=== PATIENT | female | born 1965 | race Caucasian/White ===

== ENCOUNTER 2022-10-05 14:14 | Outpatient (REF) | payer MEDICARE, SELFPAY ==
[2022-10-05 14:40] LABS: Basophils Percent Auto 1.4 % (0.0-3.0); Hematocrit 40.1 % (33.0-51.0); Hemoglobin* 12.8 gm/dL (12.0-16.0); Immature Granulocytes Pct Auto 0.2 %; Lymphocytes Percent Auto 35.5 % (20-44); Mean Corpuscular HGB Conc 32 gm/dL (32-36); Mean Corpuscular Hemoglobin 30 pg (26-34); Mean Corpuscular Volume 94 fL (80-100); Monocytes Percent Auto 11.4 % (0.0-11.0); Neutrophils Percent Auto 48.5 % (42.0-72.0); Platelet Count* 205 K/uL (140-440); RDW Coefficient of Variation % 13.9 % (11.5-15.5); Red Blood Count 4.28 m/uL (4.00-5.20); White Blood Count* 4.39 K/uL (4.50-11.00)
[2022-10-05 14:51] LABS: Slide Review Reflex No
[2022-10-05 15:34] LABS: Albumin* 3.9 g/dL (3.3-5.0)
[2022-10-05 15:36] LABS: Aspartate Amino Transferase* 28 U/L (12-35); Bilirubin Direct* 0.3 mg/dL (0.0-0.5); Bilirubin Total* 0.5 mg/dL (0.1-1.5); Total Protein* 6.3 g/dL (6.0-8.3)
[2022-10-05 15:37] LABS: Alanine Aminotransferase* 25 U/L (4-35); Alkaline Phosphatase* 68 U/L (40-150)
[2022-10-05 16:14] LABS: Ferritin* 16.3 ng/mL (11.1-264.0)
== END 2022-10-05 14:15 | disposition home or self-care (01) ==
LOC: NPINS 14:14
PROVIDERS: PCP Family Medicine; Visit Provider Internal Medicine
DX: G35 Multiple sclerosis (principal)
CPT/HCPCS: 80076; 82728; 85025

== ENCOUNTER 2022-12-26 11:57 | Outpatient (CLI) | payer MEDICARE, SELFPAY ==
[2022-12-26 17:34] LABS: Albumin* 3.7 g/dL (3.3-5.0); Chloride* 107 mmol/L (96-114); Potassium* 4.1 mmol/L (3.6-5.1); Sodium* 138 mmol/L (135-149)
[2022-12-26 17:36] LABS: Cholesterol* 144 mg/dL (90-199)
[2022-12-26 17:37] LABS: Alanine Aminotransferase* 30 U/L (4-35); Alkaline Phosphatase* 60 U/L (40-150); Aspartate Amino Transferase* 33 U/L (12-35); Bilirubin Total* 0.5 mg/dL (0.1-1.5); Blood Urea Nitrogen* 11 mg/dL (7-30); Calcium* 8.6 mg/dL (8.4-10.6); Carbon Dioxide* 27 mmol/L (20-32); Creatinine* 0.6 mg/dL (0.5-1.5); Estimated Glomerular Filt Rate 106 ml/min; Glucose* 85 mg/dL (60-115); HDL Cholesterol* 76 mg/dL (>=50); LDL Cholesterol Calculated 57 mg/dL (<100); Total Protein* 6.2 g/dL (6.0-8.3); Triglycerides* 53 mg/dL (40-149)
== END 2022-12-26 11:58 | disposition home or self-care (01) ==
PROVIDERS: PCP Family Medicine; Visit Provider Family Medicine
DX: R63.4 Abnormal weight loss (principal); Z13.29 Encounter for screening for other suspected endocrine disorder; Z13.6 Encounter for screening for cardiovascular disorders
CPT/HCPCS: 80053; 80061; 84443

== ENCOUNTER 2023-06-21 10:53 | Emergency (ER) | payer MEDICARE, SELFPAY ==
[2023-06-21 11:06] VITALS: BP 119/87; PULSE 67; RESP 16; TEMP 36.7; O2SAT 98; BMI 17.7
--- NOTE | 2023-06-21 11:26 | CRLHL7_ITS ---
For Patients: As a result of the Cures Act, medical imaging exams and procedure reports are released immediately into your electronic medical record. You may view this report before your referring provider. If you have questions, please contact your health care provider. Indication: Injury, pain Technique: Right foot 3 views Comparison: None Findings: Postop changes distal 5th metatarsal. No acute fracture. Soft tissue anchors intact. Osteopenia. Mildly displaced fracture involving the proximal phalanx of the right little toe. Overlying soft tissue swelling. Impression: Acute fracture of the right little toe proximal phalanx. Dictated by Ganesh Daly MD @ 06/21/2023 11:59:22 AM (Electronically Signed)
--- NOTE | 2023-06-21 11:27 | ED_ITS ---
HPI - General Adult General Chief complaint: Extremity Pain/Injury, Lower Stated complaint: R toe injury Time Seen by Provider: 06/21/23 11:06 History of Present Illness HPI narrative: Patient stubbed her right 5th toe on a object yesterday and it was sticking straight up she pushed it back into place. She has had some operative intervention on her 5th metatarsal in the past and had pins placed by her report. Patient reports some bruising at the base of the toe has been painful. No other injuries reported Related Data Home Medications Medication Instructions Recorded Confirmed albuterol sulfate 90 mcg/actuation 2 puff inhalation Q4-6H PRN 07/15/22 06/21/23 aerosol inhaler (Ventolin HFA) cholecalciferol (vitamin D3) 125 125 mcg PO QDAY 07/15/22 06/21/23 mcg (5,000 unit) capsule multivitamin 1 tab PO QAM 07/15/22 06/21/23 oxycodone-acetaminophen 7.5 mg-325 2 tab PO DAILY PRN 07/15/22 06/21/23 mg tablet teriflunomide 14 mg tablet 14 mg PO QDAY 07/15/22 06/21/23 (Aubagio) quetiapine 200 mg tablet 200 mg PO QHS 12/26/22 06/21/23 rizatriptan 10 mg tablet 10 mg PO ONCE PRN 12/26/22 06/21/23 Previous Rx's Medication Instructions Recorded ropinirole 4 mg tablet See Rx Instructions .Route 11/07/22 .COMPLEX #90 tabs dextroamphetamine-amphetamine ER 30 mg PO QDAY #10 caps 12/19/22 30 mg 24hr capsule,extend release celecoxib 200 mg capsule See Rx Instructions .Route 02/06/23 .COMPLEX #90 caps amitriptyline 50 mg tablet 50 mg PO QDAY #90 tabs 02/23/23 trazodone 100 mg tablet 100 mg PO .HS #90 tabs 02/23/23 omeprazole 20 mg capsule,delayed 20 mg PO BID #180 caps 03/01/23 release propranolol 160 mg capsule,24 160 mg PO DAILY #90 caps 03/01/23 hr,extended release dextroamphetamine-amphetamine ER 30 mg PO QAM #30 caps 05/17/23 30 mg 24hr capsule,extend release Allergies Allergy/AdvReac Type Severity Reaction Status Date / Time Opioids - Morphine Analogues Allergy Severe Difficulty Verified 06/21/23 11:09 Breathing tramadol Allergy Intermediate Difficulty Verified 06/21/23 11:09 Breathing bupropion Allergy Mild Nausea Verified 06/21/23 11:09 codeine Allergy Mild Nausea Verified 06/21/23 11:09 Review of Systems Narrative: History of prior operative procedure to the right distal foot on the right 5th metatarsal PFSH PFSH Medical History History of atrial fibrillation without current medication ?Z86.79 - Personal history of other diseases of the circulatory system (ICD- 10) Surgical History Status post gastric bypass for obesity ?Z98.84 - Bariatric surgery status (ICD-10) History of hysterectomy with bilateral oophorectomy ?Z90.710 - Acquired absence of both cervix and uterus (ICD-10) ?Z90.722 - Acquired absence of ovaries, bilateral (ICD-10) History of hand surgery ?Z98.890 - Other specified postprocedural states (ICD-10) History of gastric bypass ?Z98.84 - Bariatric surgery status (ICD-10) History of fusion of lumbar spine ?Z98.1 - Arthrodesis status (ICD-10) History of cholecystectomy ?Z90.49 - Acquired absence of other specified parts of digestive tract (ICD- 10) Family History Mother Family history of malignant neoplasm of breast Social History Smoking Status: Current every day smoker Exam Narrative: Exam Narrative: Objective: Vital signs unremarkable In general no apparent distress Right 5th toe shows bruising at the base normal alignment. There is a surgical scar of the distal 5th metatarsal Const: Vital Signs, click to edit/add: Vital Signs - 24 hr 06/21/23 11:06 Temperature 98.1 F Pulse Rate [Pulse Oximeter] 67 Respiratory Rate 16 Blood Pressure [Ri ght Upper Arm] 119/87 Pulse Oximetry 98 Oxygen Delivery Me thod Room Air Course Vital Signs Vital signs: Initial Vital Signs Temperature 98.1 F 06/21/23 11:06 Temperature Source Temporal Artery Scan 06/21/23 11:06 Pulse Rate 67 06/21/23 11:06 Respiratory Rate 16 06/21/23 11:06 Blood Pressure 119/87 06/21/23 11:06 Blood Pressure Mean 97 06/21/23 11:06 Blood Pressure Position Sitting 06/21/23 11:06 Pulse Oximetry 98 06/21/23 11:06 Oxygen Delivery Method Room Air 06/21/23 11:06 Vital Signs Temperature 98.1 F 06/21/23 11:06 Pulse Rate 67 06/21/23 11:06 Respiratory Rate 16 06/21/23 11:06 Blood Pressure 119/87 06/21/23 11:06 Pulse Oximetry 98 06/21/23 11:06 Oxygen Delivery Method Room Air 06/21/23 11:06 Temperature 98.1 F 06/21/23 11:06 Pulse Rate 67 06/21/23 11:06 Respiratory Rate 16 06/21/23 11:06 Blood Pressure 119/87 06/21/23 11:06 Pulse Oximetry 98 06/21/23 11:06 Oxygen Delivery Method Room Air 06/21/23 11:06 Medical Decision Making MDM Narrative Medical decision making narrative: Patient will get an x-ray of the right foot and right 5th toe. Rule out fracture. Will get crutches, will need nonweightbearing icing would use ibuprofen or Tylenol for couple of days elevation. Addendum: Patient has what appears to be a nondisplaced proximal phalanx fracture by my read. Will await Radiology read. Patient should be nonweightbearing, crutches, Tylenol as needed. She should continue her Celebrex.. She has significant allergy to all opioids, but she is already on oxycodone acetaminophen 7.5 mg 2 tabs p.o. daily as needed. I would stay with that, nonweightbearing and icing. Follow up with primary care in the next 5-6 days. Discharge Plan Discharge Clinical Impression: Closed fracture of phalanx of right fifth toe Patient Disposition: Home w/ Parent or Adult Prescriptions: No Action quetiapine 200 mg tablet 200 mg PO QHS rizatriptan 10 mg tablet 10 mg PO ONCE PRN Patient Comments: TAKE 1 TABLET BY MOUTH ONCE . MAY REPEAT AT 2 HOUR INTERVALS. DO NOT EXCEED 30 MG IN 24 HOURS albuterol sulfate [Ventolin HFA] 90 mcg/actuation HFA aerosol inhaler 2 puff inhalation Q4-6H PRN oxycodone-acetaminophen 7.5-325 mg tablet 2 tab PO DAILY PRN Rx Instructions: prescribed by Krystyna at [facility] Aubagio 14 mg tablet 14 mg PO QDAY cholecalciferol (vitamin D3) 125 mcg (5,000 unit) capsule 125 mcg PO QDAY multivitamin Tablet 1 tab PO QAM ropinirole 4 mg tablet See Rx Instructions .ROUTE .COMPLEX Qty: 90 3RF Dose Instruction: TAKE 1 TABLET BY MOUTH AT BEDTIME Rx Instructions: TAKE 1 TABLET BY MOUTH AT BEDTIME dextroamphetamine-amphetamine 30 mg capsule,extended release 24hr 30 mg PO QDAY Qty: 10 0RF celecoxib 200 mg capsule See Rx Instructions .ROUTE .COMPLEX Qty: 90 1RF Dose Instruction: TAKE 1 CAPSULE BY MOUTH DAILY Rx Instructions: TAKE 1 CAPSULE BY MOUTH DAILY amitriptyline 50 mg tablet 50 mg PO QDAY Qty: 90 3RF trazodone 100 mg tablet 100 mg PO .HS Qty: 90 3RF omeprazole 20 mg capsule,delayed release(DR/EC) 20 mg PO BID Qty: 180 3RF propranolol 160 mg capsule,extended release 24 hr 160 mg PO DAILY Qty: 90 3RF dextroamphetamine-amphetamine 30 mg capsule,extended release 24hr 30 mg PO QAM Qty: 30 0RF Follow Up/Referrals: Kenneth Pantoja MD [Primary Care Provider] - Stand Alone Forms: [employer] Info Instructions
--- OUTSIDE RECORDS SUMMARY | 2023-06-21 11:52 | XMS_ITS | Continuity of Care Document ---
Author Name Unknown Organization [facility] Address [address] [place] [address] Care Team Providers Care Sales Representative Facility Services Name Role Phone [facility] Unavailable Unav ailable Procedures Procedure Date IMPLANT NEUROELECTRODES IMPLANT NEUROELECTRODES Implt neurostim elctr each IMPLANT NEUROELECTRODES Advance Directives Directive Yes / No Effective Date File Name No Information Encounters Encounter Description Practice Location Reason(s) For Visit Diagnoses Date Provider Providers Copied on Encounter [facility], [address] [place], [place], [id number], [facility] No Information [facility]. [address] [place], [place], [id number], . tel:[phone] Referring Provider: Aurelia Barriga, [address] [place], [address]. tel:[phone] Family History Family Member Type Diagnosis Age At Onset No Information Payers Payer name Insurance type Covered alliance party ID Authoriza tievie(s) AARP MedicareComplete Replacement [id number] [facility] [id number] Social History Type Description Quantity Date Captured Comments Sex Female Smoking Status No Information Chief Complaint And Reason For Visit No Information Reason For Referral Reason For Referral No Information History Of Present Illness Encounter Date Complaint History Of Prese nt Illness No Information Functional Status Date Functional Assessmen t No Information Instructions Date Instruction Additional Infor mation No Information Assessments Type Assessment Date No Information Patient Care Teams Name Effective Dates (start - stop) Status Members No Information
--- OUTSIDE RECORDS SUMMARY | 2023-06-21 11:52 | XMS_ITS | Continuity of Care Document ---
Author Name Unknown Organization [facility] Address [address] [place] [address] Care Team Providers Care Cloth Measurer Machine Name Role Phone Edwar Epstein CRNA Unavailable Unavailabl e Procedures Procedure Date ANESTH PERC IMG TX SP PROC Advance Directives Directive Yes / No Effective Date File Name No Information Encounters Encounter Description Practice Location Reason(s) For Visit Diagnoses Date Provider Providers Copied on Encounter [facility], [address] [place], [place], [id number], [facility] Mary D No Information Tete Vann. [address] [place], [place], [id number], . tel:[phone] Referring Provider: Aurelia Barriga, [address] [place], [address] . tel:[phone] Family History Family Member Type Diagnosis Age At Onset No Information Payers Payer name Insurance type Covered green party ID Authoralvareza randa(s) [facility] MedicareComplete Replacement [id number] Social History Type Description Quantity Date Captured [...]
--- OUTSIDE RECORDS SUMMARY | 2023-06-21 11:52 | XMS_ITS | Continuity of Care Document ---
Author Name Unknown Organization [facility] .NET ARCHITECT [facility] Address [address] [place] [address] Care Team Providers Care Hamper Maker Machine Name Role Phone Nurse, Nurse Unavailable Unavailable Allergies, Adverse Reactions, Alerts Substance Reaction Status Criticality ibuprofen RashHives Active No Information morphine DifficultyBreathing Active No Infor mation latex RashHives Active No Information codeine RashHives Active No Information morphine RashHives, Swelling, ItchyEyes, Active No Information BUPROPION HCL Active No Information tramadol Active No Information morphine Active No Information codeine Active No Information Medications Medication Instructions Dosage Effective Dates (start - stop) Status Comments omeprazole 20 mg capsule,delayed release take 1 capsule by oral route 2 times every day before a meal 20 MG - Active propranolol ER 80 mg capsule,24 hr,extended release TAKE 1 CAPSULE BY MOUTH EVERY DAY - Active Proventil HFA 90 mcg/actuation aerosol inhaler inhale 2 puff by inhalation route every 4 - 6 hours as needed - Active neomycin-polymyxin -hydrocort 3.5 mg/mL-10,000 unit/mL-1 % ear solution instill 4 drop by otic route 3 times every day into left ear(s) for 10 days - Active EpiPen 2-Lloyd 0.3 mg/0.3 mL injection, auto-injector inject 0.3 milliliter by intramuscular route once as needed for anaphylaxis 0.3 MG - Active quetiapine 200 mg tablet TAKE 2 1/2 TABLET AT BEDTIME - Active albuterol sulfate 2.5 mg/3 mL (0.083 %) solution for nebulization inhale 3 milliliter by nebulization route every 4 to 6 hours as needed - Active Aubagio 14 mg tablet take 1 tablet by oral route every day 14 MG - Active ropinirole 1 mg tablet TAKE 2 TABLET BY ORAL ROUTE ONCE 2 MG - Active Fioricet 50 mg-300 mg-40 mg capsule take 1 - 2 capsule by oral route every 8 hours as needed not to exceed 6 capsules per 24hrs 1-2 capsule - Active modafinil 200 mg tablet take 1 tablet by oral route every day in the morning 200 MG - Active trazodone 50 mg tablet take 2 tablet by oral route every day 100 MG - Active tizanidine 2 mg tablet take 1 tablet by oral route every 8 hours as needed not to exceed 3 doses in 24 hours 2 MG - Active Narcan 4 mg/actuation nasal spray spray 0.1 milliliter by intranasal route in 1 nostril may repeat dose every 2-3 minutes as needed alternating nostrils with each dose 4 MG - Active clobetasol 0.05 % topical ointment apply by topical route 2 times every day a thin layer to the affected area(s) 0.00 - Active Provigil 100 mg tablet take 2 tablet by oral route every day in the morning 200 MG - Active Rx by neuro oxycodone-acetamin ophen 5 mg-325 mg tablet take 1 tablet by oral route every 8 hours as needed 1 tablet - Active multivitamin tablet take 1 tablet by oral route every day with food - Active VITAMIN D3 (unknown strength) Not Available - Active Zantac 150 mg tablet take 1 tablet by oral route 2 times every day - Active Allergy Relief (cetirizine) 10 mg tablet take 1 tablet by oral route every day 10 MG - Active Procedures Procedure Date MED LIST DOCD IN [facility] TOBACCO USE, SMOKING, ASSESS CURRENT TOBACCO SMOKER Expanded Visit Low Complex CO19 020 Void Encounter AMNT PAIN NOTED; NONE PRSNT MED LIST DOCD IN [facility] DEPRESSION SCREENING TOBACCO USE, SMOKING, ASSESS CURRENT TOBACCO SMOKER SYST BP LT 130 MM HG DIAST BP < 80 MM HG OFFICE/OUTPATIENT VISIT, EST COMPREHEN METABOLIC PANEL LIPID PANEL CBC W/AUTO DIFF WBC ELECTROCARDIOGRAM, COMPLETE PROTHROMBIN TIME IN HOUSE Other Health OFFICE/OUTPATIENT VISIT, EST ROUTINE VENIPUNCTURE MED LIST DOCD IN [facility] DEPRESSION SCREENING TOBACCO USE, SMOKING, ASSESS CURRENT TOBACCO SMOKER SYST BP GE 130 - 139MM HG DIAST BP 80-89 MM HG AMNT PAIN NOTED; PAIN PRSNT OFFICE/OUTPATIENT VISIT, EST AMNT PAIN NOTED; PAIN PRSNT MED LIST DOCD IN [facility] DEPRESSION SCREENING SYST BP LT 130 MM HG DIAST BP < 80 MM HG TOBACCO USE, SMOKING, ASSESS TOBACCO NON-USER URINE CULTURE REFERRAL LABCOLONY COUNT R OUTINE URINALYSIS NONAUTO W/O SCOPE AMNT PAIN NOTED; PAIN PRSNT MED LIST DOCD IN [facility] TOBACCO USE, SMOKING, ASSESS CURRENT TOBACCO SMOKER SYST BP LT 130 MM HG DIAST BP < 80 MM HG OFFICE/OUTPATIENT VISIT, EST DIAST BP < 80 MM HG SYST BP LT 130 MM HG ADVNC CARE PLAN TLK DOCD TOBACCO NON-USER TOBACCO USE, SMOKING, ASSESS CURRENT TOBACCO SMOKER DEPRESSION SCREENING MED LIST DOCD IN RD AMNT PAIN NOTED; NONE PRSNT OFFICE/OUTPATIENT VISIT, EST AMNT PAIN NOTED; NONE PRSNT MED LIST DOCD IN RD DEPRESSION SCREENING TOBACCO USE, SMOKING, ASSESS CURRENT TOBACCO SMOKER ADVNC CARE PLAN TLK DOCD SYST BP LT 130 MM HG DIAST BP < 80 MM HG OFFICE/OUTPATIENT VISIT, EST Fecal blood Hemosure scrn assay 018 AMNT PAIN NOTED; NONE PRSNT MED LIST DOCD IN [facility] DEPRESSION SCREENING TOBACCO USE, SMOKING, ASSESS CURRENT TOBACCO SMOKER Hemosure FBOT Test Kit Given SYST BP LT 130 MM HG DIAST BP < 80 MM HG OFFICE/OUTPATIENT VISIT, EST CURRENT TOBACCO SMOKER DEPRESSION SCREENING FALL RISK ASSESSMENT DOC'D SYST BP LT 130 MM HG DIAST BP < 80 MM HG OFFICE/OUTPATIENT VISIT, EST OFFICE/OUTPATIENT VISIT, EST UA For [facility] Preventive VISUAL ACUITY SCREEN PURE TONE HEARING TEST, AIR CURRENT TOBACCO SMOKER AMNT PAIN NOTED; NONE PRSNT DEPRESSION SCREENING FALL RISK ASSESSMENT DOC'D SYST BP LT 130 MM HG DIAST BP < 80 MM HG TOBACCO USE, SMOKING, ASSESS CURRENT TOBACCO SMOKER AMNT PAIN NOTED; PAIN PRSNT ADVNC CARE PLAN TLK DOCD MED LIST DOCD IN [facility] DEPRESSION SCREENING SYST BP LT 130 MM HG DIAST BP < 80 MM HG [place] MA AWV TRACKING [facility] PPS,initial Vi sit OFFICE/OUTPATIENT VISIT, EST CURRENT TOBACCO SMOKER AMNT PAIN NOTED; PAIN PRSNT DEPRESSION SCREENING FALL RISK ASSESSMENT DOC'D SYST BP LT 130 MM HG DIAST BP < 80 MM HG OFFICE/OUTPATIENT VISIT, EST SBIRT SCREEN NEGATIVE Other Health CURRENT TOBACCO SMOKER SYST BP LT 130 MM HG DIAST BP < 80 MM HG AMNT PAIN NOTED; PAIN PRSNT DEPRESSION SCREENING CULTURE, BACTERIA, OTHER AEROBIC BACTERI AL OFFICE/OUTPATIENT VISIT, EST Other Health OFFICE/OUTPATIENT VISIT, EST Other Health TOBACCO USE, SMOKING, ASSESS CURRENT TOBACCO SMOKER AMNT PAIN NOTED; NONE PRSNT MED LIST DOCD IN RD FALL RISK ASSESSMENT DOC'D SYST BP LT 130 MM HG DIAST BP < 80 MM HG OFFICE/OUTPATIENT VISIT, NEW Routine Venipuncture Temp Fix 7 SBIRT SCREEN NEGATIVE Other Health COMPREHEN METABOLIC PANEL CBC W/AUTO DIFF WBC TOBACCO USE, SMOKING, ASSESS CURRENT TOBACCO SMOKER AMNT PAIN NOTED; NONE PRSNT MED LIST DOCD IN RD SYST BP LT 130 MM HG DIAST BP < 80 MM HG FALL RISK ASSESSMENT DOC'D DEPRESSION SCREENING Routine Venipuncture Temp Fix 7 Void Encounter Advance Directives Directive Yes / No Effective Date File Name No Information Encounters Encounter Description Practice Location Reason(s) For Visit Diagnoses Date Provider Providers Copied on Encounter [facility], [address] [place] [address], [id number] , [facility] No Information 0 Nurse Nurse. . [facility] [place], [address] [place] [address], [id number] , [facility] F/U Chronic conditions (chief complaint) Tobacco useBipolar disorder, current episode depressed, moderateNeoplasm of skinOtitis externa 0 Wayne Underwood. [facility] [place], [id number]. tel:[phone] Referring Provider: Yasmine Black, [facility] [place], [address]. tel:[phone] [facility] [place], [address] [place] [address], [id number] , [facility] No Information 0 Alberto Sun. [facility] [place], [id number]. tel:[phone] Referring Provider: Corinne Dominguez, [facility] [place], [address]. tel:[phone] OFFICE/OUTPA TIENT VISIT, [facility], [address] [place] [address], [id number] , [facility] Chronic condition f/u (chief complaint) Tobacco useBody mass index (BMI) 24.0-24.9, adultDietary counseling and surveillanceExer cise counselingBipola r disorder, current episode depressed, moderateMultiple sclerosisGERD w/o esophagitisBee allergy statusPalpitatio nsCOPDNeoplasm of skinOtitis externa 0 Wayne Underwood. [facility] [place], [id number]. tel:[phone] Referring Provider: Yasmine Black, [facility] [place], [address]. tel:[phone] [facility] [place], [address] [place] [address], [id number] , [facility] No Information 0 Wayne Yasmine. [address] [place] [address], [id number]. tel:[phone] Referring Provider: Yasmine Black, [address] [place] [address], [address]. tel:[phone] OFFICE/OUTPA TIENT VISIT, [facility], [address] [place] [address], [id number] , [facility] [place] [facility] Pre-op clearance (chief complaint) Tobacco useBody mass index (BMI) 23.0-23.9, adultPain in right footEncounter for preprocedural examinationWell adult exam w/o abnormal findingDietary counseling and surveillanceExer cise counselingCardia c murmur, unspecified 0 Wayne Hudsonher. [address] [place] [address], [id number]. tel:[phone] Referring Provider: Yasmine Black, [address] [place] [address], [address]. tel:[phone] [facility] [place], [address] [place] [address], [id number] , [facility] [place] No Information [facility]. [address], [id number], [place]. tel:[phone] OFFICE/OUTPA TIENT VISIT, [facility], [address] [place] [address], [id number] , [place] [facility] [place] [facility] ER f/u (chief complaint) Body mass index (BMI) 23.0-23.9, adultEncounter for screening for lipoid disordersPneumon ia, unspecified organismCOPDDiet john counseling and surveillanceExer cise counselingDietar y counseling and surveillanceExer cise counseling 9 Wayne Underwood. [address] [place] [address], [id number]. tel:[phone] Referring Provider: Yasmine Black, [address] [place] [address], [address]. tel:[phone], [id number] , [facility] No Information [facility]. [address] [place] [address], [id number]. tel:[phone] Referring Provider: Yasmine Black, [address] [place] [address], [id number]. tel:[phone] OFFICE/OUTPA TIENT VISIT, [address], [id number] , [facility] Dysuria (chief complaint) Personal history of nicotine dependenceDysuri aBody mass index (BMI) 23.0-23.9, adultDietary counseling and surveillanceExer cise counselingCardia c murmur, unspecifiedPalpi tations [facility]. [address] [place] [address], [id number]. tel:[phone] Referring Provider: Yasmine Black, [address] [place] [address], [address]. tel:[phone] OFFICE/OUTPA TIENT VISIT, [facility], [address] [place] [address], [id number] , [facility] Candace c/o lump under right eye (chief complaint) Body mass index (BMI) 22.0-22.9, adultSebaceous cyst May- 9 Letty Figueroa. [address], [id number], [place]. tel:[phone] Referring Provider: Carolina Sanez, [address], [address]. tel:[phone] OFFICE/OUTPA TIENT VISIT, [facility], [address] [place] [address], [id number] , [facility] Candace c/o sore on arms (chief complaint) Body mass index (BMI) 22.0-22.9, adultSeborrheic keratosis 0-201 9 Letty Figueroa. [address], [id number], [place]. tel:[phone] Referring Provider: Carolina Saenz, [address], [address]. tel:[phone] [facility], [address] [place] [address], [id number] , [facility] [place] Maria Encounter for screening for cancer of colonOccult blood in stoolsHepatic cyst 0201 8 Nurse Nurse. . Referring Provider: Carolina Saenz, [address], [address]. tel:[phone] OFFICE/OUTPA TIENT VISIT, [facility], [address] [place] [address], [id number] , [facility] Candace c/o stomach issues (chief complaint) Body mass index (BMI) 21.0-21.9, adultNausea with vomiting, unspecified 9-201 8 Letty Figueroa. [address], [id number], [place]. tel:[phone] Referring Provider: Carolina Saenz, [address], [address]. tel:[phone] [facility], [address] [place] [address], [id number] , [facility] Candace No Information 8-201 8 Letty Figueroa. [address], [id number], . tel:[phone] [facility], [address] [place] [address], [id number] , [place] [facility] Candace No Information Letty Figueroa. [address], [id number], [place]. tel:[phone] OFFICE/OUTPA TIENT VISIT, [facility], [address] [place] [address], [id number] , [facility] Candace needs referral (chief complaint) Hepatic cyst Letty Figueroa. [address], [id number], [place]. tel:[phone] Referring Provider: Carolina Saenz, [address], [address]. tel:[phone] OFFICE/OUTPA TIENT VISIT, [facility], [address] [place] [address], [id number] , [facility] [place] No Information Letty Figueroa. [address], [id number], [place]. tel:[phone] Referring Provider: Carolina Saenz, [address], [address]. tel:[phone] [facility], [address] [place] [address], [id number] , [facility] Candace . (chief complaint) Encntr for general adult medical exam w/o abnormal findingsEncounte r for screening for eye and ear disordersEncount er for exam of eyes and vision w abnormal findingsEncounte r for exam of ear w/o abnormal findingPlantar wartMultiple sclerosisBody mass index (BMI) 22.0-22.9, adult Letty Figueroa. [address], [id number], [place]. tel:[phone] Referring Provider: Carolina Saenz, [address], [address]. tel:[phone], [id number] , [facility] No Information 8 Letty Donatoos. [address], [id number], . tel:[phone] Referring Provider: Carolina Saenz, [address], [address]. tel:[phone] [facility], [address] [place] [address], [id number] , [facility] medicare preventive (chief complaint) Body mass index (BMI) 22.0-22.9, adult Letty Donatoos. [address], [id number], . tel:[phone] Referring Provider: Carolina Saenz, [address], [address]. tel:[phone] OFFICE/OUTPA TIENT VISIT, [facility], [address] [place] [address], [id number] , [facility] No Information Saenz Carolina. [address], [id number], [place]. tel:[phone] Referring Provider: Carolina Saenz, [address], [address]. tel:[phone] [facility], [address] [place] [address], [id number] , [facility] c/o headaches (chief complaint) Multiple sclerosisHeadach e 8 Saenzsergio Dontaoos. [address], [id number], . tel:[phone] Referring Provider: Carolina Saenz, [address], [address]. tel:[phone] [facility], [address] [place] [address], [id number] , [facility] Candace Multiple sclerosisChronic fatigue, unspecified Apr-1 8-201 8 Letty Donatoos. [address], [id number], [place]. tel:[phone] OFFICE/OUTPA TIENT VISIT, [facility], [address] [place] [address], [id number] , [place] [facility] Candace No Information Jan-2 8 Saenz Carolina. [address], [id number], [place]. tel:[phone] Referring Provider: Carolina Saenz, [address], [address]. tel:[phone] [facility], [address] [place] [address], [id number] , [place] [facility] [place] Maria wants referral. (chief complaint) Body mass index (BMI) 23.0-23.9, adultOtalgia, left ear Mar-2 3 8 Letty Donatoos. [address], [id number], [place]. tel:[phone] Referring Provider: Carolina Saenz, [address], [address]. tel:[phone] [facility], [address] [place] [address], [id number] , [facility] Candace No Information Oct- 7 Letty Donatoos. [address], [id number], [place]. tel:[phone] OFFICE/OUTPA TIENT VISIT, [facility], [address] [place] [address], [id number] , [facility] left ear pain (chief complaint) Body mass index (BMI) 22.0-22.9, adultOtalgia, left earOtitis media, unspecified, left ear Dec-2 Saenz Carolina. [address], [id number], [place]. tel:[phone] OFFICE/OUTPA TIENT VISIT, [facility], [address] [place] [address], [id number] , [facility] No Information Letty Figueroa. [address], [id number], [place]. tel:[phone] Referring Provider: Carolina Saenz, [address], [address]. tel:[phone] [facility], [address] [place] [address], [id number] , [facility] stomach issues (chief complaint) Body mass index (BMI) 22.0-22.9, adultEncounter for other administrative examinationsDiar rheaGastric bypass status for obesityLower abdominal pain, unspecifiedNicot ine dependence Jul- Letty Figueroa. [address], [id number], [place]. [phone] Referring Provider: Carolina Saenz, [address], [address]. [phone] OFFICE/OUTPA TIENT VISIT, [facility], [address] [place] [address], [id number] , [facility] [place] [facility] No Information Derrick Andersen. [facility] [place], [id number], [place]. [phone] Referring Provider: Ganesh Meza, [facility] [place], [address]. tel:[phone], [id number] , [facility] No Information 0 7 Derrick Andersen. [address] [place] [address], [id number], . tel:[phone] Referring Provider: Ganesh Meza, [address] [place] [address], [address]. tel:[phone], [id number] , [facility] [place] [facility] Diarrhea (chief complaint)E stablishmen t Visit (chief complaint) Encounter for other administrative examinationsBody mass index (BMI) 21.0-21.9, adultPersonal history of nicotine dependenceDiarrh eaAbnormal weight lossCOPDDepressi on Derrick Andresen. [address] [place] [address], [id number], . tel:[phone] Referring Provider: Ganesh Meza, [address] [place] [address], [address]. tel:[phone], [id number] , [facility] [place] [facility] No Information 0 7 Letty Figueroa. [address], [id number], . tel:[phone] Referring Provider: Carolina Saenz, [address], [address]. tel:[phone] Family History Family Member Type Diagnosis Age At Onset Problem (finding) Family history of breas t cancer Father Problem (finding) Allergies Brother Problem (finding) Migraines Mother Problem (finding) Hypertension Mother Problem (finding) Arthritis Mother Problem (finding) Allergies Brother Problem (finding) Allergies Problem (finding) Family history of hyper tension Brother Problem (finding) Alcoholism Mother Problem (finding) Cardiovascular disease Problem (finding) Family history of Cardi ovascular disease Mother Problem (finding) Migraines Father Problem (finding) Arthritis Mother Problem (finding) Alcoholism Father Problem (finding) Cardiovascular disease Father Problem (finding) Alcoholism Payers Payer name Insurance type Covered republican ID Ramona tolentino(s) Slide E 09 Social History Type Description Quantity Date Captured Comments Alcohol Use Details Unknown Caffeine Use Details Unknown Tobacco Use Status Smoking Status No Information Sex Female Chief Complaint And Reason For Visit No Information Reason For Referral Reason For Referral No Information Plan Of Treatment Date Type Action Status Goal Influenza vaccine. Due on due Goal FOBT. Due on due Goal Mammogram. Due on 8 due Goal Depression screening. Due on due Goal Tdap. Due on due Goal Td vaccine. Due on 20 due Goal Zoster vaccine (). Due on due Goal Colonoscopy. Due on due Goal Colonoscopy. Due on due Goal Mammogram. Due on 8 due Goal Depression screening. Due on due Goal FOBT. Due on due Goal Zoster vaccine (1st). Due on due Goal Td vaccine. Due on 20 due Goal Tdap. Due on due Goal Influenza vaccine. Due on due Goal FOBT. Due on due Goal Depression screening. Due on due Goal Mammogram. Due on 8 due Goal Colonoscopy. Due on due Goal Tobacco cessation counseling completed Goal Colonoscopy. Due on due Goal Mammogram. Due on 8 due Goal Depression screening. Due on due Goal FOBT. Due on due Goal Lifestyle education regardin g diet completed Goal Tobacco cessation counseling completed Goal Zoster vaccine (1st). Due on due Goal Depression screening. Due on due Goal Mammogram. Due on 9 due Goal Colonoscopy. Due on due Goal Tobacco cessation counseling completed Goal Lifestyle education regardin g diet completed Goal Colonoscopy. Due on due Goal Mammogram. Due on 9 due Goal Depression screening. Due on due Goal Tobacco cessation counseling completed Goal Lifestyle education regardin g diet completed Goal Depression screening. Due on due Goal Mammogram. Due on 9 due Goal Pap/HPV testing. Due on due Goal Colonoscopy. Due on due Goal Lipid panel. Due on due Goal Lifestyle education regardin g diet completed Goal Tobacco cessation counseling completed Goal Lipid panel. Due on due Goal Pap/HPV testing. Due on due Goal Colonoscopy. Due on due Goal Mammogram. Due on 9 due Goal Depression screening. Due on due Goal Lifestyle education regardin g diet completed Goal Mammogram. Due on 9 due Goal Depression screening. Due on due Goal Colonoscopy. Due on due Goal Pap/HPV testing. Due on due Goal Lipid panel. Due on due Goal Lifestyle education regardin g diet completed Goal Lipid panel. Due on due Goal Pap/HPV testing. Due on due Goal Colonoscopy. Due on due Goal Depression screening. Due on due Goal Mammogram. Due on due Goal Mammogram. Due on due Goal Depression screening. Due on due Goal Pap/HPV testing. Due on due Goal Lipid panel. Due on due Goal Lifestyle education regardin g diet completed Goal Mammogram. Due on due Goal Pap/HPV testing. Due on due Goal Depression screening. Due on due Goal Colonoscopy. Due on due Goal Lipid panel. Due on due Goal Pap/HPV testing. Due on due Goal Colonoscopy. Due on due Goal Lipid panel. Due on due Goal Mammogram. Due on due Goal Depression screening. Due on due Goal Colonoscopy. Due on due Goal Pap/HPV testing. Due on due Goal Lipid panel. Due on due Goal Depression screening. Due on due Goal Mammogram. Due on due Goal Colonoscopy. Due on due Goal Pap/HPV testing. Due on due Goal Lipid panel. Due on due Goal Depression screening. Due on due Goal Mammogram. Due on due Goal Pap/HPV testing. Due on due Goal Colonoscopy. Due on due Goal Lipid panel. Due on due Goal Depression screening. Due on due Goal Mammogram. Due on 9 due Goal Lifestyle education regardin g diet completed Goal Pap/HPV testing. Due on due Goal Colonoscopy. Due on due Goal Lipid panel. Due on due Goal Mammogram. Due on due Goal Depression screening. Due on due Goal Pap/HPV testing. Due on due Goal Colonoscopy. Due on due Goal Lipid panel. Due on due Goal Mammogram. Due on due Goal Depression screening. Due on due Goal Pap/HPV testing. Due on due Goal Colonoscopy. Due on due Goal Lipid panel. Due on due Goal Depression screening. Due on due Goal Mammogram. Due on due Goal Lifestyle education regardin g diet completed Goal Tobacco cessation counseling completed Goal Lipid panel. Due on 017 due Goal Colonoscopy. Due on 027 due Goal Pap/HPV testing. Due on due Goal Lifestyle education regardin g diet completed Goal Lipid panel. Due on 017 due Goal Influenza vaccine. Due on due Goal Td vaccine. Due on 17 due Goal Tdap. Due on due Goal Pap/HPV testing. Due on due Goal Dietary manageme nt education, guidance, and counseling completed Goal Pap/HPV testing. Due on due Goal Tdap. Due on due Goal Lipid panel. Due on due Goal Td vaccine. Due on 17 due Goal Influenza vaccine. Due on due Goal Lifestyle education regardin g diet completed Referral Ordered: Referrals: Psychiatry. Evaluate and treat ordered Referral Ordered: Referrals: Dermatology. Evaluate and treat ordered Referral Referred To: [facility] [address] [place] [address] [address] [place], [address] [phone] Ordered: Referrals: Psychiatry. [facility]. Evaluate and treat ordered Referral Referred To: [facility] [address], [address] [phone] Ordered: Referrals: Dermatology. [facility]. Evaluate and treat ordered Referral Ordered: Cardiology (related to Cardiac murmur, unspecified) ordered Referral Referred To: [facility] [address], [address] [phone] Ordered: Referrals: e -Cardiology. [facility]. Evaluate and treat ordered Referral Ordered: Referrals: Cardiology. Evaluate and treat ordered Referral Ordered: Plastic Surgery (related to Sebaceous cyst) ordered Referral Ordered: Plastic Surgery (related to Sebaceous cyst) ordered Referral Referred To: [facility] [address] [place], [address] [phone] Ordered: Referrals: Plastic Surgery. [facility]. Evaluate and treat ordered Referral Ordered: Referrals: Plastic Surgery. Evaluate and treat ordered Referral Ordered: Referrals: Plastic Surgery ordered Referral Ordered: Dermatology (related to Seborrheic keratosis) ordered Referral Referred To: [facility] [address] [place], [address] [phone] Ordered: Referrals: Dermatology. [facility]. Evaluate and treat ordered Referral Referred To: Hector Alejandre MD [address] [place], [address] [phone] Ordered: Referrals: Dermatology. eHctor Alejandre MD. Evaluate and treat ordered Referral Ordered: Referrals: Dermatology ordered Referral Ordered: Gastroenterology (related to Occult blood in stools) ordered Referral Ordered: Gastroenterology (related to Hepatic cyst) ordered Referral Referred To: [facility] [address], [address] [phone] Ordered: Referrals: Gastroenterology. [facility]. Evaluate and treat ordered Referral Ordered: Shelli Aguila -Podiatric Medicine & Surgery Service Providers : Ticker Wirer (related to Plantar wart) ordered Referral Ordered: Mark Waggoner -Podiatric Medicine & Surgery Service Providers : Ticker Wirer (related to Plantar wart) ordered Referral Ordered: Podiatry (related to Plantar wart) ordered Referral Referred To: Mark Waggoner DPM [address], [place], [address] [phone] Ordered: Referrals: Podiatry. Mark Waggoner DPM. Evaluate and treat ordered Referral Referred To: [facility] [address] [place], [address] [phone] Ordered: Referrals: Podiatry. [facility]. Evaluate and treat ordered Referral Referred To: Shelli Aguila [address] [place], [place], [id number] [phone] Ordered: Referrals: Podiatric Medicine & Surgery Service Providers : Ticker Wirer. Shelli Aguila. Evaluate and treat ordered Referral Ordered: Referrals: Podiatry ordered Referral Referred To: Mark Waggoner [address], [address] [phone] Ordered: Referrals: Podiatric Medicine & Surgery Service Providers : Ticker Wirer. Mark Waggoner. Evaluate and treat ordered Referral Ordered: Pain Medicine (related to Headache) ordered Referral Ordered: RICA CARRERA -Allopathic & Osteopathic Physicians : Physical Medicine & Rehabilitation (related to Headache) ordered Referral Referred To: [facility] [address] [place], [address] [phone] Ordered: Referrals: Pain Medicine. [facility]. Evaluate and treat ordered Referral Referred To: RICA CARRERA Ordered: Referrals: Allopathic & Osteopathic Physicians : Physical Medicine & Rehabilitation. RICA CARRERA. Evaluate and treat ordered Referral Ordered: Referrals: Pain Medicine ordered Referral Ordered: Otolaryngology (related to Otalgia, left ear) ordered Referral Ordered: Otolaryngology (related to Otalgia, left ear) ordered Referral Referred To: [facility] [address] [place], [address] [phone] Ordered: Referrals: Otolaryngology. [facility]. Evaluate and treat ordered Referral Ordered: Referrals: Otolaryngology ordered Referral Ordered: Referrals: Otolaryngology. Evaluate and treat ordered Referral Ordered: Gastroenterology (related to Gastric bypass status for obesity) ordered Referral Referred To: [facility] [address] [facility],[address] [place], [address] [phone] Ordered: Referrals: Gastroenterology. [facility]. Evaluate and treat ordered Referral Ordered: Referrals: Gastroenterology ordered Patient Education Allergies: After Your V isit completed History Of Present Illness Encounter Date Complaint History Of Prese nt Illness F/U Chronic conditions Skin lesi ons - Went to derm in interim and had biopsy of lesion near elbow and told by derm it was possibly cancerous. Should have results in a week or so. Clobetazole given to use for 2 weeks, take a break for 2 days, and then do again for 2 weeks. No f/u appt w/ them yet. States biopsy site is not draining anything or any increased pain. She does feel other lesions are less bothersome and responding well to cream. Bipolar depression - States her mood has been okay in interim. Has been staying busy and doing a lot of outdoor activities, doing more painting and drawing again and this has helped. Has not had f/u w/ psych yet. Planning to go see family in [place] for about a month soon and is looking forward to this. Denies SI.OE - Ear is much better, like she never had an issue w/ it. No longer itching or bothering her. No drainage from ear. F/U Chronic conditions (comments ) Begin Time 1:06 p.m.:The patient understands I recommended engaging in a telehealth appointment and was explained alternatives and limitations to a telehealth appointment. The patient read and signed a consent document, verbally agrees and understands the risks and benefits of the telehealth appointment. Questions about the telehealth conference and consent form were explained. The patient understands and agrees that this conversation may contain personal health information and acknowledges the privacy policies of [facility]. I am currently at the office in a private setting. My understanding is that you are at your residence. Is there anyone in the room with you? Patient stated she is at home by herself and would like to proceed with visit. Chronic condition f/u (comments) Also mutliple recurrent skin lesions to bilat arms, will come and go and scar and some will linger. Started in August. Chronic condition f/u MS - Follo ws w/ neurology. Takes Aubagio 14 mg/day. Feels like sometimes she still has no energy and is sluggish but feels this is stable overall.Bipolar disorder and insomnia - Takes meds consistently. Feels a little on edge lately. Feels more down/depressed lately r/t COVID-19 and having to cancel trips. Not doing art like she normally would. Disinterest in normal activities she would enjoy. Denies SI. States not really sleeping that well. Wakes up around 4-5 a.m. every day. Neuro prescribes quetiapine and trazodone. States is also on Provigil ordered by neuro to help w/ energy w/ MS.GERD - Takes omeprazole BID secondary to heartburn and to protect stomach w/ meds. States symptoms are well controlled and she doesn't feel heartburn when takes med regularly. Denies abd pain, N/V.Also condones having incident w/ trouble breathing after being stung by a bee before and asking about Epi pen just in case. COPD - Rarely uses rescue inhaler. Has cut back on smoking a lot. Was on about 1 pack/day, now about 1/2 pack/day.Has heart murmur and told there was problem w/ one of her heart valves - states it balloons out some but nothing serious and doesn't need intervention. States used to have palpitations but no issues w/ this since being on propranolol. Pre-op clearance Pt presents for pre-op clearance for surgery on right foot. Pt has had pain in R foot since 2014. She states there is a bone twisted in this area and they are going to address ths. Pt thought was r/t stepping on nail many years prior but is not r/t this. Pre-op papers indicate she will have R foot osteotomy or 5th mpj. Denies recent illness or fever. No recent travel. Denies nausea, vomiting, diarrhea. Pt has already received pre-op clearance from cardio. Has had surgery many times before and never had any complications with anesthesia. ER f/u [facility] - SEE SCANNED CHART NOTES Dysuria Onset: 1 week ag o. Location is lower back. The patient describes it as cloudy. It occurs constantly. The problem is with no change. Additional information: Itchy on urination and denies burning on urination. No frequency. Last UTI many years.. c/o lump under right eye 53y/o f emale refers she notice to have this small lump under her right lower palpebral area. It has been present for more than a month and it is getting larger. It is not painful when it is touched. It is not movable. c/o sore on arms 53y/o female wi th history of MS. She refers was working outside cutting branches and her arms began to itch. She has developed sore on her right upper arm.This has been going n for two months. They are itchy and they have scabs on the top. he has used Vit E oil and hydrocortisone. c/o stomach issues The symptoms began on 10/08/2018. Patient refers she has been feeling nauseated without eating or not eating, she did vomited twice in the past two weeks. She has had tarry stools since two weeks ago. She has had dark stools (3) in the last two weeks. She had a gastric bypass in 08/2013. She had a colonoscopy about a year ago. She has been eating plenty of fruits latelyShe is not gaining any weight.She does not feel weak, but tired because of her MS. She has bowel movements every other day. needs referral 52y/o female wit h history of MS, gastric bypass and low back pain. At the pain clinic she was ordered an MRI of the lumbar spine and it showed that she has a cystic lesion in the right lobe of her liver. She would like to be evaluated by a Gastro. . 52y/o female wit h history of Multiple Sclerosis. She is here for a physical. medicare preventive Recently, th e patient has felt down, depressed or hopeless and has felt little interest or pleasure in doing things. Depression screening score was 3. SLUMS assessment completed, with a total score of 27, Normal. The ''Up and Go'' test took less than 30 seconds and the patient does not need help with activities of daily living. The patient is at risk for falls. The patient has fallen 2 times in the last year. The fall(s) resulted in injury. Details: Fractured wrist on right arm. Patient's activity level is moderate. The patient has smoke detectors, carbon monoxide detectors, electric heating in the home. The patient does not have firearms in the home. There is no radon in the patient's home. Patient reports using a seatbelt in vehicles. Patient does not take calcium. Patient reports taking Vitamin D. Patient reports taking a multivitamin. Patient does not take folic acid. Relevant history is positive for passive smoke exposure. Relevant history is negative for passive vaping exposure, alcohol use. c/o headaches She states the s ymptoms are chronic and are uncontrolled. 52y/o female with history of Multiple sclerosis. She refers she has been having headaches for several weeks. She had been evaluated by a Neurologist on 02/20/2018 and she address this to the specialist and was told to come here to be referred to a Pain Clinic.Her headaches have been going on for several months, she has only tried sumatriptan 25mg. wants referral. The symptoms are reported as being mild. 52y/o,female with history of Otalgia, Multiple Sclerosis, Seep apnea, headaches, GERD, bipolar disorder, She is still having pain in her left ear and it itches and she would like to be referred to an ENT. left ear pain The symptoms beg an 2 months ago. The symptoms are reported as being mild. The symptoms occur daily. The location is left ear. She states the symptoms are chronic. 52y/o female refershe has had left ear pain on and off for more than 2 months. She has used ear drops but the pain comes back. stomach issues The symptoms beg an 4 years ago. The symptoms are reported as being moderate. The symptoms occur weekly. The location is intestine. She states the symptoms are chronic and are uncontrolled. Case of 51y/o female with stomach issues. She had a gastric bypass four years ago. Shre refers she ehas had watery diarrhea, then it went to not being able to go.Her intestine went up her upper abdominal area and she had a surgery where she had an exploratory surgery done. Her intestine were cut out, and it took the pain away. She had a ventral hernia that was corrected.She also has history of having MS (multiple sclerosis), she takes shots of capaxone.She has history of smoking one pack of cigarettes. She used to smoke 2-3 packs a cigarettes daily for more than 36 years. Diarrhea Associated sympt oms include nausea and vomiting. Pertinent negatives include abdominal pain, anorexia, bloating, blood in stool, change in appetite, cramping (abdominal), decreased urine output, distention (abdominal), fecal incontinence, fever, flatulence, joint pain, rash, tenesmus and weight loss. Additional information: No relief with OTC meds. Establishment Visit New to area. Multiple health problems. Psych history, multiple back surgeries, Hx Gastric bypass with complications. Functional Status Date Functional Assessmen t No Information Instructions Date Instruction Additional Infor mation Avoid submerging ear s underwater or getting water in ears otherwise. Return to clinic if symptoms recur or worsen. Related to Otitis externa Continue medications as prescribed by derm and f/u w/ them appropriately. Return to clinic if any new or worsening symptoms. Related to Neoplasm of skin Continue current med regimen. F/U w/ psych and counselor appropriately. Return to clinic if any new or worsening symptoms and otherwise f/u end of May after trip. Related to Bipolar disorder, current episode depressed, moderate Drops as ordered. Av oid getting water in ears. Return to clinic if any new or worsening symptoms. Otherwise f/u 2 weeks to re-eval d/t persistence of symptoms. Related to Otitis externa Refer to derm for fu rther eval and mgmt. Return to clinic if any new or worsening symptoms. Related to Neoplasm of skin Continue inhaler prn . Return to clinic if symptoms become persistent and need to use inhaler more regularly. Related to COPD Continue propranolol daily. Return to clinic if any new or worsening symptoms. Related to Palpitations Counseled pt that Ep i-pen is only to be used in emergency situations and if develops trouble breathing w/ bee sting. Pt indicates understanding. Use appropriately. Return to clinic or go to ER if incident occurs. Related to Bee allergy status Continue omeprazole as have been doing. Avoid GI irritants. Return to clinic if any new or worsening symptoms and otherwise f/u 2 weeks. Related to GERD w/o esophagitis Referral placed to p brenden d/t pt's hx and complexity of care. Plans to see [facility] [employer] THERAPIST in interim. Continue current meds at this time. F/u 2 weeks. Return to clinic sooner if any new or worsening symptoms. Related to Bipolar disorder, current episode depressed, moderate Continue current med regimen and f/u w/ neuro appropriately. Return to clinic if any new or worsening symptoms. Related to Multiple sclerosis Giving encouragement to exercise Related to Body mass index (BMI) 24.0-24.9, adult Lifestyle education regarding di et Related to Body mass index (BMI) 24.0-24.9, adult Pt cleared by cardio and no new findings from PCP standpoint to prevent pt from moving forward with surgery. Pt cleared for surgery, f/u pending this. Related to Cardiac murmur, unspecified Pt cleared for surge ry from PCP standpoint.F/U after surgery or return sooner if any new or worsening symptoms. Related to Pain in right foot Pt cleared for surge ry.F/U pending surgery. Related to Encounter for preprocedural examination Pt advised against t he use of Q-tips, especially since it appears it is irritated and perhaps causing trauma to eardrums. Lab results obtained in interim for CBC, CMP and PT/INR and are all WNL. Pt cleared for surgery from PCP standpoint. Return to clinic if any new or worsening symptoms. Related to Well adult exam w/o abnormal finding Lifestyle education regarding di et Related to Body mass index (BMI) 23.0-23.9, adult Giving encouragement to exercise Related to Body mass index (BMI) 23.0-23.9, adult Lifestyle education regarding di et Related to Body mass index (BMI) 23.0-23.9, adult Giving encouragement to exercise Related to Body mass index (BMI) 23.0-23.9, adult Continue current med s. Refer to cardio for further eval. Return to clinic if any new or worsening symptoms. Related to Palpitations Refer to cardio for further eval given hx and symptoms. Continue current meds in interim. Return to clinic if any new or worsening symptoms. Related to Cardiac murmur, unspecified Will send UA for cul ture for sensitivities. Will start Macrobid x 7 days in the meantime d/t severity of symptoms. Increase fluid intake, primarily water to flush system. No soaking in bath tub, wiping from front to back, wear breathable cotton underwear. F/U pending culture results. Otherwise return to clinic if symptoms worsen/new symptoms start. Related to Dysuria Giving encouragement to exercise Related to Body mass index (BMI) 23.0-23.9, adult Lifestyle education regarding di et Related to Body mass index (BMI) 23.0-23.9, adult Patient was told to avoid touching it. The patient verbalized an understanding of all instructions. The patient was advised to call the office if symptoms worsen or do not improve. Related to Sebaceous cyst Lifestyle education regarding di et Related to Body mass index (BMI) 22.0-22.9, adult Giving encouragement to exercise Related to Body mass index (BMI) 22.0-22.9, adult Wound Instructions given. Relate d to Sebaceous cyst The patient verbaliz ed an understanding of all instructions. The patient was advised to call the office if symptoms worsen or do not improve. Related to Seborrheic keratosis Giving encouragement to exercise Related to Body mass index (BMI) 22.0-22.9, adult Lifestyle education regarding di et Related to Body mass index (BMI) 22.0-22.9, adult Signs and symptoms o f emergency were discussed with the patient. The patient verbalized an understanding of all instructions. The patient was advised to call the office if symptoms worsen or do not improve. Related to Nausea with vomiting, unspecified Lifestyle education regarding di et Related to Body mass index (BMI) 21.0-21.9, adult take medications as directed, Re lated to Nausea with vomiting, unspecified The patient verbaliz ed an understanding of all instructions. The patient was advised to call the office if symptoms worsen or do not improve. The patient was advised to resume activity as tolerated. Related to Hepatic cyst Avoid non-steroidal anti-inflammatory drugs. Related to Hepatic cyst Stop alcohol ingestion. Related to Hepatic cyst The risks and benefi ts of the treatment plan were discussed with the patient. The patient was advised to resume activity as tolerated. Related to Encntr for general adult medical exam w/o abnormal findings Increase activity. Related to En cntr for general adult medical exam w/o abnormal findings Perform monthly self breast examinations. Related to Encntr for general adult medical exam w/o abnormal findings Lifestyle education regarding di et Related to Body mass index (BMI) 22.0-22.9, adult Giving encouragement to exercise Related to Body mass index (BMI) 22.0-22.9, adult Maintain adequate re st. The patient verbalized an understanding of all instructions. The patient was advised to call the office if symptoms worsen or do not improve. The patient was advised to resume activity as tolerated. Related to Headache take medication as prescribed Re lated to Headache Signs and symptoms o f infection were discussed with the patient. The patient verbalized an understanding of all instructions. The patient was advised to call the office if symptoms worsen or do not improve. The patient was advised to resume activity as tolerated. Related to Otalgia, left ear Lifestyle education regarding di et Related to Body mass index (BMI) 23.0-23.9, adult take medications as directed, Re lated to Otalgia, left ear Giving encouragement to exercise Related to Body mass index (BMI) 23.0-23.9, adult Signs and symptoms o f infection were discussed with the patient. The patient verbalized an understanding of all instructions. The patient was advised to call the office if symptoms worsen or do not improve. Related to Otitis media, unspecified, left ear Lifestyle education regarding di et Related to Body mass index (BMI) 22.0-22.9, adult Giving encouragement to exercise Related to Body mass index (BMI) 22.0-22.9, adult take medication as prescribed Re lated to Otitis media, unspecified, left ear Patient was told to stay well hydrated. and if she gets contipated to eat fiber. Related to Diarrhea Dietary management e ducation, guidance, and counseling Related to Body mass index (BMI) 22.0-22.9, adult take medications as directed, Re lated to Diarrhea take medications as directed, Re lated to Diarrhea Labs ordered. Record s from previous provider requested Related to Abnormal weight loss No improvement with Immodium. Lomotil 1 tab after each liquid BM, no more than 4 tabs a day. F/U with results Related to Diarrhea Lifestyle education regarding di et Related to Body mass index (BMI) 21.0-21.9, adult Giving encouragement to exercise Related to Body mass index (BMI) 21.0-21.9, adult Assessments Type Assessment Date No Information Patient Care Teams Name Effective Dates (start - stop) Status Members No Information
--- OUTSIDE RECORDS SUMMARY | 2023-06-21 11:52 | XMS_ITS | Continuity of Care Document ---
Author Name Unknown Organization [facility] enter Address [address] [place] [address] 11 [facility] [address] [place] [address] Phone Care Team Providers Care Ultimate Hoops Scoreboard Operator Name Role Phone [facility] Unavailable Unava ilable Procedures Procedure Date Facet Jt Inj Cervical/Thoracic RIGHT Feb Facet Jt Inj Cerv/Thor 2nd Level RIGHT A Advance Directives Directive Yes / No Effective Date File Name No Information Encounters Encounter Description Practice Location Reason(s) For Visit Diagnoses Date Provider Providers Copied on Encounter [facility], [address] [place] [address] 11 [facility] [address], [place], [id number], [place] tel:[phone] [facility] No Information 2 [facility]. [address] [place] [address] 11 [facility] [address], [place], [id number], [place]. tel:[phone] Referring Provider: Una Lay [address] [facility] [address], [place], [address]. tel:[phone] Family History Family Member Type Diagnosis Age At Onset No Information Payers Payer name Insurance type Covered libertarian ID Authoriza tievie(s) AARP MedicareComplete Replacement [id number] [facility] [id number] Social History Type Description Quantity Date Captured [...]
--- OUTSIDE RECORDS SUMMARY | 2023-06-21 11:53 | XMS_ITS | Continuity of Care Document ---
Author Name Unknown Organization [facility] Address [address] [place] [address] Care Team Providers Care Open Tenter Operator Name Role Phone Edwar Epstein CRNA Unavailable Unavailabl e Procedures Procedure Date ANESTH PERC IMG TX SP PROC Advance Directives Directive Yes / No Effective Date File Name No Information Encounters Encounter Description Practice Location Reason(s) For Visit Diagnoses Date Provider Providers Copied on Encounter [facility], [address] [place], [place], [id number], [facility] [place] No Information Tete Vann. [address] [place], [place], [id number], . tel:[phone] Referring Provider: Aurelia Barriga, [address] [place], [address] . tel:[phone] Family History Family Member Type Diagnosis Age At Onset No Information Payers Payer name Insurance type Covered libertarian ID Authoralvareza randa(s) [facility] MedicareComplete Replacement [id number] Social History Type Description Quantity Date [...]
--- OUTSIDE RECORDS SUMMARY | 2023-06-21 11:53 | XMS_ITS | Continuity of Care Document ---
Author Name Unknown Organization [facility] enter Address [address] [place] [address] 11 [facility] [[email or web address] [address] [place] [address] Phone Care Team Providers Care Petroleum Inspector Supervisor Name Role Phone [facility] [place] Unavailable Unava ilable Procedures Procedure Date Facet Jt Inj Cervical/Thoracic RIGHT Feb Facet Jt Inj Cerv/Thor 2nd Level RIGHT A Advance Directives Directive Yes / No Effective Date File Name No Information Encounters Encounter Description Practice Location Reason(s) For Visit Diagnoses Date Provider Providers Copied on Encounter [facility], [address] [place] [address] 11 [facility] [[email or web address] [address], [place], [id number], [place] tel:[phone] [facility] No Information 2 [facility]. [address] [place] [address] 11 [facility] [[email or web address] [address], [place], [id number], [place]. tel:[phone] Referring Provider: Una Lay [address] [facility] [address], [place], [address]. tel:[phone] Family History Family Member Type Diagnosis Age At Onset No Information Payers Payer name Insurance type Covered constitution party ID Authoriza tievie(s) AARP MedicareComplete Replacement [id number] [facility] [id number] Social History Type Description Quantity Date Captured [...]
--- OUTSIDE RECORDS SUMMARY | 2023-06-21 11:53 | XMS_ITS | Continuity of Care Document ---
Author Name Unknown Organization [facility] nadira Address [address] [address] [place] [address] Phone Care Team Providers Care Urban Anthropologist Name Role Phone Georgia SUKHI Krystyna Unavailable Unavailable Allergies, Adverse Reactions, Alerts Substance Reaction Status Criticality coconut Active No Information DULOXETINE HCL Active No Informatio n tramadol Active No Information BUPROPION HCL Active No Information morphine Active No Information Medications Medication Instructions Dosage Effective Dates (start - stop) Status Comments Percocet 7.5 mg-325 mg tablet take 1 tablet by oral route every 6 hours as needed, max 3/day for chronic pain - Active Please dispense MALLINCKRODT. May fill today; tizanidine 2 mg tablet take 1 tablet by oral route every 6 - 8 hours as needed not to exceed 3 doses in 24 hours 2 MG - Active ferrous sulfate 325 mg (65 mg iron) tablet take 3 tablet by oral route every day 975 MG - Active Seroquel 200 mg tablet take 1 tablet by oral route every evening 200 MG - Active Aubagio 14 mg tablet take 1 tablet by oral route every day 14 MG - Active FOR MS celecoxib 200 mg capsule take 1 capsule by oral route every day 200 MG - Active gabapentin 300 mg capsule TAKE 2 CAPSULE BY MOUTH AT DINNER TIME; THEN 4 CAPSULES BEDTIME - Active omeprazole 20 mg tablet,delayed release - Active Vitamin D3 50 mcg (2,000 unit) capsule take 1 tablet by oral route every day 1 tablet - Active Inderal XL 120 mg capsule,extended release take 1 capsule by oral route every day at bedtime 120 MG - Active ropinirole 4 mg tablet take 1 tablet by oral route every day 4 MG - Active trazodone 100 mg tablet take 1 tablet by oral route 2 times every day after meals 100 MG - Active dextroamphetamine-a mphetamine 20 mg tablet take 3 tablet by oral route 2 times every day before breakfast 60 MG - Active amitriptyline 50 mg tablet take 1 tablet by oral route every day at bedtime 50 MG - Active multivitamin tablet take 1 tablet by oral route every day 1 tablet - Active RIZATRIPTAN 10MG TABLETS TAKE 1 TABLET BY MOUTH ONCE. MAY REPEAT AT 2 HOUR INTERVALS. DO NOT EXCEED 30 MG IN 24 HOURS - No Longer Active Percocet 7.5 mg-325 mg tablet take 1 tablet by oral route every 6 hours as needed, max 3/day for chronic pain - No Longer Active Please dispense MALLINCKRODT. May fill today; ferrous sulfate 325 mg (65 mg iron) tablet take 3 tablet by oral route 2 times every day 975 MG - No Longer Active Seroquel 200 mg tablet take 2.5 tablet by oral route every evening 500 MG - No Longer Active Procedures Procedure Date OFFICE/OUTPATIENT VISIT, EST OFFICE VISIT, EST TELEMEDICINE OFFICE VISIT, EST TELEMEDICINE Foll-up eval q3mo opiod tx OFFICE VISIT, EST TELEMEDICINE Drug test def 8-14 classes Drug Urine Toxology With Chromatography Foll-up eval q3mo opiod tx OFFICE/OUTPATIENT VISIT, EST OFFICE VISIT, EST TELEMEDICINE Foll-up eval q3mo opiod tx OFFICE/OUTPATIENT VISIT, EST Foll-up eval q3mo opiod tx OFFICE VISIT, EST TELEMEDICINE Foll-up eval q3mo opiod tx OFFICE VISIT, EST TELEMEDICINE Drug Urine Toxology With Chromatography Drug test def 8-14 classes Foll-up eval q3mo opiod tx OFFICE/OUTPATIENT VISIT, EST OFFICE VISIT, EST TELEMEDICINE Foll-up eval q3mo opiod tx Foll-up eval q3mo opiod tx OFFICE VISIT, EST TELEMEDICINE Foll-up eval q3mo opiod tx OFFICE VISIT, EST TELEMEDICINE Foll-up eval q3mo opiod tx OFFICE/OUTPATIENT VISIT, EST Drug Urine Toxology With Chromatography Drug test def 8-14 classes Foll-up eval q3mo opiod tx OFFICE/OUTPATIENT VISIT, EST Foll-up eval q3mo opiod tx OFFICE VISIT, EST TELEMEDICINE 22 Facet Jt Inj Or MBB Cervical/Thoracic RI GHT Facet Jt Inj Or MBB Cerv/Thor 2nd Level RIGHT Foll-up eval q3mo opiod tx OFFICE VISIT, EST TELEMEDICINE 22 PT EVAL MOD COMPLEX 30 MIN Foll-up eval q3mo opiod tx OFFICE VISIT, EST TELEMEDICINE Drug Urine Toxology With Chromatography Drug test def 8-14 classes Kenalog Triamcinolone acetonide inj INJ TRIGGER POINT, 1/2 MUSCL Foll-up eval q3mo opiod tx OFFICE/OUTPATIENT VISIT, EST Foll-up eval q3mo opiod tx OFFICE VISIT, EST TELEMEDICINE Foll-up eval q3mo opiod tx OFFICE VISIT, EST TELEMEDICINE Foll-up eval q3mo opiod tx OFFICE VISIT, EST TELEMEDICINE ROUTINE BLOOD DRAW Drug Urine Toxology With Chromatography Drug test def 8-14 classes Substance Interv 15-30mn Foll-up eval q3mo opiod tx OFFICE/OUTPATIENT VISIT, EST Foll-up eval q3mo opiod tx OFFICE VISIT, EST TELEMEDICINE Foll-up eval q3mo opiod tx OFFICE VISIT, EST TELEMEDICINE Foll-up eval q3mo opiod tx OFFICE VISIT, EST TELEMEDICINE SCS Lead Pull Satellite SCS Mid Trial Satellite IMPLANT NEUROELECTRODES ASC IMPLANT NEUROELECTRODES ASC ANALYZE NEUROSTIM, COMPLEX Foll-up eval q3mo opiod tx OFFICE VISIT, EST TELEMEDICINE Psych Dx Eval PT EVAL MOD COMPLEX 30 MIN SELF CARE MNGMENT TRAINING Drug Urine Toxology With Chromatography Foll-up eval q3mo opiod tx OFFICE/OUTPATIENT VISIT, EST Foll-up eval q3mo opiod tx OFFICE VISIT, EST TELEMEDICINE Foll-up eval q3mo opiod tx OFFICE VISIT, EST TELEMEDICINE Foll-up eval q3mo opiod tx OFFICE VISIT, EST TELEMEDICINE Foll-up eval q3mo opiod tx OFFICE VISIT, EST TELEMEDICINE Foll-up eval q3mo opiod tx OFFICE VISIT, EST TELEMEDICINE Foll-up eval q3mo opiod tx OFFICE VISIT, EST TELEMEDICINE Foll-up eval q3mo opiod tx OFFICE VISIT, EST TELEMEDICINE Nov-11-20 20 Foll-up eval q3mo opiod tx OFFICE/OUTPATIENT VISIT, EST Substance Interv 15-30mn OFFICE/OUTPATIENT VISIT, NEW Advance Directives Directive Yes / No Effective Date File Name No Information Encounters Encounter Description Practice Location Reason(s) For Visit Diagnoses Date Provider Providers Copied on Encounter OFFICE/OUTPAT IENT VISIT, [facility], [address] [place] [address], [id number] , [place] [phone] [facility] Back Pain (chief complaint) Chronic migraine without aura, intractable, without status migrainosusChro nadira pain syndromeRadicul opathy, cervical regionRadiculop athy, lumbar regionPostlamin ectomy syndrome, not elsewhere classifiedLong term (current) use of opiate analgesic 3 Nyongesa Krystyna. [id number] [place] [address], [place], [place], [id number] , [place]. [phone] Referring Provider: Gonzalo Adams, [address] [place] [address], [address]. tel:[phone] [facility], [address] [place] [address], [id number] , [place] [phone] [facility] No Information 3 [facility]. [address], [place], [id number] , [place]. [phone] OFFICE VISIT, [facility] TELEMEDICINE [facility], [address] [place] [address], [id number] , [place] [phone] [facility] Back Pain (chief complaint) Chronic migraine without aura, intractable, without status migrainosusChro nadira pain syndromeRadicul opathy, lumbar regionPostlamin ectomy syndrome, not elsewhere classifiedLong term (current) use of opiate analgesicRadicu lopathy, cervical region 3 Nyongesa Krystyna. [address] [facility] [address] [facility] [address], [place], [id number] , [place]. [phone] Referring Provider: Gonzalo Adams, [address] [place] [address], [id number]. tel:[phone] OFFICE VISIT, [facility] TELEMEDICINE [facility], [address] [place] [address], [id number] , [place] tel: [phone] [facility] Back Pain (chief complaint) Chronic migraine without aura, intractable, without status migrainosusChro nadira pain syndromeSpondyl osis without myelopathy or radiculopathy, cervical regionRadiculop athy, lumbar regionPostlamin ectomy syndrome, not elsewhere classifiedLong term (current) use of opiate analgesic George-0 3 Nyongesa Krystyna. [address] [facility] [address], [place], [place], [id number] , [place]. tel: [phone] OFFICE VISIT, [facility] TELEMEDICINE [facility], [address] [place] [address], [id number] , [place] tel: [phone] [facility] Back Pain (chief complaint) Chronic migraine without aura, intractable, without status migrainosusChro nadira pain syndromeSpondyl osis without myelopathy or radiculopathy, cervical regionRadiculop athy, lumbar regionPostlamin ectomy syndrome, not elsewhere classifiedLong term (current) use of opiate analgesic March-0 3 Nyongesa Krystyna. [address] [facility] [address], [place], [place], [id number] , [place]. tel: [phone] Referring Provider: Gonzalo Adams, [address] [place] [address], [address]. tel:[phone] [facility], [address] [place] [address], [id number] , [place] tel: [phone] [facility] No Information 0 3 Nyongesa Krystyna. [address] [facility] [address], [place], [place], [id number] , [place]. tel: [phone] Referring Provider: Gonzalo Adams, [address] [place] [address], [address]. tel:[phone] OFFICE/OUTPAT IENT VISIT, [facility], [address] [place], [id number] , [place] tel:[phone] [facility] Back Pain (chief complaint) Chronic migraine without aura, intractable, without status migrainosusChro nadira pain syndromeSpondyl osis without myelopathy or radiculopathy, cervical regionPostlamin ectomy syndrome, not elsewhere classifiedLong term (current) use of opiate analgesicRadicu lopathy, lumbar regionEncounter for therapeutic drug level monitoring Feb-0 - 3 [facility]. [address] [facility] [address], [place], [place], [id number] , [place]. tel:[phone] Referring Provider: Gonzalo Adams, [address] [place], [address]. [phone] OFFICE VISIT, [facility], [address] [place] [address], [id number] , [place] tel:[phone] [facility] Back Pain (chief complaint) Chronic migraine without aura, intractable, without status migrainosusSpon dylosis without myelopathy or radiculopathy, cervical regionPostlamin ectomy syndrome, not elsewhere classifiedLong term (current) use of opiate analgesicChroni c pain syndrome [address] [facility] Krystyna. [address] [facility] [address], [place], [id number] , [place]. tel: [phone] OFFICE/OUTPAT IENT VISIT, [facility], [address] [place] [address], [id number] , [place] tel: [phone] [facility] Back pain (chief complaint) Multiple sclerosisChroni c migraine without aura, intractable, without status migrainosusCarp al tunnel syndrome, left upper limbPain in right hipPain in left hipSpondylosis without myelopathy or radiculopathy, cervical regionRadiculop athy, lumbar regionPostlamin ectomy syndrome, not elsewhere classifiedLong term (current) use of opiate analgesic 3 Yolis Murry. [address] [facility] [address], [place], [place], [id number] , [place]. tel:[phone] Referring Provider: Gonzalo Adams, [address] [place] [address], [address]. tel:[phone] OFFICE VISIT, EST TELEMEDICINE [facility], [address] [place] [address], [id number] , [place] [phone] [facility] low back pain (chief complaint) Multiple sclerosisChroni c migraine without aura, intractable, without status migrainosusCarp al tunnel syndrome, left upper limbPain in right hipPain in left hipSpondylosis without myelopathy or radiculopathy, cervical regionPostlamin ectomy syndrome, not elsewhere classifiedLong term (current) use of opiate analgesicRadicu lopathy, lumbar region Oct- 8- 2 Nyongesa Krystyna. [address] [facility] [address], [place], [place], [id number] , [place]. tel:[phone] Referring Provider: Gonzalo Adams, [address] [place] [address], [address]. tel:[phone] OFFICE VISIT, EST TELEMEDICINE [facility], [address] [place] [address], [id number] , [place] [phone] [facility] low back pain (chief complaint) Multiple sclerosisChroni c migraine without aura, intractable, without status migrainosusCarp al tunnel syndrome, left upper limbPain in right hipPain in left hipSpondylosis without myelopathy or radiculopathy, cervical regionPostlamin ectomy syndrome, not elsewhere classifiedLong term (current) use of opiate analgesic Sep-3 0- 2 Nyongesa Krystyna. [address] [facility] [address], [place], [id number] , [place]. tel:[phone] Referring Provider: Gonzalo Adams, [address] [place] [address], [address]. tel:[phone] [facility], [address] [place] [address], [id number] , [place] tel:[phone] [facility] No Information Nov-0 2-202 2 Padavid Greenwood. [address] [facility] [address], [place], [id number] , [place]. tel:[phone] OFFICE/OUTPAT IENT VISIT, [facility], [address] [place] [address], [id number] , [place] tel:[phone] [facility] low back pain (chief complaint) Multiple sclerosisChroni c migraine without aura, intractable, without status migrainosusCarp al tunnel syndrome, left upper limbPain in right hipPain in left hipSpondylosis without myelopathy or radiculopathy, cervical regionPostlamin ectomy syndrome, not elsewhere classifiedLong term (current) use of opiate analgesicEncoun ter for therapeutic drug level monitoring 2 Georgia [place]. [address] [facility] [address], [place], [id number] , [place]. tel:[phone] Referring Provider: Gonzalo Adams, [address] [place], [address]. [phone] OFFICE VISIT, [facility], [address] [place] [address], [id number] , [place] tel:[phone] [facility] low back pain (chief complaint) Multiple sclerosisChroni c migraine without aura, intractable, without status migrainosusPain in right hipPain in left hipSpondylosis without myelopathy or radiculopathy, cervical regionPostlamin ectomy syndrome, not elsewhere classifiedLong term (current) use of opiate analgesicCarpal tunnel syndrome, left upper limb 2 Aviles Simon. [facility], [address], [place], [address], [place]. [phone] OFFICE VISIT, EST TELEMEDICINE [facility], [address] [place] [address], [id number] , [place] [phone] [facility] low back pain (chief complaint) Multiple sclerosisChroni c migraine without aura, intractable, without status migrainosusChro nadira pain syndromePain in right hipPain in left hipSpondylosis without myelopathy or radiculopathy, cervical regionLong term (current) use of opiate analgesicPostla minectomy syndrome, not elsewhere classified Sep-0 2 Nyongesa Krystyna. [address] [facility] [address], [place], [id number] , [place]. tel: [phone] OFFICE VISIT, EST TELEMEDICINE [facility], [address] [facility] [place], [id number] , [place] tel: [phone] [facility] Back Pain (chief complaint) Multiple sclerosisChroni c migraine without aura, intractable, without status migrainosusChro nadira pain syndromePain in right hipPain in left hipSpondylosis without myelopathy or radiculopathy, cervical regionOther muscle spasmPostlamine ctomy syndrome, not elsewhere classifiedLong term (current) use of opiate analgesic May- 2 Nyongesa Krystyna. [address] [facility] [address], [place], [id number] , [place]. tel: [phone] OFFICE/OUTPAT IENT VISIT, EST [facility], [address] [facility] [place], [id number] , [place] tel: [phone] [facility] Back Pain (chief complaint) Multiple sclerosisChroni c migraine without aura, intractable, without status migrainosusChro nadira pain syndromePain in right hipPain in left hipSpondylosis without myelopathy or radiculopathy, cervical regionOther muscle spasmPostlamine ctomy syndrome, not elsewhere classifiedLong term (current) use of opiate analgesic 2 Nyongesa Krystyna. [address] [facility] [address], [place], [id number] , [place]. tel: [phone] Referring Provider: Tl Pantoja, [address], [place], [address]. [phone] [facility], [address] [facility] [place], [id number] , [place] tel: [phone] [facility] [place] No Information 2 Nyongesa Krystyna. [address] [facility] [address] [address], [place], [id number] , [place]. [phone] Referring Provider: Gonzalo Adams, [address] [place] [address], [address]. tel:[phone] OFFICE/OUTPAT IENT VISIT, [facility], [address] [place] [address], [id number] , [place] tel:[phone] [facility] Back Pain (chief complaint) Multiple sclerosisChroni c migraine without aura, intractable, without status migrainosusChro nadira pain syndromeSpondyl osis without myelopathy or radiculopathy, cervical regionOther cervical disc degeneration, unspecified cervical regionOther muscle spasmPostlamine ctomy syndrome, not elsewhere classifiedLong term (current) use of opiate analgesicPain in left hipPain in right hip Apr- 2 Nyongesa Krystyna. [address] [facility] [address], [place], [id number] , [place]. tel:[phone] Referring Provider: Gonzalo Adams, [address] [place] [address], [address]. [phone] OFFICE VISIT, [facility] TELEMEDICINE [facility], [address] [place] [address], [id number] , [place] tel:[phone] [facility] Back Pain (chief complaint) Multiple sclerosisChroni c migraine without aura, intractable, without status migrainosusChro nadira pain syndromeSpondyl osis without myelopathy or radiculopathy, cervical regionOther cervical disc degeneration, unspecified cervical regionOther muscle spasmPostlamine ctomy syndrome, not elsewhere classifiedLong term (current) use of opiate analgesic 0 2 Nyongesa Krystyna. [address] [facility] [address], [place], [id number] , [place]. tel:[phone] Referring Provider: Tl Pantoja, [place] [address] [address], [place], [address]. tel:[phone] [facility], [address] [place] [address], [id number] , [place] tel: [phone] [place] [facility] [place] Spondylosis without myelopathy or radiculopathy, cervical region Apr-2 2 Stefan Montes. [facility], [address], [place], [address], [place]. tel: [phone] Referring Provider: Gonzalo Adams, [address] [place] [address], [address]. tel:[phone] OFFICE VISIT, EST TELEMEDICINE [facility], [address] [place] [address], [id number] , [place] tel: [phone] [facility] Back Pain (chief complaint) Multiple sclerosisChroni c migraine without aura, intractable, without status migrainosusChro nadira pain syndromeSpondyl osis without myelopathy or radiculopathy, cervical regionOther cervical disc degeneration, unspecified cervical regionOther muscle spasmPostlamine ctomy syndrome, not elsewhere classifiedLong term (current) use of opiate analgesic Apr-0 2 Jil Krystyna. [address] [place] [address] Rd [address], [place], [place], [id number] , [place]. tel: [phone] [facility], [address] [place] [address], [id number] , [place] tel: [phone] [facility] cervicalgia (chief complaint) CervicalgiaOthe r cervical disc degeneration, unspecified cervical regionSpondylos is without myelopathy or radiculopathy, cervical region Mar-1 2 Brandyn Fabian. [address] [place], [place], [id number] , [place]. tel: [phone] Referring Provider: Gonzalo Adams, [address] [place] [address], [address]. tel:[phone] OFFICE VISIT, EST TELEMEDICINE [facility], [address] [place] [address], [id number] , [place] tel: [phone] [facility] Back Pain (chief complaint) Chronic pain syndromePostlam inectomy syndrome, not elsewhere classifiedLong term (current) use of opiate analgesicOther muscle spasmChronic migraine without aura, intractable, without status migrainosusOthe r cervical disc degeneration, unspecified cervical regionMultiple sclerosisSpondy losis without myelopathy or radiculopathy, cervical region 2 Stefan Montes. [facility], [address], [place], [address], [place]. tel: [phone] [facility], [address] [place] [address], [id number] , [place] tel: [phone] [facility] [place] No Information 2 Nyongesa Krystyna. [address] [facility] [address], [place], [id number] , [place]. tel: [phone] OFFICE/OUTPAT IENT VISIT, EST [facility], [address] [place] [address], [id number] , [place] tel: [phone] [facility] low back pain (chief complaint) Pain in right kneeChronic pain syndromePostlam inectomy syndrome, not elsewhere classifiedLong term (current) use of opiate analgesicOther muscle spasmCervicalgi aChronic migraine without aura, intractable, without status migrainosusOthe r cervical disc degeneration, unspecified cervical regionMultiple sclerosisEncoun ter for therapeutic drug level monitoringMyalg ia, other site 2 Nyongesa Krystyna. [address] [facility] [address], [place], [id number] , [place]. tel: [phone] Referring Provider: Tl Pantoja, [address], [place], [address]. tel:[phone] OFFICE VISIT, EST TELEMEDICINE [facility], [address] [place] [address], [id number] , [place] tel: [phone] [facility] low back pain (chief complaint) Pain in right kneeChronic pain syndromePostlam inectomy syndrome, not elsewhere classifiedLong term (current) use of opiate analgesicOther muscle spasmCervicalgi a 2 Nyongesa Krystyna. [address] [facility] [address], [place], [id number] , [place]. tel:[phone] Referring Provider: Tl Pantoja, [address], [place], [address]. tel:[phone] OFFICE VISIT, EST TELEMEDICINE [facility], [address] [place] [address], [id number] , [place] tel:[phone] [facility] low back pain (chief complaint) Pain in right kneeChronic pain syndromePostlam inectomy syndrome, not elsewhere classifiedLong term (current) use of opiate analgesicOther cervical disc degeneration, unspecified cervical regionChronic migraine without aura, intractable, without status migrainosusMult iple sclerosis 2 Nyongesa Krystyna. [id number] [place] [address] [address] [place] [address], [place], [id number] , [place]. tel:[phone] Referring Provider: Gonzalo Adams, [address] [place] [address], [address]. [phone] OFFICE VISIT, EST TELEMEDICINE [facility], [address] [place] [address], [id number] , [place] tel:[phone] [facility] low back pain (chief complaint) Pain in right kneeChronic pain syndromePostlam inectomy syndrome, not elsewhere classifiedLong term (current) use of opiate analgesicOther cervical disc degeneration, unspecified cervical regionChronic migraine without aura, intractable, without status migrainosusMult iple sclerosis 1 Nyongesa Krystyna. [id number] [place] [address] 11 [facility] 100, [place], [id number] , [place]. tel:[phone] Referring Provider: Gonzalo Adams, [address] [place] [address], [address]. [phone] [facility], [address] [place] [address], [id number] , [place] tel:[phone] [facility] No Information 1 Nyongesa Krystyna. [address] [facility] 11 [facility] 100, [place], [id number] , [place]. [phone] Referring Provider: Gonzalo Adams, [address] [place] [address], [address]. [phone] OFFICE/OUTPAT IENT VISIT, EST [facility], [address] [place] [address], [id number] , [place] tel:[phone] [facility] low back pain (chief complaint) Pain in right kneeChronic pain syndromePostlam inectomy syndrome, not elsewhere classifiedLong term (current) use of opiate analgesicOther cervical disc degeneration, unspecified cervical regionEncounter for screening for other disorderEncount er for therapeutic drug level monitoringChron ic migraine without aura, intractable, without status migrainosusMult iple sclerosis 1 [facility] [place]. [address] [facility] [address], [place], [place], [id number] , [place]. tel:[phone] Referring Provider: Gonzalo Adams, [address] [place] [address], [address]. tel:[phone] OFFICE VISIT, [facility] TELEMEDICINE [facility], [address] [place] [address], [id number] , [place] tel:[phone] [facility] low back pain (chief complaint) Pain in right kneeChronic pain syndromePostlam inectomy syndrome, not elsewhere classifiedOther cervical disc degeneration, unspecified cervical regionLong term (current) use of opiate analgesicChroni c migraine without aura, intractable, without status migrainosus 1 Nyongesa Krystyna. [address] [facility] [address], [place], [place], [id number] , [place]. [phone] Referring Provider: Gonzalo Adams, [address] [place] [address], [address]. [phone] OFFICE VISIT, EST TELEMEDICINE [facility], [address] [place] [address], [id number] , [place] [phone] [facility] low back pain (chief complaint) Chronic pain syndromePostlam inectomy syndrome, not elsewhere classifiedOther cervical disc degeneration, unspecified cervical regionLong term (current) use of opiate analgesicChroni c migraine without aura, intractable, without status migrainosusPain in right knee Sep-0 1 Jil Krystyna. [address]83 [facility] [address], [place], [id number] , [place]. tel: [phone] Referring Provider: Gonzalo Adams, [address] [place] [address], [address]. tel:[phone] OFFICE VISIT, EST TELEMEDICINE [facility], [address] [place] [address], [id number] , [place] tel: [phone] [facility] low back pain (chief complaint) Chronic pain syndromePostlam inectomy syndrome, not elsewhere classifiedOther cervical disc degeneration, unspecified cervical regionLong term (current) use of opiate analgesicChroni c migraine without aura, intractable, without status migrainosus Aug-0 1 [place]. [address] [facility] 11 [facility] 100, [place], [place], [id number] , [place]. tel: [phone] Referring Provider: Gonzalo Adams, [address] [place] [address], [address]. tel:[phone] [facility], [address] [place] [address], [id number] , [place] tel: [phone] [facility] Postlaminectomy syndrome, not elsewhere classified 1 Marissa Medina. 1455 [facility] 11 [facility] 100, [place], [place], [id number] , [place]. tel: [phone] Referring Provider: Gonzalo Adams, [address] [place] [address], [address]. tel:[phone] [facility], [address] [place] [address], [id number] , [place] tel: [phone] [facility] [place] Postlaminectomy syndrome, not elsewhere classified 1 [place]. [address] [facility] 11 [facility] 100, [place], [place], [id number] , [place]. tel:[phone] Referring Provider: Gonzalo Adams, [address] [place] [address], [address]. [phone] [facility], [address] [place] [address], [id number] , tel:[phone] [facility] Postlaminectomy syndrome, not elsewhere classified 1 Nithya Moses. [address] [place] [address], [id number] , [place]. tel:[phone] Referring Provider: Gonzalo Adams, [address] [place] [address], [address]. [phone] OFFICE VISIT, EST TELEMEDICINE [facility], [address] [place] [address], [id number] , tel:[phone] [facility] low back pain (chief complaint) Chronic pain syndromePostlam inectomy syndrome, not elsewhere classifiedOther cervical disc degeneration, unspecified cervical regionLong term (current) use of opiate analgesicChroni c migraine without aura, intractable, without status migrainosus 1 [facility]. [id number] [place] [address] Rd [address], [place], [place], [id number] , . tel:[phone] Referring Provider: Gonzalo Adams, [address] [place] [address], [address]. [phone] Psych Dx Eval [facility], [address] [place] [address], [id number] , [place] tel:[phone] [facility] Pain disorder with related psychological factorsBipolar disorderAlcohol dependence, in remission 1 Saba Bullock. [address] [place] [address], [id number] , [place]. tel:[phone] Referring Provider: Gonzalo Adams, [address] [place] [address], [address]. [phone] [facility], [address] [place] [address], [id number] , [place] tel:[phone] [facility] lumbago (chief complaint) Postlaminectomy syndrome, not elsewhere classified 1 Brandyn Fabian. [address] [place] [address], [id number] , [place]. tel:[phone] Referring Provider: Gonzalo Adams, [address] [place] [address], [address]. tel:[phone] [facility], [address] [place] [address], [id number] , [place] tel:[phone] [facility] [place] No Information [facility] Krystyna. [id number] [place] [address] Rd [address], [place], [place], [id number] , [place]. tel:[phone] Referring Provider: Gonzalo Adams, [address] [place] [address], [address]. tel:[phone] OFFICE/OUTPAT IENT VISIT, EST [facility], [address] [place] [address], [id number] , [place] tel:[phone] [facility] Back Pain (chief complaint) Chronic pain syndromePostlam inectomy syndrome, not elsewhere classifiedOther cervical disc degeneration, unspecified cervical regionLong term (current) use of opiate analgesicChroni c migraine without aura, intractable, without status migrainosus [address] [facility] Krystyna. [address] [facility] [address], [place], [place], [id number] , [place]. tel:[phone] Referring Provider: Gonzalo Adams, [address] [place] [address], [address]. tel:[phone] OFFICE VISIT, EST TELEMEDICINE [facility], [address] [place] [address], [id number] , [place] tel:[phone] [facility] Back Pain (chief complaint) Chronic pain syndromePostlam inectomy syndrome, not elsewhere classifiedOther cervical disc degeneration, unspecified cervical regionLong term (current) use of opiate analgesicChroni c migraine without aura, intractable, without status migrainosus [place]. [address] [facility] [address], [place], [id number] , [place]. [phone] Referring Provider: Gonzalo Adams, [address] [place] [address], [address]. [phone] OFFICE VISIT, EST TELEMEDICINE [facility], [address] [place] [address], [id number] , [place] tel:[phone] [facility] Back Pain (chief complaint) Chronic pain syndromePostlam inectomy syndrome, not elsewhere classifiedOther cervical disc degeneration, unspecified cervical regionLong term (current) use of opiate analgesic 1 [place]. [address] [facility] [address], [place], [id number] , [place]. tel:[phone] Referring Provider: Gonzalo Adams, [address] [place] [address], [address]. [phone] OFFICE VISIT, EST TELEMEDICINE [facility], [address] [place] [address], [id number] , [place] tel:[phone] [facility] Back Pain (chief complaint) Chronic pain syndromePostlam inectomy syndrome, not elsewhere classifiedOther cervical disc degeneration, unspecified cervical regionLong term (current) use of opiate analgesic 1 Brianneonge Krystyna. [address] [facility] [address], [place], [id number] , [place]. tel:[phone] Referring Provider: Gonzalo Adams, [address] [place] [address], [address]. [phone] OFFICE VISIT, EST TELEMEDICINE [facility], [address] [place] [address], [id number] , [place] tel:[phone] [facility] Back Pain (chief complaint) Chronic pain syndromePostlam inectomy syndrome, not elsewhere classifiedOther cervical disc degeneration, unspecified cervical regionLong term (current) use of opiate analgesic 1 Nyongesa Krystyna. [address] [facility] [address], [place], [id number] , [place]. tel:[phone] Referring Provider: Gonzalo Adams, [address] [place] [address], [address]. tel:[phone] OFFICE VISIT, EST TELEMEDICINE [facility], [address] [place] [address], [id number] , [place] tel: [phone] [facility] [place]ela Back Pain (chief complaint) Chronic pain syndromePostlam inectomy syndrome, not elsewhere classifiedOther cervical disc degeneration, unspecified cervical regionLong term (current) use of opiate analgesic 1 Nyongesa Krystyna. [id number] [place] [address] 11 [facility] 100, [place], [id number] , [place]. tel:[phone] Referring Provider: Gonzalo Adams, [address] [place] [address], [address]. tel:[phone] OFFICE VISIT, EST TELEMEDICINE [facility], [address] [place] [address], [id number] , [place] tel: [phone] [facility] [place] Back Pain (chief complaint) Chronic pain syndromePostlam inectomy syndrome, not elsewhere classifiedOther cervical disc degeneration, unspecified cervical regionLong term (current) use of opiate analgesic 0 Nyongesa Krystyna. [id number] [place] [address] 11 [facility] 100, [place], [id number] , [place]. tel: [phone] Referring Provider: Gonzalo Adams, [address] [place] [address], [address]. tel:[phone] OFFICE VISIT, EST TELEMEDICINE [facility], [address] [place] [address], [id number] , [place] tel: [phone] [facility] [place] Back Pain (chief complaint) Chronic pain syndromePostlam inectomy syndrome, not elsewhere classifiedOther cervical disc degeneration, unspecified cervical regionLong term (current) use of opiate analgesic 0 Nyongesa Krystyna. [address] [facility] [address] [address], [place], [id number] , [place]. tel:[phone] Referring Provider: Gonzalo Adams, [address] [place], [address]. [phone] OFFICE/OUTPAT IENT VISIT, [facility], [address] [place] [address], [id number] , [place] tel:[phone] [facility] Back Pain (chief complaint) Chronic pain syndromePostlam inectomy syndrome, not elsewhere classifiedOther cervical disc degeneration, unspecified cervical regionLong term (current) use of opiate analgesic 0 Nyongesa Krystyna. [address] [facility] [address] [address], [place], [place], [id number] , [place]. tel:[phone] Referring Provider: Gonzalo Adams, [address] [place], [address]. [phone] OFFICE/OUTPAT IENT VISIT, [facility], [address] [place] [address], [id number] , [place] tel:[phone] [facility] Back Pain (chief complaint) Chronic pain syndromeEncount er for screening for other disorderPostlam inectomy syndrome, not elsewhere classifiedOther cervical disc degeneration, unspecified cervical regionEncounter for therapeutic drug level monitoringLong term (current) use of opiate analgesic 0 Nyongesa Krystyna. [address] [facility] [address] [address], [place], [place], [id number] , [place]. tel:[phone] Referring Provider: Tl Pantoja, [address], [address]. tel:[phone] Family History Family Member Type Diagnosis Age At Onset Father Problem back surgery Brother Problem back surgery Payers Payer name Insurance type Covered libertarian ID Authordale tolentino(s) [facility] MedicareComplete Replacement 16 [id number] [employer] [facility] [id number] Social History Type Description Quantity Date Captured Comments Alcohol Use Details No Caffeine Use Details Unknown Tobacco Use Status Current non-smoker Smoking Status Never smoker Non-Smoking Tobacco Use Details : No Details Available : No Details Available Sex Female Vital Signs Date / Time: Height Weight BMI Pulse Rate Blood Pressure Temperature Respiratory Rate Body Surface Area Head Circumference Head Circ. Percentile Wt./Gallo. Percentile BMI percentile Pulse Ox Inhaled Ox 1:06 PM 61.144 kg (134.80 lbs) Chief Complaint And Reason For Visit From encounter dated 06/05/2023 13:00'. Back Pain (chief complaint). Description: Severity level is 5. Duration: chronic. The problem is fluctuating. It occurs persistently. Location of pain is lower back and neck. The client describes thepain as an ache and throbbing. Symptoms are aggravated by bending, lifting, twisting, walking, housework, stairs and prolonged positioning. Symptoms are relieved by pain meds/drugs, stretching, rest and changing positions. Reason For Referral Reason For Referral No Information Plan Of Treatment Date Type Action Status Goal Creatinine. Due on due Goal BEHAVIORAL HEALTH COUNSELOR Scanned. Due on due Goal HPV. Due on due Goal Order Annual PT. Due on due Goal Lipid panel. Due on due Goal AST (SGOT). Due on due Goal AGRONOMY TECHNICIAN Paperwork. Due on due Goal UDT. Due on due Goal Zoster vaccine ( 1st). Due on due Goal ALT (SGPT). Due on due Goal FIT. Due on due Goal Weight. Due on d ue Goal OARS. Due on due Goal Update Social Hi story. Due on due Goal Height. Due on d ue Goal FIT-DNA. Due on due Goal Review Allergy L ist. Due on due Goal Medication Recon ciliation. Due on due Goal CT-Colonography. Due on due Goal Tobacco Use. Due on due Goal Unhealthy drug u se screening. Due on due Goal PHQ-9. Due on du e Goal Hepatitis C scre ening. Due on due Goal AST (SGOT). Due on due Goal Order Annual PT. Due on due Goal ALT (SGPT). Due on due Goal OARS. Due on due Goal UDT. Due on due Goal Review Allergy L ist. Due on due Goal AGRONOMY TECHNICIAN Paperwork. Due on due Goal Creatinine. Due on due Goal BEHAVIORAL HEALTH COUNSELOR Scanned. Due on due Goal Zoster vaccine ( 1st). Due on due Goal FIT. Due on due Goal CT-Colonography. Due on due Goal Tobacco Use. Due on due Goal Medication Recon ciliation. Due on due Goal Update Social Hi story. Due on due Goal FIT-DNA. Due on due Goal HPV. Due on due Goal Lipid panel. Due on 023 due Goal Height. Due on d ue Goal Weight. Due on d ue Goal Hepatitis C scre ening. Due on due Goal Unhealthy drug u se screening. Due on due Goal PHQ-9. Due on du e Goal UDT. Due on due Goal Hepatitis C scre ening. Due on due Goal Lipid panel. Due on due Goal Order Annual PT. Due on due Goal AST (SGOT). Due on due Goal HPV. Due on due Goal Unhealthy drug u se screening. Due on due Goal FIT-DNA. Due on due Goal PHQ-9. Due on du e Goal Height. Due on d ue Goal Review Allergy L ist. Due on due Goal OARS. Due on due Goal CT-Colonography. Due on due Goal Tobacco Use. Due on due Goal ALT (SGPT). Due on due Goal AGRONOMY TECHNICIAN Paperwork. Due on due Goal Update Social Hi story. Due on due Goal Creatinine. Due on due Goal Medication Recon ciliation. Due on due Goal FIT. Due on due Goal Zoster vaccine ( 1st). Due on due Goal BEHAVIORAL HEALTH COUNSELOR Scanned. Due on due Goal Weight. Due on d ue Goal Review Allergy L ist. Due on due Goal Creatinine. Due on due Goal Lipid panel. Due on due Goal Medication Recon ciliation. Due on due Goal HPV. Due on due Goal UDT. Due on due Goal Zoster vaccine ( 1st). Due on due Goal ALT (SGPT). Due on due Goal Update Social Hi story. Due on due Goal Tobacco Use. Due on due Goal AST (SGOT). Due on due Goal OARS. Due on due Goal AGRONOMY TECHNICIAN Paperwork. Due on due Goal Height. Due on d ue Goal Order Annual PT. Due on due Goal PHQ-9. Due on du e Goal BEHAVIORAL HEALTH COUNSELOR Scanned. Due on due Goal FIT-DNA. Due on due Goal Weight. Due on d ue Goal CT-Colonography. Due on due Goal Hepatitis C scre ening. Due on due Goal FIT. Due on due Goal Unhealthy drug u se screening. Due on due Goal Creatinine. Due on due Goal ALT (SGPT). Due on due Goal UDT. Due on due Goal Order Annual PT. Due on due Goal FIT. Due on due Goal Weight. Due on d ue Goal Unhealthy drug u se screening. Due on due Goal CT-Colonography. Due on due Goal AGRONOMY TECHNICIAN Paperwork. Due on due Goal Hepatitis C scre ening. Due on due Goal Zoster vaccine ( 1st). Due on due Goal Lipid panel. Due on due Goal PHQ-9. Due on du e Goal HPV. Due on due Goal OARS. Due on due Goal Tobacco Use. Due on due Goal AST (SGOT). Due on due Goal Height. Due on d ue Goal Review Allergy L ist. Due on due Goal Medication Recon ciliation. Due on due Goal BEHAVIORAL HEALTH COUNSELOR Scanned. Due on due Goal Update Social Hi story. Due on due Goal FIT-DNA. Due on due Goal ALT (SGPT). Due on due Goal AGRONOMY TECHNICIAN Paperwork. Due on due Goal BEHAVIORAL HEALTH COUNSELOR Scanned. Due on due Goal AST (SGOT). Due on due Goal Order Annual PT. Due on due Goal Creatinine. Due on due Goal UDT. Due on due Goal OARS. Due on due Goal PHQ-9. Due on du e Goal CT-Colonography. Due on due Goal Weight. Due on d ue Goal Lipid panel. Due on due Goal Medication Recon ciliation. Due on due Goal Unhealthy drug u se screening. Due on due Goal HPV. Due on due Goal Tobacco Use. Due on due Goal Review Allergy L ist. Due on due Goal Zoster vaccine ( 1st). Due on due Goal Hepatitis C scre ening. Due on due Goal FIT. Due on due Goal Height. Due on d ue Goal FIT-DNA. Due on due Goal Update Social Hi story. Due on due Goal OARS. Due on due Goal UDT. Due on due Goal Order Annual PT. Due on due Goal AST (SGOT). Due on due Goal BEHAVIORAL HEALTH COUNSELOR Scanned. Due on due Goal ALT (SGPT). Due on due Goal Creatinine. Due on due Goal Medication Recon ciliation. Due on due Goal FIT. Due on due Goal AGRONOMY TECHNICIAN Paperwork. Due on due Goal Unhealthy drug u se screening. Due on due Goal Lipid panel. Due on due Goal Tobacco Use. Due on due Goal Update Social Hi story. Due on due Goal Weight. Due on d ue Goal Zoster vaccine ( 1st). Due on due Goal Hepatitis C scre ening. Due on due Goal Height. Due on d ue Goal CT-Colonography. Due on due Goal HPV. Due on due Goal Review Allergy L ist. Due on due Goal PHQ-9. Due on du e Goal FIT-DNA. Due on due Goal BEHAVIORAL HEALTH COUNSELOR Scanned. Due on due Goal Order Annual PT. Due on due Goal ALT (SGPT). Due on due Goal OARS. Due on due Goal PHQ-9. Due on du e Goal HPV. Due on due Goal UDT. Due on due Goal Update Social Hi story. Due on due Goal FIT-DNA. Due on due Goal FIT. Due on due Goal Hepatitis C scre ening. Due on due Goal AST (SGOT). Due on due Goal Lipid panel. Due on due Goal Review Allergy L ist. Due on due Goal CT-Colonography. Due on due Goal Zoster vaccine ( 1st). Due on due Goal Weight. Due on d ue Goal Creatinine. Due on due Goal Medication Recon ciliation. Due on due Goal Tobacco Use. Due on due Goal Unhealthy drug u se screening. Due on due Goal Height. Due on d ue Goal AGRONOMY TECHNICIAN Paperwork. Due on due Goal OARS. Due on due Goal AST (SGOT). Due on due Goal Order Annual PT. Due on due Goal ALT (SGPT). Due on due Goal UDT. Due on due Goal BEHAVIORAL HEALTH COUNSELOR Scanned. Due on due Goal Height. Due on d ue Goal Review Allergy L ist. Due on due Goal PHQ-9. Due on du e Goal Hepatitis C scre ening. Due on due Goal FIT-DNA. Due on due Goal CT-Colonography. Due on due Goal Medication Recon ciliation. Due on due Goal AGRONOMY TECHNICIAN Paperwork. Due on due Goal Creatinine. Due on due Goal Lipid panel. Due on due Goal Tobacco Use. Due on due Goal FIT. Due on due Goal Unhealthy drug u se screening. Due on due Goal HPV. Due on due Goal Weight. Due on d ue Goal Update Social Hi story. Due on due Goal Zoster vaccine ( 1st). Due on due Goal AST (SGOT). Due on due Goal Update Social Hi story. Due on due Goal OARS. Due on due Goal BEHAVIORAL HEALTH COUNSELOR Scanned. Due on due Goal Tobacco Use. Due on due Goal HPV. Due on due Goal UDT. Due on due Goal Medication Recon ciliation. Due on due Goal Order Annual PT. Due on due Goal ALT (SGPT). Due on due Goal Hepatitis C scre ening. Due on due Goal Review Allergy L ist. Due on due Goal Unhealthy drug u se screening. Due on due Goal Height. Due on d ue Goal FIT-DNA. Due on due Goal Lipid panel. Due on due Goal CT-Colonography. Due on due Goal PHQ-9. Due on du e Goal FIT. Due on due Goal AGRONOMY TECHNICIAN Paperwork. Due on due Goal Creatinine. Due on due Goal Zoster vaccine ( 1st). Due on due Goal Weight. Due on d ue Goal AGRONOMY TECHNICIAN Paperwork. Due on due Goal HPV. Due on due Goal Lipid panel. Due on due Goal Update Social Hi story. Due on due Goal FIT. Due on due Goal Tobacco Use. Due on due Goal FIT-DNA. Due on due Goal ALT (SGPT). Due on due Goal CT-Colonography. Due on due Goal Unhealthy drug u se screening. Due on due Goal Creatinine. Due on due Goal Weight. Due on d ue Goal Order Annual PT. Due on due Goal Medication Recon ciliation. Due on due Goal BEHAVIORAL HEALTH COUNSELOR Scanned. Due on due Goal Review Allergy L ist. Due on due Goal UDT. Due on due Goal OARS. Due on due Goal Zoster vaccine ( 1st). Due on due Goal Hepatitis C scre ening. Due on due Goal AST (SGOT). Due on due Goal Height. Due on d ue Goal PHQ-9. Due on du e Goal AGRONOMY TECHNICIAN Paperwork. Due on due Goal Medication Recon ciliation. Due on due Goal Order Annual PT. Due on due Goal UDT. Due on due Goal BEHAVIORAL HEALTH COUNSELOR Scanned. Due on due Goal AST (SGOT). Due on due Goal OARS. Due on due Goal ALT (SGPT). Due on due Goal Creatinine. Due on due Goal PHQ-9. Due on du e Goal Weight. Due on d ue Goal FIT-DNA. Due on due Goal Review Allergy L ist. Due on due Goal Lipid panel. Due on due Goal Zoster vaccine ( ). Due on due Goal Unhealthy drug u se screening. Due on due Goal FIT. Due on due Goal CT-Colonography. Due on due Goal Update Social Hi story. Due on due Goal Height. Due on d ue Goal Tobacco Use. Due on due Goal Hepatitis C scre ening. Due on due Goal HPV. Due on due Goal OARS. Due on due Goal BEHAVIORAL HEALTH COUNSELOR Scanned. Due on due Goal UDT. Due on due Goal Creatinine. Due on due Goal Zoster vaccine ( ). Due on due Goal Lipid panel. Due on due Goal Tobacco Use. Due on due Goal HPV. Due on due Goal Order Annual PT. Due on due Goal Hepatitis C scre ening. Due on due Goal Height. Due on d ue Goal Review Allergy L ist. Due on due Goal AGRONOMY TECHNICIAN Paperwork. Due on due Goal Weight. Due on d ue Goal PHQ-9. Due on du e Goal Unhealthy drug u se screening. Due on due Goal Update Social Hi story. Due on due Goal Medication Recon ciliation. Due on due Goal ALT (SGPT). Due on due Goal FIT. Due on due Goal CT-Colonography. Due on due Goal AST (SGOT). Due on due Goal FIT-DNA. Due on due Goal Order Annual PT. Due on due Goal ALT (SGPT). Due on due Goal AST (SGOT). Due on due Goal OARS. Due on due Goal UDT. Due on due Goal AGRONOMY TECHNICIAN Paperwork. Due on due Goal BEHAVIORAL HEALTH COUNSELOR Scanned. Due on 022 due Goal Creatinine. Due on due Goal Height. Due on d ue Goal Unhealthy drug u se screening. Due on due Goal FIT. Due on due Goal PHQ-9. Due on du e Goal Zoster vaccine ( 1st). Due on due Goal Weight. Due on d ue Goal CT-Colonography. Due on due Goal Update Social Hi story. Due on due Goal FIT-DNA. Due on due Goal HPV. Due on due Goal Medication Recon ciliation. Due on due Goal Lipid panel. Due on due Goal Review Allergy L ist. Due on due Goal Hepatitis C scre ening. Due on due Goal Tobacco Use. Due on due Goal Order Annual PT. Due on due Goal PHQ-9. Due on du e Goal AST (SGOT). Due on due Goal FIT. Due on due Goal AGRONOMY TECHNICIAN Paperwork. Due on due Goal OARS. Due on due Goal Creatinine. Due on due Goal Lipid panel. Due on due Goal Update Social Hi story. Due on due Goal Medication Recon ciliation. Due on due Goal UDT. Due on due Goal CT-Colonography. Due on due Goal BEHAVIORAL HEALTH COUNSELOR Scanned. Due on due Goal HPV. Due on due Goal ALT (SGPT). Due on due Goal Review Allergy L ist. Due on due Goal Hepatitis C scre ening. Due on due Goal Tobacco Use. Due on due Goal FIT-DNA. Due on due Goal Weight. Due on d ue Goal Height. Due on d ue Goal Unhealthy drug u se screening. Due on due Goal Zoster vaccine ( ). Due on due Goal UDT. Due on due Goal ALT (SGPT). Due on due Goal AST (SGOT). Due on due Goal Zoster vaccine ( ). Due on due Goal Unhealthy drug u se screening. Due on due Goal Order Annual PT. Due on due Goal PHQ-9. Due on du e Goal Weight. Due on d ue Goal OARS. Due on due Goal HPV. Due on due Goal Review Allergy L ist. Due on due Goal CT-Colonography. Due on due Goal Medication Recon ciliation. Due on due Goal BEHAVIORAL HEALTH COUNSELOR Scanned. Due on due Goal Tobacco Use. Due on due Goal Height. Due on d ue Goal AGRONOMY TECHNICIAN Paperwork. Due on due Goal Lipid panel. Due on due Goal Update Social Hi story. Due on due Goal FIT. Due on due Goal Hepatitis C scre ening. Due on due Goal Creatinine. Due on due Goal FIT-DNA. Due on due Goal AST (SGOT). Due on due Goal Review Allergy L ist. Due on due Goal Tobacco Use. Due on due Goal Zoster vaccine ( 1st). Due on due Goal FIT. Due on due Goal Weight. Due on d ue Goal Hepatitis C scre ening. Due on due Goal PHQ-9. Due on du e Goal HPV. Due on due Goal ALT (SGPT). Due on due Goal UDT. Due on due Goal OARS. Due on due Goal Unhealthy drug u se screening. Due on due Goal Lipid panel. Due on due Goal AGRONOMY TECHNICIAN Paperwork. Due on due Goal Medication Recon ciliation. Due on due Goal Update Social Hi story. Due on due Goal Height. Due on d ue Goal FIT-DNA. Due on due Goal BEHAVIORAL HEALTH COUNSELOR Scanned. Due on due Goal Creatinine. Due on due Goal Order Annual PT. Due on due Goal CT-Colonography. Due on due Goal BEHAVIORAL HEALTH COUNSELOR Scanned. Due on due Goal Order Annual PT. Due on due Goal OARS. Due on due Goal UDT. Due on due Goal ALT (SGPT). Due on due Goal AST (SGOT). Due on due Goal Creatinine. Due on due Goal AGRONOMY TECHNICIAN Paperwork. Due on due Goal FIT. Due on due Goal PHQ-9. Due on du e Goal Weight. Due on d ue Goal CT-Colonography. Due on due Goal Zoster vaccine ( 1st). Due on due Goal Medication Recon ciliation. Due on due Goal Tobacco Use. Due on due Goal Unhealthy drug u se screening. Due on due Goal Lipid panel. Due on due Goal Review Allergy L ist. Due on due Goal Height. Due on d ue Goal FIT-DNA. Due on due Goal HPV. Due on due Goal Hepatitis C scre ening. Due on due Goal Update Social Hi story. Due on due Goal Review Allergy L ist. Due on due Goal FIT-DNA. Due on due Goal Zoster vaccine ( ). Due on due Goal Medication Recon ciliation. Due on due Goal CT-Colonography. Due on due Goal UDT. Due on due Goal Weight. Due on d ue Goal Order Annual PT. Due on due Goal AGRONOMY TECHNICIAN Paperwork. Due on due Goal Update Social Hi story. Due on due Goal Hepatitis C scre ening. Due on due Goal BEHAVIORAL HEALTH COUNSELOR Scanned. Due on due Goal Creatinine. Due on due Goal HPV. Due on due Goal Lipid panel. Due on due Goal PHQ-9. Due on du e Goal ALT (SGPT). Due on due Goal Unhealthy drug u se screening. Due on due Goal Height. Due on d ue Goal FIT. Due on due Goal OARS. Due on due Goal AST (SGOT). Due on due Goal Tobacco Use. Due on due Goal Weight. Due on d ue Goal Creatinine. Due on due Goal PHQ-9. Due on du e Goal Update Social Hi story. Due on due Goal OARS. Due on due Goal AST (SGOT). Due on due Goal Review Allergy L ist. Due on due Goal BEHAVIORAL HEALTH COUNSELOR Scanned. Due on due Goal AGRONOMY TECHNICIAN Paperwork. Due on due Goal Medication Recon ciliation. Due on due Goal Order Annual PT. Due on due Goal Tobacco Use. Due on due Goal ALT (SGPT). Due on due Goal UDT. Due on due Goal Height. Due on d ue Goal Tobacco Use. Due on due Goal UDT. Due on due Goal Weight. Due on d ue Goal Creatinine. Due on due Goal ALT (SGPT). Due on due Goal Update Social Hi story. Due on due Goal Review Allergy L ist. Due on due Goal AGRONOMY TECHNICIAN Paperwork. Due on due Goal Order Annual PT. Due on due Goal Height. Due on d ue Goal OARS. Due on due Goal Medication Recon ciliation. Due on due Goal AST (SGOT). Due on due Goal PHQ-9. Due on du e Goal BEHAVIORAL HEALTH COUNSELOR Scanned. Due on due Goal Height. Due on d ue Goal Order Annual PT. Due on due Goal Review Allergy L ist. Due on due Goal Medication Recon ciliation. Due on due Goal OARS. Due on due Goal AGRONOMY TECHNICIAN Paperwork. Due on due Goal UDT. Due on due Goal ALT (SGPT). Due on due Goal BEHAVIORAL HEALTH COUNSELOR Scanned. Due on due Goal Weight. Due on d ue Goal AST (SGOT). Due on due Goal Update Social Hi story. Due on due Goal Creatinine. Due on due Goal Tobacco Use. Due on due Goal PHQ-9. Due on du e Goal Review Allergy L ist. Due on due Goal PHQ-9. Due on du e Goal Tobacco Use. Due on due Goal UDT. Due on due Goal Height. Due on d ue Goal Medication Recon ciliation. Due on due Goal Order Annual PT. Due on due Goal Weight. Due on d ue Goal ALT (SGPT). Due on due Goal Creatinine. Due on due Goal OARS. Due on due Goal AST (SGOT). Due on due Goal AGRONOMY TECHNICIAN Paperwork. Due on due Goal BEHAVIORAL HEALTH COUNSELOR Scanned. Due on due Goal Update Social Hi story. Due on due Goal Creatinine. Due on due Goal AGRONOMY TECHNICIAN Paperwork. Due on due Goal Order Annual PT. Due on due Goal Update Social Hi story. Due on due Goal AST (SGOT). Due on due Goal Height. Due on d ue Goal BEHAVIORAL HEALTH COUNSELOR Scanned. Due on due Goal OARS. Due on due Goal UDT. Due on due Goal Medication Recon ciliation. Due on due Goal ALT (SGPT). Due on due Goal PHQ-9. Due on du e Goal Review Allergy L ist. Due on due Goal Tobacco Use. Due on due Goal Weight. Due on d ue Goal Weight. Due on d ue Goal Update Social Hi story. Due on due Goal Tobacco Use. Due on due Goal UDT. Due on due Goal Review Allergy L ist. Due on due Goal ALT (SGPT). Due on due Goal AST (SGOT). Due on due Goal Order Annual PT. Due on due Goal Medication Recon ciliation. Due on due Goal Creatinine. Due on due Goal AGRONOMY TECHNICIAN Paperwork. Due on due Goal OARS. Due on due Goal BEHAVIORAL HEALTH COUNSELOR Scanned. Due on due Goal Height. Due on d ue Goal PHQ-9. Due on du e Goal OARS. Due on due Goal Order Annual PT. Due on due Goal AST (SGOT). Due on due Goal Height. Due on d ue Goal AGRONOMY TECHNICIAN Paperwork. Due on due Goal UDT. Due on due Goal PHQ-9. Due on du e Goal Review Allergy L ist. Due on due Goal Tobacco Use. Due on due Goal ALT (SGPT). Due on due Goal BEHAVIORAL HEALTH COUNSELOR Scanned. Due on due Goal Weight. Due on d ue Goal Medication Recon ciliation. Due on due Goal Creatinine. Due on due Goal Update Social Hi story. Due on due Goal UDT. Due on due Goal Creatinine. Due on due Goal Medication Recon ciliation. Due on due Goal Tobacco Use. Due on due Goal BEHAVIORAL HEALTH COUNSELOR Scanned. Due on due Goal Weight. Due on d ue Goal OARS. Due on due Goal Review Allergy L ist. Due on due Goal AGRONOMY TECHNICIAN Paperwork. Due on due Goal Height. Due on d ue Goal AST (SGOT). Due on due Goal ALT (SGPT). Due on due Goal Order Annual PT. Due on due Goal PHQ-9. Due on du e Goal Update Social Hi story. Due on due Goal ALT (SGPT). Due on due Goal OARS. Due on due Goal Order Annual PT. Due on due Goal Medication Recon ciliation. Due on due Goal AGRONOMY TECHNICIAN Paperwork. Due on due Goal Update Social Hi story. Due on due Goal Review Allergy L ist. Due on due Goal AST (SGOT). Due on due Goal Weight. Due on d ue Goal Tobacco Use. Due on due Goal Creatinine. Due on due Goal PHQ-9. Due on du e Goal Height. Due on d ue Goal BEHAVIORAL HEALTH COUNSELOR Scanned. Due on due Goal UDT. Due on due Goal ALT (SGPT). Due on due Goal Order Annual PT. Due on due Goal AST (SGOT). Due on due Goal Creatinine. Due on due Goal OARS. Due on due Goal BEHAVIORAL HEALTH COUNSELOR Scanned. Due on due Goal AGRONOMY TECHNICIAN Paperwork. Due on due Goal Update Social Hi story. Due on due Goal PHQ-9. Due on du e Goal Weight. Due on d ue Goal Tobacco Use. Due on due Goal Medication Recon ciliation. Due on due Goal Review Allergy L ist. Due on due Goal UDT. Due on due Goal Height. Due on d ue Goal BEHAVIORAL HEALTH COUNSELOR Scanned. Due on due Goal PHQ-9. Due on du e Goal Tobacco Use. Due on due Goal ALT (SGPT). Due on due Goal AST (SGOT). Due on due Goal Weight. Due on d ue Goal OARS. Due on due Goal Review Allergy L ist. Due on due Goal Medication Recon ciliation. Due on due Goal Order Annual PT. Due on due Goal UDT. Due on due Goal Update Social Hi story. Due on due Goal AGRONOMY TECHNICIAN Paperwork. Due on due Goal Creatinine. Due on due Goal Height. Due on d ue Goal ALT (SGPT). Due on due Goal BEHAVIORAL HEALTH COUNSELOR Scanned. Due on due Goal Tobacco Use. Due on due Goal Height. Due on d ue Goal Weight. Due on d ue Goal AGRONOMY TECHNICIAN Paperwork. Due on due Goal Creatinine. Due on due Goal Order Annual PT. Due on due Goal AST (SGOT). Due on due Goal Update Social Hi story. Due on due Goal UDT. Due on due Goal OARS. Due on due Goal Review Allergy L ist. Due on due Goal PHQ-9. Due on du e Goal Medication Recon ciliation. Due on due Goal Creatinine. Due on due Goal Order Annual PT. Due on due Goal ALT (SGPT). Due on due Goal AST (SGOT). Due on due Goal OARS. Due on due Goal BEHAVIORAL HEALTH COUNSELOR Scanned. Due on due Goal Height. Due on d ue Goal Weight. Due on d ue Goal UDT. Due on due Goal AGRONOMY TECHNICIAN Paperwork. Due on due Goal Tobacco Use. Due on due Goal Review Allergy L ist. Due on due Goal Update Social Hi story. Due on due Goal Medication Recon ciliation. Due on due Goal PHQ-9. Due on du e Goal ALT (SGPT). Due on due Goal Review Allergy L ist. Due on due Goal Weight. Due on d ue Goal AGRONOMY TECHNICIAN Paperwork. Due on due Goal Order Annual PT. Due on due Goal Creatinine. Due on due Goal Update Social Hi story. Due on due Goal OARS. Due on due Goal Height. Due on d ue Goal AST (SGOT). Due on due Goal Tobacco Use. Due on due Goal Medication Recon ciliation. Due on due Goal UDT. Due on due Goal BEHAVIORAL HEALTH COUNSELOR Scanned. Due on due Goal PHQ-9. Due on du e Goal Weight. Due on d ue Goal Order Annual PT. Due on due Goal BEHAVIORAL HEALTH COUNSELOR Scanned. Due on due Goal ALT (SGPT). Due on due Goal AGRONOMY TECHNICIAN Paperwork. Due on due Goal Update Social Hi story. Due on due Goal Tobacco Use. Due on due Goal OARS. Due on due Goal Medication Recon ciliation. Due on due Goal Review Allergy L ist. Due on due Goal UDT. Due on due Goal AST (SGOT). Due on due Goal Height. Due on d ue Goal Creatinine. Due on due Goal PHQ-9. Due on du e Goal Weight. Due on d ue Goal OARS. Due on due Goal ALT (SGPT). Due on due Goal AST (SGOT). Due on due Goal Review Allergy L ist. Due on due Goal Medication Recon ciliation. Due on due Goal Height. Due on d ue Goal PHQ-9. Due on du e Goal UDT. Due on due Goal AGRONOMY TECHNICIAN Paperwork. Due on due Goal Order Annual PT. Due on due Goal Creatinine. Due on due Goal Tobacco Use. Due on due Goal BEHAVIORAL HEALTH COUNSELOR Scanned. Due on due Goal Update Social Hi story. Due on due Goal Order Annual PT. Due on due Goal Tobacco Use. Due on due Goal BEHAVIORAL HEALTH COUNSELOR Scanned. Due on due Goal ALT (SGPT). Due on due Goal AST (SGOT). Due on due Goal Review Allergy L ist. Due on due Goal Medication Recon ciliation. Due on due Goal Creatinine. Due on due Goal UDT. Due on due Goal OARS. Due on due Goal Update Social Hi story. Due on due Goal PHQ-9. Due on du e Goal Weight. Due on d ue Goal Height. Due on d ue Goal AGRONOMY TECHNICIAN Paperwork. Due on due Goal PHQ-9. Due on du e Goal AST (SGOT). Due on due Goal Weight. Due on d ue Goal BEHAVIORAL HEALTH COUNSELOR Scanned. Due on due Goal Height. Due on d ue Goal Order Annual PT. Due on due Goal Review Allergy L ist. Due on due Goal Update Social Hi story. Due on due Goal OARS. Due on due Goal Creatinine. Due on due Goal AGRONOMY TECHNICIAN Paperwork. Due on due Goal ALT (SGPT). Due on due Goal Medication Recon ciliation. Due on due Goal Tobacco Use. Due on due Goal UDT. Due on due Goal ALT (SGPT). Due on due Goal Update Social Hi story. Due on due Goal OARS. Due on due Goal Review Allergy L ist. Due on due Goal Weight. Due on d ue Goal BEHAVIORAL HEALTH COUNSELOR Scanned. Due on due Goal AST (SGOT). Due on due Goal UDT. Due on due Goal Medication Recon ciliation. Due on due Goal AGRONOMY TECHNICIAN Paperwork. Due on due Goal Order Annual PT. Due on due Goal Tobacco Use. Due on due Goal Creatinine. Due on due Goal PHQ-9. Due on du e Goal Height. Due on d ue Goal Tobacco cessation counseling completed Goal Medication Recon ciliation. Due on due Goal Tobacco Use. Due on due Goal Update Social Hi story. Due on due Goal Weight. Due on d ue Goal Review Allergy L ist. Due on due Goal Height. Due on d ue Goal PHQ-9. Due on du e Goal UDT. Due on due Goal Order Annual PT. Due on due Goal OARS. Due on due Goal Creatinine. Due on due Goal AGRONOMY TECHNICIAN Paperwork. Due on due Goal ALT (SGPT). Due on due Goal BEHAVIORAL HEALTH COUNSELOR Scanned. Due on due Goal AST (SGOT). Due on due Appointment Maryana Clemons BOOKED Appointment Maryana Clemons #[id number] Caudal Epidural Steroid Injection BOOKED Future Order: Radiology Order X Ray ([id number]), Sent on: Sent Future Order: Radiology Order XR Knee 3V Right ([id number]), Body Site: knee, Sent on: Sent History Of Present Illness Encounter Date Complaint History Of Prese nt Illness Back Pain Severity level i s 5. Duration: chronic. The problem is fluctuating. It occurs persistently. Location of pain is lower back and neck. The client describes the pain as an ache and throbbing. Symptoms are aggravated by bending, lifting, twisting, walking, housework, stairs and prolonged positioning. Symptoms are relieved by pain meds/drugs, stretching, rest and changing positions. Comments: Maryana is a 57 y/o female who presents for follow up and medication refill in the setting of chronic migraines, neck pain with radiation into the occipital region, and low back pain with radiation into the BL legs. Pain has been fluctuating this month. Neck pain continues to be the most bothersome. C7-T1 IESI scheduled on 06/20/[address] Zamora.Patient plans to start PT at [facility] soon. She states she recently purchased a mini exercise bike with an adjustable tension and have been using it with some benefit. Notes she has also consulted with a specialist in regards to obtaining a fiber glass brace for the R ankle. Reports current medication regimen provides 80% pain relief and allows for increased functionality. Rates her pain as 7/10 without medications and 5/10 with medications. Continues to utilize Percocet 7.5-325mg TID with significant benefit. Denies OIC or other side effects from current medications. No other concerns today. Back Pain Severity level i s 9. The problem is worsening. It occurs persistently. Symptoms are relieved by pain meds/drugs. Comments: Maryana is a 57 y/o female who presents via [place] for virtual follow up and medication refill in the setting of chronic migraines, neck pain, and low back pain with radiation into the BL legs. Pain has been worse this month. Low back pain with radiation down the R leg has been the most bothersome. Notes she has been driving and lifting more in order to help her father which has contributed to her increased pain. Caudal NHI is scheduled on 05/23/[address] Zamora. Patient complains of tightness and soreness between the shoulders. Unsure if it's muscle tightness or pain radiating from the neck. Notes she has an upcoming appointment to obtain an MRI of the cervical soon. Inquires if she can also receive injections for the neck.Reports current medication regimen provides 70% pain relief and allows for increased functionality. Continues to utilize Percocet 7.5-325mg TID with significant benefit. Denies OIC or other side effects from current medications. No other concerns today. Comments: Maryana is a 57 y/o female who presents via [place] for virtual follow up and medication refill in the setting of chronic migraines, neck pain, and low back pain with radiation into the BL legs. Pain has been fluctuating this month. Believes the ongoing RLS may be originating from the low back.Continues to complain about ongoing RLS. Have been following up with her neurologist who switched her from Ropinirole to Rotigotine transdermal patches. She states the change in medication worsened her RLS at night. Notes it now occurs in both legs instead of one leg at a time. Requested to switch back to Ropinirole but her neurologist encouraged her to stay on the patches. Reports current medication regimen provides 65% pain relief and allows for increased functionality. Continues to utilize Percocet 7.5-325mg TID with significant benefit. Denies OIC or other side effects from current medications. No other concerns today. Back Pain Severity level i s 7. The problem is fluctuating. It occurs persistently. Symptoms are relieved by pain meds/drugs. Comments: Maryana is a 57 y/o female who presents via [place] for virtual follow up and medication refill in the setting of chronic migraines, neck pain, and low back pain with radiation into the BL legs. Pain has been stable this month. Denies any new symptoms or changes in regards to her chronic pain.Patient complains of worsening RLS. Notes she has been unable to obtain a sufficient amount of sleep at night since the sensations keep her awake. Have noticed worsening of RLS at night with increased activity during the day. Expressed interest with changing the Ropinirole dose. She states she takes Gabapentin 4x/day which is prescribed by her neurologist. Reports current medication regimen provides 75% pain relief and allows for increased functionality. Continues to utilize Percocet 7.5-325mg TID with significant benefit. Denies OIC or other side effects from current medications. No other concerns today. Back Pain Severity level i s 8. The problem is stable. It occurs persistently. Symptoms are relieved by pain meds/drugs. Comments: Maryana is a 57 y/o female who presents for follow up and medication refill in the setting of chronic neck and low back pain with radiation into the BL legs. Pain has been stable this month. Notes she has been experiencing muscle spasms in the back. Continues to express little interest in proceeding with injections at this time. Would like to consult with a neurologist first. Reports current medication regimen provides 70% pain relief and allows for increased functionality. Rates her pain as 6/10 without medications and 4/10 with medications. Continues to utilize Percocet 7.5-325mg 3x/day with significant benefit. Denies OIC or other side effects from current medications. No other concerns today. Back Pain Severity level i s 4. Duration: chronic. The problem is stable. It occurs persistently. The client describes the pain as an ache. Symptoms are aggravated by bending, lifting, twisting, housework and prolonged positioning. Symptoms are relieved by heat, ice, pain meds/drugs, stretching, rest and changing positions. Comments: Maryana is a 57 y/o female who presents via [place] for virtual follow up and medication refill in the setting of chronic neck and low back pain with radiation into the BL legs. Pain has been stable this month. Notes she has not put more thought into proceeding with injections of the back d/t recent life stressors. Has been trying to take it easy in order to not aggravate the pain.Patient states she has been experiencing more frequent migraines. Most recent one occurred for 5 consecutive days. Believes the recent migraines are either due to stress or the lack of sleep. Continues to use Maxalt with benefit. Notes the medications helps 70% of the time.Reports current medication regimen provides 80% pain relief and allows for increased functionality. Continues to utilize Percocet 7.5-325mg 3x/day with significant benefit. Denies OIC or other side effects from current medications. No other concerns today. Back Pain Severity level i s 7. Duration: chronic. The problem is stable. It occurs persistently. Symptoms are relieved by pain meds/drugs. Back pain Severity level i s 8. Duration: chronic. The problem is fluctuating. It occurs persistently. Location of pain is lower back and neck. The client describes the pain as an ache and sharp. Symptoms are aggravated by bending, lifting, sitting, twisting, walking, housework and prolonged positioning. Symptoms are relieved by heat, ice, pain meds/drugs, stretching, rest and changing positions. Comments: This i s my first evaluation of Maryana, a 57 y/o woman here for follow up consult and medication refill in the setting of chronic lower back and neck pain. Back pain radiates into BL legs. Patient is routinely followed by my colleague, Krystyna Ho DNP. Pain has been fluctuating since [place] and pain level averages 8/10. Upon inquiry, states that she has not been experiencing pain in her BL hips as of late. Also states that her carpal tunnel has not been bothersome lately. Continues to report that either Seroquel or Amitriptyline may be causing restlessness in her legs. Though states that the restless leg syndrome began after her second back surgery. States that she has numbness from her left knee and down. Shares that her balance has relatively remained the same.Reports current medication regimen provides 70% pain relief and allows for increased functionality, reducing her pain level to 6/10. Continues to utilize Percocet 7.5-325mg 3x/day with significant benefit. Continues Seroquel QD. Denies OIC or other side effects from current medications. No other concerns today. low back pain Severity level i s 8. Duration: chronic. The problem is worsening. It occurs persistently. Location of pain is lower back, legs and neck. The client describes the pain as an ache, burning and sharp. Symptoms are aggravated by bending, lifting, running, sitting, standing, twisting, walking, housework, movement, stairs and prolonged positioning. Symptoms are relieved by pain meds/drugs and rest. Comments: Maryana is a 57 y/o female who presents via [facility] for virtual follow up and medication refill in the setting of chronic lower back and neck pain. Pain has been worse this month. Low back pain have been the most bothersome. Believes the recent increase in activities during the holidays may have contributed to the worsening of her pain. Pain in lower back radiates into legs Continues to experience weakness/restlessness in the legs. Notes they feel like jelly which causes her to be unsteady. Believes the Seroquel or Amitriptyline may be causing the new issue. She states she has tapered the Seroquel to 1x/day. Have been unable to see a specialist for the ongoing issue. Will try her best to call them again today in order to set up an appointment.Reports current medication regimen provides 75% pain relief and allows for increased functionality. Continues to utilize Percocet 7.5-325mg 3x/day with significant benefit. Denies OIC or other side effects from current medications. No other concerns today. Comments: Maryana is a 57 y/o female who presents via [facility] for virtual follow up and medication refill in the setting of chronic lower back and neck pain. Pain has been fluctuating this month. She states she has been experiencing weakness in the morning with her legs being unsteady and her frequently dropping things. Believes the Seroquel or Amitriptyline may be causing the new issue. Also notes the cold weather is affecting her pain.Patient has seen an improvement in migraines since increasing the Gabapentin. Although there are times where the migraines make her sensitive to light and forces her to isolate herself for a few hours, she notes they don't last as long when compared to before. Reports current medication regimen provides 75% pain relief and allows for increased functionality. Continues to utilize Percocet 7.5-325mg 3x/day with significant benefit. She states her neurologist increased her Gabapentin to 3x/day with the option to increase it to 4x/day when pain worsens. Denies OIC or other side effects from current medications. No other concerns today. low back pain Severity level i s 7. Duration: chronic. The problem is fluctuating. It occurs persistently. Location of pain is neck. The client describes the pain as an ache, burning, sharp and tingling. Symptoms are aggravated by bending, lifting, running, sitting, standing, twisting, walking, housework, movement, stairs and prolonged positioning. Symptoms are relieved by pain meds/drugs and rest. low back pain Severity level i s 7. Duration: chronic. The problem is fluctuating. It occurs persistently. Location of pain is legs, neck and right knee. The client describes the pain as an ache and tingling. Symptoms are aggravated by bending, lifting, sitting, twisting, walking, housework, movement, stairs and prolonged positioning. Symptoms are relieved by pain meds/drugs, rest and changing positions. Comments: Maryana is a 56 y/o female who presents for follow up and medication refill in the setting of chronic lower back and neck pain. Pain has been worse this month. She states she has been experiencing worsening of migraines. Notes the migraines begins at the base of the neck and wraps around bilaterally to the top of the head. Endorses light sensitivity. She reports the migraines have never been this bad before as they are lasting more than 24 hours. Has been trying to utilize Rizatriptan with minimal to moderate benefit. Has not tried repeating rizatriptan 2 hours later. She will try thisPatient states RLS have been the most bothersome. Reports the symptoms keep her up at night and interferes with her daily life. Willing to consult with the specialists at [facility] for the ongoing issues. Reports current medication regimen provides 80% pain relief and allows for increased functionality. Continues to utilize Percocet 7.5-325mg 3x/day with significant benefit. Denies OIC or other side effects from current medications. No other concerns today. Comments: Mrs. Monica allison is a pleasant 56 y/o who presents for a virtual f/u and medication refill in the setting of chronic lower back pain and neck pain. Pain has been stable this month. Notes her low back has been increasingly achy, but attributes it to the change in weather. Also notes her carpal tunnel issues continue to make her hands numb. She is currently managed on Percocet 7.5-325mg max 3x/day with provides 75% relief and allows for increased functionality. Also uses Gabapentin HS for sleep with benefit. Denies side effects from current medication regimen. No other concerns today. low back pain Severity level i s 05/22. Duration: chronic. The problem is stable. It occurs persistently. Location of pain is lower back and neck. The client describes the pain as numbness, sharp and tingling. Symptoms are aggravated by lifting and walking. Symptoms are relieved by ice, pain meds/drugs and rest. Comments: Maryana is a 56 y/o female who presents for a follow up and medication refill in the setting of chronic lower back pain and neck pain. Pain has been worse in neck since last OV - attributes to recent lift. Recent onset of balance issues, following up with neurologist.Bilateral lateral hips and groin pain persists.Using Gabapentin at [facility] - which helps with sleepMedication provides 80% relief and allows for increased functionality. Denies side effects from current medication regimen. No other concerns today. low back pain Severity level i s moderate. The problem is worsening. Location of pain is lower back and neck. Pain is radiated to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
--- OUTSIDE RECORDS SUMMARY | 2023-06-21 11:53 | XMS_ITS | Continuity of Care Document ---
Author Name Unknown Organization [facility] Address [address] [place] [address] Care Team Providers Care Sales Representative Health Insurance Name Role Phone [facility] Unavailable Unav ailable Procedures Procedure Date IMPLANT NEUROELECTRODES IMPLANT NEUROELECTRODES Implt neurostim elctr each IMPLANT NEUROELECTRODES Advance Directives Directive Yes / No Effective Date File Name No Information Encounters Encounter Description Practice Location Reason(s) For Visit Diagnoses Date Provider Providers Copied on Encounter [facility], [address], [place], [id number], [facility] No Information [facility]. [address] [place] [address], [place], [id number], . tel:[phone] Referring Provider: Aurelia Barriga, [address] [place], [address]. tel:[phone] Family History Family Member Type Diagnosis Age At Onset No Information Payers Payer name Insurance type Covered constitution party ID Authoriza tievie(s) AARP MedicareComplete Replacement [id number] [employer] [facility] [id number] Social History Type Description Quantity Date Captured [...]
--- OUTSIDE RECORDS SUMMARY | 2023-06-21 11:53 | XMS_ITS | Continuity of Care Document ---
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 Name Role Phone Nurse, Nurse Unavailable Unavailable [...] Procedures Procedure Date MED LIST DOCD IN [facility] TOBACCO USE, SMOKING, ASSESS CURRENT TOBACCO SMOKER Expanded Visit Low Complex CO19 020 Void Encounter AMNT PAIN NOTED; NONE PRSNT MED LIST DOCD IN [facility] DEPRESSION SCREENING TOBACCO USE, SMOKING, ASSESS CURRENT TOBACCO SMOKER SYST BP LT 130 MM HG DIAST BP < 80 MM HG OFFICE/OUTPATIENT VISIT, EST COMPREHEN METABOLIC PANEL LIPID PANEL CBC W/AUTO DIFF WBC ELECTROCARDIOGRAM, COMPLETE PROTHROMBIN TIME IN HOUSE Other Health OFFICE/OUTPATIENT VISIT, EST ROUTINE VENIPUNCTURE MED LIST DOCD IN [facility] DEPRESSION SCREENING TOBACCO USE, SMOKING, ASSESS CURRENT TOBACCO SMOKER SYST BP GE 130 - 139MM HG DIAST BP 80-89 MM HG AMNT PAIN NOTED; PAIN PRSNT OFFICE/OUTPATIENT VISIT, EST AMNT PAIN NOTED; PAIN PRSNT MED LIST DOCD IN [facility] DEPRESSION SCREENING SYST BP LT 130 MM HG DIAST BP < 80 MM HG TOBACCO USE, SMOKING, ASSESS TOBACCO NON-USER URINE CULTURE REFERRAL LABCOLONY COUNT R OUTINE URINALYSIS NONAUTO W/O SCOPE AMNT PAIN NOTED; PAIN PRSNT MED LIST DOCD IN [facility] TOBACCO USE, SMOKING, ASSESS CURRENT TOBACCO [...] NOTED; NONE PRSNT MED LIST DOCD IN [facility] DEPRESSION SCREENING TOBACCO USE, SMOKING, ASSESS [...] PLAN TLK DOCD MED LIST DOCD IN [facility] DEPRESSION SCREENING SYST BP LT 130 [...] Diagnoses Date Provider Providers Copied on Encounter [facility], [address] [place] [address], [id number] , [facility] No Information 0 Nurse Nurse. . [facility], [address] [place] [address], [phone] , [facility] F/U Chronic conditions (chief complaint) Tobacco useBipolar disorder, current episode depressed, moderateNeoplasm of skinOtitis externa 0 Wayne Underwood. [facility] [employer] [place], [id number]. tel:[phone] Referring Provider: Yasmine Black, [facility] [place], [address]. tel:[phone] [facility], [address] [place] [address], [id number] , [facility] No Information 0 Alberto Sun. [facility] [employer] [place], [id number]. tel:[phone] Referring Provider: Corinne Dominguez, [facility] [place], [address]. tel:[phone] OFFICE/OUTPA TIENT VISIT, [facility], [address] [place] [address], [phone] , [facility] Chronic condition f/u (chief complaint) Tobacco useBody mass index (BMI) 24.0-24.9, adultDietary counseling and surveillanceExer cise counselingBipola r disorder, current episode depressed, moderateMultiple sclerosisGERD w/o esophagitisBee allergy statusPalpitatio nsCOPDNeoplasm of skinOtitis externa 0 Wayne Underwood. [facility] [employer] [place], [id number]. tel:[phone] Referring Provider: Yasmine Black, [facility] [place], [address]. tel:[phone] [facility], [address] [place] [address], [id number] , [facility] No Information 0 Wayne Yasmine. [address] [place] [address], [id number]. tel:[phone] Referring Provider: Yasmine Black, [address] [place] [address], [address]. tel:[phone] OFFICE/OUTPA TIENT VISIT, [facility], [address] [place] [address], [phone] , [facility] Pre-op clearance (chief complaint) Tobacco useBody mass index (BMI) 23.0-23.9, adultPain in right footEncounter for preprocedural examinationWell adult exam w/o abnormal findingDietary counseling and surveillanceExer cise counselingCardia c murmur, unspecified 0 Wayne Hudsonher. [address] [place] [address], [id number]. tel:[phone] Referring Provider: Yasmine Black, [address] [place] [address], [address]. tel:[phone] [facility], [address] [place] [address], [id number] , [facility] [place] No Information [facility]. [address], [id number], [place]. tel:[phone] OFFICE/OUTPA TIENT VISIT, [facility], [address] [place] [address], [phone] , [place] [facility] ER f/u (chief complaint) Body mass index (BMI) 23.0-23.9, adultEncounter for screening for lipoid disordersPneumon ia, unspecified organismCOPDDiet john counseling and surveillanceExer cise counselingDietar y counseling and surveillanceExer cise counseling 9 Wayne Underwood. [address] [place] [address], [id number]. tel:[phone] Referring Provider: Yasmine Black, [address] [place] [address], [address]. tel:[phone], [id number] , [facility]gt No Information [facility]. [address] [place] [address], [id number]. tel:[phone] Referring Provider: Yasmine Black, [address] [place] [address], [address]. tel:[phone] OFFICE/OUTPA TIENT VISIT, [address], [phone] , [facility] Dysuria (chief complaint) Personal history of nicotine dependenceDysuri aBody mass index (BMI) 23.0-23.9, adultDietary counseling and surveillanceExer cise counselingCardia c murmur, unspecifiedPalpi tations [facility]. [address] [place] [address], [id number]. tel:[phone] Referring Provider: Yasmine Black, [address] [place] [address], [address]. tel:[phone] OFFICE/OUTPA TIENT VISIT, [facility], [address] [place] [address], [phone] , [facility] c/o lump under right eye (chief complaint) Body mass index (BMI) 22.0-22.9, adultSebaceous cyst May- 9 Letty Figueroa. [address], [id number], [place]. tel:[phone] Referring Provider: Carolina Saenz, [address], [address]. tel:[phone] OFFICE/OUTPA TIENT VISIT, [facility], [address] [place] [address], [phone] , [facility] c/o sore on arms (chief complaint) Body mass index (BMI) 22.0-22.9, adultSeborrheic keratosis 0-201 9 Letty Figueroa. [address], [id number], [place]. tel:[phone] Referring Provider: Carolina Saenz, [address], [address]. tel:[phone] [facility], [address] [place] [address], [id number] , [facility] DEL[place]IS Maria Encounter for screening for cancer of colonOccult blood in stoolsHepatic cyst 0201 8 Nurse Nurse. . Referring Provider: Carolina Saenz, [address], [address]. tel:[phone] OFFICE/OUTPA TIENT VISIT, [facility], [address] [place] [address], [phone] , [facility] c/o stomach issues (chief complaint) Body mass index (BMI) 21.0-21.9, adultNausea with vomiting, unspecified 9-201 8 Letty Figueroa. [address], [id number], [place]. tel:[phone] Referring Provider: Carolina Saenz, [address], [address]. tel:[phone] [facility], [address] [place] [address], [id number] , [facility] No Information 8-201 8 Letty Figueroa. [address], [id number], . tel:[phone] [facility], [address] [place] [address], [phone] , [place] [facility] Canda[place] No Information Letty Figueroa. [address], [id number], [place]. tel:[phone] OFFICE/OUTPA TIENT VISIT, [facility], [address] [place] [address], [id number] , [facility] Candace needs referral (chief complaint) Hepatic cyst Letty Figueroa. [address], [id number], [place]. tel:[phone] Referring Provider: Carolina Saenz, [address], [address]. tel:[phone] OFFICE/OUTPA TIENT VISIT, [facility], [address] [place] [address], [phone] , [facility] [place] No Information Letty Figueroa. [address], [id number], [place]. tel:[phone] Referring Provider: Carolina Saenz, [address], [address]. tel:[phone] [facility], [address] [place] [address], [id number] , [facility] Candace . (chief complaint) Encntr for general adult medical exam w/o abnormal findingsEncounte r for screening for eye and ear disordersEncount er for exam of eyes and vision w abnormal findingsEncounte r for exam of ear w/o abnormal findingPlantar wartMultiple sclerosisBody mass index (BMI) 22.0-22.9, adult Letty Figueroa. [address], [id number], [place]. tel:[phone] Referring Provider: Carolina Saenz, [address], [address]. tel:[phone], [id number] , [facility] No Information 8 Letty Donatoos. [address], [id number], . tel:[phone] Referring Provider: Carolina Saenz, [address], [address]. tel:[phone] [facility], [address] [place] [address], [id number] , [facility] medicare preventive (chief complaint) Body mass index (BMI) 22.0-22.9, adult Letty Donatoos. [address], [id number], . tel:[phone] Referring Provider: Carolina Saenz, [address], [address]. tel:[phone] OFFICE/OUTPA TIENT VISIT, [facility], [address] [place] [address], [id number] , [facility] No Information Saenz [place]. [address], [id number], [place]. tel:[phone] Referring Provider: Carolina Saenz, [address], [address]. tel:[phone] [facility], [address] [place] [address], [phone] , [facility] c/o headaches (chief complaint) Multiple sclerosisHeadach e 8 Saenzsergio Donatoos. [address], [id number], . tel:[phone] Referring Provider: Carolina Saenz, [address], [address]. tel:[phone] [facility], [address] [place] [address], [id number] , [facility] Multiple sclerosisChronic fatigue, unspecified Apr-1 8-201 8 Letty Donatoos. [address], [id number], [place]. tel:[phone] OFFICE/OUTPA TIENT VISIT, [facility], [address] [place] [address], [phone] , [place] [facility] Candace No Information Jan-2 8 Saenz [place]. [address], [id number], [place]. tel:[phone] Referring Provider: Carolina Saenz, [address], [address]. tel:[phone] [facility], [address] [place] [address], [id number] , [place] [facility] Maria wants referral. (chief complaint) Body mass index (BMI) 23.0-23.9, adultOtalgia, left ear Mar-2 3 8 Letty Donatoos. [address], [id number], [place]. tel:[phone] Referring Provider: Carolina Saenz, [address], [address]. tel:[phone] [facility], [address] [place] [address], [id number] , [facility] No Information Oct- 7 Letty Donatoos. [address], [id number], [place]. tel:[phone] OFFICE/OUTPA TIENT VISIT, [facility], [address] [place] [address], [id number] , [facility] left ear pain (chief complaint) Body mass index (BMI) 22.0-22.9, adultOtalgia, left earOtitis media, unspecified, left ear Dec-2 Saenz [place]. [address], [id number], [place]. tel:[phone] OFFICE/OUTPA TIENT VISIT, [facility], [address] [place] [address], [phone] , [facility] Hgt No Information Letty Figueroa. [address], [id number], [place]. tel:[phone] Referring Provider: Carolina Saenz, [address], [address]. tel:[phone] [facility], [address] [place] [address], [id number] , [facility] stomach issues (chief complaint) Body mass index (BMI) 22.0-22.9, adultEncounter for other administrative examinationsDiar rheaGastric bypass status for obesityLower abdominal pain, unspecifiedNicot ine dependence Jul- Letty Figueroa. [address], [id number], [place]. [phone] Referring Provider: Carolina Saenz, [address], [address]. [phone] OFFICE/OUTPA TIENT VISIT, [facility], [address] [place] [address], [phone] , [facility] No Information Derrick Andersen. [facility] [employer] [place], [id number], [place]. [phone] Referring Provider: Ganesh Meza, [facility] [place], [address]. tel:[phone], [id number] , [facility] No Information 0 7 Derrick Adnersen. [address] [place] [address], [id number], . tel:[phone] Referring Provider: Ganesh Meza, [address] [place] [address], [address]. tel:[phone], [id number] , [facility] Diarrhea (chief complaint)E stablishmen t Visit (chief complaint) Encounter for other administrative examinationsBody mass index (BMI) 21.0-21.9, adultPersonal history of nicotine dependenceDiarrh eaAbnormal weight lossCOPDDepressi on Derrick Andersen. [address] [place] [address], [id number], . tel:[phone] Referring Provider: Ganesh eMza, [address] [place] [address], [address]. tel:[phone], [id number] , [facility] No Information 0 7 Letty Figueroa. [address], [id number], . tel:[phone] Referring Provider: Carolina Saenz, [address], [address]. tel:[phone] Family History Family Member Type Diagnosis Age At Onset Father Problem (finding) Alcoholism Father Problem (finding) Cardiovascular disease Mother Problem (finding) Alcoholism Father Problem (finding) Arthritis Mother Problem (finding) Migraines Problem (finding) Family history of Cardi ovascular disease Mother Problem (finding) Cardiovascular disease Brother Problem (finding) Alcoholism Problem (finding) Family history of hyper tension Brother Problem (finding) Allergies Mother Problem (finding) Allergies Mother Problem (finding) Arthritis Mother Problem (finding) Hypertension Brother Problem (finding) Migraines Father Problem (finding) Allergies Problem (finding) Family history of breas t cancer Payers Payer name Insurance type Covered republican ID Ramona tolentino(s) Slide E 09 Social History Type Description Quantity Date Captured Comments Alcohol Use Details Unknown Caffeine Use Details Unknown Tobacco Use Status Smoking Status No Information Sex Female Chief Complaint And Reason For Visit No Information Reason For Referral Reason For Referral No Information Plan Of Treatment Date Type Action Status Goal Colonoscopy. Due on due Goal Zoster vaccine (). Due on due Goal Td vaccine. Due on 20 due Goal Tdap. Due on due Goal Depression screening. Due on due Goal Mammogram. Due on 8 due Goal FOBT. Due on due Goal Influenza vaccine. Due on due Goal FOBT. Due on due Goal Depression screening. Due on due Goal Mammogram. Due on 8 due Goal Colonoscopy. Due on due Goal Zoster vaccine (1st). Due on due Goal Td vaccine. Due on 20 due Goal Tdap. Due on due Goal Influenza vaccine. Due on due Goal FOBT. Due on due Goal Depression screening. Due on due Goal Mammogram. Due on 8 due Goal Colonoscopy. Due on due Goal Tobacco cessation counseling completed Goal FOBT. Due on due Goal Depression screening. Due on due Goal Mammogram. Due on 8 due Goal Colonoscopy. Due on due Goal Tobacco cessation counseling completed Goal Lifestyle education regardin g diet completed Goal Colonoscopy. Due on due Goal Mammogram. Due on 9 due Goal Depression screening. Due on due Goal Zoster vaccine (). Due on due Goal Lifestyle education regardin g diet completed Goal Tobacco cessation counseling completed Goal Colonoscopy. Due on due Goal Mammogram. Due on 9 due Goal Depression screening. Due on due Goal Lifestyle education regardin g diet completed Goal Tobacco cessation counseling completed Goal Depression screening. Due on due [...] completed Goal Mammogram. Due on due Goal Depression [...] due Goal Mammogram. Due on due Goal Lipid panel. Due on due Goal Colonoscopy. Due on due Goal Pap/HPV testing. Due on due Goal Colonoscopy. Due on due Goal Pap/HPV testing. Due on due Goal Lipid panel. Due on due Goal Depression screening. Due on due Goal Mammogram. Due on due Goal Mammogram. Due on due Goal Depression screening. Due on due Goal Lipid panel. [...] Goal Mammogram. Due on 9 due Goal Tobacco cessation counseling completed Goal Lifestyle education regardin g diet completed Goal Pap/HPV testing. Due on due Goal Colonoscopy. Due on 027 due Goal Lipid panel. Due on 017 due Goal Lifestyle education regardin g diet completed Goal Pap/HPV testing. Due on due Goal Tdap. Due on due Goal Lipid panel. Due on 017 due Goal Influenza vaccine. Due on due Goal Td vaccine. Due on due Goal Dietary manageme nt education, guidance, and counseling completed Goal Pap/HPV testing. Due on due Goal Tdap. Due on due Goal Lipid panel. Due on due Goal Td vaccine. Due on due Goal Influenza vaccine. Due on due Goal Lifestyle education regardin g diet completed Referral Ordered: Referrals: Psychiatry. Evaluate and treat ordered Referral Ordered: Referrals: Dermatology. Evaluate and treat ordered Referral Referred To: [facility] [address] [place] [address] [place], [address] [phone] Ordered: Referrals: Psychiatry. [facility]. Evaluate and treat ordered Referral Referred To: [facility] [address], [phone] Ordered: Referrals: Dermatology. [facility]. Evaluate and treat ordered Referral Ordered: Cardiology (related to Cardiac murmur, unspecified) ordered Referral Referred To: [facility] [address], [address] [phone] Ordered: Referrals: e -Cardiology. [facility]. Evaluate and treat ordered Referral Ordered: Referrals: Cardiology. Evaluate and treat ordered Referral Ordered: Plastic Surgery (related to Sebaceous cyst) ordered Referral Ordered: Plastic Surgery (related to Sebaceous cyst) ordered Referral Referred To: [facility] [address] [place], [phone] Ordered: Referrals: Plastic Surgery. [facility]. Evaluate and treat ordered Referral Ordered: Referrals: Plastic Surgery. Evaluate and treat ordered Referral Ordered: Referrals: Plastic Surgery ordered Referral Ordered: Dermatology (related to Seborrheic keratosis) ordered Referral Referred To: [facility] [address] [place], [address] [phone] Ordered: Referrals: Dermatology. [facility]. Evaluate and treat ordered Referral Referred To: Hector Alejandre MD [address] [place], [address] [phone] Ordered: Referrals: Dermatology. Hector Alejandre MD. Evaluate and treat ordered Referral Ordered: Referrals: Dermatology ordered Referral Ordered: Gastroenterology (related to Occult blood in stools) ordered Referral Ordered: Gastroenterology (related to Hepatic cyst) ordered Referral Referred To: [facility] [address], [address] [phone] Ordered: Referrals: Gastroenterology. [facility]. Evaluate and treat ordered Referral Ordered: Shelli Aguila -Podiatric Medicine & Surgery Service Providers : Labor Standards Director (related to Plantar wart) ordered Referral Ordered: Podiatry (related to Plantar wart) ordered Referral Ordered: Mark Waggoner -Podiatric Medicine & Surgery Service Providers : Labor Standards Director (related to Plantar wart) ordered Referral Referred To: Mark Waggoner DPM [address], [place], [phone] Ordered: Referrals: Podiatry. Mark Waggoner DPM. Evaluate and treat ordered Referral Referred To: [facility] [address] [place], [address] [phone] Ordered: Referrals: Podiatry. [facility]. Evaluate and treat ordered Referral Referred To: Shelli Aguila [address] [place], [place], [id number] [phone] Ordered: Referrals: Podiatric Medicine & Surgery Service Providers : Labor Standards Director. Shelli Aguila. Evaluate and treat ordered Referral Ordered: Referrals: Podiatry ordered Referral Referred To: Mark Waggoner [address], [address] [phone] Ordered: Referrals: Podiatric Medicine & Surgery Service Providers : Labor Standards Director. Mark Waggoner. Evaluate and treat ordered Referral Ordered: RICA CARRERA -Allopathic & Osteopathic Physicians : Physical Medicine & Rehabilitation (related to Headache) ordered Referral Ordered: Pain Medicine (related to Headache) ordered Referral Referred To: [facility] [address] [place], [address] [phone] Ordered: Referrals: Pain Medicine. [facility]. Evaluate and treat ordered Referral Referred To: RICA CARRERA Ordered: Referrals: Allopathic & Osteopathic Physicians : Physical Medicine & Rehabilitation. RICA CARRERA. Evaluate and treat ordered Referral Ordered: Referrals: Pain Medicine ordered Referral Ordered: Otolaryngology (related to Otalgia, left ear) ordered Referral Ordered: Otolaryngology (related to Otalgia, left ear) ordered Referral Referred To: [facility] [address] [place], [address] [phone] Ordered: Referrals: Otolaryngology. [facility]. Evaluate and treat ordered Referral Ordered: Referrals: Otolaryngology ordered Referral Ordered: Referrals: Otolaryngology. Evaluate and treat ordered Referral Ordered: Gastroenterology (related to Gastric bypass status for obesity) ordered Referral Referred To: [facility] [address] [facility] [place], [address] [phone] Ordered: Referrals: Gastroenterology. [facility]. Evaluate and treat ordered Referral Ordered: [...] yet. Planning to go see family in [place] for about a month soon and is [...] information and acknowledges the privacy policies of [facility]. I am currently at the office in [...] symptoms. Related to Neoplasm of skin Continue propranolol daily. Return to clinic if any new or worsening symptoms. Related to Palpitations Continue inhaler prn . Return to clinic if symptoms become persistent and need to use inhaler more regularly. Related to COPD Counseled pt that Ep i-pen is only [...] and complexity of care. Plans to see [facility] REPAIR[facility] in interim. Continue current meds at this time. F/u 2 weeks. Return to clinic sooner if any new or worsening symptoms. Related to Bipolar disorder, current episode depressed, moderate Continue current med regimen and f/u w/ neuro appropriately. Return to clinic if any new or worsening symptoms. Related to Multiple sclerosis Lifestyle education regarding di et Related to Body mass index (BMI) 24.0-24.9, adult Giving encouragement to exercise Related to [...] Related to Pain in right foot Pt advised against t he use of Q-tips, especially since it appears it is irritated and perhaps causing trauma to eardrums. Lab results obtained in interim for CBC, CMP and PT/INR and are all WNL. Pt cleared for surgery from PCP standpoint. Return to clinic if any new or worsening symptoms. Related to Well adult exam w/o abnormal finding Pt cleared for surge ry.F/U pending surgery. Related to Encounter for preprocedural examination Giving encouragement to exercise Related to Body [...] do not improve. Related to Sebaceous cyst Giving encouragement to exercise Related to Body [...] improve. Related to Nausea with vomiting, unspecified take medications as directed, Re lated to Nausea with vomiting, unspecified Lifestyle education regarding di et Related to Body mass index (BMI) 21.0-21.9, adult The patient verbaliz ed an understanding of all instructions. The patient was advised to call the office if symptoms worsen or do not improve. The patient was advised to resume activity as tolerated. Related to Hepatic cyst Stop alcohol ingestion. Related to Hepatic cyst Avoid non-steroidal anti-inflammatory drugs. Related to Hepatic cyst The risks and [...] general adult medical exam w/o abnormal findings Giving encouragement to exercise Related to Body [...] Related to Otitis media, unspecified, left ear Giving encouragement to exercise Related to Body mass index (BMI) 22.0-22.9, adult Lifestyle education regarding di et Related to Body mass index (BMI) 22.0-22.9, adult take medication as prescribed Re lated to Otitis media, unspecified, left ear Patient was told to stay well hydrated. and if she gets contipated to eat fiber. Related to Diarrhea take medications as directed, Re lated to Diarrhea Dietary management e ducation, guidance, and counseling Related to Body mass index (BMI) 22.0-22.9, adult take medications as directed, Re lated to Diarrhea Labs ordered. Record s from previous provider requested Related to Abnormal weight loss No improvement with Immodium. Lomotil 1 tab after each liquid BM, no more than 4 tabs a day. F/U with results Related to Diarrhea Giving encouragement to exercise Related to Body mass index (BMI) 21.0-21.9, adult Lifestyle education regarding di et Related to Body mass index (BMI) 21.0-21.9, adult Assessments Type Assessment Date No Information Patient Care Teams Name Effective Dates (start - stop) Status Members No Information
--- OUTSIDE RECORDS SUMMARY | 2023-06-21 11:54 | XMS_ITS | Continuity of Care Document ---
Author Name Unknown Organization [facility] nadira Address [address] [facility] [place] [address] Phone Care Team Providers Care Preparation Center Coordinator Name Role Phone Georgia SUKHI Krystyna Unavailable [...] Providers Copied on Encounter OFFICE/OUTPAT IENT VISIT, [facility], [address] [place] [address], [id number] , [place] [phone] [facility] Back Pain (chief complaint) Chronic migraine without aura, intractable, without status migrainosusChro nadira pain syndromeRadicul opathy, cervical regionRadiculop athy, lumbar regionPostlamin ectomy syndrome, not elsewhere classifiedLong term (current) use of opiate analgesic 3 Nyongesa Krystyna. [address] [place] [address], [place], [place], [id number] , [place]. [phone] Referring Provider: Gonzalo Adams, [address] [place] [address], [address]. tel:[phone] [facility], [address] [place] [address], [id number] , [place] [phone] [facility] No Information 3 [facility]. [address], [place], [id number] , [place]. [phone] OFFICE VISIT, [facility] [[email or web address]] TELEMEDICINE [facility], [address] [place] [address], [id number] , [place] [phone] [facility] Back Pain (chief complaint) Chronic migraine without aura, intractable, without status migrainosusChro nadira pain syndromeRadicul opathy, lumbar regionPostlamin ectomy syndrome, not elsewhere classifiedLong term (current) use of opiate analgesicRadicu lopathy, cervical region 3 Nyongesa Krystyna. [address] [facility] [address] [facility] [address], [place], [id number] , [place]. [phone] Referring Provider: Gonzalo Adams, [address] [place] [address], [address]. tel:[phone] OFFICE VISIT, [facility] [[email or web address]] TELEMEDICINE [facility], [address] [place] [address], [id number] , [place] tel: [phone] [facility] Back Pain (chief complaint) Chronic migraine without aura, intractable, without status migrainosusChro nadira pain syndromeSpondyl osis without myelopathy or radiculopathy, cervical regionRadiculop athy, lumbar regionPostlamin ectomy syndrome, not elsewhere classifiedLong term (current) use of opiate analgesic George-0 3 Nyongesa Krystyna. [address] [facility] [address], [place], [place], [id number] , [place]. tel: [phone] OFFICE VISIT, [facility] [[email or web address]] TELEMEDICINE [facility], [address] [place] [address], [id number] , [place] tel: [phone] [facility] Back Pain (chief complaint) Chronic migraine without aura, intractable, without status migrainosusChro nadira pain syndromeSpondyl osis without myelopathy or radiculopathy, cervical regionRadiculop athy, lumbar regionPostlamin ectomy syndrome, not elsewhere classifiedLong term (current) use of opiate analgesic March-0 3 Nyongesa Krystyna. [address] [facility] [address], [place], [place], [id number] , [place]. tel: [phone] Referring Provider: Gonzalo Adams, [address] [place] [address], [address]. tel:[phone] [facility], [address] [place] [address], [id number] , [place] tel: [phone] [facility] No Information 0 3 Nyongesa Krystyna. [address] [facility] [address], [place], [place], [id number] , [place]. tel: [phone] Referring Provider: Gonzalo Adams, [address] [place] [address], [address]. tel:[phone] OFFICE/OUTPAT IENT VISIT, [facility], [address] [place], [place], [id number] , [place] tel:[phone] [facility] Back Pain (chief complaint) Chronic migraine without aura, intractable, without status migrainosusChro nadira pain syndromeSpondyl osis without myelopathy or radiculopathy, cervical regionPostlamin ectomy syndrome, not elsewhere classifiedLong term (current) use of opiate analgesicRadicu lopathy, lumbar regionEncounter for therapeutic drug level monitoring Feb-0 - 3 [facility]. [address] [facility] [address], [place], [place], [id number] , [place]. tel:[phone] Referring Provider: Gonzalo Adams, [address] [place], [address]. [phone] OFFICE VISIT, [facility], [address] [place] [address], [id number] , [place] tel:[phone] [facility] Back Pain (chief complaint) Chronic migraine without aura, intractable, without status migrainosusSpon dylosis without myelopathy or radiculopathy, cervical regionPostlamin ectomy syndrome, not elsewhere classifiedLong term (current) use of opiate analgesicChroni c pain syndrome 0 3 [facility] Krystyna. [address] [facility] [address], [place], [id number] , [place]. tel: [phone] OFFICE/OUTPAT IENT VISIT, [facility], [address] [place] [address], [id number] , [place] tel: [phone] [facility] Back pain (chief complaint) Multiple sclerosisChroni c migraine without aura, intractable, without status migrainosusCarp al tunnel syndrome, left upper limbPain in right hipPain in left hipSpondylosis without myelopathy or radiculopathy, cervical regionRadiculop athy, lumbar regionPostlamin ectomy syndrome, not elsewhere classifiedLong term (current) use of opiate analgesic 3 Yolis Murry. [address] [facility] [address], [place], [place], [id number] , [place]. tel:[phone] Referring Provider: Gonzalo Adams, [address] [place] [address], [address]. tel:[phone] OFFICE VISIT, EST TELEMEDICINE [facility], [address] [place] [address], [id number] , [place] [phone] [facility] low back pain (chief complaint) Multiple sclerosisChroni c migraine without aura, intractable, without status migrainosusCarp al tunnel syndrome, left upper limbPain in right hipPain in left hipSpondylosis without myelopathy or radiculopathy, cervical regionPostlamin ectomy syndrome, not elsewhere classifiedLong term (current) use of opiate analgesicRadicu lopathy, lumbar region Oct- 8- 2 Nyongesa Krystyna. [address] [facility] [address], [place], [place], [id number] , [place]. tel:[phone] Referring Provider: Gonzalo Adams, [address] [place] [address], [address]. tel:[phone] OFFICE VISIT, EST TELEMEDICINE [facility], [address] [place] [address], [id number] , [place] [phone] [facility] low back pain (chief complaint) Multiple sclerosisChroni c migraine without aura, intractable, without status migrainosusCarp al tunnel syndrome, left upper limbPain in right hipPain in left hipSpondylosis without myelopathy or radiculopathy, cervical regionPostlamin ectomy syndrome, not elsewhere classifiedLong term (current) use of opiate analgesic Sep-3 0- 2 Nyongesa Krystyna. [address] [facility] [address], [place], [id number] , [place]. tel:[phone] Referring Provider: Gonzalo Adams, [address] [place] [address], [address]. tel:[phone] [facility], [address] [place] [address], [id number] , [place] tel:[phone] [facility] No Information Nov-0 2-202 2 Njdavid [place]. [address] [facility] [address], [place], [id number] , [place]. tel:[phone] OFFICE/OUTPAT IENT VISIT, [facility], [address] [place] [address], [id number] , [place] tel:[phone] [facility] low back pain (chief complaint) Multiple sclerosisChroni c migraine without aura, intractable, without status migrainosusCarp al tunnel syndrome, left upper limbPain in right hipPain in left hipSpondylosis without myelopathy or radiculopathy, cervical regionPostlamin ectomy syndrome, not elsewhere classifiedLong term (current) use of opiate analgesicEncoun ter for therapeutic drug level monitoring 2 Georgia [place]. [address] [facility] [address], [place], [id number] , [place]. tel:[phone] Referring Provider: Gonzalo Adams, [address] [place], [address]. tel:[phone] OFFICE VISIT, [facility], [address] [place] [address], [id number] , [place] tel:[phone] [facility] low back pain (chief complaint) Multiple sclerosisChroni c migraine without aura, intractable, without status migrainosusPain in right hipPain in left hipSpondylosis without myelopathy or radiculopathy, cervical regionPostlamin ectomy syndrome, not elsewhere classifiedLong term (current) use of opiate analgesicCarpal tunnel syndrome, left upper limb 2 Aviles Simon. [facility], [address], [place], [address], [place]. [phone] OFFICE VISIT, EST TELEMEDICINE [facility], [address] [place] [address], [id number] , [place] [phone] [facility] low back pain (chief complaint) Multiple sclerosisChroni c migraine without aura, intractable, without status migrainosusChro nadira pain syndromePain in right hipPain in left hipSpondylosis without myelopathy or radiculopathy, cervical regionLong term (current) use of opiate analgesicPostla minectomy syndrome, not elsewhere classified Sep-0 2 Nyongesa Krystyna. [address] [facility] [address], [place], [id number] , [place]. tel: [phone] OFFICE VISIT, EST TELEMEDICINE [facility], [address] [facility] [place], [id number] , [place] tel: [phone] [facility] Back Pain (chief complaint) Multiple sclerosisChroni c migraine without aura, intractable, without status migrainosusChro nadira pain syndromePain in right hipPain in left hipSpondylosis without myelopathy or radiculopathy, cervical regionOther muscle spasmPostlamine ctomy syndrome, not elsewhere classifiedLong term (current) use of opiate analgesic May- 2 Nyongesa Krystyna. [address] [facility] [address], [place], [id number] , [place]. tel: [phone] OFFICE/OUTPAT IENT VISIT, EST [facility], [address] [facility] [place], [id number] , [place] tel: [phone] [facility] Back Pain (chief complaint) Multiple sclerosisChroni c migraine without aura, intractable, without status migrainosusChro nadira pain syndromePain in right hipPain in left hipSpondylosis without myelopathy or radiculopathy, cervical regionOther muscle spasmPostlamine ctomy syndrome, not elsewhere classifiedLong term (current) use of opiate analgesic 2 Nyongesa Krystyna. [address] [facility] [address], [place], [id number] , [place]. tel: [phone] Referring Provider: Tl Pantoja, [address], [place], [address]. [phone] [facility], [address] [facility] [place], [id number] , [place] tel: [phone] [facility] [place] No Information 2 Nyongesa Krystyna. [address] [facility] [address], [place], [id number] , [place]. [phone] Referring Provider: Gonzalo Adams, [address] [place] [address], [address]. tel:[phone] OFFICE/OUTPAT IENT VISIT, [facility], [address] [place] [address], [id number] , [place] tel:[phone] [facility] Back Pain (chief complaint) Multiple sclerosisChroni c migraine without aura, intractable, without status migrainosusChro nadira pain syndromeSpondyl osis without myelopathy or radiculopathy, cervical regionOther cervical disc degeneration, unspecified cervical regionOther muscle spasmPostlamine ctomy syndrome, not elsewhere classifiedLong term (current) use of opiate analgesicPain in left hipPain in right hip Apr- 2 Nyongesa Krystyna. [address] [facility] [address], [place], [id number] , [place]. tel:[phone] Referring Provider: Gonzalo Adams, [address] [place] [address], [address]. [phone] OFFICE VISIT, [facility] [[email or web address]] TELEMEDICINE [facility], [address] [place] [address], [id number] , [place] tel:[phone] [facility] Back Pain (chief complaint) Multiple sclerosisChroni c migraine without aura, intractable, without status migrainosusChro nadira pain syndromeSpondyl osis without myelopathy or radiculopathy, cervical regionOther cervical disc degeneration, unspecified cervical regionOther muscle spasmPostlamine ctomy syndrome, not elsewhere classifiedLong term (current) use of opiate analgesic 0 2 Nyongesa Krystyna. [address] [facility] [address], [place], [id number] , [place]. tel:[phone] Referring Provider: Tl Pantoja, [place] [address] [address], [place], [address]. tel:[phone] [facility], [address] [place] [address], [id number] , [place] tel: [phone] [facility] Spondylosis without myelopathy or radiculopathy, cervical region Apr-2 2 Stefan Montes. [facility], [address], [place], [address], [place]. tel: [phone] Referring Provider: Gonzalo Adams, [address] [place] [address], [address]. tel:[phone] OFFICE VISIT, EST TELEMEDICINE [facility], [address] [place] [address], [id number] , [place] tel: [phone] [facility] Back Pain (chief complaint) Multiple sclerosisChroni c migraine without aura, intractable, without status migrainosusChro nadira pain syndromeSpondyl osis without myelopathy or radiculopathy, cervical regionOther cervical disc degeneration, unspecified cervical regionOther muscle spasmPostlamine ctomy syndrome, not elsewhere classifiedLong term (current) use of opiate analgesic Apr-0 2 Jil Krystyna. [address] [place] [address] Rd [address], [place], [place], [id number] , [place]. tel: [phone] [facility], [address] [place] [address], [id number] , [place] tel: [phone] [facility] cervicalgia (chief complaint) CervicalgiaOthe r cervical disc degeneration, unspecified cervical regionSpondylos is without myelopathy or radiculopathy, cervical region Mar-1 2 Brandyn Fabian. [address] [place], [place], [id number] , [place]. tel: [phone] Referring Provider: Gonzalo Adams, [address] [place] [address], [address]. tel:[phone] OFFICE VISIT, EST TELEMEDICINE [facility], [address] [place] [address], [id number] , [place] tel: [phone] [facility] Pain (chief complaint) Chronic pain syndromePostlam inectomy syndrome, not elsewhere classifiedLong term (current) use of opiate analgesicOther muscle spasmChronic migraine without aura, intractable, without status migrainosusOthe r cervical disc degeneration, unspecified cervical regionMultiple sclerosisSpondy losis without myelopathy or radiculopathy, cervical region 2 Stefan Montes. [facility], [address], [place], [address], [place]. tel: [phone] [facility], [address] [place] [address], [id number] , [place] tel: [phone] [facility] [place] No Information 2 Nyongesa Krystyna. [address] [facility] [address], [place], [id number] , [place]. tel: [phone] OFFICE/OUTPAT IENT VISIT, EST [facility], [address] [place] [address], [id number] , [place] tel: [phone] [facility] low back pain (chief complaint) Pain in right kneeChronic pain syndromePostlam inectomy syndrome, not elsewhere classifiedLong term (current) use of opiate analgesicOther muscle spasmCervicalgi aChronic migraine without aura, intractable, without status migrainosusOthe r cervical disc degeneration, unspecified cervical regionMultiple sclerosisEncoun ter for therapeutic drug level monitoringMyalg ia, other site 2 Nyongesa Krystyna. [address] [facility] [address], [place], [id number] , [place]. tel: [phone] Referring Provider: Tl Pantoja, [address], [place], [address]. tel:[phone] OFFICE VISIT, EST TELEMEDICINE [facility], [address] [place] [address], [id number] , [place] tel: [phone] [facility] low back pain (chief complaint) Pain in right kneeChronic pain syndromePostlam inectomy syndrome, not elsewhere classifiedLong term (current) use of opiate analgesicOther muscle spasmCervicalgi a 2 Nyongesa Krystyna. [address] [facility] [address], [place], [id number] , [place]. tel:[phone] Referring Provider: Tl Pantoja, [address], [place], [address]. tel:[phone] OFFICE VISIT, EST TELEMEDICINE [facility], [address] [place] [address], [id number] , [place] tel:[phone] [facility] low back pain (chief complaint) Pain in right kneeChronic pain syndromePostlam inectomy syndrome, not elsewhere classifiedLong term (current) use of opiate analgesicOther cervical disc degeneration, unspecified cervical regionChronic migraine without aura, intractable, without status migrainosusMult iple sclerosis 2 Nyongesa Krystyna. [address] [place] [address] [address] [place] [address], [place], [id number] , [place]. tel:[phone] Referring Provider: Gonzalo Adams, [address] [place] [address], [address]. [phone] OFFICE VISIT, EST TELEMEDICINE [facility], [address] [place] [address], [id number] , [place] tel:[phone] [facility] low back pain (chief complaint) Pain in right kneeChronic pain syndromePostlam inectomy syndrome, not elsewhere classifiedLong term (current) use of opiate analgesicOther cervical disc degeneration, unspecified cervical regionChronic migraine without aura, intractable, without status migrainosusMult iple sclerosis 1 Nyongesa Krystyna. [address] [place] [address] [address] [facility] [address], [place], [id number] , [place]. tel:[phone] Referring Provider: Gonzalo Adams, [address] [place] [address], [address]. [phone] [facility], [address] [place] [address], [id number] , [place] tel:[phone] [facility] No Information 1 Nyongesa Krystyna. [address] [facility] [address] [facility] [address], [place], [id number] , [place]. [phone] Referring Provider: Gonzalo Adams, [address] [place] [address], [address]. [phone] OFFICE/OUTPAT IENT VISIT, EST [facility], [address] [place] [address], [id number] , [place] tel:[phone] [facility] low back pain (chief complaint) Pain in right kneeChronic pain syndromePostlam inectomy syndrome, not elsewhere classifiedLong term (current) use of opiate analgesicOther cervical disc degeneration, unspecified cervical regionEncounter for screening for other disorderEncount er for therapeutic drug level monitoringChron ic migraine without aura, intractable, without status migrainosusMult iple sclerosis 1 [facility]. [address] [facility] [address], [place], [place], [id number] , [place]. tel:[phone] Referring Provider: Gonzalo Adams, [address] [place] [address], [address]. tel:[phone] OFFICE VISIT, [facility] [[email or web address]] TELEMEDICINE [facility], [address] [place] [address], [id number] , [place] tel:[phone] [facility] low back pain (chief complaint) Pain in right kneeChronic pain syndromePostlam inectomy syndrome, not elsewhere classifiedOther cervical disc degeneration, unspecified cervical regionLong term (current) use of opiate analgesicChroni c migraine without aura, intractable, without status migrainosus 1 Nyongesa Krystyna. [address] [facility] [address], [place], [place], [id number] , [place]. [phone] Referring Provider: Gonzalo Adams, [address] [place] [address], [address]. [phone] OFFICE VISIT, EST TELEMEDICINE [facility], [address] [place] [address], [id number] , [place] [phone] [facility] low back pain (chief complaint) Chronic pain syndromePostlam inectomy syndrome, not elsewhere classifiedOther cervical disc degeneration, unspecified cervical regionLong term (current) use of opiate analgesicChroni c migraine without aura, intractable, without status migrainosusPain in right knee Sep-0 1 Jil Krystyna. [address] [facility] [address], [place], [id number] , [place]. tel: [phone] Referring Provider: Gonzalo Adams, [address] [place] [address], [address]. tel:[phone] OFFICE VISIT, EST TELEMEDICINE [facility], [address] [place] [address], [id number] , [place] tel: [phone] [facility] low back pain (chief complaint) Chronic pain syndromePostlam inectomy syndrome, not elsewhere classifiedOther cervical disc degeneration, unspecified cervical regionLong term (current) use of opiate analgesicChroni c migraine without aura, intractable, without status migrainosus Aug-0 1 Georgia [place]. [address] [facility] [address] [facility] [address], [place], [place], [id number] , [place]. tel: [phone] Referring Provider: Gonzalo Adams, [address] [place] [address], [address]. tel:[phone] [facility], [address] [place] [address], [id number] , [place] tel: [phone] [facility] Postlaminectomy syndrome, not elsewhere classified 1 Marissa Medina. [address] [facility] [address] [facility] [address], [place], [place], [id number] , [place]. tel: [phone] Referring Provider: Gonzalo Adams, [address] [place] [address], [address]. tel:[phone] [facility], [address] [place] [address], [id number] , [place] tel: [phone] [facility] [place] Postlaminectomy syndrome, not elsewhere classified 1 Georgia [place]. [address] [facility] [address] [facility] [address], [place], [place], [id number] , [place]. tel:[phone] Referring Provider: Gonzalo Adams, [address] [place] [address], [address]. [phone] [facility], [address] [place] [address], [id number] , tel:[phone] [facility] Postlaminectomy syndrome, not elsewhere classified 1 Nithya Moses. [address] [place] [address], [id number] , [place]. tel:[phone] Referring Provider: Gonzalo Adams, [address] [place] [address], [address]. [phone] OFFICE VISIT, EST TELEMEDICINE [facility], [address] [place] [address], [id number] , tel:[phone] [facility] low back pain (chief complaint) Chronic pain syndromePostlam inectomy syndrome, not elsewhere classifiedOther cervical disc degeneration, unspecified cervical regionLong term (current) use of opiate analgesicChroni c migraine without aura, intractable, without status migrainosus 1 [facility]. [id number] [place] [address] [address], [place], [place], [id number] , . tel:[phone] Referring Provider: Gonzalo Adams, [address] [place] [address], [address]. [phone] Psych Dx Eval [facility], [address] [place] [address], [id number] , [place] tel:[phone] [facility] Pain disorder with related psychological factorsBipolar disorderAlcohol dependence, in remission 1 Saba Bullock. [address] [place] [address], [id number] , [place]. tel:[phone] Referring Provider: Gonzalo Adams, [address] [place] [address], [address]. [phone] [facility], [address] [place] [address], [id number] , [place] tel:[phone] [facility] lumbago (chief complaint) Postlaminectomy syndrome, not elsewhere classified 1 Brandyn Fabian. [address] [place] [address], [id number] , [place]. tel:[phone] Referring Provider: Gonzalo Adams, [address] [place] [address], [address]. tel:[phone] [facility], [address] [place] [address], [id number] , [place] tel:[phone] [facility] [place] No Information [facility] Krystyna. [id number] [place] [address] [address], [place], [id number] , [place]. tel:[phone] Referring Provider: Gonzalo Adams, [address] [place] [address], [address]. tel:[phone] OFFICE/OUTPAT IENT VISIT, EST [facility], [address] [place] [address], [id number] , [place] tel:[phone] [facility] Back Pain (chief complaint) Chronic pain syndromePostlam inectomy syndrome, not elsewhere classifiedOther cervical disc degeneration, unspecified cervical regionLong term (current) use of opiate analgesicChroni c migraine without aura, intractable, without status migrainosus 1 [facility] Krystyna. [address] [facility] [address], [place], [place], [id number] , [place]. tel:[phone] Referring Provider: Gonzalo Adams, [address] [place] [address], [address]. tel:[phone] OFFICE VISIT, EST TELEMEDICINE [facility], [address] [place] [address], [id number] , [place] tel:[phone] [facility] Back Pain (chief complaint) Chronic pain syndromePostlam inectomy syndrome, not elsewhere classifiedOther cervical disc degeneration, unspecified cervical regionLong term (current) use of opiate analgesicChroni c migraine without aura, intractable, without status migrainosus [facility]. [address] [facility] [address], [place], [place], [id number] , [place]. [phone] Referring Provider: Gonzalo Adams, [address] [place] [address], [address]. [phone] OFFICE VISIT, EST TELEMEDICINE [facility], [address] [place] [address], [id number] , [place] tel:[phone] [facility] Back Pain (chief complaint) Chronic pain syndromePostlam inectomy syndrome, not elsewhere classifiedOther cervical disc degeneration, unspecified cervical regionLong term (current) use of opiate analgesic 1 [place]. [address] [facility] [address], [place], [id number] , [place]. tel:[phone] Referring Provider: Gonzalo Adams, [address] [place] [address], [address]. [phone] OFFICE VISIT, EST TELEMEDICINE [facility], [address] [place] [address], [id number] , [place] tel:[phone] [facility] Back Pain (chief complaint) Chronic pain syndromePostlam inectomy syndrome, not elsewhere classifiedOther cervical disc degeneration, unspecified cervical regionLong term (current) use of opiate analgesic 1 Brianneonge Krystyna. [address] [facility] [address], [place], [id number] , [place]. tel:[phone] Referring Provider: Gonzalo Adams, [address] [place] [address], [address]. [phone] OFFICE VISIT, EST TELEMEDICINE [facility], [address] [place] [address], [id number] , [place] tel:[phone] [facility] Back Pain (chief complaint) Chronic pain syndromePostlam inectomy syndrome, not elsewhere classifiedOther cervical disc degeneration, unspecified cervical regionLong term (current) use of opiate analgesic 1 Nyongesa Krystyna. [address] [facility] [address], [place], [id number] , [place]. tel:[phone] Referring Provider: Gonzalo Adams, [address] [place] [address], [address]. tel:[phone] OFFICE VISIT, EST TELEMEDICINE [facility], [address] [place] [address], [id number] , [place] tel: [phone] [facility] Leonela Back Pain (chief complaint) Chronic pain syndromePostlam inectomy syndrome, not elsewhere classifiedOther cervical disc degeneration, unspecified cervical regionLong term (current) use of opiate analgesic 1 Nyongesa Krystyna. [address] [place] [address] 11 [facility] 100, [place], [id number] , [place]. tel:[phone] Referring Provider: Gonzalo Adams, [address] [place] [address], [address]. tel:[phone] OFFICE VISIT, EST TELEMEDICINE [facility], [address] [place] [address], [id number] , [place] tel: [phone] [facility] [place] Back Pain (chief complaint) Chronic pain syndromePostlam inectomy syndrome, not elsewhere classifiedOther cervical disc degeneration, unspecified cervical regionLong term (current) use of opiate analgesic 0 Nyongesa Krystyna. [id number] [place] [address] [address] [facility] 100, [place], [id number] , [place]. tel: [phone] Referring Provider: Gonzalo Adams, [address] [place] [address], [address]. tel:[phone] OFFICE VISIT, EST TELEMEDICINE [facility], [address] [place] [address], [id number] , [place] tel: [phone] [facility] [place] Back Pain (chief complaint) Chronic pain syndromePostlam inectomy syndrome, not elsewhere classifiedOther cervical disc degeneration, unspecified cervical regionLong term (current) use of opiate analgesic 0 Nyongesa Krystyna. [address] [facility] [address], [place], [id number] , [place]. tel:[phone] Referring Provider: Gonzalo Adams, [address] [place], [address]. [phone] OFFICE/OUTPAT IENT VISIT, [facility], [address] [place] [address], [id number] , [place] tel:[phone] [facility] Back Pain (chief complaint) Chronic pain syndromePostlam inectomy syndrome, not elsewhere classifiedOther cervical disc degeneration, unspecified cervical regionLong term (current) use of opiate analgesic 0 Nyongesa Krystyna. [address] [facility] [address] [address], [place], [place], [id number] , [place]. tel:[phone] Referring Provider: Gonzalo Adams, [address] [place], [address]. [phone] OFFICE/OUTPAT IENT VISIT, [facility], [address] [place] [address], [id number] , [place] tel:[phone] [facility] Back Pain (chief complaint) Chronic pain syndromeEncount er for screening for other disorderPostlam inectomy syndrome, not elsewhere classifiedOther cervical disc degeneration, unspecified cervical regionEncounter for therapeutic drug level monitoringLong term (current) use of opiate analgesic 0 Nyongesa Krystyna. [address] [facility] [address] [address], [place], [place], [id number] , [place]. tel:[phone] Referring Provider: Tl Pantoja, [address], [address]. tel:[phone] Family History Family Member Type Diagnosis Age At Onset Father Problem back surgery Brother Problem back surgery Payers Payer name Insurance type Covered green party ID Authordale tolentino(s) [facility] MedicareComplete Replacement 16 [id number] [employer] [facility] [id number] Social History Type Description Quantity Date Captured [...] Status Goal Creatinine. Due on due Goal LEATHER WHITENER Scanned. Due on due Goal HPV. Due on due Goal Order Annual PT. Due on due Goal Lipid panel. Due on due Goal AST (SGOT). Due on due Goal GAS REGULATOR REPAIRER HELPER Paperwork. Due on due Goal UDT. Due [...] Allergy L ist. Due on due Goal GAS REGULATOR REPAIRER HELPER Paperwork. Due on due Goal Creatinine. Due on due Goal LEATHER WHITENER Scanned. Due on due Goal Zoster vaccine [...] Goal ALT (SGPT). Due on due Goal GAS REGULATOR REPAIRER HELPER Paperwork. Due on due Goal Update Social Hi story. Due on due Goal Creatinine. Due on due Goal Medication Recon ciliation. Due on due Goal FIT. Due on due Goal Zoster vaccine ( 1st). Due on due Goal LEATHER WHITENER Scanned. Due on due Goal Weight. Due [...] due Goal OARS. Due on due Goal GAS REGULATOR REPAIRER HELPER Paperwork. Due on due Goal Height. Due on d ue Goal Order Annual PT. Due on due Goal PHQ-9. Due on du e Goal LEATHER WHITENER Scanned. Due on due Goal FIT-DNA. Due [...] due Goal CT-Colonography. Due on due Goal GAS REGULATOR REPAIRER HELPER Paperwork. Due on due Goal Hepatitis C [...] Medication Recon ciliation. Due on due Goal LEATHER WHITENER Scanned. Due on due Goal Update Social Hi story. Due on due Goal FIT-DNA. Due on due Goal ALT (SGPT). Due on due Goal GAS REGULATOR REPAIRER HELPER Paperwork. Due on due Goal LEATHER WHITENER Scanned. Due on due Goal AST (SGOT). [...] Goal AST (SGOT). Due on due Goal LEATHER WHITENER Scanned. Due on due Goal ALT (SGPT). Due on due Goal Creatinine. Due on due Goal Medication Recon ciliation. Due on due Goal FIT. Due on due Goal GAS REGULATOR REPAIRER HELPER Paperwork. Due on due Goal Unhealthy drug [...] e Goal FIT-DNA. Due on due Goal LEATHER WHITENER Scanned. Due on due Goal Order Annual [...] Goal Height. Due on d ue Goal GAS REGULATOR REPAIRER HELPER Paperwork. Due on due Goal OARS. Due on due Goal AST (SGOT). Due on due Goal Order Annual PT. Due on due Goal ALT (SGPT). Due on due Goal UDT. Due on due Goal LEATHER WHITENER Scanned. Due on due Goal Height. Due on d ue Goal Review Allergy L ist. Due on due Goal PHQ-9. Due on du e Goal Hepatitis C scre ening. Due on due Goal FIT-DNA. Due on due Goal CT-Colonography. Due on due Goal Medication Recon ciliation. Due on due Goal GAS REGULATOR REPAIRER HELPER Paperwork. Due on due Goal Creatinine. Due [...] due Goal OARS. Due on due Goal LEATHER WHITENER Scanned. Due on due Goal Tobacco Use. [...] e Goal FIT. Due on due Goal GAS REGULATOR REPAIRER HELPER Paperwork. Due on due Goal Creatinine. Due on due Goal Zoster vaccine ( 1st). Due on due Goal Weight. Due on d ue Goal GAS REGULATOR REPAIRER HELPER Paperwork. Due on due Goal HPV. Due [...] Medication Recon ciliation. Due on due Goal LEATHER WHITENER Scanned. Due on due Goal Review Allergy L ist. Due on due Goal UDT. Due on due Goal OARS. Due on due Goal Zoster vaccine ( 1st). Due on due Goal Hepatitis C scre ening. Due on due Goal AST (SGOT). Due on due Goal Height. Due on d ue Goal PHQ-9. Due on du e Goal GAS REGULATOR REPAIRER HELPER Paperwork. Due on due Goal Medication Recon ciliation. Due on due Goal Order Annual PT. Due on due Goal UDT. Due on due Goal LEATHER WHITENER Scanned. Due on due Goal AST (SGOT). [...] due Goal OARS. Due on due Goal LEATHER WHITENER Scanned. Due on due Goal UDT. Due [...] Allergy L ist. Due on due Goal GAS REGULATOR REPAIRER HELPER Paperwork. Due on due Goal Weight. Due [...] due Goal UDT. Due on due Goal GAS REGULATOR REPAIRER HELPER Paperwork. Due on due Goal LEATHER WHITENER Scanned. Due on 022 due Goal Creatinine. [...] due Goal FIT. Due on due Goal GAS REGULATOR REPAIRER HELPER Paperwork. Due on due Goal OARS. Due on due Goal Creatinine. Due on due Goal Lipid panel. Due on due Goal Update Social Hi story. Due on due Goal Medication Recon ciliation. Due on due Goal UDT. Due on due Goal CT-Colonography. Due on due Goal LEATHER WHITENER Scanned. Due on due Goal HPV. Due [...] Medication Recon ciliation. Due on due Goal LEATHER WHITENER Scanned. Due on due Goal Tobacco Use. Due on due Goal Height. Due on d ue Goal GAS REGULATOR REPAIRER HELPER Paperwork. Due on due Goal Lipid panel. [...] Goal Lipid panel. Due on due Goal GAS REGULATOR REPAIRER HELPER Paperwork. Due on due Goal Medication Recon ciliation. Due on due Goal Update Social Hi story. Due on due Goal Height. Due on d ue Goal FIT-DNA. Due on due Goal LEATHER WHITENER Scanned. Due on due Goal Creatinine. Due on due Goal Order Annual PT. Due on due Goal CT-Colonography. Due on due Goal LEATHER WHITENER Scanned. Due on due Goal Order Annual PT. Due on due Goal OARS. Due on due Goal UDT. Due on due Goal ALT (SGPT). Due on due Goal AST (SGOT). Due on due Goal Creatinine. Due on due Goal GAS REGULATOR REPAIRER HELPER Paperwork. Due on due Goal FIT. Due [...] Order Annual PT. Due on due Goal GAS REGULATOR REPAIRER HELPER Paperwork. Due on due Goal Update Social Hi story. Due on due Goal Hepatitis C scre ening. Due on due Goal LEATHER WHITENER Scanned. Due on due Goal Creatinine. Due [...] Allergy L ist. Due on due Goal LEATHER WHITENER Scanned. Due on due Goal GAS REGULATOR REPAIRER HELPER Paperwork. Due on due Goal Medication Recon [...] Allergy L ist. Due on due Goal GAS REGULATOR REPAIRER HELPER Paperwork. Due on due Goal Order Annual PT. Due on due Goal Height. Due on d ue Goal OARS. Due on due Goal Medication Recon ciliation. Due on due Goal AST (SGOT). Due on due Goal PHQ-9. Due on du e Goal LEATHER WHITENER Scanned. Due on due Goal Height. Due on d ue Goal Order Annual PT. Due on due Goal Review Allergy L ist. Due on due Goal Medication Recon ciliation. Due on due Goal OARS. Due on due Goal GAS REGULATOR REPAIRER HELPER Paperwork. Due on due Goal UDT. Due on due Goal ALT (SGPT). Due on due Goal LEATHER WHITENER Scanned. Due on due Goal Weight. Due [...] Goal AST (SGOT). Due on due Goal GAS REGULATOR REPAIRER HELPER Paperwork. Due on due Goal LEATHER WHITENER Scanned. Due on due Goal Update Social Hi story. Due on due Goal Creatinine. Due on due Goal GAS REGULATOR REPAIRER HELPER Paperwork. Due on due Goal Order Annual PT. Due on due Goal Update Social Hi story. Due on due Goal AST (SGOT). Due on due Goal Height. Due on d ue Goal LEATHER WHITENER Scanned. Due on due Goal OARS. Due [...] due Goal Creatinine. Due on due Goal GAS REGULATOR REPAIRER HELPER Paperwork. Due on due Goal OARS. Due on due Goal LEATHER WHITENER Scanned. Due on due Goal Height. Due on d ue Goal PHQ-9. Due on du e Goal OARS. Due on due Goal Order Annual PT. Due on due Goal AST (SGOT). Due on due Goal Height. Due on d ue Goal GAS REGULATOR REPAIRER HELPER Paperwork. Due on due Goal UDT. Due on due Goal PHQ-9. Due on du e Goal Review Allergy L ist. Due on due Goal Tobacco Use. Due on due Goal ALT (SGPT). Due on due Goal LEATHER WHITENER Scanned. Due on due Goal Weight. Due on d ue Goal Medication Recon ciliation. Due on due Goal Creatinine. Due on due Goal Update Social Hi story. Due on due Goal UDT. Due on due Goal Creatinine. Due on due Goal Medication Recon ciliation. Due on due Goal Tobacco Use. Due on due Goal LEATHER WHITENER Scanned. Due on due Goal Weight. Due on d ue Goal OARS. Due on due Goal Review Allergy L ist. Due on due Goal GAS REGULATOR REPAIRER HELPER Paperwork. Due on due Goal Height. Due [...] Medication Recon ciliation. Due on due Goal GAS REGULATOR REPAIRER HELPER Paperwork. Due on due Goal Update Social Hi story. Due on due Goal Review Allergy L ist. Due on due Goal AST (SGOT). Due on due Goal Weight. Due on d ue Goal Tobacco Use. Due on due Goal Creatinine. Due on due Goal PHQ-9. Due on du e Goal Height. Due on d ue Goal LEATHER WHITENER Scanned. Due on due Goal UDT. Due on due Goal ALT (SGPT). Due on due Goal Order Annual PT. Due on due Goal AST (SGOT). Due on due Goal Creatinine. Due on due Goal OARS. Due on due Goal LEATHER WHITENER Scanned. Due on due Goal GAS REGULATOR REPAIRER HELPER Paperwork. Due on due Goal Update Social Hi story. Due on due Goal PHQ-9. Due on du e Goal Weight. Due on d ue Goal Tobacco Use. Due on due Goal Medication Recon ciliation. Due on due Goal Review Allergy L ist. Due on due Goal UDT. Due on due Goal Height. Due on d ue Goal LEATHER WHITENER Scanned. Due on due Goal PHQ-9. Due [...] Social Hi story. Due on due Goal GAS REGULATOR REPAIRER HELPER Paperwork. Due on due Goal Creatinine. Due on due Goal Height. Due on d ue Goal ALT (SGPT). Due on due Goal LEATHER WHITENER Scanned. Due on due Goal Tobacco Use. Due on due Goal Height. Due on d ue Goal Weight. Due on d ue Goal GAS REGULATOR REPAIRER HELPER Paperwork. Due on due Goal Creatinine. Due [...] due Goal OARS. Due on due Goal LEATHER WHITENER Scanned. Due on due Goal Height. Due on d ue Goal Weight. Due on d ue Goal UDT. Due on due Goal GAS REGULATOR REPAIRER HELPER Paperwork. Due on due Goal Tobacco Use. Due on due Goal Review Allergy L ist. Due on due Goal Update Social Hi story. Due on due Goal Medication Recon ciliation. Due on due Goal PHQ-9. Due on du e Goal ALT (SGPT). Due on due Goal Review Allergy L ist. Due on due Goal Weight. Due on d ue Goal GAS REGULATOR REPAIRER HELPER Paperwork. Due on due Goal Order Annual PT. Due on due Goal Creatinine. Due on due Goal Update Social Hi story. Due on due Goal OARS. Due on due Goal Height. Due on d ue Goal AST (SGOT). Due on due Goal Tobacco Use. Due on due Goal Medication Recon ciliation. Due on due Goal UDT. Due on due Goal LEATHER WHITENER Scanned. Due on due Goal PHQ-9. Due on du e Goal Weight. Due on d ue Goal Order Annual PT. Due on due Goal LEATHER WHITENER Scanned. Due on due Goal ALT (SGPT). Due on due Goal GAS REGULATOR REPAIRER HELPER Paperwork. Due on due Goal Update Social [...] e Goal UDT. Due on due Goal GAS REGULATOR REPAIRER HELPER Paperwork. Due on due Goal Order Annual PT. Due on due Goal Creatinine. Due on due Goal Tobacco Use. Due on due Goal LEATHER WHITENER Scanned. Due on due Goal Update Social Hi story. Due on due Goal Order Annual PT. Due on due Goal Tobacco Use. Due on due Goal LEATHER WHITENER Scanned. Due on due Goal ALT (SGPT). [...] Goal Height. Due on d ue Goal GAS REGULATOR REPAIRER HELPER Paperwork. Due on due Goal PHQ-9. Due on du e Goal AST (SGOT). Due on due Goal Weight. Due on d ue Goal LEATHER WHITENER Scanned. Due on due Goal Height. Due on d ue Goal Order Annual PT. Due on due Goal Review Allergy L ist. Due on due Goal Update Social Hi story. Due on due Goal OARS. Due on due Goal Creatinine. Due on due Goal GAS REGULATOR REPAIRER HELPER Paperwork. Due on due Goal ALT (SGPT). Due on due Goal Medication Recon ciliation. Due on due Goal Tobacco Use. Due on due Goal UDT. Due on due Goal ALT (SGPT). Due on due Goal Update Social Hi story. Due on due Goal OARS. Due on due Goal Review Allergy L ist. Due on due Goal Weight. Due on d ue Goal LEATHER WHITENER Scanned. Due on due Goal AST (SGOT). Due on due Goal UDT. Due on due Goal Medication Recon ciliation. Due on due Goal GAS REGULATOR REPAIRER HELPER Paperwork. Due on due Goal Order Annual [...] due Goal Creatinine. Due on due Goal GAS REGULATOR REPAIRER HELPER Paperwork. Due on due Goal ALT (SGPT). Due on due Goal LEATHER WHITENER Scanned. Due on due Goal AST (SGOT). Due on due Appointment Maryana Clemons BOOKED Appointment Maryana Clemons #[id number] Caudal Epidural Steroid Injection BOOKED Future Order: Radiology Order X Ray ([id number]), Sent on: Sent Future Order: Radiology Order XR Knee 3V Right ([id number]), Body Site: knee, Sent on: Sent History [...] Dr. Zamora.Patient plans to start PT at [facility] soon. She states she recently purchased a [...] a 57 y/o female who presents via [facility] for virtual follow up and medication refill [...] a 57 y/o female who presents via [facility] for virtual follow up and medication refill [...] Willing to consult with the specialists at [facility] for the ongoing issues. Reports current medication [...] diagnostic work-up on 03/03/[address] Simon Pacheco with >50% relief.Of secondary concern, her low [...] of her neck on 12/04/21 at the [facility] & followed up with neurology on 12/09/21. Per pt, the neurologist recommended an injection or PT and deferred to [facility]. At a previous OV she reported her neurologist states it is her MS relapsing. She states she has completed RFAs and several injections in the past [place] and [place] ppw from [place]. She states the RFA in 2018 [...] s a 56 y/o female presenting via [facility] for virtual follow up and medication refill [...] TENS unit made it way worse. At [facility] she noted numbness from her R ear along the side of her face into her neck as well. She states she completed an MRI of her neck on 12/04/21 at the [facility] & followed up with neurology on 12/09/21. [...] and several injections in the past in [place]. Reports current medication regimen provides 75% pain [...] s a 56 y/o female presenting via [facility] for virtual follow up and medication refill in setting of chronic low back and neck pain. She states her low back pain is stable this month. She states she is currently getting over being sick. She reports she was vaccinated 10/29/21 and is now starting to feel better. Reports some fevers for 3-4 days, now resolved.At [facility] she noted numbness from her R ear along the side of her face into her neck, although she states the numbness is not quite as bad as it was. She states she will be getting an MRI at the [facility] & will follow up with neurology on 12/09/21. At a previous OV she reported her neurologist states it is her MS relapsing. Reports current medication regimen provides 80% pain relief and allows for increased functionality. Denies OIC or side effects from current medication regimen.No other concerns today. low back pain (comments) Maryana shanks s a 56 y/o female presenting via [facility] for virtual follow up and medication refill in setting of chronic low back and neck pain. She states her low back pain is stable this month. She continues to note numbness from her R ear along the side of her face into her neck, although she states the numbness is not quite as bad as [facility]. She states she will be getting an MRI at the [facility] & will follow up with neurology 12/09/21. At [facility] she reported her neurologist states it [...] y/o female, meeting with us today via [facility] for follow up and medication [...] as well. She inquires about a hand medical education specialist who can take care of the [...] MRI on 05/06/21 ordered by neurologist at [facility] for MS.Reports current medication regimen provides moderate [...] is me eting with us today via [facility] for following up and medication [...] is following up with her neurologist at [place] Dr. Amador Larkin and completing a brain, [...] and following up with MS doctor at [facility] in March to review. She suspects [...] MRI ordered by neurologist Dr. Larkin at [facility].Reports current medication regimen provides 70% pain relief [...] this month. She visited her neurologist at [facility] Dr. Larkin who suspects she has a [...] worse. Reports 80% pain relief without significant edge beader effects form percocet rx, would like [facility] to take over.No other concerns today. Back Pain (comments) Maryana is he re for an initial consult and presents with neck and low back pain, initial onset 20 years ago. She moved up to [place] from [place] a few months ago. S/P 2 lumbar surgeries, the first in 1999 was to remove bone spurs, the second in 2000was a 2 level fusion. Her most bothersome pain in her low back with radiation down the right leg. Reports right foot drop as well. She has been dragging her foot for years. She was previously following up with an orthopedic doctor in [place] for a leg brace, but never got one.Reports secondary pain in neck which starts in the base of the kelin and radiates into her shoulders.Reports hx of MS, following up with [facility].Referred by PCP Dr. Pantoja at [facility]. Previously following up at [facility] in [place], [place]. Her sister is present and contributed [...] and failed PT and neuropathic agents assessment correction (current) use of opiat e analgesic impression [...] Mental Status Date Cognitive Assessment Orientation - Casey ed to time, place, person, situation. Patient Care Teams Name Effective Dates (start - stop) Status Members No Information
== END 2023-06-21 12:11 | disposition home or self-care (01) ==
LOC: ED 11:50
PROVIDERS: Emergency Provider Family Medicine; PCP Family Medicine
DX: S92.514A Nondisplaced fracture of proximal phalanx of right lesser toe(s), initial encounter for closed fracture (principal); W22.8XXA Striking against or struck by other objects, initial encounter
CPT/HCPCS: 73630; 99283; 99284

== ENCOUNTER 2023-10-17 14:21 | Outpatient (CLI) | payer MEDICARE, OTHER, SELFPAY ==
--- OUTSIDE RECORDS SUMMARY | 2023-10-17 14:27 | XMS_ITS | Continuity of Care Document ---
Author Name Unknown Organization [facility] Address [address] [place] [address] Care Team Providers Care Technical Documentation Specialist Name Role Phone Nurse, Nurse Unavailable Unavailable [...] milliliter by intranasal route in 1 nostril march repeat dose every 2-3 minutes as needed [...] Procedures Procedure Date MED LIST DOCD IN [facility] TOBACCO USE, SMOKING, ASSESS CURRENT TOBACCO SMOKER Expanded Visit Low Complex CO19 020 Void Encounter AMNT PAIN NOTED; NONE PRSNT MED LIST DOCD IN [facility] DEPRESSION SCREENING TOBACCO USE, SMOKING, ASSESS CURRENT TOBACCO SMOKER SYST BP LT 130 MM HG DIAST BP < 80 MM HG OFFICE/OUTPATIENT VISIT, EST COMPREHEN METABOLIC PANEL LIPID PANEL CBC W/AUTO DIFF WBC ELECTROCARDIOGRAM, COMPLETE PROTHROMBIN TIME IN HOUSE Other Health OFFICE/OUTPATIENT VISIT, EST ROUTINE VENIPUNCTURE MED LIST DOCD IN [facility] DEPRESSION SCREENING TOBACCO USE, SMOKING, ASSESS CURRENT TOBACCO SMOKER SYST BP GE 130 - 139MM HG DIAST BP 80-89 MM HG AMNT PAIN NOTED; PAIN PRSNT OFFICE/OUTPATIENT VISIT, EST AMNT PAIN NOTED; PAIN PRSNT MED LIST DOCD IN [facility] DEPRESSION SCREENING SYST BP LT 130 MM HG DIAST BP < 80 MM HG TOBACCO USE, SMOKING, ASSESS TOBACCO NON-USER URINE CULTURE REFERRAL LABCOLONY COUNT R OUTINE URINALYSIS NONAUTO W/O SCOPE AMNT PAIN NOTED; PAIN PRSNT MED LIST DOCD IN [facility] TOBACCO USE, SMOKING, ASSESS CURRENT TOBACCO SMOKER [...] NOTED; NONE PRSNT MED LIST DOCD IN [facility] DEPRESSION SCREENING TOBACCO USE, SMOKING, ASSESS CURRENT TOBACCO SMOKER ADVNC CARE PLAN TLK DOCD SYST BP LT 130 MM HG DIAST BP < 80 MM HG OFFICE/OUTPATIENT VISIT, EST Fecal blood Hemosure scrn assay 018 AMNT PAIN NOTED; NONE PRSNT MED LIST DOCD IN [facility] DEPRESSION SCREENING TOBACCO USE, SMOKING, ASSESS CURRENT [...] PLAN TLK DOCD MED LIST DOCD IN [facility] DEPRESSION SCREENING SYST BP LT 130 MM [...] Diagnoses Date Provider Providers Copied on Encounter [facility], [address] [place] [address], [id number] , [facility] No Information 0 Nurse Nurse. . [facility], [address] [place] [address], [id number] , [facility] F/U Chronic conditions (chief complaint) Tobacco useBipolar disorder, current episode depressed, moderateNeoplas m of skinOtitis externa 0 No Information [facility], [address] [place] [address], [phone] , [facility] No Information 0 Alberto Sun. [facility] [place], [place], [id number]. tel:[phone] Referring Provider: Corinne Dominguez, [facility] [place], [address]. tel:[phone] OFFICE/OUTPA TIENT VISIT, [facility], [address] [place] [address], [phone] , [facility] Chronic condition f/u (chief complaint) Tobacco useBody mass index (BMI) 24.0-24.9, adultDietary counseling and surveillanceExe rcise counselingBipol ar disorder, current episode depressed, moderateMultipl e sclerosisGERD w/o esophagitisBee allergy statusPalpitati onsCOPDNeoplasm of skinOtitis externa 0 No Information [facility], [address] [place] [address], [id number] , [facility] No Information 0 No Information OFFICE/OUTPA TIENT VISIT, [facility], [address] [place] [address], [id number] , [facility] Pre-op clearance (chief complaint) Tobacco useBody mass index (BMI) 23.0-23.9, adultPain in right footEncounter for preprocedural examinationWell adult exam w/o abnormal findingDietary counseling and surveillanceExe rcise counselingCardi ac murmur, unspecified 0 No Information [facility], [address] [place] [address], [phone] , [facility] No Information 9 Letty Figueroa. [address], [id number], [place]. tel:[phone] OFFICE/OUTPA TIENT VISIT, [facility], [address] [place] [address], [id number] , [facility] ER f/u (chief complaint) Body mass index (BMI) 23.0-23.9, adultEncounter for screening for lipoid disordersPneumo reina, unspecified organismCOPDDie tary counseling and surveillanceExe rcise counselingDieta ry counseling and surveillanceExe rcise counseling 9 No Information [facility], [address] [place] [address], [id number] , [facility] No Information 9 No Information OFFICE/OUTPA TIENT VISIT, [facility], [address] [place] [address], [phone] , [facility] Dysuria (chief complaint) Personal history of nicotine dependenceDysur iaBody mass index (BMI) 23.0-23.9, adultDietary counseling and surveillanceExe rcise counselingCardi ac murmur, unspecifiedPalp itations 9 No Information OFFICE/OUTPA TIENT VISIT, [facility], [address] [place] [address], [phone] , [facility] [place] c/o lump under right eye (chief complaint) Body mass index (BMI) 22.0-22.9, adultSebaceous cyst - 9 Letty Figueroa. [address] [place] [address], [id number], [place]. tel:[phone] Referring Provider: Carolina Saenz, [address], [address]. tel:[phone] OFFICE/OUTPA TIENT VISIT, [facility], [address] [place] [address], [id number] , [facility] [place] c/o sore on arms (chief complaint) Body mass index (BMI) 22.0-22.9, adultSeborrheic keratosis 9 Letty Donatoos. [address], [id number], [place]. tel:[phone] Referring Provider: Carolina Saenz, [address], [address]. tel:[phone] [facility], [address] [place] [address], [id number] , [facility] Encounter for screening for cancer of colonOccult blood in stoolsHepatic cyst 0 8 Nurse Nurse. . Referring Provider: Carolina Saenz, [address], [address]. tel:[phone] OFFICE/OUTPA TIENT VISIT, [facility], [address] [place] [address], [id number] , [facility] c/o stomach issues (chief complaint) Body mass index (BMI) 21.0-21.9, adultNausea with vomiting, unspecified 8 Letty Donatoos. [address], [id number], [place]. tel:[phone] Referring Provider: Carolina Saenz, [address], [address]. tel:[phone] [facility], [address] [place] [address], [id number] , [facility] No Information 8 Letty Figueroa. [address], [id number], [place]. tel:[phone] [facility], [address] [place] [address], [phone] , [facility] [place] No Information Letty Figueroa. [address], [id number], [place]. tel:[phone] OFFICE/OUTPA TIENT VISIT, [facility], [address] [place] [address], [id number] , [place] [facility] [place] needs referral (chief complaint) Hepatic cyst Letty Figueroa. [address], [id number], [place]. tel:[phone] Referring Provider: Carolina Saenz, [address], [address]. tel:[phone] OFFICE/OUTPA TIENT VISIT, [facility], [address] [place] [address], [id number] , [place] [facility] [place] No Information Letty Figueroa. [address], [id number], [place]. tel:[phone] Referring Provider: Carolina Saenz, [address], [address]. tel:[phone] [facility], [address] [place] [address], [id number] , [place] [facility] [place] . (chief complaint) Encntr for general adult medical exam w/o abnormal findingsEncount er for screening for eye and ear disordersEncoun ter for exam of eyes and vision w abnormal findingsEncount er for exam of ear w/o abnormal findingPlantar wartMultiple sclerosisBody mass index (BMI) 22.0-22.9, adult Letty Figueroa. [address], [id number], [place]. tel:[phone] Referring Provider: Carolina Saenz, [address], [address]. tel:[phone] [facility], [address] [place] [address], [id number] , [facility] [place] No Information Saenz Carolina. [address], [id number], [place]. tel:[phone] Referring Provider: Carolina Saenz, [address], [address]. tel:[phone], [id number] , [facility] medicare preventive (chief complaint) Body mass index (BMI) 22.0-22.9, adult Saenz Carolina. [address], [id number], [place]. tel:[phone] Referring Provider: Carolina Saenz, [address], [address]. tel:[phone] OFFICE/OUTPA TIENT VISIT, [facility], [address] [place] [address], [id number] , [facility] No Information Saenz Carolina. [address], [id number], [place]. tel:[phone] Referring Provider: Carolina Saenz, [address], [address]. tel:[phone], [id number] , [facility] [place] c/o headaches (chief complaint) Multiple sclerosisHeadac Feb- 8 Saenz Carolina. [address], [id number], [place]. tel:[phone] Referring Provider: Carolina Saenz, [address], [address]. tel:[phone], [id number] , [facility] Multiple sclerosisChroni c fatigue, unspecified 8 Saenz Carolina. [address], [id number], [place]. tel:[phone] OFFICE/OUTPA TIENT VISIT, [address], [id number] , [place] [facility] [place] No Information Jan- 8 Saenz Carolina. [address], [id number], [place]. tel:[phone] Referring Provider: Carolina Sanez, [address], [address]. tel:[phone], [id number] , [place] [facility] [place] wants referral. (chief complaint) Body mass index (BMI) 23.0-23.9, adultOtalgia, left ear Jan- 8 Saenz Carolina. [address], [id number], [place]. tel:[phone] Referring Provider: Carolina Saenz, [address], [address]. tel:[phone], [id number] , [place] [facility] [place] No Information 7 Saenz Carolina. [address], [id number], [place]. tel:[phone] OFFICE/OUTPA TIENT VISIT, [address], [id number] , [facility] left ear pain (chief complaint) Body mass index (BMI) 22.0-22.9, adultOtalgia, left earOtitis media, unspecified, left ear Dec-2 Letty Figueroa. [address], [id number], [place]. tel:[phone] OFFICE/OUTPA TIENT VISIT, [facility], [address] [place] [address], [phone] , [facility] No Information Letty Figueroa. [address], [id number], [place]. tel:[phone] Referring Provider: Carolina Saenz, [address], [address]. tel:[phone] [facility], [address] [place] [address], [id number] , [facility] stomach issues (chief complaint) Body mass index (BMI) 22.0-22.9, adultEncounter for other administrative examinationsDia rrheaGastric bypass status for obesityLower abdominal pain, unspecifiedNico dyan dependence Jul- Letty Figueroa. [address], [id number], [place]. tel:[phone] Referring Provider: Carolina Saenz, [address], [address]. tel:[phone] OFFICE/OUTPA TIENT VISIT, [facility], [address] [place] [address], [id number] , [facility] No Information Derrick Andersen. [address] [place] [address], [id number], . tel:[phone] Referring Provider: Ganesh Meza, [address] [place] [address], [address]. tel:[phone], [id number] , [facility] No Information Sep-0 Derrick Andersen. [address] [place] [address], [id number], . tel:[phone] Referring Provider: Ganesh Meza, [address] [place] [address], [address]. tel:[phone], [phone] , [facility] Diarrhea (chief complaint)E stablishmen t Visit (chief complaint) Encounter for other administrative examinationsBod y mass index (BMI) 21.0-21.9, adultPersonal history of nicotine dependenceDiarr heaAbnormal weight lossCOPDDepress ion Sep-0 7 Derrick Andersen. [address] [place] [address], [id number], . tel:[phone] Referring Provider: Ganesh Meza, [address] [place] [address], [address]. tel:[phone], [id number] , [facility] No Information Sep-0 7 Letty Figueroa. [address], [id number], [place]. tel:[phone] Referring Provider: Carolina Saenz, [address], [address]. tel:[phone] Family History Family Member Type Diagnosis Age [...] cancer Payers Payer name Insurance type Covered democrat ID Authoralvareza reneevie(s) Slide E 09 Social History Type Description Quantity Date Captured Comments Alcohol Use Details Unknown Caffeine Use Details Unknown Tobacco Use Status Smoking Status No Information Sex Female Sexual Orientation Straight or heterosexual Gender Identity Female Chief Complaint And Reason For Visit No Information Reason For Referral Reason For Referral No Information Plan Of Treatment Date Type Action Status Goal Td vaccine. Due on 20 due Goal Zoster vaccine (). Due on due Goal Tdap. Due on due Goal Influenza vaccine. Due on due Goal Depression screening. Due on due Goal FOBT. Due on due Goal Mammogram. Due on 8 due Goal Colonoscopy. Due on due Goal Colonoscopy. Due on due Goal FOBT. Due on due Goal Mammogram. Due on 8 due Goal Depression screening. Due on due Goal Zoster vaccine (1st). [...] due Goal FOBT. Due on due Goal Tobacco cessation counseling completed Goal Lifestyle education regardin g diet completed Goal Colonoscopy. Due on due Goal Zoster vaccine (). Due on due Goal Mammogram. Due on 9 due Goal Depression screening. Due on due Goal Tobacco cessation counseling completed Goal Lifestyle education regardin g diet completed Goal Mammogram. Due on 9 due Goal Depression screening. Due on due Goal Colonoscopy. Due on due Goal Lifestyle education regardin [...] Goal Pap/HPV testing. Due on due Goal Mammogram. Due on [...] completed Goal Colonoscopy. Due on due Goal Depression screening. Due on due Goal Mammogram. Due on due Goal Lipid panel. Due on due Goal Pap/HPV testing. Due on due Goal Colonoscopy. Due on due Goal Depression screening. Due on due Goal Lipid panel. Due on due Goal Mammogram. Due on due Goal Pap/HPV testing. Due on due Goal Pap/HPV testing. Due on due Goal Depression screening. Due on due Goal Lipid panel. Due on due Goal Colonoscopy. Due on due Goal Mammogram. Due on due Goal Lipid panel. Due on due Goal Mammogram. Due on due Goal Colonoscopy. Due on due Goal Depression screening. Due on due Goal Pap/HPV testing. Due on due Goal Mammogram. Due on due Goal Lipid panel. Due on due Goal Pap/HPV testing. Due on due Goal Depression screening. Due on due Goal Colonoscopy. Due on due Goal Lifestyle education regardin g diet completed Goal Pap/HPV testing. Due on due Goal Mammogram. Due on due Goal Colonoscopy. Due on due Goal Depression screening. Due on due Goal Lipid panel. Due on due Goal Mammogram. Due on due Goal Depression screening. Due on due Goal Pap/HPV testing. Due on due Goal Colonoscopy. Due on due Goal Lipid panel. Due on due Goal Lipid panel. Due on due Goal Depression screening. Due on due Goal Mammogram. Due on due Goal Colonoscopy. Due on 018 due Goal Pap/HPV testing. Due on due Goal Lifestyle education regardin g diet completed Goal Tobacco cessation counseling completed Goal Lipid panel. Due on 017 due Goal Pap/HPV testing. Due on due Goal Colonoscopy. Due on 027 due Goal Lifestyle education regardin g diet completed Goal Tdap. Due on due Goal Pap/HPV testing. Due on due Goal Td vaccine. Due on 17 due Goal Influenza vaccine. Due on due Goal Lipid panel. Due on 017 due Goal Dietary manageme nt education, guidance, [...] Evaluate and treat ordered Referral Referred To: [facility] [address], [phone] Ordered: Referrals: Dermatology. [facility]. Evaluate and treat ordered Referral Referred To: [facility] [address] [address] [place], [address] [phone] Ordered: Referrals: Psychiatry. [facility]. Evaluate and treat ordered Referral Ordered: Cardiology (related to Cardiac murmur, unspecified) ordered Referral Referred To: [facility] [address], [phone] Ordered: Referrals: e -Cardiology. [facility]. Evaluate and treat ordered Referral Ordered: Referrals: Cardiology. Evaluate and treat ordered Referral Ordered: Plastic Surgery (related to Sebaceous cyst) ordered Referral Ordered: Plastic Surgery (related to Sebaceous cyst) ordered Referral Ordered: Referrals: Plastic Surgery. Evaluate and treat ordered Referral Ordered: Referrals: Plastic Surgery ordered Referral Referred To: [facility] [address] [facility] Floor [address] [place], [phone] Ordered: Referrals: Plastic Surgery. [facility]. Evaluate and treat ordered Referral Ordered: Dermatology (related to Seborrheic keratosis) ordered Referral Referred To: Hector Alejandre MD [address], [phone] Ordered: Referrals: Dermatology. Hector Alejandre MD. Evaluate and treat ordered Referral Ordered: Referrals: Dermatology ordered Referral Referred To: [facility] [address] [place], [phone] Ordered: Referrals: Dermatology. [facility]. Evaluate and treat ordered Referral Ordered: Gastroenterology (related to Occult blood in stools) ordered Referral Ordered: Gastroenterology (related to Hepatic cyst) ordered Referral Referred To: [facility] [address] [facility] [address] [place], [address] [phone] Ordered: Referrals: Gastroenterology. [facility]. Evaluate and treat ordered Referral Ordered: Podiatry (related to Plantar wart) ordered Referral Ordered: Shelli Aguila -Podiatric Medicine & Surgery Service Providers : End Trimmer (related to Plantar wart) ordered Referral Ordered: Mark Waggoner -Podiatric Medicine & Surgery Service Providers : End Trimmer (related to Plantar wart) ordered Referral Referred To: Mark Waggoner [facility] [address], [place], [phone] Ordered: Referrals: Podiatry. Mark Waggoner DPM. Evaluate and treat ordered Referral Referred To: [facility] [address] [place], [address] [phone] Ordered: Referrals: Podiatry. [facility]. Evaluate and treat ordered Referral Referred To: Shelli Aguila [address] [place], [place], [phone] Ordered: Referrals: Podiatric Medicine & Surgery Service Providers : End TrimmerShelli Garcia. Evaluate and treat ordered Referral Referred To: Mark Waggoner [address], [phone] Ordered: Referrals: Podiatric Medicine & Surgery Service Providers : End TrimmerMark Montaño. Evaluate and treat ordered Referral Ordered: Referrals: Podiatry ordered Referral Ordered: RICA CARRERA -Allopathic & Osteopathic Physicians : Physical Medicine & Rehabilitation (related to Headache) ordered Referral Ordered: Pain Medicine (related to Headache) ordered Referral Referred To: [facility] [address] [place], [phone] Ordered: Referrals: Pain Medicine. [facility]. Evaluate and treat ordered Referral Referred To: RICA CARRERA Ordered: Referrals: Allopathic & Osteopathic Physicians : Physical Medicine & Rehabilitation. RICA CARRERA. Evaluate and treat ordered Referral Ordered: Referrals: Pain Medicine ordered Referral Ordered: Otolaryngology (related to Otalgia, left ear) ordered Referral Ordered: Otolaryngology (related to Otalgia, left ear) ordered Referral Ordered: Referrals: Otolaryngology. Evaluate and treat ordered Referral Ordered: Referrals: Otolaryngology ordered Referral Referred To: [facility] [address] [place], [phone] Ordered: Referrals: Otolaryngology. [facility]. Evaluate and treat ordered Referral Ordered: Gastroenterology (related to Gastric bypass status for obesity) ordered Referral Referred To: [facility] [address] [facility],[address] [place], [phone] Ordered: Referrals: Gastroenterology. [facility]. Evaluate and treat ordered Referral Ordered: Referrals: [...] yet. Planning to go see family in [place] for about a month soon and is [...] information and acknowledges the privacy policies of [facility]. I am currently at the office in [...] in August. Chronic condition f/u [facility] - [facility] ws w/ neurology. Takes Aubagio 14 mg/day. [...] had a gastric bypass four years ago. Tiff refers she ehas had watery diarrhea, then [...] 2 weeks. Related to GERD w/o esophagitis Continue current med regimen and f/u w/ neuro appropriately. Return to clinic if any new or worsening symptoms. Related to Multiple sclerosis Referral placed to p sarahch d/t pt's hx and complexity of care. Plans to see [employer] in interim. Continue current meds at this time. F/u 2 weeks. Return to clinic sooner if any new or worsening symptoms. Related to Bipolar disorder, current episode depressed, moderate Giving encouragement to exercise Related to Body [...] symptoms worsen/new symptoms start. Related to Dysuria Lifestyle education regarding di et Related to [...] Related to Otitis media, unspecified, left ear take medication as prescribed Re lated to Otitis media, unspecified, left ear Lifestyle education regarding di et Related to Body mass index (BMI) 22.0-22.9, adult Giving encouragement to exercise Related to Body mass index (BMI) 22.0-22.9, adult Patient was told to stay well hydrated. [...]
--- OUTSIDE RECORDS SUMMARY | 2023-10-17 14:27 | XMS_ITS | Continuity of Care Document ---
Author Name Unknown Organization [facility] Address [address] [place] [address] Phone Care Team Providers Care Patient Services Assistant Name Role Phone Andria Figueroa DO Unavailable Unavailable Allergies, Adverse Reactions, Alerts Substance Reaction Status Criticality codeine Active No Information BUPROPION HCL Active No Information morphine Active No Information WARNIN allergy(ies) could not be collected because the type is not supported. Please contact the source practice for further details. Medications Medication Instructions Dosage Effective Dates (start - stop) Status Comments NEURONTIN (unknown strength) instructions: 1200mg TID per patient Not Available - Active REQUIP (unknown strength) 2.5mg tablet once daily per patient Not Available - Active Celexa 40 mg Tab Take one tablet by mouth daily (1T PO QD) - Active Depakote 500 mg Tab instructions:1500mg once daily per patient - Active Estrace 1 mg Tab Take one tablet by mouth daily (1T PO QD) - Active NITROFURANTOIN 100MGTABLET Take one tablet by mouth two times per day (1T PO BID) - Active omeprazole 20 mg Cap, Delayed Release Take one capsule by mouth twice per day (1CAP PO BID) - Active clonazepam 0.5 mg Tab instructions: 2 tablets in the AM and 1 tablet in the PM per patient - Active SEROQUEL 50MGTABLET 1 Tablet by mouth at bedtime (1T PO HS) - Active Procedures Procedure Date Facet Lumbosac 1 Level Facet LUmbosac each addl Fluoro Needle Spine Fluoroscopy Radiation Exposure Not Docum ented In Final Report Marcaine (1 mL = 1 Unit) Depomedrol 80mg Epidural Tray Inj Anes Facet Jt; Lumb/sac-1st Level Ja Inj Anes Facet Jt; Lumb/sac-2nd Level Ja Inj Anes Facet Jt; Lumb/sac-3rd Level Ja Offic Cons New/estab Minor 15 9 Patient encounter was documented using a [facility] cer Current Med Dosages Verified & Documente d Inject SI Joint Arthrography Fluoro Needle Spine Fluoroscopy Radiation Exposure 09 Lo Osm Contr Mat (200-249mg) Depomedrol 80mg Offic/outpt E&m Estab Low-mod 9 Arthrocentesis/aspir/inj; Tash 09 Fluoroscopic Guidance For Inj - Nonspine Offic Cons New/estab Mod 40 Mi 08 Injection One Or Two Groups Inj Anes Epidur; Lumb/sac 1 Le 08 Epidurography Rad S&i Offic/outpt E&m Estab Low-mod 8 Offic/outpt E&m Estab Low-mod 8 Inj Anes Epidur; Lumb/sac 1 Le 08 Epidurography Rad S&i Offic Cons New/estab Mod-hi 60 08 Advance Directives Directive Yes / No Effective Date File Name No Information Encounters Encounter Description Practice Location Reason(s) For Visit Diagnoses Date Provider Providers Copied on Encounter KATLHEEN [place], [address], [place], [place], [id number], [place] tel:[phone] [facility] No Information 0 Henry Ayers. [address], [place], [address], [place]. tel:[phone] Referring Provider: Adam Betancourt MD, [address] [place], [place]. tel:[phone] Offic Cons New/estab Minor 15 [facility], [address], [place], [place], [id number], [place] tel:[phone] [facility] No Information 9 Nick Narvaez. [address] [place], [address], [place]. tel:[phone] Referring Provider: Adam Betancourt MD, [address] [facility] [address] [place], [place]. tel:[phone] [facility], [address], [place], [place], [id number], [place] tel:[phone] [facility] No Information 9 Henry Ayers. [address], [address], [place], [address], [place]. tel:[phone] Referring Provider: Adam Betancourt MD, [address] [facility] [address] [place], [place]. tel:[phone] Offic/outpt E&m Estab Low-mod [facility], [address], [place], [place], [id number], [place] tel:[phone] [facility] No Information 9 Liam Andersen. [address] [place], [address], [place]. tel:[phone] Referring Provider: Adam Betancourt MD, [address] [facility] [address] [place], [place]. tel:[phone] Offic Cons New/estab Mod 40 Mi [facility], [address], [place], [place], [id number], [place] tel:[phone] [facility] No Information 8 Nick Song. [address], [address], [place], [address], [place]. tel:[phone] Referring Provider: Adam Betancourt MD, [address] tel:[phone] [facility], [address], [place], [place], [id number], [place] tel:[phone] [facility] No Information 200 8 Liam Andersen. [address] [place], [address], [place]. tel:[phone] Referring Provider: Adam Betancourt MD, [address] tel:[phone] [facility], [address], [place], [place], [id number], [place] tel:[phone] [facility] No Information 0 8 Liam Andersen. [address] [place], [address], [place]. tel:[phone] Referring Provider: Adam Betancourt MD, [address] tel:[phone] Offic/outpt E&m Estab Low-mod [facility], [address], [place], [place], [id number], [place] tel:[phone] [facility] No Information 8 Liam Andersen. [address] [place], [address], [place]. tel:[phone] Referring Provider: Adam Betancourt MD, [address] tel:[phone] Offic/outpt E&m Estab Low-mod [facility], [address], [place], [place], [id number], [place] tel:[phone] [facility] No Information 8 Liam Andersen. [address] [facility] [place], [address], [place]. tel:[phone] Referring Provider: Adam Betancourt MD, [address] [facility] [address] [place], [place]. tel:[phone] Offic Cons New/estab Mod-hi 60 [facility], [address], [place], [place], [id number], tel:[phone] [facility] No Information 8 Nick Song. [address], [place], [address], [place]. tel:[phone] Referring Provider: Adam Betancourt MD, [address] [facility] [address] [place], [place]. tel:[phone] Family History Family Member Type Diagnosis Age At Onset No Information Payers Payer name Insurance type Covered alliance party ID Authoriza tion(s) No Information Social History Type Description Quantity Date Captured Comments Alcohol Use Details No Caffeine Use Details Unknown Tobacco Use Status No Information Smoking Status No Information Non-Smoking Tobacco Use Details : No Details Available : No Details Available Sex Female Chief Complaint And Reason For [...]
--- NOTE | 2023-10-17 14:30 | CRLHL7_ITS ---
For Patients: As a result of the 21st Century Cures Act, medical imaging exams and procedure reports are released immediately into your electronic medical record. You may view this report before your referring provider. If you have questions, please contact your health care provider. INDICATION: Multiple sclerosis. Recurrent falls. TECHNIQUE: Lumbar spine MRI with contrast. The following sequences were obtained: Sagittal T1, T2 weighted and T2 weighted STIR sequences. Axial T1 and T2 weighted sequences. Coronal T2 weighted sequence. Axial and Sagittal T1 weighted post-contrast sequences. 15 cc of Dotarem gadolinium based contrast agent was administered. COMPARISON: None. FINDINGS: Five lumbar type vertebral bodies, with the last fully formed disc space designated as L5-S1. Accentuated lumbar lordosis. Minimal levoconvex lumbar curve. Postsurgical changes of discectomies with interbody spacer placement at L4-5/L5-S1. Mature osseous integration of the spacer graft with the adjacent endplates. Postsurgical changes of L4 through S1 dorsal lateral instrumented fusion, with significant susceptibility artifact associated with the hardware. Apparent laminectomy changes are present at the same levels. No recent compression fracture or aggressive marrow replacing process. Lower cord/conus signal is normal. The conus terminates at a normal location. Cauda equina nerve roots are not well visualized due to susceptibility artifact. No visible intradural lesion within limits of exam. Large right posterior liver cyst. Discs/Endplates: At L2-3, advanced disc height loss, disc desiccation and degenerative endplate remodeling, greater on the right. Type 1 reactive marrow changes centrally and on the right. T11-12 and L3-4 moderate disc height loss and disc desiccation. Remaining discs are within normal limits. Findings at individual levels as follows: T12-L1: No spinal canal or neural foraminal stenosis. L1-2: Minimal disc bulge. No spinal canal or neural foraminal stenosis. L2-3: 4 millimeters retrolisthesis. Moderate disc bulge with overlying osteophytic ridging, asymmetric to the right. A superimposed right subarticular extrusion with slight caudal migration. Bilateral facet arthrosis. Moderate spinal canal stenosis and right subarticular recess stenosis with mild impingement of the traversing L3 nerve root. Mild left and moderate right neural foraminal stenosis. L3-4: Trace retrolisthesis. Mild disc bulge. Bilateral facet arthrosis. Mild right and moderate left neural foraminal stenosis. At least mild spinal canal stenosis. L4-5: Postop changes. No visible spinal canal/neural foraminal stenosis within limits of exam. L5-S1: Postop changes. No visible spinal canal/neural foraminal stenosis within limits of exam. Imaged SI joints: Bilateral arthrosis. Imaged sacrum/iliac wings: Right iliac wing bone graft harvesting site. No sacral abnormalities. IMPRESSION: 1. Postop changes of L4 through S1 combined interbody/dorsal lateral fusion and apparent laminectomies. Significant susceptibility artifact associated with the posterior instrumentation. Allowing for this, no intradural pathology. Lower cord/conus are normal in appearance. 2. At L2-3, advanced active on chronic disc degeneration with type 1 reactive marrow changes. Moderate spinal canal stenosis and right subarticular recess stenosis with mild impingement of the traversing right L3 nerve root. Moderate right neural foraminal stenosis. 3. At L3-4, moderate left neural foraminal stenosis and at least mild spinal canal stenosis. Dictated by Kristian Perera MD @ 10/19/2023 8:50:10 AM (Electronically Signed)
--- NOTE | 2023-10-17 15:30 | CRLHL7_ITS ---
For Patients: As a result of the Century Cures Act, medical imaging exams and procedure reports are released immediately into your electronic medical record. You may view this report before your referring provider. If you have questions, please contact your health care provider. INDICATION: MS. Recurrent falls. TECHNIQUE: Thoracic spine MRI with contrast. The following sequences were obtained. Sagittal T1, T2 weighted and STIR sequences. Axial T2 weighted sequences. Axial and Sagittal T1 weighted post-contrast sequences. 15 cc of Dotarem gadolinium based intravenous contrast agent was used. COMPARISON: None. FINDINGS: Straightening of the typical thoracic kyphosis. Moderate mid thoracic dextroconvex curvature with apex at T7-8. No acute fracture or aggressive marrow lesion. There is mild prominence of the central canal of the thoracic cord spanning T4 through T9, none measuring greater than 2 millimeters in diameter. No thoracic cord signal changes concerning for active for chronic demyelination. No significant abnormalities of the mediastinal, paraspinous or retroperitoneal soft tissues. Disc/endplates: Advanced disc height loss along the left-sided concave aspect of the scoliotic curvature at T5-6 through T10-11. Mild to moderate disc height loss and disc desiccation elsewhere. Scattered small thoracic Schmorl`s node deformities. Spinal canal/neural foramina: Multiple small bulges/protrusions flatten the thecal sac without contacting/deforming the cord or contributing to significant spinal canal stenosis. Foraminal height loss/facet arthrosis with mild neural foraminal stenosis at T3-4/T4-5/T5-6 on the right and T7-8/T8-9/T9-10 on the left. No high-grade neural foraminal stenosis or vasiliy impingement of neural structures at any thoracic level. IMPRESSION: 1. No evidence of active or chronic demyelination within the thoracic cord. 2. Mild benign prominence of the central canal of the spinal cord at T4 through T9. 3. Moderate mid thoracic dextroconvex scoliosis. Multilevel asymmetric thoracic disc height loss. Scattered thoracic spondylosis without high grade spinal canal/neural foraminal stenosis or neural impingement. Dictated by Kristian Perera MD @ 10/19/2023 9:05:56 AM (Electronically Signed)
== END 2023-10-17 14:22 | disposition home or self-care (01) ==
PROVIDERS: PCP Family Medicine; Visit Provider Internal Medicine
DX: G35 Multiple sclerosis (principal); M43.04 Spondylolysis, thoracic region; R29.6 Repeated falls
CPT/HCPCS: 72157; 72158; A9575

== ENCOUNTER 2023-10-25 07:07 | Emergency (ER) | payer MEDICARE, OTHER, SELFPAY ==
[2023-10-25 07:24] VITALS: BP 120/63; PULSE 74; RESP 18; TEMP 36.7; O2SAT 95; BMI 17.8
--- NOTE | 2023-10-25 08:20 | ED_ITS ---
HPI - General Adult General Chief complaint: Ear/Nose/Throat Problem Stated complaint: R ear pain Time Seen by Provider: 10/25/23 08:07 History of Present Illness HPI narrative: 58 year white female who is on a chronic opioids for bipolar COPD ADD depression multiple sclerosis anxiety chronic pain. Presents with right earache. It started this morning. She has no other symptoms. No sore throat. She has no chest p Pain or breathing problem Related Data Home Medications Medication Instructions Recorded Confirmed albuterol sulfate 90 mcg/actuation 2 puff inhalation Q4-6H PRN 07/15/22 07/27/23 aerosol inhaler (Ventolin HFA) cholecalciferol (vitamin D3) 125 125 mcg PO QDAY 07/15/22 10/25/23 mcg (5,000 unit) capsule multivitamin 1 tab PO QAM 07/15/22 07/27/23 oxycodone-acetaminophen 7.5 mg-325 2 tab PO DAILY PRN 07/15/22 10/25/23 mg tablet teriflunomide 14 mg tablet 14 mg PO QDAY 07/15/22 10/25/23 (Aubagio) quetiapine 200 mg tablet 200 mg PO QHS 12/26/22 10/25/23 rizatriptan 10 mg tablet 10 mg PO ONCE PRN 12/26/22 10/25/23 Previous Rx's Medication Instructions Recorded ropinirole 4 mg tablet See Rx Instructions .Route 11/07/22 .COMPLEX #90 tabs amitriptyline 50 mg tablet 50 mg PO QDAY #90 tabs 02/23/23 trazodone 100 mg tablet 100 mg PO .HS #90 tabs 02/23/23 omeprazole 20 mg capsule,delayed 20 mg PO BID #180 caps 03/01/23 release propranolol 160 mg capsule,24 160 mg PO DAILY #90 caps 03/01/23 hr,extended release celecoxib 200 mg capsule See Rx Instructions .Route 09/22/23 .COMPLEX #90 caps dextroamphetamine-amphetamine ER 30 mg PO QAM #30 caps 10/09/23 30 mg 24hr capsule,extend release Allergies Allergy/AdvReac Type Severity Reaction Status Date / Time Opioids - Morphine Analogues Allergy Severe Difficulty Verified 07/27/23 11:24 Breathing tramadol Allergy Intermediate Difficulty Verified 07/27/23 11:24 Breathing bupropion Allergy Mild Nausea Verified 07/27/23 11:24 codeine Allergy Mild Nausea Verified 07/27/23 11:24 Review of Systems Status of ROS: Reports: 6 or more systems reviewed and unremarkable except as noted in History and below [facility] Medical History Carpal tunnel syndrome on both sides ?G56.03 - Carpal tunnel syndrome, bilateral upper limbs (ICD-10) History of atrial fibrillation without current medication ?Z86.79 - Personal history of other diseases of the circulatory system (ICD- 10) Surgical History Status post gastric bypass for obesity ?Z98.84 - Bariatric surgery status (ICD-10) History of hysterectomy with bilateral oophorectomy ?Z90.710 - Acquired absence of both cervix and uterus (ICD-10) ?Z90.722 - Acquired absence of ovaries, bilateral (ICD-10) History of hand surgery ?Z98.890 - Other specified postprocedural states (ICD-10) History of gastric bypass ?Z98.84 - Bariatric surgery status (ICD-10) History of fusion of lumbar spine ?Z98.1 - Arthrodesis status (ICD-10) History of cholecystectomy ?Z90.49 - Acquired absence of other specified parts of digestive tract (ICD- 10) Family History Mother Family history of malignant neoplasm of breast Social History Smoking Status: Current every day smoker What tobacco products do you use: cigarettes Non-prescribed substance use: denies use Exam Narrative: Exam Narrative: objective: Patient's vital signs unremarkable in general she has no apparent distress Her HEENT exam shows right otitis media with bulging tympanic membrane, little bit of bleeding around the eardrum. Left TM clear Throat clear Neck is supple Neurologic grossly nonfocal good peripheral perfusio Const: Vital Signs, click to edit/add: Vital Signs - 24 hr 10/25/23 07:24 Temperature 98.1 F Pulse Rate [Right Pulse Oximeter] 74 Respiratory Rate 18 Blood Pressure [Ri ght Upper Arm] 120/63 Pulse Oximetry 95 Oxygen Delivery Me thod Room Air Course Vital Signs Vital signs: Initial Vital Signs Temperature 98.1 F 10/25/23 07:24 Temperature Source Temporal Artery Scan 10/25/23 07:24 Pulse Rate 74 10/25/23 07:24 Respiratory Rate 18 10/25/23 07:24 Blood Pressure 120/63 10/25/23 07:24 Blood Pressure Mean 82 10/25/23 07:24 Blood Pressure Position Sitting 10/25/23 07:24 Pulse Oximetry 95 10/25/23 07:24 Oxygen Delivery Method Room Air 10/25/23 07:24 Vital Signs Temperature 98.1 F 10/25/23 07:24 Pulse Rate 74 10/25/23 07:24 Respiratory Rate 18 10/25/23 07:24 Blood Pressure 120/63 10/25/23 07:24 Pulse Oximetry 95 10/25/23 07:24 Oxygen Delivery Method Room Air 10/25/23 07:24 Temperature 98.1 F 10/25/23 07:24 Pulse Rate 74 10/25/23 07:24 Respiratory Rate 18 10/25/23 07:24 Blood Pressure 120/63 10/25/23 07:24 Pulse Oximetry 95 10/25/23 07:24 Oxygen Delivery Method Room Air 10/25/23 07:24 Medical Decision Making MDM Narrative Medical decision making narrative: 58 year white female smoker with multiple medical issues presents with right ear infection. Looks like it is a primarily otitis media will also give her some ear drops. Patient has oxycodone at home to use for pain, I think should get better with antibiotics and drops. Follow up with primary care in the next several days if not improving, return to ED sooner problems or concerns. Strongly recommend discontinue smoking might diminish the amount of Here and upper respiratory symptoms she has. Discharge Plan Discharge Clinical Impression: Otitis media Patient Disposition: Home, Self-Care Condition: Stable Additional Instructions: continue oxycodone, light activity, diet as tolerated, recommend antibiotics and some ear drops. Follow up with regular doctor next couple of days if not improving, Activity Level: No Restrictions Discharge Diet: Regular Prescriptions: No Action quetiapine 200 mg tablet 200 mg PO QHS rizatriptan 10 mg tablet 10 mg PO ONCE PRN Patient Comments: TAKE 1 TABLET BY MOUTH ONCE . MAY REPEAT AT 2 HOUR INTERVALS. DO NOT EXCEED 30 MG IN 24 HOURS albuterol sulfate [Ventolin HFA] 90 mcg/actuation HFA aerosol inhaler 2 puff inhalation Q4-6H PRN oxycodone-acetaminophen 7.5-325 mg tablet 2 tab PO DAILY PRN Rx Instructions: prescribed by Krystyna at [facility] Aubagio 14 mg tablet 14 mg PO QDAY cholecalciferol (vitamin D3) 125 mcg (5,000 unit) capsule 125 mcg PO QDAY multivitamin Tablet 1 tab PO QAM ropinirole 4 mg tablet See Rx Instructions .ROUTE .COMPLEX Qty: 90 3RF Dose Instruction: TAKE 1 TABLET BY MOUTH AT BEDTIME Rx Instructions: TAKE 1 TABLET BY MOUTH AT BEDTIME amitriptyline 50 mg tablet 50 mg PO QDAY Qty: 90 3RF trazodone 100 mg tablet 100 mg PO .HS Qty: 90 3RF omeprazole 20 mg capsule,delayed release(DR/EC) 20 mg PO BID Qty: 180 3RF propranolol 160 mg capsule,extended release 24 hr 160 mg PO DAILY Qty: 90 3RF celecoxib 200 mg capsule See Rx Instructions .ROUTE .COMPLEX Qty: 90 1RF Dose Instruction: TAKE 1 CAPSULE BY MOUTH DAILY Rx Instructions: TAKE 1 CAPSULE BY MOUTH DAILY dextroamphetamine-amphetamine 30 mg capsule,extended release 24hr 30 mg PO QAM Qty: 30 0RF Follow Up/Referrals: Kenneth Pantoja MD [Primary Care Provider] - Stand Alone Forms: [email or web address] Info Instructions
== END 2023-10-25 08:46 | disposition home or self-care (01) ==
LOC: ED 08:37
PROVIDERS: Emergency Provider Family Medicine; PCP Family Medicine
DX: H66.91 Otitis media, unspecified, right ear (principal)
CPT/HCPCS: 95992; 99283

== ENCOUNTER 2023-10-31 13:05 | Emergency (ER) | payer MEDICARE, OTHER, SELFPAY ==
[2023-10-31 13:11] VITALS: BP 130/77; PULSE 75; RESP 16; TEMP 36.4; O2SAT 98; BMI 17.7
--- NOTE | 2023-10-31 13:21 | ED.EAR ---
HPI - Ear Problem General Date Seen: 10/31/23 Chief complaint: Ear/Nose/Throat Problem Stated complaint: Pain, no hearing in R ear Time Seen by Provider: 10/31/23 13:07 Source: patient Mode of arrival: ambulatory Limitations: no limitations History of Present Illness HPI Narrative: Patient is a 58-year-old female with history of chronic pain on oxycodone presenting to emergency department for right ear pain. She was seen here last week for similar symptoms. States since then she has been on amoxicillin and ear drops without improvement in nausea states can not hear all of her right ear. States it feels like ?there is fluid in the ear like after swimming.? She states the symptoms have not improved at all. She has had issues with the otitis media and past but has never had a seen ENT specialist. Is not diabetic. Denies headache, fevers, chills, or trismus,. No other concerns noted. Related Data Home Medications Medication Instructions Recorded Confirmed albuterol sulfate 90 mcg/actuation 2 puff inhalation Q4-6H PRN 07/15/22 07/27/23 aerosol inhaler (Ventolin HFA) cholecalciferol (vitamin D3) 125 125 mcg PO QDAY 07/15/22 10/25/23 mcg (5,000 unit) capsule multivitamin 1 tab PO QAM 07/15/22 07/27/23 oxycodone-acetaminophen 7.5 mg-325 2 tab PO DAILY PRN 07/15/22 10/25/23 mg tablet teriflunomide 14 mg tablet 14 mg PO QDAY 07/15/22 10/25/23 (Aubagio) quetiapine 200 mg tablet 200 mg PO QHS 12/26/22 10/25/23 rizatriptan 10 mg tablet 10 mg PO ONCE PRN 12/26/22 10/25/23 Previous Rx's Medication Instructions Recorded ropinirole 4 mg tablet See Rx Instructions .Route 11/07/22 .COMPLEX #90 tabs amitriptyline 50 mg tablet 50 mg PO QDAY #90 tabs 02/23/23 trazodone 100 mg tablet 100 mg PO .HS #90 tabs 02/23/23 omeprazole 20 mg capsule,delayed 20 mg PO BID #180 caps 03/01/23 release propranolol 160 mg capsule,24 160 mg PO DAILY #90 caps 03/01/23 hr,extended release celecoxib 200 mg capsule See Rx Instructions .Route 09/22/23 .COMPLEX #90 caps dextroamphetamine-amphetamine ER 30 mg PO QAM #30 caps 10/09/23 30 mg 24hr capsule,extend release amoxicillin 875 mg-potassium 1 tab PO BID #20 tabs 10/31/23 clavulanate 125 mg tablet Allergies Allergy/AdvReac Type Severity Reaction Status Date / Time Opioids - Morphine Analogues Allergy Severe Difficulty Verified 07/27/23 11:24 Breathing tramadol Allergy Intermediate Difficulty Verified 07/27/23 11:24 Breathing bupropion Allergy Mild Nausea Verified 07/27/23 11:24 codeine Allergy Mild Nausea Verified 07/27/23 11:24 Review of Systems Status of ROS: Reports: 6 or more systems reviewed and unremarkable except as noted in History and below PFSH PFS Medical History Carpal tunnel syndrome on both sides ?G56.03 - Carpal tunnel syndrome, bilateral upper limbs (ICD-10) History of atrial fibrillation without current medication ?Z86.79 - Personal history of other diseases of the circulatory system (ICD-10) Surgical History Status post gastric bypass for obesity ?Z98.84 - Bariatric surgery status (ICD-10) History of hysterectomy with bilateral oophorectomy ?Z90.710 - Acquired absence of both cervix and uterus (ICD-10) ?Z90.722 - Acquired absence of ovaries, bilateral (ICD-10) History of hand surgery ?Z98.890 - Other specified postprocedural states (ICD-10) History of gastric bypass ?Z98.84 - Bariatric surgery status (ICD-10) History of fusion of lumbar spine ?Z98.1 - Arthrodesis status (ICD-10) History of cholecystectomy ?Z90.49 - Acquired absence of other specified parts of digestive tract (ICD-10) Family History Mother Family history of malignant neoplasm of breast Social History Smoking Status: Current every day smoker What tobacco products do you use: cigarettes Non-prescribed substance use: denies use Exam Narrative: Exam Narrative: Const: Well-nourished, Well-developed, in mild distress Eyes: PERRL, no conjunctival injection, and symmetrical lids HENT: Atraumatic external nose and ears. Moist mucous membranes. He was 7 tests right tympanic membrane with some erythema seen at the base of the external auditory canal. Mild tenderness insert when pulling on the right ear. Normal appearing left ear Neck: Symmetric, trachea midline, No thyromegaly. MSK:Extremities w/o deformity, Normal Active ROM Skin: Warm, Dry. No rashes or lesions. Neuro: Normal Muscle tone, No focal neurological deficits. Psych: Awake, Alert, & Oriented x3. Appropriate mood and affect. Const: Vital Signs, click to edit/add: Vital Signs - 24 hr 10/31/23 13:11 Temperature 97.5 F L Pulse Rate [Pulse Oximeter] 75 Respiratory Rate 16 Blood Pressure [Ri ght Upper Arm] 130/77 Pulse Oximetry 98 Oxygen Delivery Me thod Room Air Course Vital Signs Vital signs: Initial Vital Signs Temperature 97.5 F L 10/31/23 13:11 Temperature Source Temporal Artery Scan 10/31/23 13:11 Pulse Rate 75 10/31/23 13:11 Pulse Rhythm Regular 10/31/23 13:11 Respiratory Rate 16 10/31/23 13:11 Blood Pressure 130/77 10/31/23 13:11 Blood Pressure Mean 94 10/31/23 13:11 Blood Pressure Position Sitting 10/31/23 13:11 Pulse Oximetry 98 10/31/23 13:11 Oxygen Delivery Method Room Air 10/31/23 13:11 Vital Signs Temperature 97.5 F L 10/31/23 13:11 Pulse Rate 75 10/31/23 13:11 Respiratory Rate 16 10/31/23 13:11 Blood Pressure 130/77 10/31/23 13:11 Pulse Oximetry 98 10/31/23 13:11 Oxygen Delivery Method Room Air 10/31/23 13:11 Temperature 97.5 F L 10/31/23 13:11 Pulse Rate 75 10/31/23 13:11 Respiratory Rate 16 10/31/23 13:11 Blood Pressure 130/77 10/31/23 13:11 Pulse Oximetry 98 10/31/23 13:11 Oxygen Delivery Method Room Air 10/31/23 13:11 Medical Decision Making MDM Narrative Medical decision making narrative: Patient is a 58-year-old female presenting for right ear pain. Has already been on amoxicillin and antibiotic ear drops. States symptoms are not improving. No signs of mastoid pain is not appear to be mastoiditis. There is some minimal pain of the external auditory canal but is not of vertically look like acute otitis externa. Very unlikely to be malignant otitis externa appearing hearing loss seems more likely to be due to the otitis media and fluid formation rather than rather than a labyrinthitis as there is no associated vertigo. Patient will be put on Augmentin due to treatment failure. informed to follow-up with ENT. She is agreeable with this plan. Discharge Plan Discharge Clinical Impression: Otitis media Qualifiers: Otitis media type: unspecified Laterality: right Qualified Code(s): H66.91 - Otitis media, unspecified, right ear Patient Disposition: Home, Self-Care Condition: Stable Instructions: Ear Infection (ED) Additional Instructions: Please call the [facility] at [phone] to schedule an appointment with ENT. Take the Augmentin as directed. Prescriptions: New amoxicillin-pot clavulanate 875-125 mg tablet 1 tab PO BID Qty: 20 0RF No Action quetiapine 200 mg tablet 200 mg PO QHS rizatriptan 10 mg tablet 10 mg PO ONCE PRN Patient Comments: TAKE 1 TABLET BY MOUTH ONCE . MAY REPEAT AT 2 HOUR INTERVALS. DO NOT EXCEED 30 MG IN 24 HOURS albuterol sulfate [Ventolin HFA] 90 mcg/actuation HFA aerosol inhaler 2 puff inhalation Q4-6H PRN oxycodone-acetaminophen 7.5-325 mg tablet 2 tab PO DAILY PRN Rx Instructions: prescribed by Krystyna at [facility] Aubagio 14 mg tablet 14 mg PO QDAY cholecalciferol (vitamin D3) 125 mcg (5,000 unit) capsule 125 mcg PO QDAY multivitamin Tablet 1 tab PO QAM ropinirole 4 mg tablet See Rx Instructions .ROUTE .COMPLEX Qty: 90 3RF Dose Instruction: TAKE 1 TABLET BY MOUTH AT BEDTIME Rx Instructions: TAKE 1 TABLET BY MOUTH AT BEDTIME amitriptyline 50 mg tablet 50 mg PO QDAY Qty: 90 3RF trazodone 100 mg tablet 100 mg PO .HS Qty: 90 3RF omeprazole 20 mg capsule,delayed release(DR/EC) 20 mg PO BID Qty: 180 3RF propranolol 160 mg capsule,extended release 24 hr 160 mg PO DAILY Qty: 90 3RF celecoxib 200 mg capsule See Rx Instructions .ROUTE .COMPLEX Qty: 90 1RF Dose Instruction: TAKE 1 CAPSULE BY MOUTH DAILY Rx Instructions: TAKE 1 CAPSULE BY MOUTH DAILY dextroamphetamine-amphetamine 30 mg capsule,extended release 24hr 30 mg PO QAM Qty: 30 0RF Follow Up/Referrals: Kenneth Pantoja MD [Primary Care Provider] - Stand Alone Forms: [employer] Info Instructions
--- OUTSIDE RECORDS SUMMARY | 2023-10-31 13:28 | XMS_ITS | Continuity of Care Document ---
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 [address] [place], [place], [id number], . tel:[phone] Referring Provider: Aurelia Barriga, [address] [place], [address] . tel:[phone] Family History Family Member Type Diagnosis Age At Onset No Information Payers Payer name Insurance type Covered libertarian ID Authoriza tion(s) No Information Social History [...]
--- OUTSIDE RECORDS SUMMARY | 2023-10-31 13:28 | XMS_ITS | Continuity of Care Document ---
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 [address] [place], [place], [id number], . tel:[phone] Referring Provider: Aurelia Barriga, [address] [place], [address]. tel:[phone] Family History Family Member Type Diagnosis Age At Onset No Information Payers Payer name Insurance type Covered republican ID Authoriza tion(s) [facility] [id number] Social History Type Description Quantity Date Captured [...]
--- OUTSIDE RECORDS SUMMARY | 2023-10-31 13:28 | XMS_ITS | Continuity of Care Document ---
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 [address], [address], [place], [address], [place]. tel:[phone] Referring Provider: Adam Betancourt MD, [address] [facility] [address] [place], [place]. tel:[phone] Offic Cons New/estab Minor 15 [facility], [address], [place], [place], [id number], [place] tel:[phone] [facility] No Information 9 Nick Narvaez. [address] [place], [address], [place]. tel:[phone] Referring Provider: Adam Betancourt MD, [address] [facility] [address] [place], [place]. tel:[phone] [facility], [address], [place], [place], [id number], [place] tel:[phone] [facility] No Information 9 Henry Ayers. [address] [facility], [address], [place], [address], [place]. tel:[phone] Referring Provider: Adam Betancourt MD, [address] [facility] [address] [place], [place]. tel:[phone] Offic/outpt E&m Estab Low-mod [facility], [address], [place], [place], [id number], [place] tel:[phone] [facility] No Information 9 Liam Andersen. [address] [place], [address], [place]. tel:[phone] Referring Provider: Adam Betancourt MD, [address] [facility] [address] [place], [place]. tel:[phone] Offic Cons New/estab Mod 40 Mi [facility], [address], [place], [place], [id number], [place] tel:[phone] [facility] No Information 8 Nick Song. [address] [facility], [address], [place], [address], [place]. tel:[phone] Referring Provider: Adam Betancourt MD, [address] tel:[phone] [facility], [address], [place], [place], [id number], [place] tel:[phone] [facility] No Information 200 8 Liam Andersen. [address] [place], [address], [place]. tel:[phone] Referring Provider: Adam Betancourt MD, [address] tel:[phone] [facility], [address], [place], [place], [id number], [place] tel:[phone] [facility] No Information 0 8 Liam Andersen. [address] [place], [address], [place]. tel:[phone] Referring Provider: Adam Betancourt MD, [address] tel:[phone] Offic/outpt E&m Estab Low-mod [facility], [address], [place], [place], [id number], [place] tel:[phone] [facility] No Information 8 Liam Andersen. [address] [place], [address], [place]. tel:[phone] Referring Provider: Adam Betancourt MD, [address] tel:[phone] Offic/outpt E&m Estab Low-mod [facility], [address], [place], [place], [id number], [place] tel:[phone] [facility] No Information 8 Liam Andersen. [address] [facility] [place], [address], [place]. tel:[phone] Referring Provider: Adam Betancourt MD, [address] [facility] [address] [place], [place]. tel:[phone] Offic Cons New/estab Mod-hi 60 [facility], [address], [place], [place], [id number], tel:[phone] [facility] No Information 8 Nick Song. [address], [place], [address], [place]. tel:[phone] Referring Provider: Adam Betancourt MD, [address] [facility] [address] [place], [place]. tel:[phone] Family History Family Member Type Diagnosis Age At Onset No Information Payers Payer name Insurance type Covered constitution party ID Authoriza tion(s) No Information Social [...]
--- OUTSIDE RECORDS SUMMARY | 2023-10-31 13:28 | XMS_ITS | Continuity of Care Document ---
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 Name Role Phone [facility] Unavailable Unava ilable Procedures Procedure Date Facet Jt Inj Cervical/Thoracic RIGHT Feb Facet Jt Inj Cerv/Thor 2nd Level RIGHT A Advance Directives Directive Yes / No Effective Date File Name No Information Encounters Encounter Description Practice Location Reason(s) For Visit Diagnoses Date Provider Providers Copied on Encounter [facility], [address] [place] [address] [address] [facility] [address], [place], [id number], [place] tel:[phone] [facility] No Information 2 [facility]. [address] [place] [address] [address] [facility] [address], [place], [id number], [place]. tel:[phone] Referring Provider: Una Lay [address] [facility] [address], [place], [address]. tel:[phone] Family History Family Member Type Diagnosis Age At Onset No Information Payers Payer name Insurance type Covered alliance party ID Authoriza tievie(s) [employer] [id number] Social History Type Description Quantity Date Captured [...]
--- OUTSIDE RECORDS SUMMARY | 2023-10-31 13:29 | XMS_ITS | Continuity of Care Document ---
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 - Active ferrous sulfate 325 mg (65 [...] TIME; THEN 4 CAPSULES BEDTIME - Active Vitamin D3 50 mcg (2,000 [...] day after meals 100 MG - Active amitriptyline 50 mg tablet take 1 tablet by oral route every day at bedtime 50 MG - Active multivitamin tablet take 1 tablet by oral route every day 1 tablet - Active Percocet 7.5 mg-325 mg tablet take 1 tablet by oral route every 6 hours as needed, max 3/day for chronic pain - No Longer Active Please dispense СЕРГЕЙ. May fill today; omeprazole 20 mg tablet,delayed release - No Longer Active dextroamphetamine-a mphetamine 20 mg tablet take 3 tablet by oral route 2 times every day before breakfast 60 MG - No Longer Active Procedures Procedure Date Drug test def 8-14 classes Drug Urine Toxology With Chromatography OFFICE/OUTPATIENT VISIT, EST OFFICE VISIT, EST TELEMEDICINE OFFICE VISIT, EST TELEMEDICINE OFFICE VISIT, EST TELEMEDICINE OFFICE/OUTPATIENT VISIT, EST OFFICE VISIT, EST TELEMEDICINE [...] q3mo opiod tx OFFICE VISIT, EST TELEMEDICINE Facet Jt Inj Or MBB Cervical/Thoracic RI GHT Facet Jt Inj Or MBB Cerv/Thor 2nd Level RIGHT Foll-up eval q3mo opiod tx OFFICE VISIT, EST TELEMEDICINE PT EVAL MOD COMPLEX 30 MIN Foll-up [...] q3mo opiod tx OFFICE VISIT, EST TELEMEDICINE 20 Foll-up eval q3mo opiod tx OFFICE/OUTPATIENT VISIT, EST Substance Interv 15-30mn OFFICE/OUTPATIENT VISIT, NEW Results Test Name Date and Time Measure Units Reference Range Abnormal Flag Status Comments Panel Description: URINE DRUG SCREEN Preliminar y Image UDT 1 AMPHETAMINE 01:36:00 88 (Positiv e) ng/mL 0 A Preliminary Performed by:[facility] (1) BARBITURATES 01:36:00 -100 (Negativ e) ng/mL 0 Preliminary Performed by:[facility] (1) COCAINE 01:36:00 -100 (Negativ e) ng/mL 0 Preliminary Performed by:[facility] (1) METHADONE 01:36:00 -96 (Negativ e) ng/mL 0 Preliminary Performed by:[facility] (1) OPIATES 01:36:00 -86 (Negativ e) ng/mL 0 Preliminary Performed by:[facility] (1) BENZODIAZEPINES 01:36:00 -89 (Negativ e) ng/mL 0 Preliminary Performed by:[facility] (1) PHENCYCLIDINE - PCP 01:36:00 -102.00 (Negativ e) ng/mL 0.00 Preliminary Performed by:[facility] (1) CANNABINOIDS - THC - MARIJUANA 01:36:00 -98 (Negativ e) ng/mL 0 Preliminary Performed by:[facility] (1) ECSTASY - MDMA 01:36:00 -26 (Negativ e) ng/mL 0 Preliminary Performed by:[facility] (1) OXYCODONE 01:36:00 -83 (Negativ e) ng/mL 0 Preliminary Performed by:[facility] (1) ETHYL ALCOHOL 01:36:00 3 (Negativ e) ng/mL 100 Preliminary Performed by:[facility] (1) URINE SPECIFIC GRAVITY 01:36:00 1.009 (Accepta ble) 1.003 - 1.035 Preliminary Performed by:[facility] (1) URINE PH 01:36:00 7.3 (Accepta ble) 4.4 - 9.0 Preliminary Performed by:[facility] (1) URINE CREATININE 01:36:00 46 (Accepta ble) mg/dL 20 - 400 Preliminary Performed by:[facility] (1) Panel Description: Full Confirmation Panel Riddhi jose guadalupe Alprazolam 12:41:00 < 20 (CONSIST ENT) ng/mL 20.0 Final Performed by:[facility] (1) 3-Zsxlt-Eppcfkwgeb 12:41:00 < 40 (CONSIST ENT) ng/mL 40.0 Final Performed by:[facility] (1) Nordiazepam 12:41:00 < 20 (CONSIST ENT) ng/mL 20.0 Final Performed by:[facility] (1) Temazepam 12:41:00 < 20 (CONSIST ENT) ng/mL 20.0 Final Performed by:[facility] (1) Lorazepam 12:41:00 < 20 (CONSIST ENT) ng/ml 20.0 Final Performed by:[facility] (1) Amphetamine 12:41:00 512.7 (CONSIST ENT) ng/mL 50.0 Final Performed by:[facility] (1) Methamphetamine 12:41:00 < 50 (CONSIST ENT) ng/mL 50.0 Final Performed by:[facility] (1) Methylphenidate 12:41:00 < 40 (CONSIST ENT) ng/mL 40.0 Final Performed by:[facility] (1) MDMA 12:41:00 < 50 (CONSIST ENT) ng/mL 50.0 Final Performed by:[facility] (1) Buprenorphine 12:41:00 < 10 (CONSIST ENT) ng/mL 10.0 Final Performed by:[facility] (1) Norbuprenorphine 12:41:00 < 40 (CONSIST ENT) ng/mL 40.0 Final Performed by:[facility] (1) Naloxone 12:41:00 < 20 (CONSIST ENT) ng/mL 20.0 Final Performed by:[facility] (1) Propoxyphene 12:41:00 < 20 (CONSIST ENT) ng/mL 20.0 Final Performed by:[facility] (1) EDDP 12:41:00 < 20 (CONSIST ENT) ng/mL 20.0 Final Performed by:[facility] (1) Carisoprodol 12:41:00 < 50 (CONSIST ENT) ng/mL 50.0 Final Performed by:[facility] (1) Meprobamate 12:41:00 < 50 (CONSIST ENT) ng/mL 50.0 Final Performed by:[facility] () Zolpidem 12:41:00 < 20 (CONSIST ENT) ng/mL 20.0 Final Performed by:[facility] (1) Codeine 12:41:00 < 50 (CONSIST ENT) ng/mL 50.0 Final Performed by:[facility] () Morphine 12:41:00 < 20 (CONSIST ENT) ng/mL 20.0 Final Performed by:[facility] (1) Hydrocodone 12:41:00 < 20 (CONSIST ENT) ng/mL 20.0 Final Performed by:[facility] (1) Hydromorphone 12:41:00 < 20 (CONSIST ENT) ng/mL 20.0 Final Performed by:[facility] (1) Oxycodone 12:41:00 < 50 (INCONSI STENT) ng/mL 50.0 A Final Performed by:[facility] (1) Oxymorphone 12:41:00 233.2 (CONSIST ENT) ng/mL 20.0 Final Performed by:[facility] (1) Thebaine 12:41:00 < 10 (CONSIST ENT) ng/mL 10.0 Final Performed by:[facility] (1) Norfentanyl 12:41:00 < 20 (CONSIST ENT) ng/mL 20.0 Final Performed by:[facility] (1) 6-Acetyl Morphine 12:41:00 < 20 (CONSIST ENT) ng/mL 20.0 Final Performed by:[facility] (1) Phencyclidine 12:41:00 < 20 (CONSIST ENT) ng/mL 20.0 Final Performed by:[facility] (1) Ketamine 12:41:00 < 40 (CONSIST ENT) ng/mL 40.0 Final Performed by:[facility] (1) Benzoylecgonine(Co c Met) 12:41:00 < 10 (CONSIST ENT) ng/ml 20.0 Final Performed by:[facility] (1) Nortriptyline 12:41:00 86.6 (CONSIST ENT) ng/mL 50.0 Final Performed by:[facility] (1) Amtriptyline 12:41:00 > 1000 (CONSIST ENT) ng/mL 50.0 Final Performed by:[facility] (1) Fentanyl 12:41:00 < 10 (CONSIST ENT) ng/mL 10.0 Final Performed by:[facility] (1) Norfentanyl 12:41:00 < 20 (CONSIST ENT) ng/mL 20.0 Final Performed by:[facility] (1) LSD 12:41:00 < 10 (CONSIST ENT) ng/ml 10.0 Final Performed by:[facility] (1) O Desmethyl Cis Tramadol 12:41:00 < 50 (CONSIST ENT) ng/ml 50.0 Final Performed by:[facility] (1) Zolpidem 12:41:00 < 20 (CONSIST ENT) ng/mL 20.0 Final Performed by:[facility] (1) Tapentadol 12:41:00 < 40 (CONSIST ENT) ng/mL 40.0 Final Performed by:[facility] (1) Pregabalin 12:41:00 < 50 (CONSIST ENT) ng/mL 50.0 Final Performed by:[facility] (1) Panel Description: URINE DRUG SCREEN Final Image UDT 2 AMPHETAMINE 12:41:00 88 (Positiv e) ng/mL 0 A Final Performed by:[facility] (1) BARBITURATES 12:41:00 -100 (Negativ e) ng/mL 0 Final Performed by:[facility] (1) COCAINE 12:41:00 -100 (Negativ e) ng/mL 0 Final Performed by:[facility] (1) METHADONE 12:41:00 -96 (Negativ e) ng/mL 0 Final Performed by:[facility] (1) OPIATES 12:41:00 -86 (Negativ e) ng/mL 0 Final Performed by:[facility] (1) BENZODIAZEPINES 12:41:00 -89 (Negativ e) ng/mL 0 Final Performed by:[facility] (1) PHENCYCLIDINE - PCP 12:41:00 -102.00 (Negativ e) ng/mL 0.00 Final Performed by:[facility] (1) CANNABINOIDS - THC - MARIJUANA 12:41:00 -98 (Negativ e) ng/mL 0 Final Performed by:[facility] (1) ECSTASY - MDMA 12:41:00 -26 (Negativ e) ng/mL 0 Final Performed by:[facility] (1) OXYCODONE 12:41:00 -83 (Negativ e) ng/mL 0 Final Performed by:[facility] (1) ETHYL ALCOHOL 12:41:00 3 (Negativ e) ng/mL 100 Final Performed by:[facility] (1) URINE SPECIFIC GRAVITY 12:41:00 1.009 (Accepta ble) 1.003 - 1.035 Final Performed by:[facility] (1) URINE PH 12:41:00 7.3 (Accepta ble) 4.4 - 9.0 Final Performed by:[facility] (1) URINE CREATININE 12:41:00 46 (Accepta ble) mg/dL 20 - 400 Final Performed by:[facility] (1) Advance Directives Directive Yes / No Effective Date File Name No Information Encounters Encounter Description Practice Location Reason(s) For Visit Diagnoses Date Provider Providers Copied on Encounter [facility], [address] [place] [address], [id number] , [place] tel:[phone] [facility] No Information 3 Ildavid Greenwood. [address] [facility] [address], [place], [id number] , [place]. [phone] OFFICE/OUTPAT IENT VISIT, EST [facility], [address] [place] [address], [id number] , [place] [phone] [facility] Back Pain (chief complaint) Chronic migraine without aura, intractable, without status migrainosusCarp al tunnel syndrome, left upper limbChronic pain syndromeRadicul opathy, cervical regionRadiculop athy, lumbar regionPostlamin ectomy syndrome, not elsewhere classifiedLong term (current) use of opiate analgesicEncoun ter for therapeutic drug level monitoring 3 Briannedavid Krystyna. [address], [place], [id number] , [place]. [phone] Referring Provider: Gonzalo Adams, [address] [place] [address], [id number]. tel:[phone] OFFICE VISIT, EST TELEMEDICINE [facility], [address] [place] [address], [id number] , [place] [phone] [facility] Back Pain (chief complaint) Chronic migraine without aura, intractable, without status migrainosusCarp al tunnel syndrome, left upper limbChronic pain syndromeRadicul opathy, cervical regionRadiculop athy, lumbar regionPostlamin ectomy syndrome, not elsewhere classifiedLong term (current) use of opiate analgesic 3 Nyongesa Krystyna. [address] [facility] [address], [place], [id number] , [place]. tel:[phone] Referring Provider: Gonzalo Adams, [address] [place] [address], [address]. tel:[phone] OFFICE VISIT, EST TELEMEDICINE [facility], [address] [place] [address], [id number] , [place] tel:[phone] [facility] Back Pain (chief complaint) Chronic migraine without aura, intractable, without status migrainosusCarp al tunnel syndrome, left upper limbChronic pain syndromeRadicul opathy, cervical regionRadiculop athy, lumbar regionPostlamin ectomy syndrome, not elsewhere classifiedLong term (current) use of opiate analgesic Jul- 3 Nyongesa Krystyna. [address] [facility] [address], [place], [place], [id number] , [place]. tel:[phone] Referring Provider: Gonzalo Adams, [address] [place] [address], [address]. tel:[phone] OFFICE VISIT, EST TELEMEDICINE [facility], [address] [place] [address], [id number] , [place] tel:[phone] [facility] Back Pain (chief complaint) Chronic migraine without aura, intractable, without status migrainosusChro nadira pain syndromeRadicul opathy, cervical regionRadiculop athy, lumbar regionPostlamin ectomy syndrome, not elsewhere classifiedLong term (current) use of opiate analgesicCarpal tunnel syndrome, left upper limb Jun- 3 Nyongesa Krystyna. [address] [facility] [address], [place], [place], [id number] , [place]. tel:[phone] Referring Provider: Gonzalo Adams, [address] [place] [address], [id number]. tel:[phone] OFFICE/OUTPAT IENT VISIT, [facility], [address] [place] [address], [id number] , [place] tel:[phone] [facility] Back Pain (chief complaint) Chronic migraine without aura, intractable, without status migrainosusChro nadira pain syndromeRadicul opathy, cervical regionRadiculop athy, lumbar regionPostlamin ectomy syndrome, not elsewhere classifiedLong term (current) use of opiate analgesic 3 Nyongesa Krystyna. [address], [facility] [place], [id number] , [place]. tel: [phone] Referring Provider: Gonzalo Adams, [address] [place] [address], [address]. tel:[phone] OFFICE VISIT, EST TELEMEDICINE [facility], [address] [place] [address], [id number] , [place] tel: [phone] [facility] Back Pain (chief complaint) Chronic migraine without aura, intractable, without status migrainosusChro nadira pain syndromeRadicul opathy, lumbar regionPostlamin ectomy syndrome, not elsewhere classifiedLong term (current) use of opiate analgesicRadicu lopathy, cervical region 3 Nyongesa Krystyna. [address], [place], [place], [id number] , [place]. tel:[phone] Referring Provider: Gonzalo Adams, [address] [place] [address], [address]. tel:[phone] OFFICE VISIT, EST TELEMEDICINE [facility], [address] [place] [address], [id number] , [place] tel: [phone] [facility] Back Pain (chief complaint) Chronic migraine without aura, intractable, without status migrainosusChro nadira pain syndromeSpondyl osis without myelopathy or radiculopathy, cervical regionRadiculop athy, lumbar regionPostlamin ectomy syndrome, not elsewhere classifiedLong term (current) use of opiate analgesic 3 Nyongesa Krystyna. [address] [facility] [address], [place], [id number] , [place]. tel: [phone] OFFICE VISIT, EST TELEMEDICINE [facility], [address] [place] [address], [id number] , [place] tel:[phone] [facility] Back Pain (chief complaint) Chronic migraine without aura, intractable, without status migrainosusChro nadira pain syndromeSpondyl osis without myelopathy or radiculopathy, cervical regionRadiculop athy, lumbar regionPostlamin ectomy syndrome, not elsewhere classifiedLong term (current) use of opiate analgesic March-0 3 Brianneongesa Krystyna. [address], [place], [place], [id number] , [place]. tel:[phone] Referring Provider: Gonzalo Adams, [address] [place] [address], [address]. [phone] [facility], [address] [place] [address], [id number] , [place] tel:[phone] [facility] No Information 0 3 Nydavid Krystyna. [address], [place], [place], [id number] , [place]. tel:[phone] Referring Provider: Gonzalo Adams, [address] [place] [address], [address]. tel:[phone] OFFICE/OUTPAT IENT VISIT, EST [facility], [address] [place] [address], [id number] , [place] tel:[phone] [facility] Back Pain (chief complaint) Chronic migraine without aura, intractable, without status migrainosusChro nadira pain syndromeSpondyl osis without myelopathy or radiculopathy, cervical regionPostlamin ectomy syndrome, not elsewhere classifiedLong term (current) use of opiate analgesicRadicu lopathy, lumbar regionEncounter for therapeutic drug level monitoring Feb-0 3 Nyongesa Krystyna. [address] [facility] [address], [place], [place], [id number] , [place]. [phone] Referring Provider: Gonzalo Adams, [address] [place] [address], [address]. tel:[phone] OFFICE VISIT, EST TELEMEDICINE [facility], [address] [place] [address], [id number] , [place] tel:[phone] [facility] Back Pain (chief complaint) Chronic migraine without aura, intractable, without status migrainosusSpon dylosis without myelopathy or radiculopathy, cervical regionPostlamin ectomy syndrome, not elsewhere classifiedLong term (current) use of opiate analgesicChroni c pain syndrome Jan-0 3 Briannedavid Green[place]. [address] [facility] [address], [place], [place], [id number] , [place]. tel:[phone] OFFICE/OUTPAT IENT VISIT, [facility], [address] [place] [address], [id number] , [place] tel:[phone] [facility] Back pain (chief complaint) Multiple sclerosisChroni c migraine without aura, intractable, without status migrainosusCarp al tunnel syndrome, left upper limbPain in right hipPain in left hipSpondylosis without myelopathy or radiculopathy, cervical regionRadiculop athy, lumbar regionPostlamin ectomy syndrome, not elsewhere classifiedLong term (current) use of opiate analgesic 3 Yolis Lovely. [address], [facility] [place], [id number] , [place]. tel:[phone] Referring Provider: Gonzalo Adams, [address] [place] [address], [address]. tel:[phone] OFFICE VISIT, [facility], [address] [place] [address], [id number] , [place] tel:[phone] [facility] low back pain (chief complaint) Multiple sclerosisChroni c migraine without aura, intractable, without status migrainosusCarp al tunnel syndrome, left upper limbPain in right hipPain in left hipSpondylosis without myelopathy or radiculopathy, cervical regionPostlamin ectomy syndrome, not elsewhere classifiedLong term (current) use of opiate analgesicRadicu lopathy, lumbar region 2 Bri[address]avid Green[place]. [id number] [place] [address] [address], [place], [place], [id number] , [place]. [phone] Referring Provider: Gonzalo Adams, [address] [place] [address], [address]. tel:[phone] OFFICE VISIT, EST TELEMEDICINE [facility], [address] [place] [address], [id number] , [place] [phone] [facility] low back pain (chief complaint) Multiple sclerosisChroni c migraine without aura, intractable, without status migrainosusCarp al tunnel syndrome, left upper limbPain in right hipPain in left hipSpondylosis without myelopathy or radiculopathy, cervical regionPostlamin ectomy syndrome, not elsewhere classifiedLong term (current) use of opiate analgesic 2 Nyongesa Krystyna. [address] [place] [address], [place], [place], [id number] , [place]. [phone] Referring Provider: Gonzalo Adams, [address] [place] [address], [address]. tel:[phone] [facility], [address] [place] [address], [id number] , [place] [phone] [facility] No Information 2 Nyongesa Krystyna. [address] [place] [address], [facility] [place], [id number] , [place]. tel:[phone] OFFICE/OUTPAT IENT VISIT, [facility], [address] [place] [address], [id number] , [place] tel:[phone] [facility] low back pain (chief complaint) Multiple sclerosisChroni c migraine without aura, intractable, without status migrainosusCarp al tunnel syndrome, left upper limbPain in right hipPain in left hipSpondylosis without myelopathy or radiculopathy, cervical regionPostlamin ectomy syndrome, not elsewhere classifiedLong term (current) use of opiate analgesicEncoun ter for therapeutic drug level monitoring 2 Nyongesa Krystyna. [address] [place] [address] [address], [place], [place], [id number] , [place]. tel:[phone] Referring Provider: Gonzalo Adams, [address] [place], [address]. [phone] OFFICE VISIT, EST TELEMEDICINE [facility], [address] [place] [address], [id number] , [place] tel: [phone] [facility] low back pain (chief complaint) Multiple sclerosisChroni c migraine without aura, intractable, without status migrainosusPain in right hipPain in left hipSpondylosis without myelopathy or radiculopathy, cervical regionPostlamin ectomy syndrome, not elsewhere classifiedLong term (current) use of opiate analgesicCarpal tunnel syndrome, left upper limb Aug-0 2 Stefan Montes. [facility], [address] [facility], [place], [address], [place]. tel: [phone] OFFICE VISIT, EST TELEMEDICINE [facility], [address] [place], [place], [id number] , [place] tel:[phone] [facility] low back pain (chief complaint) Multiple sclerosisChroni c migraine without aura, intractable, without status migrainosusChro nadira pain syndromePain in right hipPain in left hipSpondylosis without myelopathy or radiculopathy, cervical regionLong term (current) use of opiate analgesicPostla minectomy syndrome, not elsewhere classified Sep-[address], [place], [id number] , [place]. tel: [phone] OFFICE VISIT, EST TELEMEDICINE [facility], [address], [place], [id number] , [place] tel:[phone] [facility] Back Pain (chief complaint) Multiple sclerosisChroni c migraine without aura, intractable, without status migrainosusChro nadira pain syndromePain in right hipPain in left hipSpondylosis without myelopathy or radiculopathy, cervical regionOther muscle spasmPostlamine ctomy syndrome, not elsewhere classifiedLong term (current) use of opiate analgesic [place]-2 7-202 2 Nyongesa Krystyna. [address] [facility] [address], [place], [id number] , [place]. tel:[phone] OFFICE/OUTPAT IENT VISIT, [facility], [address], [place], [id number] , [place] tel:[phone] [facility] Back Pain (chief complaint) Multiple sclerosisChroni c migraine without aura, intractable, without status migrainosusChro nadira pain syndromePain in right hipPain in left hipSpondylosis without myelopathy or radiculopathy, cervical regionOther muscle spasmPostlamine ctomy syndrome, not elsewhere classifiedLong term (current) use of opiate analgesic 2 Nyongesa Krystyna. [address] [facility] [address] [facility] [address], [place], [id number] , [place]. tel:[phone] Referring Provider: Tl Pantoja, [address], [address]. tel:[phone] [facility], [address] [place] [address], [id number] , [place] tel:[phone] [facility] No Information 2 Nyongesa Krystyna. [address] [facility] [address], [place], [id number] , [place]. tel:[phone] Referring Provider: Gonzalo Adams, [address] [place], [address]. tel:[phone] OFFICE/OUTPAT IENT VISIT, [facility], [address] [place] [address], [id number] , [place] [phone] [facility] Back Pain (chief complaint) Multiple sclerosisChroni c migraine without aura, intractable, without status migrainosusChro nadira pain syndromeSpondyl osis without myelopathy or radiculopathy, cervical regionOther cervical disc degeneration, unspecified cervical regionOther muscle spasmPostlamine ctomy syndrome, not elsewhere classifiedLong term (current) use of opiate analgesicPain in left hipPain in right hip 2 Brianneongesa [place]. [address], [place], [id number] , [place]. tel:[phone] Referring Provider: Gonzalo Adams, [address] [place] [address], [address]. tel:[phone] OFFICE VISIT, EST TELEMEDICINE [facility], [address] [place] [address], [id number] , [place] tel:[phone] [facility] Back Pain (chief complaint) Multiple sclerosisChroni c migraine without aura, intractable, without status migrainosusChro nadira pain syndromeSpondyl osis without myelopathy or radiculopathy, cervical regionOther cervical disc degeneration, unspecified cervical regionOther muscle spasmPostlamine ctomy syndrome, not elsewhere classifiedLong term (current) use of opiate analgesic 2 Brianneongesa Krystyna. [address], Alvin titus [place], [id number] , [place]. tel:[phone] Referring Provider: Tl Pantoja, [address], [place], [address]. tel:[phone] [facility], [address] [place] [address], [id number] , [place] tel:[phone] [facility] Spondylosis without myelopathy or radiculopathy, cervical region Feb- 2 Aviles Simon. [facility], [address] [facility] [address], [place], [address], [place]. tel:[phone] Referring Provider: Gonzalo Adams, [address] [place] [address], [address]. tel:[phone] OFFICE VISIT, EST TELEMEDICINE [facility], [address] [place] [address], [id number] , [place] tel:[phone] [facility] Back Pain (chief complaint) Multiple sclerosisChroni c migraine without aura, intractable, without status migrainosusChro nadira pain syndromeSpondyl osis without myelopathy or radiculopathy, cervical regionOther cervical disc degeneration, unspecified cervical regionOther muscle spasmPostlamine ctomy syndrome, not elsewhere classifiedLong term (current) use of opiate analgesic 2 Georgia Greenwood. [address], Al[place]us [place], [id number] , [place]. tel: [phone] [facility], [address] [place], [place], [id number] , [place] tel: [phone] [facility] cervicalgia (chief complaint) CervicalgiaOthe r cervical disc degeneration, unspecified cervical regionSpondylos is without myelopathy or radiculopathy, cervical region 2 Brandyn Fabian. [address] [place], [place], [id number] , [place]. tel: [phone] Referring Provider: Gonzalo Adams, [address] [place], [address]. tel:[phone] OFFICE VISIT, EST TELEMEDICINE [facility], [address] [place] [address], [id number] , [place] tel: [phone] [facility] Back Pain (chief complaint) Chronic pain syndromePostlam inectomy syndrome, not elsewhere classifiedLong term (current) use of opiate analgesicOther muscle spasmChronic migraine without aura, intractable, without status migrainosusOthe r cervical disc degeneration, unspecified cervical regionMultiple sclerosisSpondy losis without myelopathy or radiculopathy, cervical region 2 Stefan Montes. [facility], [address], [place], [address], [place]. tel: [phone] [facility], [address] [place] [address], [id number] , [place] tel: [phone] [facility] No Information 2 Georgia Greenwood. [address] [facility] [address], T[place] Singer, [id number] , [place]. tel: [phone] OFFICE/OUTPAT IENT VISIT, EST [facility], [address] [place] [address], [id number] , [place] tel:[phone] [facility] low back pain (chief complaint) Pain in right kneeChronic pain syndromePostlam inectomy syndrome, not elsewhere classifiedLong term (current) use of opiate analgesicOther muscle spasmCervicalgi aChronic migraine without aura, intractable, without status migrainosusOthe r cervical disc degeneration, unspecified cervical regionMultiple sclerosisEncoun ter for therapeutic drug level monitoringMyalg ia, other site 2 Nyongesa Krystyna. [address] [facility] [address], Alexus[place]ackyler ariela [place], [id number] , [place]. tel:[phone] Referring Provider: Tl Pantoja, [address], [address]. tel:[phone] OFFICE VISIT, EST TELEMEDICINE [facility], [address], [place], [id number] , [place] tel:[phone] [facility] low back pain (chief complaint) Pain in right kneeChronic pain syndromePostlam inectomy syndrome, not elsewhere classifiedLong term (current) use of opiate analgesicOther muscle spasmCervicalgi a 2 Nyongesa Krystyna. [address], Alivn titus [place], [id number] , [place]. tel:[phone] Referring Provider: Tl Pantoja, [place] [address], [address]. tel:[phone] OFFICE VISIT, EST TELEMEDICINE [facility], [address], [place], [id number] , [place] tel:[phone] [facility] low back pain (chief complaint) Pain in right kneeChronic pain syndromePostlam inectomy syndrome, not elsewhere classifiedLong term (current) use of opiate analgesicOther cervical disc degeneration, unspecified cervical regionChronic migraine without aura, intractable, without status migrainosusMult iple sclerosis 2 Nyongesa Krystyna. [address] [facility] [address] [facility] 100, Alvin [place]us [place], [id number] , [place]. tel:[phone] Referring Provider: Gonzalo Adams, [address] [place] [address], [address]. [phone] OFFICE VISIT, EST TELEMEDICINE [facility], [address] [place] [address], [id number] , [place] tel:[phone] [facility] low back pain (chief complaint) Pain in right kneeChronic pain syndromePostlam inectomy syndrome, not elsewhere classifiedLong term (current) use of opiate analgesicOther cervical disc degeneration, unspecified cervical regionChronic migraine without aura, intractable, without status migrainosusMult iple sclerosis Oct- 1 Georgia Greenwood. [address] [place] [address] [address], T[place] Singer, [id number] , [place]. tel:[phone] Referring Provider: Gonzalo Adams, [address] [place] [address], [address]. [phone] [facility], [address] [place] [address], [id number] , [place] tel:[phone] [facility] No Information 1 Georgia Greenwood. [address] [place] [address] [address], [place] Singer, [id number] , [place]. tel:[phone] Referring Provider: Gonzalo Adams, [address] [place] [address], [address]. [phone] OFFICE/OUTPAT IENT VISIT, EST [facility], [address] [place] [address], [id number] , [place] tel:[phone] [facility] low back pain (chief complaint) Pain in right kneeChronic pain syndromePostlam inectomy syndrome, not elsewhere classifiedLong term (current) use of opiate analgesicOther cervical disc degeneration, unspecified cervical regionEncounter for screening for other disorderEncount er for therapeutic drug level monitoringChron ic migraine without aura, intractable, without status migrainosusMult iple sclerosis 1 Nyongesa Greenwood. [address], [place], [id number] , [place]. [phone] Referring Provider: Gonzalo Adams, [address] [place] [address], [address]. [phone] OFFICE VISIT, [facility], [address] [place] [address], [id number] , [place] [phone] [facility] low back pain (chief complaint) Pain in right kneeChronic pain syndromePostlam inectomy syndrome, not elsewhere classifiedOther cervical disc degeneration, unspecified cervical regionLong term (current) use of opiate analgesicChroni c migraine without aura, intractable, without status migrainosus Oct-0 4-202 1 Nyongesa Krystyna. [address] [place] [address] [address] [facility] 100, [place], [place], [id number] , [place]. [phone] Referring Provider: Gonzalo Adams, [address] [place] [address], [address]. [phone] OFFICE VISIT, [facility], [address] [place] [address], [id number] , [place] tel:[phone] [facility] low back pain (chief complaint) Chronic pain syndromePostlam inectomy syndrome, not elsewhere classifiedOther cervical disc degeneration, unspecified cervical regionLong term (current) use of opiate analgesicChroni c migraine without aura, intractable, without status migrainosusPain in right knee Sep-0 2-202 1 Nyongesa Krystyna. [address] [place] [address], [facility] [place], [id number] , [place]. tel:[phone] Referring Provider: Gonzalo Adams, [address] [place] [address], [address]. [phone] OFFICE VISIT, [facility], [address] [place] [address], [id number] , [place] [phone] [facility] low back pain (chief complaint) Chronic pain syndromePostlam inectomy syndrome, not elsewhere classifiedOther cervical disc degeneration, unspecified cervical regionLong term (current) use of opiate analgesicChroni c migraine without aura, intractable, without status migrainosus 1 Georgia Greenwood. [address] [facility] [address], [place], [place], [id number] , [place]. tel: [phone] Referring Provider: Gonzalo Adams, [address] [place] [address], [address]. tel:[phone] [facility], [address] [place] [address], [id number] , [place] tel: [phone] [facility] [place] Postlaminectomy syndrome, not elsewhere classified 1 Marissa Medina. 1455 [facility] [address], [place], [place], [id number] , [place]. tel: [phone] Referring Provider: Gonzalo Adams, [address] [place] [address], [address]. tel:[phone] [facility], [address] [place] [address], [id number] , [place] tel:[phone] [facility] Postlaminectomy syndrome, not elsewhere classified 1 Georgia Greenwood. [address] [facility] [address], [place], [place], [id number] , [place]. tel: [phone] Referring Provider: Gonzalo Adams, [address] [place] [address], [address]. tel:[phone] [facility], [address] [place] [address], [id number] , [place] tel: [phone] [facility] [place] Postlaminectomy syndrome, not elsewhere classified 1 Nithya Moses. [address] [place] [address], [id number] , [place]. tel:[phone] Referring Provider: Gonzalo Adams, [address] [place] [address], [address]. tel:[phone] OFFICE VISIT, EST TELEMEDICINE [facility], [address] [place] [address], [id number] , tel: [phone] [facility] low back pain (chief complaint) Chronic pain syndromePostlam inectomy syndrome, not elsewhere classifiedOther cervical disc degeneration, unspecified cervical regionLong term (current) use of opiate analgesicChroni c migraine without aura, intractable, without status migrainosus 1 Georgia Greenwood. [address] [facility] [address], [facility], [place], [id number] , [place]. tel:[phone] Referring Provider: Gonzalo Adams, [address] [place] [address], [address]. tel:[phone] Psych Dx Eval [facility], [address] [place] [address], [id number] , [place] tel: [phone] [facility] Leonela Pain disorder with related psychological factorsBipolar disorderAlcohol dependence, in remission 1 Saba Bullock. [address] [place] [address], [id number] , [place]. tel:[phone] Referring Provider: Gonzalo Adams, [address] [place] [address], [address]. tel:[phone] [facility], [address] [place] [address], [id number] , [place] tel:[phone] [facility] lumbago (chief complaint) Postlaminectomy syndrome, not elsewhere classified 1 Brandyn Fabian. [address] [place] [address], [id number] , [place]. tel:[phone] Referring Provider: Gonzalo Adams, [address] [place] [address], [address]. [phone] [facility], [address] [place] [address], [id number] , [place] tel:[phone] [facility] [place] No Information 1 Georgia Greenwood. [address] [facility] [address], [place], [id number] , [place]. tel:[phone] Referring Provider: Gonzalo Adams, [address] [place] [address], [address]. [phone] OFFICE/OUTPAT IENT VISIT, [facility], [address] [place] [address], [id number] , [place] tel:[phone] [facility] Back Pain (chief complaint) Chronic pain syndromePostlam inectomy syndrome, not elsewhere classifiedOther cervical disc degeneration, unspecified cervical regionLong term (current) use of opiate analgesicChroni c migraine without aura, intractable, without status migrainosus 1 Nyongesa Krystyna. [address], [place], [place], [id number] , [place]. tel:[phone] Referring Provider: Gonzalo Adams, [address] [place] [address], [address]. [phone] OFFICE VISIT, [facility], [address] [place] [address], [id number] , [place] tel:[phone] [facility] Back Pain (chief complaint) Chronic pain syndromePostlam inectomy syndrome, not elsewhere classifiedOther cervical disc degeneration, unspecified cervical regionLong term (current) use of opiate analgesicChroni c migraine without aura, intractable, without status migrainosus 1 Nyongesa Krystyna. [address], [place], [place], [id number] , [place]. tel:[phone] Referring Provider: Gonzalo Adams, [address] [place] [address], [address]. tel:[phone] OFFICE VISIT, [facility] TELEMEDICINE [facility], [address] [place] [address], [id number] , [place] tel:[phone] [facility] Back Pain (chief complaint) Chronic pain syndromePostlam inectomy syndrome, not elsewhere classifiedOther cervical disc degeneration, unspecified cervical regionLong term (current) use of opiate analgesic 1 Nyongesa Krystyna. [address], [place] , [place], [id number] , [place]. tel: [phone] Referring Provider: Gonzalo Adams, [address] [place] [address], [address]. tel:[phone] OFFICE VISIT, EST TELEMEDICINE [facility], [address] [place] [address], [id number] , [place] tel: [phone] [facility] Back Pain (chief complaint) Chronic pain syndromePostlam inectomy syndrome, not elsewhere classifiedOther cervical disc degeneration, unspecified cervical regionLong term (current) use of opiate analgesic 1 Nyongesa Krystyna. [address] [facility] [address], [place], [place], [id number] , [place]. tel: [phone] Referring Provider: Gonzalo Adams, [address] [place] [address], [address]. tel:[phone] OFFICE VISIT, EST TELEMEDICINE [facility], [address] [place] [address], [id number] , [place] tel: [phone] [facility] Back Pain (chief complaint) Chronic pain syndromePostlam inectomy syndrome, not elsewhere classifiedOther cervical disc degeneration, unspecified cervical regionLong term (current) use of opiate analgesic 1 Nyongesa Krystyna. [address] [facility] [address], [place], [place], [id number] , [place]. tel: [phone] Referring Provider: Gonzalo Adams, [address] [place] [address], [address]. tel:[phone] OFFICE VISIT, EST TELEMEDICINE [facility], [address] [place] [address], [id number] , [place] tel: [phone] [facility] Back Pain (chief complaint) Chronic pain syndromePostlam inectomy syndrome, not elsewhere classifiedOther cervical disc degeneration, unspecified cervical regionLong term (current) use of opiate analgesic 1 Nyongesa Krystyna. [address] [facility] [address], [place], [place], [id number] , [place]. tel: [phone] Referring Provider: Gonzalo Adams, [address] [place] [address], [address]. [phone] OFFICE VISIT, [facility] TELEMEDICINE [facility], [address] [place] [address], [id number] , [place] tel:[phone] [facility] Back Pain (chief complaint) Chronic pain syndromePostlam inectomy syndrome, not elsewhere classifiedOther cervical disc degeneration, unspecified cervical regionLong term (current) use of opiate analgesic 0 Nyongesa Krystyna. [address], [place], [place], [id number] , [place]. tel:[phone] Referring Provider: Gonzalo Adams, [address] [place] [address], [address]. [phone] OFFICE VISIT, [facility], [address] [place] [address], [id number] , [place] tel:[phone] [facility] Back Pain (chief complaint) Chronic pain syndromePostlam inectomy syndrome, not elsewhere classifiedOther cervical disc degeneration, unspecified cervical regionLong term (current) use of opiate analgesic 0 Nyongesa Krystyna. [address], [place], [place], [id number] , [place]. tel:[phone] Referring Provider: Gonzalo Adams, [address] [place] [address], [address]. [phone] OFFICE/OUTPAT IENT VISIT, [facility], [address] [place] [address], [id number] , [place] tel:[phone] [facility] Back Pain (chief complaint) Chronic pain syndromePostlam inectomy syndrome, not elsewhere classifiedOther cervical disc degeneration, unspecified cervical regionLong term (current) use of opiate analgesic Sep- 0 Nyongesa Krystyna. [address] [facility] [address], [place], [place], [id number] , [place]. tel:[phone] Referring Provider: Gonzalo Adams, [address] [place] [address], [address]. tel:[phone] OFFICE/OUTPAT IENT VISIT, [facility], [address] [place], [place], [id number] , [place] tel: [phone] [facility] Back Pain (chief complaint) Chronic pain syndromeEncount er for screening for other disorderPostlam inectomy syndrome, not elsewhere classifiedOther cervical disc degeneration, unspecified cervical regionEncounter for therapeutic drug level monitoringLong term (current) use of opiate analgesic 0 Georgia Greenwood. [address], [place], [id number] , [place]. tel: [phone] Referring Provider: Tl Pantoja, [place] [address] , [place], [address]. tel:[phone] Family History Family Member Type Diagnosis Age At Onset Father Problem back surgery Brother Problem back surgery Payers Payer name Insurance type Covered constitution party ID Authordale tolentino(s) [facility] MedicareComplete Replacement [id number] [employer] [facility] [id number] Social History Type Description Quantity Date Captured Comments Alcohol Use Details Unknown Caffeine Use Details Unknown Tobacco Use Status No Information Smoking Status No Information Sex Female Chief Complaint And Reason For Visit No Information Reason For Referral Reason For Referral No Information Plan Of Treatment Date Type Action Status Goal Lipid panel. Due on 023 due Goal Review Allergy L ist. Due on due Goal FIT. Due on due Goal ALT (SGPT). Due on 23 due Goal Order Annual PT. Due on due Goal OARS. Due on due Goal UDT. Due on due Goal Hepatitis C scre ening. Due on due Goal FIT-DNA. Due on due Goal Unhealthy drug u se screening. Due on due Goal TOOL MACHINE SETUP OPERATOR Paperwork. Due on due Goal Tobacco Use. Due on due Goal Height. Due on d ue Goal Weight. Due on d ue Goal VICE PRESIDENT MARKETING & DEVELOPMENT Scanned. Due on due Goal CT-Colonography. Due on due Goal Medication Recon ciliation. Due on due Goal AST (SGOT). Due on due Goal HPV. Due on due Goal PHQ-9. Due on du e Goal Zoster vaccine ( 1st). Due on due Goal Update Social Hi story. Due on due Goal Creatinine. Due on due Goal FIT. Due on due Goal ALT (SGPT). Due on due Goal Order Annual PT. Due on due Goal Update Social Hi story. Due on due Goal OARS. Due on due Goal Weight. Due on d ue Goal Creatinine. Due on due Goal AST (SGOT). Due on due Goal Hepatitis C scre ening. Due on due Goal TOOL MACHINE SETUP OPERATOR Paperwork. Due on due Goal VICE PRESIDENT MARKETING & DEVELOPMENT Scanned. Due on due Goal HPV. Due on due Goal UDT. Due on due Goal CT-Colonography. Due on due Goal Lipid panel. Due on due Goal Height. Due on d ue Goal PHQ-9. Due on du e Goal Medication Recon ciliation. Due on due Goal Review Allergy L ist. Due on due Goal Tobacco Use. Due on due Goal Unhealthy drug u se screening. Due on due Goal Zoster vaccine ( ). Due on due Goal FIT-DNA. Due on due Goal Hepatitis C scre ening. Due on due Goal Review Allergy L ist. Due on due Goal Zoster vaccine ( ). Due on due Goal Tobacco Use. Due on due Goal Update Social Hi story. Due on due Goal Lipid panel. Due on due Goal ALT (SGPT). Due on due Goal HPV. Due on due Goal Creatinine. Due on due Goal OARS. Due on due Goal UDT. Due on due Goal Weight. Due on d ue Goal FIT. Due on due Goal VICE PRESIDENT MARKETING & DEVELOPMENT Scanned. Due on due Goal Medication Recon ciliation. Due on due Goal AST (SGOT). Due on due Goal Order Annual PT. Due on due Goal PHQ-9. Due on du e Goal Height. Due on d ue Goal Unhealthy drug u se screening. Due on due Goal FIT-DNA. Due on due Goal TOOL MACHINE SETUP OPERATOR Paperwork. Due on due Goal CT-Colonography. Due on due Goal Height. Due on d ue Goal Update Social Hi story. Due on due Goal Creatinine. Due on due Goal UDT. Due on due Goal Tobacco Use. Due on due Goal ALT (SGPT). Due on due Goal TOOL MACHINE SETUP OPERATOR Paperwork. Due on due Goal OARS. Due on due Goal CT-Colonography. Due on due Goal AST (SGOT). Due on due Goal FIT. Due on due Goal Zoster vaccine ( 1st). Due on due Goal VICE PRESIDENT MARKETING & DEVELOPMENT Scanned. Due on due Goal Review Allergy L ist. Due on due Goal Unhealthy drug u se screening. Due on due Goal Hepatitis C scre ening. Due on due Goal Order Annual PT. Due on due Goal PHQ-9. Due on du e Goal Weight. Due on d ue Goal FIT-DNA. Due on due Goal Lipid panel. Due on due Goal Medication Recon ciliation. Due on due Goal HPV. Due on due Goal Creatinine. Due on due Goal Medication Recon ciliation. Due on due Goal Lipid panel. Due on due Goal OARS. Due on due Goal Weight. Due on d ue Goal PHQ-9. Due on du e Goal VICE PRESIDENT MARKETING & DEVELOPMENT Scanned. Due on due Goal Zoster vaccine ( ). Due on due Goal TOOL MACHINE SETUP OPERATOR Paperwork. Due on due Goal Height. Due on d ue Goal Review Allergy L ist. Due on due Goal CT-Colonography. Due on due Goal Tobacco Use. Due on due Goal Update Social Hi story. Due on due Goal Hepatitis C scre ening. Due on due Goal FIT. Due on due Goal Order Annual PT. Due on due Goal UDT. Due on due Goal Unhealthy drug u se screening. Due on due Goal AST (SGOT). Due on due Goal ALT (SGPT). Due on due Goal FIT-DNA. Due on due Goal HPV. Due on due Goal Zoster vaccine ( [...] due Goal Creatinine. Due on due Goal VICE PRESIDENT MARKETING & DEVELOPMENT Scanned. Due on due Goal Lipid panel. Due on due Goal AST (SGOT). Due on due Goal TOOL MACHINE SETUP OPERATOR Paperwork. Due on due Goal UDT. Due on due Goal PHQ-9. Due on du e Goal Hepatitis C scre ening. Due on due Goal Medication Recon ciliation. Due on due Goal Tobacco Use. Due on 022 due Goal Unhealthy drug u se screening. Due on due Goal CT-Colonography. Due on due Goal FIT-DNA. Due on due Goal Unhealthy drug u se screening. Due on due Goal PHQ-9. Due on du e Goal HPV. Due on due Goal AST (SGOT). Due on due Goal Order Annual PT. Due on due Goal ALT (SGPT). Due on due Goal OARS. Due on due Goal UDT. Due on due Goal Review Allergy L ist. Due on due Goal TOOL MACHINE SETUP OPERATOR Paperwork. Due on due Goal Creatinine. Due on due Goal VICE PRESIDENT MARKETING & DEVELOPMENT Scanned. Due on 023 due Goal Lipid panel. Due on 023 [...] Goal AST (SGOT). Due on due Goal VICE PRESIDENT MARKETING & DEVELOPMENT Scanned. Due on due Goal Weight. Due on d ue Goal HPV. Due on due Goal Unhealthy drug u se screening. Due on due Goal FIT-DNA. Due on due Goal PHQ-9. Due on du e Goal Height. Due on d ue Goal Review Allergy L ist. Due on due Goal OARS. Due on due Goal CT-Colonography. Due on due Goal Tobacco Use. Due on due Goal ALT (SGPT). Due on due Goal TOOL MACHINE SETUP OPERATOR Paperwork. Due on due Goal Update Social Hi story. Due on due Goal Creatinine. Due on due Goal Medication Recon ciliation. Due on due Goal FIT. Due on due Goal Zoster vaccine ( 1st). Due on due Goal UDT. Due on due Goal Hepatitis C scre ening. Due on due Goal Lipid panel. Due on due Goal Order Annual PT. Due on due Goal Tobacco Use. Due on due Goal AST (SGOT). Due on due Goal OARS. Due on due Goal TOOL MACHINE SETUP OPERATOR Paperwork. Due on due Goal Height. Due on d ue Goal Order Annual PT. Due on due Goal PHQ-9. Due on du e Goal VICE PRESIDENT MARKETING & DEVELOPMENT Scanned. Due on due Goal Lipid panel. Due on due Goal Medication Recon ciliation. Due on due Goal HPV. Due on due Goal UDT. Due on due Goal Zoster vaccine ( 1st). Due on due Goal ALT (SGPT). Due on due Goal Creatinine. Due on due Goal Review Allergy L ist. Due on due Goal Update Social Hi story. Due on due Goal FIT-DNA. Due on due Goal Unhealthy drug u se screening. Due on due Goal Hepatitis C scre ening. Due on due Goal FIT. Due on due Goal Weight. Due on d ue Goal CT-Colonography. Due on due Goal Creatinine. Due on [...] due Goal CT-Colonography. Due on due Goal TOOL MACHINE SETUP OPERATOR Paperwork. Due on due Goal Hepatitis C [...] Medication Recon ciliation. Due on due Goal VICE PRESIDENT MARKETING & DEVELOPMENT Scanned. Due on due Goal Tobacco Use. Due on due Goal FIT-DNA. Due on due Goal Update Social Hi story. Due on due Goal Review Allergy L ist. Due on due Goal ALT (SGPT). Due on due Goal TOOL MACHINE SETUP OPERATOR Paperwork. Due on due Goal VICE PRESIDENT MARKETING & DEVELOPMENT Scanned. Due on due Goal AST (SGOT). [...] Goal Height. Due on d ue Goal HPV. Due on due Goal OARS. Due on due Goal UDT. Due on due Goal Order Annual PT. Due on due Goal AST (SGOT). Due on due Goal VICE PRESIDENT MARKETING & DEVELOPMENT Scanned. Due on due Goal ALT (SGPT). Due on due Goal Creatinine. Due on due Goal PHQ-9. Due on du e Goal FIT-DNA. Due on due Goal Medication Recon ciliation. Due on due Goal FIT. Due on due Goal TOOL MACHINE SETUP OPERATOR Paperwork. Due on due Goal Unhealthy drug u se screening. Due on due Goal Lipid panel. Due on due Goal Tobacco Use. Due on due Goal Update Social Hi story. Due on due Goal Weight. Due on d ue Goal Zoster vaccine ( ). Due on due Goal Hepatitis C scre ening. Due on due Goal Height. Due on d ue Goal CT-Colonography. Due on due Goal HPV. Due on due Goal Review Allergy L ist. Due on due Goal Review Allergy L ist. Due on due Goal CT-Colonography. Due on due Goal Zoster vaccine ( 1st). Due on due Goal Order Annual PT. Due on due Goal VICE PRESIDENT MARKETING & DEVELOPMENT Scanned. Due on due Goal ALT (SGPT). [...] Goal Height. Due on d ue Goal TOOL MACHINE SETUP OPERATOR Paperwork. Due on due Goal Hepatitis C scre ening. Due on due Goal AST (SGOT). Due on due Goal Lipid panel. Due on due Goal Hepatitis C scre ening. Due on due Goal Update Social Hi story. Due on due Goal Zoster vaccine ( 1st). Due on due Goal FIT-DNA. Due on due Goal Height. Due on d ue Goal Review Allergy L ist. Due on due Goal PHQ-9. Due on du e Goal CT-Colonography. Due on due Goal Medication Recon ciliation. Due on due Goal TOOL MACHINE SETUP OPERATOR Paperwork. Due on due Goal Creatinine. Due on due Goal OARS. Due on due Goal AST (SGOT). Due on due Goal Order Annual PT. Due on due Goal UDT. Due on due Goal VICE PRESIDENT MARKETING & DEVELOPMENT Scanned. Due on due Goal ALT (SGPT). Due on due Goal Lipid panel. Due [...] e Goal FIT. Due on due Goal TOOL MACHINE SETUP OPERATOR Paperwork. Due on due Goal Creatinine. Due on due Goal Zoster vaccine ( ). Due on due Goal Weight. Due on d ue Goal Update Social Hi story. Due on due Goal OARS. Due on due Goal VICE PRESIDENT MARKETING & DEVELOPMENT Scanned. Due on due Goal Tobacco Use. Due on due Goal HPV. Due on due Goal Lipid panel. Due on due Goal FIT-DNA. Due on due Goal ALT (SGPT). Due on due Goal CT-Colonography. Due on due Goal Unhealthy drug u se screening. Due on due Goal Creatinine. Due on due Goal Weight. Due on d ue Goal Order Annual PT. Due on due Goal Medication Recon ciliation. Due on due Goal VICE PRESIDENT MARKETING & DEVELOPMENT Scanned. Due on due Goal Review Allergy [...] Goal Tobacco Use. Due on due Goal TOOL MACHINE SETUP OPERATOR Paperwork. Due on due Goal HPV. Due on due Goal TOOL MACHINE SETUP OPERATOR Paperwork. Due on due Goal Medication Recon ciliation. Due on due Goal Order Annual PT. Due on due Goal UDT. Due on due Goal VICE PRESIDENT MARKETING & DEVELOPMENT Scanned. Due on due Goal AST (SGOT). Due on due Goal OARS. Due on due Goal ALT (SGPT). Due on due Goal Creatinine. Due on due Goal Hepatitis C scre ening. Due on due Goal HPV. Due on due Goal PHQ-9. Due on [...] due Goal OARS. Due on due Goal VICE PRESIDENT MARKETING & DEVELOPMENT Scanned. Due on due Goal UDT. Due [...] Allergy L ist. Due on due Goal TOOL MACHINE SETUP OPERATOR Paperwork. Due on due Goal Weight. Due [...] due Goal FIT-DNA. Due on due Goal VICE PRESIDENT MARKETING & DEVELOPMENT Scanned. Due on due Goal Creatinine. Due on due Goal Order Annual PT. Due on due Goal ALT (SGPT). Due on due Goal AST (SGOT). Due on due Goal OARS. Due on due Goal UDT. Due on due Goal TOOL MACHINE SETUP OPERATOR Paperwork. Due on due Goal Hepatitis C [...] due Goal CT-Colonography. Due on due Goal VICE PRESIDENT MARKETING & DEVELOPMENT Scanned. Due on due Goal Lipid panel. Due on due Goal Order Annual PT. Due on due Goal PHQ-9. Due on du e Goal AST (SGOT). Due on due Goal FIT. Due on due Goal TOOL MACHINE SETUP OPERATOR Paperwork. Due on due Goal HPV. Due [...] vaccine ( 1st). Due on due Goal PHQ-9. Due on du e Goal Creatinine. Due on due Goal FIT-DNA. Due on due Goal Weight. Due on d ue Goal OARS. Due on due Goal HPV. Due on due Goal Review Allergy L ist. Due on due Goal CT-Colonography. Due on due Goal Medication Recon ciliation. Due on due Goal VICE PRESIDENT MARKETING & DEVELOPMENT Scanned. Due on due Goal Tobacco Use. Due on due Goal Height. Due on d ue Goal TOOL MACHINE SETUP OPERATOR Paperwork. Due on due Goal Lipid panel. Due on due Goal Update Social Hi story. Due on due Goal FIT. Due on due Goal Hepatitis C scre ening. Due on due Goal UDT. Due on due Goal ALT (SGPT). Due on due Goal AST (SGOT). Due on due Goal Zoster vaccine ( ). Due on due Goal Unhealthy drug u se screening. Due on due Goal Order Annual PT. Due on due Goal AST (SGOT). Due on due Goal Order Annual PT. Due on due Goal CT-Colonography. Due on due Goal Review Allergy L ist. Due on due Goal Tobacco Use. Due on due Goal Zoster vaccine ( ). Due on due Goal FIT. Due on [...] Goal Lipid panel. Due on due Goal TOOL MACHINE SETUP OPERATOR Paperwork. Due on due Goal Medication Recon ciliation. Due on due Goal Update Social Hi story. Due on due Goal Height. Due on d ue Goal FIT-DNA. Due on due Goal VICE PRESIDENT MARKETING & DEVELOPMENT Scanned. Due on due Goal Creatinine. Due on due Goal Creatinine. Due on due Goal UDT. Due on due Goal ALT (SGPT). Due on due Goal TOOL MACHINE SETUP OPERATOR Paperwork. Due on due Goal VICE PRESIDENT MARKETING & DEVELOPMENT Scanned. Due on due Goal Order Annual [...] Order Annual PT. Due on due Goal TOOL MACHINE SETUP OPERATOR Paperwork. Due on due Goal Update Social Hi story. Due on due Goal Hepatitis C scre ening. Due on due Goal VICE PRESIDENT MARKETING & DEVELOPMENT Scanned. Due on due Goal Creatinine. Due [...] Allergy L ist. Due on due Goal VICE PRESIDENT MARKETING & DEVELOPMENT Scanned. Due on due Goal TOOL MACHINE SETUP OPERATOR Paperwork. Due on due Goal Medication Recon [...] Allergy L ist. Due on due Goal TOOL MACHINE SETUP OPERATOR Paperwork. Due on due Goal Order Annual PT. Due on due Goal Height. Due on d ue Goal OARS. Due on due Goal Medication Recon ciliation. Due on due Goal AST (SGOT). Due on due Goal PHQ-9. Due on du e Goal VICE PRESIDENT MARKETING & DEVELOPMENT Scanned. Due on due Goal Tobacco Use. Due on due Goal Height. Due on d ue Goal Order Annual PT. Due on due Goal Review Allergy L ist. Due on due Goal Medication Recon ciliation. Due on due Goal OARS. Due on due Goal TOOL MACHINE SETUP OPERATOR Paperwork. Due on due Goal UDT. Due on due Goal ALT (SGPT). Due on due Goal VICE PRESIDENT MARKETING & DEVELOPMENT Scanned. Due on due Goal Weight. Due [...] Goal AST (SGOT). Due on due Goal TOOL MACHINE SETUP OPERATOR Paperwork. Due on due Goal VICE PRESIDENT MARKETING & DEVELOPMENT Scanned. Due on due Goal Update Social Hi story. Due on due Goal Review Allergy L ist. Due on due Goal PHQ-9. Due on du e Goal Tobacco Use. Due on due Goal UDT. Due on due Goal Height. Due on d ue Goal Medication Recon ciliation. Due on due Goal Order Annual PT. Due on due Goal VICE PRESIDENT MARKETING & DEVELOPMENT Scanned. Due on due Goal OARS. Due on due Goal UDT. Due on due Goal Medication Recon ciliation. Due on due Goal ALT (SGPT). Due on due Goal PHQ-9. Due on du e Goal Review Allergy L ist. Due on due Goal Tobacco Use. Due on due Goal Weight. Due on d ue Goal Creatinine. Due on due Goal TOOL MACHINE SETUP OPERATOR Paperwork. Due on due Goal Order Annual PT. Due on due Goal Update Social Hi story. Due on due Goal AST (SGOT). Due on due Goal Height. Due on d ue Goal ALT (SGPT). Due on due Goal AST (SGOT). Due on due Goal Order Annual PT. Due on due Goal Medication Recon ciliation. Due on due Goal Creatinine. Due on due Goal TOOL MACHINE SETUP OPERATOR Paperwork. Due on due Goal OARS. Due on due Goal VICE PRESIDENT MARKETING & DEVELOPMENT Scanned. Due on due Goal Weight. Due [...] Goal Height. Due on d ue Goal TOOL MACHINE SETUP OPERATOR Paperwork. Due on due Goal UDT. Due on due Goal PHQ-9. Due on du e Goal Review Allergy L ist. Due on due Goal Tobacco Use. Due on due Goal ALT (SGPT). Due on due Goal VICE PRESIDENT MARKETING & DEVELOPMENT Scanned. Due on due Goal Weight. Due on d ue Goal Medication Recon ciliation. Due on due Goal Creatinine. Due on due Goal Update Social Hi story. Due on due Goal OARS. Due on due Goal Review Allergy L ist. Due on due Goal TOOL MACHINE SETUP OPERATOR Paperwork. Due on due Goal Height. Due [...] Goal Tobacco Use. Due on due Goal VICE PRESIDENT MARKETING & DEVELOPMENT Scanned. Due on due Goal Weight. Due on d ue Goal UDT. Due on due Goal ALT (SGPT). Due on due Goal OARS. Due on due Goal Order Annual PT. Due on due Goal Medication Recon ciliation. Due on due Goal TOOL MACHINE SETUP OPERATOR Paperwork. Due on due Goal Update Social Hi story. Due on due Goal Review Allergy L ist. Due on due Goal AST (SGOT). Due on due Goal Weight. Due on d ue Goal Tobacco Use. Due on due Goal Creatinine. Due on due Goal PHQ-9. Due on du e Goal Height. Due on d ue Goal VICE PRESIDENT MARKETING & DEVELOPMENT Scanned. Due on due Goal AST (SGOT). Due on due Goal TOOL MACHINE SETUP OPERATOR Paperwork. Due on due Goal Update Social Hi story. Due on due Goal PHQ-9. Due on du e Goal Weight. Due on d ue Goal Tobacco Use. Due on due Goal Medication Recon ciliation. Due on due Goal Review Allergy L ist. Due on due Goal UDT. Due on due Goal Height. Due on d ue Goal Creatinine. Due on due Goal OARS. Due on due Goal VICE PRESIDENT MARKETING & DEVELOPMENT Scanned. Due on due Goal ALT (SGPT). Due on due Goal Order Annual PT. Due on due Goal VICE PRESIDENT MARKETING & DEVELOPMENT Scanned. Due on due Goal PHQ-9. Due [...] Social Hi story. Due on due Goal TOOL MACHINE SETUP OPERATOR Paperwork. Due on due Goal Creatinine. Due on due Goal Height. Due on d ue Goal ALT (SGPT). Due on due Goal VICE PRESIDENT MARKETING & DEVELOPMENT Scanned. Due on due Goal Tobacco Use. Due on due Goal Height. Due on d ue Goal Weight. Due on d ue Goal TOOL MACHINE SETUP OPERATOR Paperwork. Due on due Goal Creatinine. Due on due Goal Order Annual PT. Due on due Goal AST (SGOT). Due on due Goal Update Social Hi story. Due on due Goal UDT. Due on due Goal OARS. Due on due Goal Review Allergy L ist. Due on due Goal PHQ-9. Due on du e Goal Medication Recon ciliation. Due on due Goal Weight. Due on d ue Goal UDT. Due on due Goal TOOL MACHINE SETUP OPERATOR Paperwork. Due on due Goal Tobacco Use. Due on due Goal Review Allergy L ist. Due on due Goal Update Social Hi story. Due on due Goal Medication Recon ciliation. Due on due Goal PHQ-9. Due on du e Goal Height. Due on d ue Goal Creatinine. Due on due Goal Order Annual PT. Due on due Goal ALT (SGPT). Due on due Goal AST (SGOT). Due on due Goal OARS. Due on due Goal VICE PRESIDENT MARKETING & DEVELOPMENT Scanned. Due on due Goal ALT (SGPT). Due on due Goal Height. Due on d ue Goal AST (SGOT). Due on due Goal Tobacco Use. Due on due Goal Medication Recon ciliation. Due on due Goal UDT. Due on due Goal VICE PRESIDENT MARKETING & DEVELOPMENT Scanned. Due on due Goal PHQ-9. Due on du e Goal Review Allergy L ist. Due on due Goal Weight. Due on d ue Goal TOOL MACHINE SETUP OPERATOR Paperwork. Due on due Goal Order Annual PT. Due on due Goal Creatinine. Due on due Goal Update Social Hi story. Due on due Goal OARS. Due on due Goal Tobacco Use. Due on due Goal OARS. Due on due Goal Medication Recon ciliation. Due on due Goal Weight. Due on d ue Goal Order Annual PT. Due on due Goal VICE PRESIDENT MARKETING & DEVELOPMENT Scanned. Due on due Goal ALT (SGPT). Due on due Goal TOOL MACHINE SETUP OPERATOR Paperwork. Due on due Goal Update Social Hi story. Due on due Goal Review Allergy L ist. Due on due Goal UDT. Due on due Goal AST (SGOT). Due on due Goal Height. Due on d ue Goal Creatinine. Due on due Goal PHQ-9. Due on du e Goal Update Social Hi story. Due on due Goal VICE PRESIDENT MARKETING & DEVELOPMENT Scanned. Due on due Goal Tobacco Use. Due on due Goal Creatinine. Due on due Goal Order Annual PT. Due on due Goal TOOL MACHINE SETUP OPERATOR Paperwork. Due on due Goal UDT. Due on due Goal PHQ-9. Due on du e Goal Height. Due on d ue Goal Medication Recon ciliation. Due on due Goal Review Allergy L ist. Due on due Goal AST (SGOT). Due on due Goal ALT (SGPT). Due on due Goal OARS. Due on due Goal Weight. Due on d ue Goal Order Annual PT. Due on due Goal Tobacco Use. Due on due Goal VICE PRESIDENT MARKETING & DEVELOPMENT Scanned. Due on due Goal ALT (SGPT). [...] Goal Height. Due on d ue Goal TOOL MACHINE SETUP OPERATOR Paperwork. Due on due Goal PHQ-9. Due on du e Goal AST (SGOT). Due on due Goal Weight. Due on d ue Goal VICE PRESIDENT MARKETING & DEVELOPMENT Scanned. Due on due Goal Height. Due on d ue Goal Order Annual PT. Due on due Goal Review Allergy L ist. Due on due Goal Update Social Hi story. Due on due Goal OARS. Due on due Goal Creatinine. Due on due Goal TOOL MACHINE SETUP OPERATOR Paperwork. Due on due Goal ALT (SGPT). [...] Goal Weight. Due on d ue Goal VICE PRESIDENT MARKETING & DEVELOPMENT Scanned. Due on due Goal AST (SGOT). Due on due Goal UDT. Due on due Goal Medication Recon ciliation. Due on due Goal TOOL MACHINE SETUP OPERATOR Paperwork. Due on due Goal Order Annual PT. Due on due Goal Tobacco Use. Due on due Goal Creatinine. Due on due Goal Tobacco cessation counseling completed Goal PHQ-9. Due on du e Goal [...] due Goal Creatinine. Due on due Goal TOOL MACHINE SETUP OPERATOR Paperwork. Due on due Goal ALT (SGPT). Due on due Goal VICE PRESIDENT MARKETING & DEVELOPMENT Scanned. Due on due Goal AST (SGOT). Due on due Appointment Maryana Clemons BOOKED Future Order: Radiology Order X Ray ([id number]), Sent on: Sent Future Order: Radiology Order XR Knee 3V Right ([id number]), Body Site: knee, Sent on: Sent History Of Present Illness Encounter Date Complaint History Of Prese nt Illness Back Pain Severity level i s 6. Duration: chronic. The problem is worsening. It occurs persistently. The client describes the pain as an ache. Symptoms are aggravated by bending, twisting, walking, rising from sitting position, stairs and prolonged positioning. Symptoms are relieved by ice, pain meds/drugs, rest and changing positions. Comments: Maryana is a 58 y/o female who presents for follow up and medication refill in the setting of chronic migraines, neck pain with radiation into the occipital region, and low back pain with radiation into the BL legs. Pain has been worse this month. Weakness in the legs have been the most bothersome. Have been using a walker at home in order to help with ambulation. Notes she is trying to avoid driving herself due to the leg weakness.Had followed up with her neurologist through [facility] to discuss the ongoing falls and weakness in the legs. Per her report, there are structural changes in the hardware from the fusion in 2000. Was recommended to obtain an updated MRI of the Thoracic and Lumbar. Has the imaging scheduled on 10/17/23. Reports current medication regimen provides 65-70% pain relief and allows for increased functionality. Continues to utilize Percocet 7.5-325mg TID with significant benefit. Denies OIC or other side effects from current medications. No other concerns today. Back Pain Severity level i s 6. Duration: chronic. The problem is fluctuating. It occurs persistently. Symptoms are relieved by pain meds/drugs. Comments: Maryana is a 57 y/o female who presents via [place] for victual follow up and medication refill in the setting of chronic migraines, neck pain with radiation into the occipital region, and low back pain with radiation into the BL legs. Pain has been fluctuating this month. Patient recently fell in her bathroom when she experienced tension in the low back which caused her legs to give out from underneath her. Notes she was on the floor for an unknown amount of time and had to crawl to her phone in the bedroom. She states her legs felt like jelly. Denies any loss of consciousness, visit to the ED, loss of bladder control, or urinary incontinence. Tried to contact her neurologist but they have yet to reached out to her.Reports current medication regimen provides 80% pain relief and allows for increased functionality. Continues to utilize Percocet 7.5-325mg TID with significant benefit. Denies OIC or other side effects from current medications. No other concerns today. Back Pain Severity level i s 8. The problem is worsening. It occurs persistently. Symptoms are relieved by pain meds/drugs. Comments: Maryana is a 57 y/o female who presents via [facility] for victual follow up and medication refill in the setting of chronic migraines, neck pain with radiation into the occipital region, and low back pain with radiation into the BL legs. Pain has been fluctuating this month. Remains interested in receiving the Caudal NHI. Low back spasms have been the most bothersome. She states the spasms tend to occur with prolonged sitting and sometimes when she's walking. Notes an electric sensation across the low back. Endorses numbness down the R leg. 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 Notes she is establishing care with another hand specialist as they have a more consistent schedule than her current one.Reports current medication regimen provides 75% pain relief and allows for increased functionality. Continues to utilize Percocet 7.5-325mg TID with significant benefit. Denies OIC or other side effects from current medications. No other concerns today. Back Pain Severity level i s 6. The problem is stable. It occurs persistently. Symptoms are relieved by pain meds/drugs. Comments: Maryana is a 57 y/o female who presents via [facility] for victual follow up and medication refill in the setting of chronic migraines, neck pain with radiation into the occipital region, and low back pain with radiation into the BL legs. Pain has been stable this month. Denies any new symptoms or changes in regards to her chronic pain. Caudal NHI scheduled on 07/11/[address] Zamora. She states she needs to cancel the appointment as she cannot find anyone who can give her a ride to and from the clinic. Understands she needs to call into the surgery center to cancel. Complains of ongoing L hand pain due to CTS. Had been experiencing frequent numbness in the hand which is causing increased discomfort. She states she will be obtaining an EMG of the BUE with neurology soon.Of note, patient recently broke the pinky toe on the foot in which she just had surgery on. Notes it has been stressful following up with the surgeon and increased pain.Reports current medication regimen provides 80% pain [...] Dr. Zamora.Patient plans to start PT at [facility] soon. She states she recently purchased [...] pain meds/drugs, stretching, rest and changing positions. Back Pain Severity level i s 9. [...] a 57 y/o female who presents via [place] for virtual follow up and medication refill [...] Willing to consult with the specialists at [facility] for the ongoing issues. Reports current medication regimen provides 80% pain relief and allows for increased functionality. Continues to utilize Percocet 7.5-325mg 3x/day with significant benefit. Denies OIC or other side effects from current medications. No other concerns today. low back pain Severity level i s /10. Duration: chronic. The problem is stable. It occurs persistently. Location of pain is lower back and neck. The client describes the pain as numbness, sharp and tingling. Symptoms are aggravated by lifting and walking. Symptoms are relieved by ice, pain meds/drugs and rest. Comments: Mrs. Jose Guadalupe allison is a pleasant 56 y/o who [...] relieved by ice, pain meds/drugs and rest. Back Pain Severity level i s 7. Duration: chronic. The problem is stable. It occurs intermittently. Location of pain is lower back and neck. The client describes the pain as an ache, burning and sharp. Symptoms are aggravated by bending, lifting, standing, twisting and walking. Symptoms are relieved by heat, ice, lying down, pain meds/drugs and rest. Comments: Maryana is [...] today. Back Pain Severity level i s moderate. [...] lying down, pain meds/drugs, rest and walking. Back Pain Severity level i s 8. [...] a 56 y/o female who presents via [place] for a virtual follow up and medication [...] regimen. No other concerns today. Comments: Maryana presents for a follow up [...] relieved by heat, ice and pain meds/drugs. cervicalgia Patient is a 56 year old [...] of her neck on 12/04/21 at the [facility] & followed up with neurology on 12/09/21. Per pt, the neurologist recommended an injection or PT and deferred to [facility]. At a previous OV she reported her neurologist states it is her MS relapsing. She states she has completed RFAs and several injections in the past in OR and brought in her ppw from her OR clinic. She states the RFA in 2018 [...] s a 56 y/o female presenting via [place] for virtual follow up and medication refill [...] TENS unit made it way worse. At [facility] she noted numbness from her R ear along the side of her face into her neck as well. She states she completed an MRI of her neck on 12/04/21 at the [facility] & followed up with neurology on 12/09/21. [...] and several injections in the past in OR. Reports current medication regimen provides 75% pain relief and allows for increased functionality. She states she has also been taking the Tizanidine but would like to try another muscle relaxant. Denies OIC or side effects from current medication regimen.No other concerns today. low back pain (comments) Maryana shanks s a 56 y/o female presenting via [place] for virtual follow up and medication refill in setting of chronic low back and neck pain. She states her low back pain is stable this month. She states she is currently getting over being sick. She reports she was vaccinated 10/29/21 and is now starting to feel better. Reports some fevers for 3-4 days, now resolved.At [facility] she noted numbness from her R ear along the side of her face into her neck, although she states the numbness is not quite as bad as it was. She states she will be getting an MRI at the [facility] & will follow up with neurology on [...] s a 56 y/o female presenting via [place] for virtual follow up and medication refill in setting of chronic low back and neck pain. She states her low back pain is stable this month. She continues to note numbness from her R ear along the side of her face into her neck, although she states the numbness is not quite as bad as [facility]. She states she will be getting an MRI at the [facility] & will follow up with neurology 12/09/21. At [facility] she reported her neurologist states it [...] y/o female, meeting with us today via [employer] Virtual Visit for follow up and medication [...] as well. She inquires about a hand child welfare specialist who can take care of the [...] low back pain (comments) Maryana shanks s meeting with us today via JACQUELIN [...] meds/drugs and changing positions. low back pain Severity level i s [...] changing positions. low back pain (comments) Corinne shanks s meeting with us today via JACQUELIN [...] low back pain (comments) Maryana shanks s meeting with us today via JACQUELIN [...] an improved quality of life. Back Pain Severity level i s 5. Duration: chronic. The problem is fluctuating. It occurs intermittently. Location of pain is lower back.The patient describes the pain as an ache, sharp and throbbing. Symptoms are aggravated by ascending stairs, bending, daily activities, descending stairs, lifting, twisting and walking. Symptoms are relieved by heat, ice, pain meds/drugs and rest. Back Pain (comments) Maryana is he re [...] 05/06/21 ordered by neurologist at [facility] for MS.Reports current medication regimen provides moderate pain relief and allows for increased functionality. Denies side effects from current medication regimen.No other concerns today. Back Pain (comments) Maryana is me eting with us today via [employer] Virtual Visit for following up and medication [...] is following up with her neurologist at [place] Dr. Amador Larkin and completing a brain, [...] up with MS doctor at [facility] in March to review. She suspects [...] is me eting with us today via [employer] Virtual Visit for following up and medication [...] by neurologist Dr. Larkin at [facility].Reports current medication regimen provides 70% pain relief [...] heat, ice and pain meds/drugs. Back Pain Severity level i s 7. [...] She visited her neurologist at [facility] Dr. Larkin who suspects she has a [...] worse. Reports 80% pain relief without significant strapping machine tender effects form percocet rx, would like [facility] to take over.No other concerns today. Back Pain (comments) Maryana is he re for an initial consult and presents with neck and low back pain, initial onset 20 years ago. She moved up to [place] from [place] a few months ago. S/P 2 lumbar surgeries, the first in 1999 was to remove bone spurs, the second in 2000was a 2 level fusion. Her most bothersome pain in her low back with radiation down the right leg. Reports right foot drop as well. She has been dragging her foot for years. She was previously following up with an orthopedic doctor in [place] for a leg brace, but never got one.Reports secondary pain in neck which starts in the base of the kelin and radiates into her shoulders.Reports hx of MS, following up with [facility].Referred by PCP Dr. Pantoja at [facility]. Previously following up at [facility] in [place], [place]. Her sister is present and contributed [...]
--- OUTSIDE RECORDS SUMMARY | 2023-10-31 13:30 | XMS_ITS | Continuity of Care Document ---
Author Name Unknown Organization [facility] SENIOR SOFTWARE TEST ENGINEER [facility] Address [address] [place] [address] Care Team Providers Care Speech And Hearing Director Name Role Phone Nurse, Nurse Unavailable Unavailable [...] Procedures Procedure Date MED LIST DOCD IN [facility] TOBACCO USE, SMOKING, ASSESS CURRENT TOBACCO SMOKER Expanded Visit Low Complex CO19 020 Void Encounter AMNT PAIN NOTED; NONE PRSNT MED LIST DOCD IN [facility] DEPRESSION SCREENING TOBACCO USE, SMOKING, ASSESS CURRENT TOBACCO SMOKER SYST BP LT 130 MM HG DIAST BP < 80 MM HG OFFICE/OUTPATIENT VISIT, EST COMPREHEN METABOLIC PANEL LIPID PANEL CBC W/AUTO DIFF WBC ELECTROCARDIOGRAM, COMPLETE PROTHROMBIN TIME IN HOUSE Other Health OFFICE/OUTPATIENT VISIT, EST ROUTINE VENIPUNCTURE MED LIST DOCD IN [facility] DEPRESSION SCREENING TOBACCO USE, SMOKING, ASSESS CURRENT TOBACCO SMOKER SYST BP GE 130 - 139MM HG DIAST BP 80-89 MM HG AMNT PAIN NOTED; PAIN PRSNT OFFICE/OUTPATIENT VISIT, EST AMNT PAIN NOTED; PAIN PRSNT MED LIST DOCD IN [facility] DEPRESSION SCREENING SYST BP LT 130 MM HG DIAST BP < 80 MM HG TOBACCO USE, SMOKING, ASSESS TOBACCO NON-USER URINE CULTURE REFERRAL LABCOLONY COUNT R OUTINE URINALYSIS NONAUTO W/O SCOPE AMNT PAIN NOTED; PAIN PRSNT MED LIST DOCD IN [facility] TOBACCO USE, SMOKING, ASSESS CURRENT TOBACCO SMOKER [...] NOTED; NONE PRSNT MED LIST DOCD IN [facility] DEPRESSION SCREENING TOBACCO USE, SMOKING, ASSESS CURRENT TOBACCO SMOKER ADVNC CARE PLAN TLK DOCD SYST BP LT 130 MM HG DIAST BP < 80 MM HG OFFICE/OUTPATIENT VISIT, EST Fecal blood Hemosure scrn assay 018 AMNT PAIN NOTED; NONE PRSNT MED LIST DOCD IN [facility] DEPRESSION SCREENING TOBACCO USE, SMOKING, ASSESS CURRENT [...] PLAN TLK DOCD MED LIST DOCD IN [facility] DEPRESSION SCREENING SYST BP LT 130 MM [...] Diagnoses Date Provider Providers Copied on Encounter [facility], [address] [place] [address], [id number] , [facility] No Information 0 Nurse Nurse. . [facility], [address] [place] [address], [id number] , [facility] F/U Chronic conditions (chief complaint) Tobacco useBipolar disorder, current episode depressed, moderateNeoplas m of skinOtitis externa 0 No Information [facility], [address] [place] [address], [id number] , [facility] No Information 0 Alberto Sun. [facility] [place], [id number]. tel:[phone] Referring Provider: Corinne Dominguez, [facility] [place], [address]. tel:[phone] OFFICE/OUTPA TIENT VISIT, [facility], [address] [place] [address], [id number] , [facility] Chronic condition f/u (chief complaint) Tobacco useBody mass index (BMI) 24.0-24.9, adultDietary counseling and surveillanceExe rcise counselingBipol ar disorder, current episode depressed, moderateMultipl e sclerosisGERD w/o esophagitisBee allergy statusPalpitati onsCOPDNeoplasm of skinOtitis externa 0 No Information [facility], [address] [place] [address], [id number] , [facility] No Information 0 No Information OFFICE/OUTPA TIENT VISIT, [facility], [address] [place] [address], [id number] , [facility] Pre-op clearance (chief complaint) Tobacco useBody mass index (BMI) 23.0-23.9, adultPain in right footEncounter for preprocedural examinationWell adult exam w/o abnormal findingDietary counseling and surveillanceExe rcise counselingCardi ac murmur, unspecified 0 No Information [facility], [address] [place] [address], [id number] , [facility] SENIOR SOFTWARE TEST ENGINEER [facility] [place] No Information 9 Letty Figueroa. [address], [id number], [place]. tel:[phone] OFFICE/OUTPA TIENT VISIT, [facility], [address] [place] [address], [id number] , [facility] ER f/u (chief complaint) Body mass index (BMI) 23.0-23.9, adultEncounter for screening for lipoid disordersPneumo reina, unspecified organismCOPDDie tary counseling and surveillanceExe rcise counselingDieta ry counseling and surveillanceExe rcise counseling 9 No Information [facility], [address] [place] [address], [id number] , [facility] No Information 9 No Information OFFICE/OUTPA TIENT VISIT, [facility], [address] [place] [address], [id number] , [facility] SENIOR SOFTWARE TEST ENGINE[employer] [facility] Dysuria (chief complaint) Personal history of nicotine dependenceDysur iaBody mass index (BMI) 23.0-23.9, adultDietary counseling and surveillanceExe rcise counselingCardi ac murmur, unspecifiedPalp itations 9 No Information OFFICE/OUTPA TIENT VISIT, [facility], [address] [place] [address], [phone] , [facility] [place] c/o lump under right eye (chief complaint) Body mass index (BMI) 22.0-22.9, adultSebaceous cyst - 9 Letty Figueroa. [address] [place] [address], [id number], [place]. tel:[phone] Referring Provider: Carolina Saenz, [address], [address]. tel:[phone] OFFICE/OUTPA TIENT VISIT, [facility], [address] [place] [address], [id number] , [facility] [place] c/o sore on arms (chief complaint) Body mass index (BMI) 22.0-22.9, adultSeborrheic keratosis 9 Letty Donatoos. [address], [id number], [place]. tel:[phone] Referring Provider: Carolina Saenz, [address], [address]. tel:[phone] [facility], [address] [place] [address], [id number] , [facility] Encounter for screening for cancer of colonOccult blood in stoolsHepatic cyst 0 8 Nurse Nurse. . Referring Provider: Carolina Saenz, [address], [address]. tel:[phone] OFFICE/OUTPA TIENT VISIT, [facility], [address] [place] [address], [id number] , [facility] [place] c/o stomach issues (chief complaint) Body mass index (BMI) 21.0-21.9, adultNausea with vomiting, unspecified 8 Letty Donatoos. [address], [id number], [place]. tel:[phone] Referring Provider: Carolina Saenz, [address], [address]. tel:[phone] [facility], [address] [place] [address], [id number] , [facility] [place] No Information 8 Letty Figueroa. [address], [id number], [place]. tel:[phone] [facility], [address] [place] [address], [id number] , [facility] [place] No Information Letty Figueroa. [address], [id number], [place]. tel:[phone] OFFICE/OUTPA TIENT VISIT, [facility], [address] [place] [address], [id number] , [place] [facility] Candace needs referral (chief complaint) Hepatic cyst Letty Figueroa. [address], [id number], [place]. tel:[phone] Referring Provider: Carolina Saenz, [address], [address]. tel:[phone] OFFICE/OUTPA TIENT VISIT, [facility], [address] [place] [address], [id number] , [place] [facility] [place] No Information Letty Figueroa. [address], [id number], [place]. tel:[phone] Referring Provider: Carolina Saenz, [address], [address]. tel:[phone] [facility], [address] [place] [address], [id number] , [place] [facility] Candace . (chief complaint) Encntr for general adult medical exam w/o abnormal findingsEncount er for screening for eye and ear disordersEncoun ter for exam of eyes and vision w abnormal findingsEncount er for exam of ear w/o abnormal findingPlantar wartMultiple sclerosisBody mass index (BMI) 22.0-22.9, adult Letty Figueroa. [address], [id number], [place]. tel:[phone] Referring Provider: Carolina Saenz, [address], [address]. tel:[phone] [facility], [address] [place] [address], [id number] , [facility] [place] No Information Saenz [place]. [address], [id number], [place]. tel:[phone] Referring Provider: Carolina Saenz, [address], [address]. tel:[phone], [id number] , [facility] medicare preventive (chief complaint) Body mass index (BMI) 22.0-22.9, adult Saenz [place]. [address], [id number], [place]. tel:[phone] Referring Provider: Carolina Saenz, [address], [address]. tel:[phone] OFFICE/OUTPA TIENT VISIT, [facility], [address] [place] [address], [id number] , [facility] Candace No Information Saenz [place]. [address], [id number], [place]. tel:[phone] Referring Provider: Carolina Saenz, [address], [address]. tel:[phone], [id number] , [facility] [place] c/o headaches (chief complaint) Multiple sclerosisHeadac Feb- 8 Saenz [place]. [address], [id number], [place]. tel:[phone] Referring Provider: Carolina Saenz, [address], [address]. tel:[phone], [id number] , [facility] [place] Multiple sclerosisChroni c fatigue, unspecified 8 Saenz [place]. [address], [id number], [place]. tel:[phone] OFFICE/OUTPA TIENT VISIT, [address], [id number] , [place] [facility] Candace No Information Jan- 8 Saenz [place]. [address], [id number], [place]. tel:[phone] Referring Provider: Carolina Saenz, [address], [address]. tel:[phone], [id number] , [place] [facility] Candace wants referral. (chief complaint) Body mass index (BMI) 23.0-23.9, adultOtalgia, left ear Jan- 8 Saenz [place]. [address], [id number], [place]. tel:[phone] Referring Provider: Carolina aSenz, [address], [address]. tel:[phone], [id number] , [place] [facility] [place] No Information 7 Saenz [place]. [address], [id number], [place]. tel:[phone] OFFICE/OUTPA TIENT VISIT, [address], [id number] , [facility] left ear pain (chief complaint) Body mass index (BMI) 22.0-22.9, adultOtalgia, left earOtitis media, unspecified, left ear Dec-2 Letty Figueroa. [address], [id number], [place]. tel:[phone] OFFICE/OUTPA TIENT VISIT, [facility], [address] [place] [address], [id number] , [facility] No Information Letty Figueroa. [address], [id number], [place]. tel:[phone] Referring Provider: Carolina Saenz, [address], [address]. tel:[phone] [facility], [address] [place] [address], [id number] , [facility] stomach issues (chief complaint) Body mass index (BMI) 22.0-22.9, adultEncounter for other administrative examinationsDia rrheaGastric bypass status for obesityLower abdominal pain, unspecifiedNico dyan dependence Jul- Letty Figueroa. [address], [id number], [place]. tel:[phone] Referring Provider: Carolina Saenz, [address], [address]. tel:[phone] OFFICE/OUTPA TIENT VISIT, [facility], [address] [place] [address], [id number] , [facility] No Information Derrick Andersen. [address] [place] [address], [id number], . tel:[phone] Referring Provider: Ganesh Meza, [address] [place] [address], [address]. tel:[phone], [id number] , [facility] No Information Sep-0 Derrick Andersen. [address] [place] [address], [id number], . tel:[phone] Referring Provider: Ganesh Meza, [address] [place] [address], [address]. tel:[phone], [id number] , [facility] Diarrhea (chief complaint)E stablishmen t Visit (chief complaint) Encounter for other administrative examinationsBod y mass index (BMI) 21.0-21.9, adultPersonal history of nicotine dependenceDiarr heaAbnormal weight lossCOPDDepress ion Sep-0 7 Derrick Andersen. [address] [place] [address], [id number], . tel:[phone] Referring Provider: Ganesh Meza, [address] [place] [address], [address]. tel:[phone], [id number] , [facility] No Information Sep-0 7 Letty Figueroa. [address], [id number], [place]. tel:[phone] Referring Provider: Carolina Saenz, [address], [address]. tel:[phone] Family History Family Member Type Diagnosis Age [...] cancer Payers Payer name Insurance type Covered alliance party ID Authoralvareza randa(s) Slide E 09 Social History Type Description Quantity Date Captured Comments Alcohol Use Details Unknown Caffeine Use Details Unknown Tobacco Use Status Smoking Status No Information Sex Female Sexual Orientation Straight or heterosexual Gender Identity Female Chief Complaint And Reason For Visit No Information Reason For Referral Reason For Referral No Information Plan Of Treatment Date Type Action Status Goal Colonoscopy. Due on 019 due Goal Zoster vaccine (). Due on [...] on 8 due Goal Colonoscopy. Due on 019 due Goal Zoster vaccine (1st). Due on [...] Td vaccine. Due on 17 due Goal Dietary manageme nt education, guidance, [...] Evaluate and treat ordered Referral Referred To: [facility] [address] [place] [address] [place], [phone] Ordered: Referrals: Psychiatry. [facility]. Evaluate and treat ordered Referral Referred To: [facility] [address], [address] [phone] Ordered: Referrals: Dermatology. [facility]. Evaluate and treat ordered Referral Ordered: Cardiology (related to Cardiac murmur, unspecified) ordered Referral Referred To: [facility] [address], [phone] Ordered: Referrals: e -Cardiology. [facility]. Evaluate and treat ordered Referral Ordered: Referrals: Cardiology. Evaluate and treat ordered Referral Ordered: Plastic Surgery (related to Sebaceous cyst) ordered Referral Ordered: Plastic Surgery (related to Sebaceous cyst) ordered Referral Referred To: [facility] [address] [place], [phone] Ordered: Referrals: Plastic Surgery. [facility]. Evaluate and treat ordered Referral Ordered: Referrals: Plastic Surgery. Evaluate and treat ordered Referral Ordered: Referrals: Plastic Surgery ordered Referral Ordered: Dermatology (related to Seborrheic keratosis) ordered Referral Referred To: [facility] [address] [place], [phone] Ordered: Referrals: Dermatology. [facility]. Evaluate and treat ordered Referral Referred To: Hector Alejandre MD [address] [place], [phone] Ordered: Referrals: Dermatology. Hector Alejandre MD. Evaluate and treat ordered Referral Ordered: Referrals: Dermatology ordered Referral Ordered: Gastroenterology (related to Occult blood in stools) ordered Referral Ordered: Gastroenterology (related to Hepatic cyst) ordered Referral Referred To: [facility] [address] [facility] [address] [place], [phone] Ordered: Referrals: Gastroenterology. [facility]. Evaluate and treat ordered Referral Ordered: Shelli Aguila -Podiatric Medicine & Surgery Service Providers : Ramp Flight Attendant (related to Plantar wart) ordered Referral Ordered: Podiatry (related to Plantar wart) ordered Referral Ordered: Mark Waggoner -Podiatric Medicine & Surgery Service Providers : Ramp Flight Attendant (related to Plantar wart) ordered Referral Referred To: Mark Waggoner [facility] [address], [place], [phone] Ordered: Referrals: Podiatry. Mark Waggoner DPM. Evaluate and treat ordered Referral Referred To: [facility] [address] [place], [address] [phone] Ordered: Referrals: Podiatry. [facility]. Evaluate and treat ordered Referral Referred To: Shelli Aguila [address] [place], [place], [phone] Ordered: Referrals: Podiatric Medicine & Surgery Service Providers : Ramp Flight Attendant. Shelli Aguila. Evaluate and treat ordered Referral Ordered: Referrals: Podiatry ordered Referral Referred To: Mark Waggoner [address], [address] [phone] Ordered: Referrals: Podiatric Medicine & Surgery Service Providers : Ramp Flight Attendant. Mark Waggoner. Evaluate and treat ordered Referral Ordered: RICA CARRERA -Allopathic & Osteopathic Physicians : Physical Medicine & Rehabilitation (related to Headache) ordered Referral Ordered: Pain Medicine (related to Headache) ordered Referral Referred To: [facility] [address] [place], [phone] Ordered: Referrals: Pain Medicine. [facility]. Evaluate and treat ordered Referral Referred To: RICA CARRERA Ordered: Referrals: Allopathic & Osteopathic Physicians : Physical Medicine & Rehabilitation. RICA CARRERA. Evaluate and treat ordered Referral Ordered: Referrals: Pain Medicine ordered Referral Ordered: Otolaryngology (related to Otalgia, left ear) ordered Referral Ordered: Otolaryngology (related to Otalgia, left ear) ordered Referral Referred To: [facility] [address] [place], [address] [phone] Ordered: Referrals: Otolaryngology. [facility]. Evaluate and treat ordered Referral Ordered: Referrals: Otolaryngology ordered Referral Ordered: Referrals: Otolaryngology. Evaluate and treat ordered Referral Ordered: Gastroenterology (related to Gastric bypass status for obesity) ordered Referral Referred To: [facility] [address] [place], [phone] Ordered: Referrals: Gastroenterology. [facility]. Evaluate and treat ordered Referral Ordered: Referrals: [...] yet. Planning to go see family in [place] for about a month soon and is [...] and complexity of care. Plans to see MAINFRAME SYSTEMS ADMINISTRATOR in interim. Continue current meds at this [...]
== END 2023-10-31 13:50 | disposition home or self-care (01) ==
PROVIDERS: Emergency Provider Student in an Organized Health Care Education/Training Program; PCP Family Medicine
DX: H66.91 Otitis media, unspecified, right ear (principal)
CPT/HCPCS: 95992; 99282; 99283

== ENCOUNTER 2024-01-09 07:00 | Day surgery (SDC) | payer MEDICARE, OTHER, SELFPAY ==
[2024-01-09] VITALS (9 sets, daily range): BP systolic 126–148; BP diastolic 74–89; PULSE 67–72; RESP 16–22; TEMP 36.6–37.1; O2SAT 96–100; BMI 17.8
[2024-01-09] MEDS: CEFAZOLIN 2 GM INJ IVP (07:30)
[2024-01-09] MEDS: SODIUM CHLORIDE 0.9 % (FLUSH) 10 ML SYRINGE IVF (07:30)
[2024-01-09] MEDS: lidocaine HCL 2 % MULTIDOSE 20 ML VIAL INJECTION (08:55)
[2024-01-09] MEDS: BUPIVACAINE 0.5% 30 ML INJECTION (08:55)
--- NOTE | 2024-01-09 09:15 | P.ORPRC_ITS ---
Procedure Note Date of procedure: 01/09/24 Procedure: Preop diagnosis: Left upper extremity carpal tunnel syndrome Postop diagnosis: Left upper extremity carpal tunnel syndrome Procedure: Left upper extremity carpal tunnel release Anesthesia: Local Surgeon: Andres Daniel MD assistant account manager: GIANNA Crenshaw EBL: 0 mL Complications: None Specimens: None Drains: None Indications: The patient has a history of left upper extremity carpal tunnel syndrome sym ptoms. Despite appropriate nonoperative management consisting of nighttime bracing and occupational therapy they continue to have symptoms. Operative intervention was recommended. The risks, benefits alternatives and expected outcomes were discussed in detail. These included but were not limited to: Infection, bleeding, injury to blood vessel or nerve, venous thromboembolism. All questions were answered to their satisfaction. The patient was placed supine on the operating room table. Local anesthesia was established with 0.5% Marcaine without epinephrine and 2% lidocaine without epinephrine. The hand was prepped and draped in usual sterile fashion. The limb was elevated the forearm pneumatic tourniquet was inflated to 250 mm of mercury. A longitudinal incision was made centered over the radial border of the ring finger at the base of the palm. Subcutaneous dissection was sharply taken through the palmar fascia and the palmaris brevis to the transverse carpal ligament. The ligament was divided in line with the incision. Proximal and distal dissection was carried with tenotomy and Metzenbaum scissors for a wide decompression of the carpal tunnel. The tourniquet was released, bleeding was controlled with direct pressure. The wound was closed with a 3-0 nylon. A bulky dry dressing was applied, sponge and needle counts were correct x 2. The patient tolerated the procedure well, there were no apparent complications. They were sent to same day surgery in satisfactory condition. Plan: Use of the hand as tolerates. Discontinue the intraoperative dressing on postoperative day 3 and may get the wound wet as tolerates. Follow up in the office in 2 weeks for a wound check and suture removal.
== END 2024-01-09 09:44 | disposition home or self-care (01) ==
PROVIDERS: PCP Nurse Practitioner Family; Visit Provider Orthopaedic Surgery
PROC: (CPT 64721; principal; 2024-01-09 08:45)
DX: G56.02 Carpal tunnel syndrome, left upper limb (principal)
CPT/HCPCS: 64721; J0665; J0690

== ENCOUNTER 2024-06-24 11:31 | Emergency (ER) | payer MEDICARE, OTHER, SELFPAY ==
[2024-06-24 11:51] VITALS: BP 108/72; PULSE 72; RESP 18; TEMP 36.8; O2SAT 99; BMI 18.3
--- NOTE | 2024-06-24 12:15 | ED.GENADULT ---
HPI - General Adult General Date Seen: 06/24/24 Chief complaint: Extremity Pain/Injury, Upper Stated complaint: elbow pain/weakness Time Seen by Provider: 06/24/24 12:12 History of Present Illness HPI narrative: 58-year-old female with a complex past medical history including MS, restless legs, COPD, ADD, history of vulvar cancer and squamous cell carcinoma of the anal canal, anxiety, chronic pain on oxycodone/acetaminophen at home, gastric bypass surgery, malabsorption syndrome. She presents to the ER today showed today with pain involving her right elbow, specifically mostly on the right lateral epicondyle. It has been there for about a week and has been getting steadily worse. She is not sure what brought it on. No recent fall or trauma or injury. It has not been bruised or red or swollen. It is getting progressively more painful and feels like burning. It hurts when she flexes and extends her elbow and hurts when she pronates/supinates her wrist. She has Percocet which she takes for her long-term chronic pain but she feels like that is not helping for her current pain. She cannot take nonsteroidals because of history of gastric bypass surgery. She has not had any other swelling or bruising of her arm. No fever or chills. She also notes that she is due for surgery tomorrow to remove a anal squamous cell carcinoma. Related Data Home Medications ?Medication ?Instructions ?Recorded ?Confirmed cholecalciferol (vitamin D3) 125 125 mcg PO QDAY 07/15/22 06/24/24 mcg (5,000 unit) capsule multivitamin 1 tab PO QAM 07/15/22 06/24/24 oxycodone-acetaminophen 7.5 mg-325 2 tab PO DAILY PRN 07/15/22 06/24/24 mg tablet rizatriptan 10 mg tablet 10 mg PO ONCE PRN 12/26/22 06/24/24 gabapentin 300 mg capsule 1,200 mg PO HS 12/11/23 06/24/24 Previous Rx's ?Medication ?Instructions ?Recorded albuterol sulfate 90 mcg/actuation 2 puff inhalation Q4-6H PRN 11/30/23 aerosol inhaler (Ventolin HFA) shortness of breath or wheezing #6.7 grams amitriptyline 50 mg tablet 50 mg PO QDAY #90 tabs 11/30/23 celecoxib 200 mg capsule See Rx Instructions .Route 11/30/23 .COMPLEX #90 caps epinephrine 0.3 mg/0.3 mL 0.3 ml IM ONCE #2 ea 11/30/23 injection, auto-injector naloxone 4 mg/actuation nasal 4 mg intranasal Q2-3M PRN opioid 11/30/23 spray (Narcan) overdose #2 ea omeprazole 20 mg capsule,delayed 20 mg PO BID #180 caps 11/30/23 release propranolol 160 mg capsule,24 160 mg PO DAILY #90 caps 11/30/23 hr,extended release quetiapine 200 mg tablet 200 mg PO QHS #90 tabs 11/30/23 trazodone 100 mg tablet 100 mg PO .HS #90 tabs 11/30/23 teriflunomide 14 mg tablet 14 mg PO DAILY #90 tabs 02/14/24 ropinirole 4 mg tablet See Rx Instructions .Route 05/09/24 .COMPLEX #90 tabs dextroamphetamine-amphetamine ER 30 mg PO QAM #30 caps 06/04/24 30 mg 24hr capsule,extend release Allergies Allergy/AdvReac Type Severity Reaction Status Date / Time Opioids - Morphine Analogues Allergy Severe Difficulty Verified 06/24/24 12:01 Breathing tramadol Allergy Intermediate Difficulty Verified 06/24/24 12:01 Breathing bupropion Allergy Mild Nausea Verified 06/24/24 12:01 codeine Allergy Mild Nausea Verified 06/24/24 12:01 morphine Allergy Severe Anaphylaxis Uncoded 06/24/24 12:01 [facility] Medical History Opioid overdose ?T40.2X1A - Poisoning by other opioids, accidental (unintentional), initial encounter (ICD-10) Bee sting allergy ?Z91.030 - Bee allergy status (ICD-10) Carpal tunnel syndrome on both sides ?G56.03 - Carpal tunnel syndrome, bilateral upper limbs (ICD-10) History of atrial fibrillation without current medication ?Z86.79 - Personal history of other diseases of the circulatory system (ICD-10) Surgical History History of carpal tunnel surgery of right wrist (2015) ?Z98.890 - Other specified postprocedural states (ICD-10) History of hysterectomy with bilateral oophorectomy ?Z90.710 - Acquired absence of both cervix and uterus (ICD-10) ?Z90.722 - Acquired absence of ovaries, bilateral (ICD-10) History of hand surgery (~2013) ?Z98.890 - Other specified postprocedural states (ICD-10) History of gastric bypass (~2012) ?Z98.84 - Bariatric surgery status (ICD-10) History of fusion of lumbar spine ?Z98.1 - Arthrodesis status (ICD-10) History of cholecystectomy ?Z90.49 - Acquired absence of other specified parts of digestive tract (ICD-10) Family History Mother Family history of malignant neoplasm of breast Social History Smoking Status: Current every day smoker What tobacco products do you use: cigarettes Non-prescribed substance use: denies use Little interest or pleasure in doing things: several days Feeling down, depressed, or hopeless: several days Exam Narrative: Exam Narrative: Constitutional: Appears well-developed and well-nourished. Active. Non-toxic appearing. HENT: Head: Atraumatic. No signs of injury. Nose: No nasal discharge. Mouth/Throat: Mucous membranes are moist. Pharynx is normal. Tonsils symmetric. Uvula midline. Airway patent. Eyes: Conjunctivae normal and EOM are normal. Pupils are equal, round, and reactive to light. Right eye exhibits no discharge. Left eye exhibits no discharge. No icterus. Neck: Normal range of motion. Neck supple. No adenopathy. No stridor. Cardiovascular: Normal rate and regular rhythm. No murmur heard. No murmurs, rubs, or gallops. Brisk capillary refill Pulmonary/Chest: Effort normal. No stridor. No respiratory distress. No wheezes.No rhonchi. No rales. No retractions. Abdominal: Soft. Bowel sounds are normal. No distension. No mass. There is no tenderness. There is no rebound and no guarding. Musculoskeletal: Left upper extremity-Normal range of motion. No edema. No tenderness. No deformity. Right upper extremity-clavicle nontender. Proximal humerus and shoulder nontender. Normal range of motion in the shoulder. Biceps and triceps nontender. Upper arm is nontender and not swollen. Palpable and strong brachial and radial pulses. Normal distal capillary refill. No swelling around the elbow. No erythema of the skin. No bruising or ecchymosis. No swelling in the forearm. She has pain in the lateral elbow with pronation and supination of her forearm. Normal, pain free, flexion and extension of her wrist. Hand and fingers and thumb are nontender. Intact radial, median, ulnar nerve sensory and motor function. She is very tender with palpation over the lateral epicondyle. Also mildly tender posteriorly. No redness or swelling or fluctuance posteriorly to suggest olecranon bursitis. Not tender on the medial aspect of the elbow. Anteriorly nontender. Biceps tendon nontender. Neurological: Alert. Normal strength. No cranial nerve deficit or sensory deficit. Coordination normal. GCS eye subscore is 4. GCS verbal subscore is 5. GCS motor subscore is 6. Skin: Skin is warm. No rash noted. Const: Vital Signs, click to edit/add: Vital Signs - 24 hr 06/24/24 11:51 Temperature 98.2 F Pulse Rate [Pulse Oximeter] 72 Respiratory Rate 18 Blood Pressure [Le ft Upper Arm] 108/72 Pulse Oximetry 99 Oxygen Delivery Me thod Room Air Course Vital Signs Vital signs: Initial Vital Signs Temperature 98.2 F 06/24/24 11:51 Temperature Source Temporal Artery Scan 06/24/24 11:51 Pulse Rate 72 06/24/24 11:51 Respiratory Rate 18 06/24/24 11:51 Blood Pressure 108/72 06/24/24 11:51 Blood Pressure Mean 84 06/24/24 11:51 Blood Pressure Position Sitting 06/24/24 11:51 Pulse Oximetry 99 06/24/24 11:51 Oxygen Delivery Method Room Air 06/24/24 11:51 Vital Signs Temperature 98.2 F 06/24/24 11:51 Pulse Rate 72 06/24/24 11:51 Respiratory Rate 18 06/24/24 11:51 Blood Pressure 108/72 06/24/24 11:51 Pulse Oximetry 99 06/24/24 11:51 Oxygen Delivery Method Room Air 06/24/24 11:51 Temperature 98.2 F 06/24/24 11:51 Pulse Rate 72 06/24/24 11:51 Respiratory Rate 18 06/24/24 11:51 Blood Pressure 108/72 06/24/24 11:51 Pulse Oximetry 99 06/24/24 11:51 Oxygen Delivery Method Room Air 06/24/24 11:51 Medical Decision Making MDM Narrative Medical decision making narrative: Pleasant 58-year-old female with a complex past medical history including recurrent bouts of squamous cell carcinoma including ongoing anal cancer for which is scheduled for surgery tomorrow. She also has chronic pain and is chronically on Percocet prescribed by her primary care provider. She has a new onset of atraumatic right lateral elbow pain as spinning worse for the past week or so. Differential is broad. I think most likely this would be lateral epicondylitis which is probably overuse injury. She does not recall any new activities lately the. She has no history of trauma or fall or injury to so raise risk for fracture so will hold off on x-rays for now. There is no redness of warmth of the skin around the elbow, epicondyle, or olecranon to suggest cellulitis, septic joint, olecranon bursitis. No evidence for any rash or shingles. No bruising or swelling to suggest trauma. Although she has a history of squamous cell carcinoma, there is no evidence for swelling of her arm to suggest DVT. No signs of acute limb ischemia. At this point I do not think she needs laboratory workup, ultrasound, MRI, or x-ray. She already has Percocet for chronic pain and has a chronic pain contract so additional opiates we will not be prescribed through the ER. She has an [id number] brace which she has been putting her elbow for the past couple of days which is not helpful. She cannot take NSAIDs due to history of gastric bypass surgery. Will treat supportively with sling to rest her elbow. Would recommend orthopedic follow-up in clinic. May benefit from physical therapy, steroid injection, or other bracing. Discharge Plan Discharge Clinical Impression: Epicondylitis, lateral, right Patient Disposition: Home, Self-Care Condition: Stable Instructions: Tennis Elbow (ED) Additional Instructions: As we discussed, we suspect that your elbow pain is caused by inflammation around the muscles and tendons on the lateral side of your elbow. This can be commonly called ?tennis elbow? but is more often related to overuse repetitive use from other activities. Typically gets better with rest and anti-inflammatories. Use her sling to help rest her elbow for the next few days. If you not completely improved by or Monday, follow-up with the [facility]. Call [phone] schedule an ER follow-up appointment. If you have worsening pain, new redness or swelling of your elbow, fever or chills, or any problems, please come back to the ER right away to be rechecked. Prescriptions: No Action rizatriptan 10 mg tablet 10 mg PO ONCE PRN Patient Comments: TAKE 1 TABLET BY MOUTH ONCE . MAY REPEAT AT 2 HOUR INTERVALS. DO NOT EXCEED 30 MG IN 24 HOURS epinephrine 0.3 mg/0.3 mL auto-injector 0.3 ml IM ONCE Qty: 2 0RF Rx Instructions: as a single dose; may repeat once naloxone [Narcan] 4 mg/actuation spray,non-aerosol 4 mg intranasal Q2-3M PRN (Reason: opioid overdose) Qty: 2 0RF Rx Instructions: spray 1 dose into ONE nostril; alternate nostrils w each dose until help arrives albuterol sulfate [Ventolin HFA] 90 mcg/actuation HFA aerosol inhaler 2 puff inhalation Q4-6H PRN (Reason: shortness of breath or wheezing) Qty: 6.7 2RF amitriptyline 50 mg tablet 50 mg PO QDAY Qty: 90 3RF celecoxib 200 mg capsule See Rx Instructions .ROUTE .COMPLEX Qty: 90 1RF Dose Instruction: TAKE 1 CAPSULE BY MOUTH DAILY Rx Instructions: TAKE 1 CAPSULE BY MOUTH DAILY omeprazole 20 mg capsule,delayed release(DR/EC) 20 mg PO BID Qty: 180 3RF propranolol 160 mg capsule,extended release 24 hr 160 mg PO DAILY Qty: 90 3RF quetiapine 200 mg tablet 200 mg PO QHS Qty: 90 3RF trazodone 100 mg tablet 100 mg PO .HS Qty: 90 3RF gabapentin 300 mg capsule 1,200 mg PO HS Patient Comments: 4 tabs at HS oxycodone-acetaminophen 7.5-325 mg tablet 2 tab PO DAILY PRN Rx Instructions: prescribed by Krystyna at [facility] cholecalciferol (vitamin D3) 125 mcg (5,000 unit) capsule 125 mcg PO QDAY multivitamin Tablet 1 tab PO QAM teriflunomide 14 mg tablet 14 mg PO DAILY Qty: 90 3RF ropinirole 4 mg tablet See Rx Instructions .ROUTE .COMPLEX Qty: 90 0RF Dose Instruction: TAKE 1 TABLET BY MOUTH AT BEDTIME Rx Instructions: TAKE 1 TABLET BY MOUTH AT BEDTIME dextroamphetamine-amphetamine 30 mg capsule,extended release 24hr 30 mg PO QAM Qty: 30 0RF Follow Up/Referrals: Makayla Ribeiro [employer] OPERATOR [Primary Care Provider] - Stand Alone Forms: [facility] Info Instructions
== END 2024-06-24 12:55 | disposition home or self-care (01) ==
PROVIDERS: Emergency Provider Emergency Medicine; PCP Nurse Practitioner Family
DX: M77.11 Lateral epicondylitis, right elbow (principal)
CPT/HCPCS: 99282; 99283

== ENCOUNTER 2024-07-03 08:15 | Emergency (ER) | payer MEDICARE, OTHER, SELFPAY ==
[2024-07-03 08:25] VITALS: BP 130/90; PULSE 78; RESP 16; TEMP 37.1; O2SAT 98; BMI 18.2
--- NOTE | 2024-07-03 08:38 | ED_ITS ---
HPI - General Adult General Chief complaint: Post Op Complication Stated complaint: Complications s/p rectal surgery Time Seen by Provider: 07/03/24 08:19 History of Present Illness HPI narrative: Patient is a 58 year white female who has anal squamous cell carcinoma who had recent surgery on 06/25 at the [facility]. The patient reports that she has had some burning in her perineum. She is not sure if it is with urination or just simply when she urinates. She has noticed that she thinks a couple stitches medic come out as well. No chest pain, no fevers, no chills, no back pain or abdominal pain. She has had normal bowel movements. Apparently the surgery was sphincter sparing. She has had looser stool than normal. She has not had stool incontinence Related Data Home Medications ?Medication ?Instructions ?Recorded ?Confirmed cholecalciferol (vitamin D3) 125 125 mcg PO QDAY 07/15/22 06/24/24 mcg (5,000 unit) capsule multivitamin 1 tab PO QAM 07/15/22 06/24/24 oxycodone-acetaminophen 7.5 mg-325 2 tab PO DAILY PRN 07/15/22 06/24/24 mg tablet rizatriptan 10 mg tablet 10 mg PO ONCE PRN 12/26/22 06/24/24 gabapentin 300 mg capsule 1,200 mg PO HS 12/11/23 06/24/24 Previous Rx's ?Medication ?Instructions ?Recorded albuterol sulfate 90 mcg/actuation 2 puff inhalation Q4-6H PRN 11/30/23 aerosol inhaler (Ventolin HFA) shortness of breath or wheezing #6.7 grams amitriptyline 50 mg tablet 50 mg PO QDAY #90 tabs 11/30/23 epinephrine 0.3 mg/0.3 mL 0.3 ml IM ONCE #2 ea 11/30/23 injection, auto-injector naloxone 4 mg/actuation nasal 4 mg intranasal Q2-3M PRN opioid 11/30/23 spray (Narcan) overdose #2 ea omeprazole 20 mg capsule,delayed 20 mg PO BID #180 caps 11/30/23 release propranolol 160 mg capsule,24 160 mg PO DAILY #90 caps 11/30/23 hr,extended release quetiapine 200 mg tablet 200 mg PO QHS #90 tabs 11/30/23 trazodone 100 mg tablet 100 mg PO .HS #90 tabs 11/30/23 teriflunomide 14 mg tablet 14 mg PO DAILY #90 tabs 02/14/24 celecoxib 200 mg capsule See Rx Instructions .Route 06/27/24 .COMPLEX #90 caps dextroamphetamine-amphetamine ER 30 mg PO QAM #30 caps 06/27/24 30 mg 24hr capsule,extend release ropinirole 4 mg tablet See Rx Instructions .Route 06/27/24 .COMPLEX #90 tabs Allergies Allergy/AdvReac Type Severity Reaction Status Date / Time Opioids - Morphine Analogues Allergy Severe Anaphylaxis Verified 07/03/24 08:25 tramadol Allergy Intermediate Difficulty Verified 07/03/24 08:25 Breathing bupropion Allergy Mild Nausea Verified 07/03/24 08:25 codeine Allergy Mild Nausea Verified 07/03/24 08:25 Review of Systems Status of ROS: Reports: 6 or more systems reviewed and unremarkable except as noted in History and below [facility] Medical History Opioid overdose ?T40.2X1A - Poisoning by other opioids, accidental (unintentional), initial encounter (ICD-10) Bee sting allergy ?Z91.030 - Bee allergy status (ICD-10) Carpal tunnel syndrome on both sides ?G56.03 - Carpal tunnel syndrome, bilateral upper limbs (ICD-10) History of atrial fibrillation without current medication ?Z86.79 - Personal history of other diseases of the circulatory system (ICD- 10) Surgical History History of carpal tunnel surgery of right wrist (2015) ?Z98.890 - Other specified postprocedural states (ICD-10) History of hysterectomy with bilateral oophorectomy ?Z90.710 - Acquired absence of both cervix and uterus (ICD-10) ?Z90.722 - Acquired absence of ovaries, bilateral (ICD-10) History of hand surgery (~2013) ?Z98.890 - Other specified postprocedural states (ICD-10) History of gastric bypass (~2012) ?Z98.84 - Bariatric surgery status (ICD-10) History of fusion of lumbar spine ?Z98.1 - Arthrodesis status (ICD-10) History of cholecystectomy ?Z90.49 - Acquired absence of other specified parts of digestive tract (ICD- 10) Family History Mother Family history of malignant neoplasm of breast Social History Smoking Status: Current every day smoker What tobacco products do you use: cigarettes Non-prescribed substance use: denies use Little interest or pleasure in doing things: several days Feeling down, depressed, or hopeless: several days Exam Narrative: Exam Narrative: Objective: Patient's vital signs are within normal limits She is alert orient x3 Abdominal exam is benign Visual perineal exam shows a dehisced wound that is fairly superficial and does not appear deep superior to the anal rim The patient has no obvious redness or infection or cellulitic change. Wound appears clear and clean. Const: Vital Signs, click to edit/add: Vital Signs - 24 hr 07/03/24 08:25 Temperature 98.7 F Pulse Rate [Pulse Oximeter] 78 Respiratory Rate 16 Blood Pressure [Le ft Upper Arm] 130/90 H Pulse Oximetry 98 Oxygen Delivery Me thod Room Air Course Vital Signs Vital signs: Initial Vital Signs Temperature 98.7 F 07/03/24 08:25 Temperature Source Temporal Artery Scan 07/03/24 08:25 Pulse Rate 78 07/03/24 08:25 Pulse Rhythm Regular 07/03/24 08:25 Respiratory Rate 16 07/03/24 08:25 Blood Pressure 130/90 H 07/03/24 08:25 Blood Pressure Mean 103 07/03/24 08:25 Blood Pressure Position Sitting 07/03/24 08:25 Pulse Oximetry 98 07/03/24 08:25 Oxygen Delivery Method Room Air 07/03/24 08:25 Vital Signs Temperature 98.7 F 07/03/24 08:25 Pulse Rate 78 07/03/24 08:25 Respiratory Rate 16 07/03/24 08:25 Blood Pressure 130/90 H 07/03/24 08:25 Pulse Oximetry 98 07/03/24 08:25 Oxygen Delivery Method Room Air 07/03/24 08:25 Temperature 98.7 F 07/03/24 08:25 Pulse Rate 78 07/03/24 08:25 Respiratory Rate 16 07/03/24 08:25 Blood Pressure 130/90 H 07/03/24 08:25 Pulse Oximetry 98 08/21/24 08:25 Oxygen Delivery Method Room Air 07/03/24 08:25 Medical Decision Making MDM Narrative Medical decision making narrative: [age] white female with squamous cell anal carcinoma status post surgery on 06/25 with wound dehiscence. It appears fairly superficial at this point. I would recommend she has a follow-up appointment within the next week to recheck. Recommend Sitz baths, she can use some topical bacitracin, I do not think she needs oral antibiotics as her does appear to be any cellulitic change. She also will get a urine test to make sure did have a urinary tract infection. She can wear a pad as she has been doing. And cough recommend they call the [facility] surgical team to get further direction. Lab Data Labs: Lab Results 07/03/24 Range/Units 08:34 Urine Color Yellow (Yellow) Urine Appearance Clear (Clear) Urine pH 7.0 (5.0-8.5) Ur Specific Perry 1.010 (1.000-1.030) Urine Protein Negative (Negative) Urine Glucose (UA) Negative (Negative) Urine Ketones Negative (Negative) Urine Blood 1+ A (Negative) Urine Nitrite Negative (Negative) Urine Bilirubin Negative (Negative) Urine Urobilinogen 0.2 (0.2-1.0) Ur Leukocyte Esterase 2+ A (Negative) Urine RBC 0-2 (0-2) Urine WBC 2-5 (0-5) Ur Squamous Epith Cells None (None-Few) Urine Bacteria Few A (None) Discharge Plan Discharge Clinical Impression: Dehiscence of external surgical wound, Squamous cell carcinoma of anal canal Patient Disposition: Home w/ Parent or Adult Condition: Stable Additional Instructions: Will check a urinalysis for infection. Recommend Sitz baths a couple times a day, call the [facility] surgeons and get recommendations. Recommend follow-up with them within the next week. May use some topical bacitracin. May continue to use the pad you have been using. Return as needed Activity Level: Light activity Discharge Diet: Regular Prescriptions: No Action rizatriptan 10 mg tablet 10 mg PO ONCE PRN Patient Comments: TAKE 1 TABLET BY MOUTH ONCE . MAY REPEAT AT 2 HOUR INTERVALS. DO NOT EXCEED 30 MG IN 24 HOURS epinephrine 0.3 mg/0.3 mL auto-injector 0.3 ml IM ONCE Qty: 2 0RF Rx Instructions: as a single dose; may repeat once naloxone [Narcan] 4 mg/actuation spray,non-aerosol 4 mg intranasal Q2-3M PRN (Reason: opioid overdose) Qty: 2 0RF Rx Instructions: spray 1 dose into ONE nostril; alternate nostrils w each dose until help arrives albuterol sulfate [Ventolin HFA] 90 mcg/actuation HFA aerosol inhaler 2 puff inhalation Q4-6H PRN (Reason: shortness of breath or wheezing) Qty: 6.7 2RF amitriptyline 50 mg tablet 50 mg PO QDAY Qty: 90 3RF omeprazole 20 mg capsule,delayed release(DR/EC) 20 mg PO BID Qty: 180 3RF propranolol 160 mg capsule,extended release 24 hr 160 mg PO DAILY Qty: 90 3RF quetiapine 200 mg tablet 200 mg PO QHS Qty: 90 3RF trazodone 100 mg tablet 100 mg PO .HS Qty: 90 3RF gabapentin 300 mg capsule 1,200 mg PO HS Patient Comments: 4 tabs at HS ropinirole 4 mg tablet See Rx Instructions .ROUTE .COMPLEX Qty: 90 0RF Dose Instruction: TAKE 1 TABLET BY MOUTH AT BEDTIME Rx Instructions: TAKE 1 TABLET BY MOUTH AT BEDTIME celecoxib 200 mg capsule See Rx Instructions .ROUTE .COMPLEX Qty: 90 1RF Dose Instruction: TAKE 1 CAPSULE BY MOUTH DAILY Rx Instructions: TAKE 1 CAPSULE BY MOUTH DAILY dextroamphetamine-amphetamine 30 mg capsule,extended release 24hr 30 mg PO QAM Qty: 30 0RF oxycodone-acetaminophen 7.5-325 mg tablet 2 tab PO DAILY PRN Rx Instructions: prescribed by Krystyna at [facility] cholecalciferol (vitamin D3) 125 mcg (5,000 unit) capsule 125 mcg PO QDAY multivitamin Tablet 1 tab PO QAM teriflunomide 14 mg tablet 14 mg PO DAILY Qty: 90 3RF Follow Up/Referrals: Makayla Ribeiro CNP [Primary Care Provider] - Stand Alone Forms: [facility] Info Instructions
[2024-07-03 09:15] LABS: Appearance Urine Clear (Clear); Bilirubin Urine Negative (Negative); Blood Urine 1+ (Negative); Color Urine Yellow (Yellow); Glucose Urine Negative (Negative); Ketones Urine Negative (Negative); Leukocyte Esterase Urine 2+ (Negative); Nitrite Urine Negative (Negative); Protein Urine Negative (Negative); Urobilinogen Urine 0.2 (0.2-1.0)
[2024-07-03 09:21] LABS: RBC Urine 0-2 (0-2)
[2024-07-03 09:22] LABS: Bacteria Urine Few
== END 2024-07-03 09:26 | disposition home or self-care (01) ==
PROVIDERS: Emergency Provider Family Medicine; PCP Nurse Practitioner Family
DX: T81.31XA Disruption of external operation (surgical) wound, not elsewhere classified, initial encounter (principal); C44.520 Squamous cell carcinoma of anal skin
CPT/HCPCS: 81001; 87086; 99283; 99284

== ENCOUNTER 2025-10-28 10:08 | Inpatient (IN) | payer MEDICARE, OTHER, SELFPAY ==
--- OUTSIDE RECORDS SUMMARY | 2025-09-25 11:00 | XMS_ITS | Encounter Summary ---
Author Organization [facility] Address [address] [place] [address] Care Team Providers Care Certified Pedorthotist Name Role Phone Amador Larkin MD Unavailable [phone] Lenny Gunn MD Unavailable [phone] Amador Larkin MD Unavailable [phone] Makayla Ribeiro NP Primary Care Provider [phone] Nadine Herrera MD Unavailable [phone] Nadine Herrera MD Unavailable [phone] Carlene Rolon MD Unavailable [phone] von Sara Ramírez APRN CENTER MEDICAL SPECIALIST Unavaila ble Matti Kitchen MD Unavailable [phone] Sara Campuzano APRN CENTER MEDICAL SPECIALIST Unavaila ble Reason for Referral * Diagnostic Imaging MRI (Routine) - Pending ReviewSpecialtyDiagnoses / ProceduresReferred By ContactReferred To ContactRadiology. Diagnoses MS (multiple sclerosis) Procedures MRI Cervical spine w & w/o contrast Amador Larkin MD [address] [place] [address] Phone: tel: fax: Referral IDStatusReasonStart DateExpiration DateVisits RequestedVisits [id number] CIATE DRAFTER * Diagnostic Imaging MRI (Routine) - Pending ReviewSpecialtyDiagnoses / ProceduresReferred By ContactReferred To ContactRadiology. Diagnoses MS (multiple sclerosis) Procedures MRI Brain w & w/o contrast Amador Larkin MD [address] [place] [address] Phone: tel: fax: Referral IDStatusReasonStart DateExpiration DateVisits RequestedVisits [id number] CIATE DRAFTER * Rehab Therapy Physical Therapy (Routine: Next available opening) - Pending ReviewSpecialtyDiagnoses / ProceduresReferred By ContactReferred To Contact Diagnoses Gait disturbance MS (multiple sclerosis) Amador Larkin MD [address] [place] [address] Phone: tel: fax: Referral IDStatusReasonStart DateExpiration DateVisits RequestedVisits [id number] Additional Information: Please evaluate and manage gait disturbance in this patient with multiple sclerosis Comments Physical Therapy Location: [facility] CIATE DRAFTER Reason for Visit * ReasonCommentsRECHECK Encounter Details DateTypeDepartmentCare Team (Latest Contact Info)Mtrmwdzflil99/13/2025 11:00 AM CSTVirtual Visit [facility] [address] [address] Amador Larkin MD [address] [place] [address] MS (multiple sclerosis) (Primary Dx); Gait disturbance; Cognitive complaints; Restless legs syndrome Social History Tobacco UseTypesPacks/DayYears UsedDateSmoking Tobacco: Some DaysCigarettes Smokeless Tobacco: Current Comments:5 cigarettes Alcohol UseStandard Drinks/WeekCommentsNo0 (1 standard drink = 0.6 oz pure alcohol)PHQ-2AnswerDate RecordedPHQ-2 Tbyaj158/13/2025Adolescent EducationAnswer Date RecordedGetting School Help NeededNot on file3CommentsNo Sex and Gender InformationValueDate RecordedSex Assigned at BirthNot on file Legal NztMflnkd35/04/2012 4:18 AM CSTGender IdentityNot on fileSexual OrientationNot on filedocumented as of this encounter Last Filed Vital Signs Vital SignReadingTime TakenCommentsBlood Pressure--Pulse--Temperature-- Respiratory Rate--Oxygen Saturation--Inhaled Oxygen Concentration--Gwlwvl61.7 kg (125 lb)09/25/2025 10:52 AM TMWPckhoo511.4 cm (6' 1)09/25/2025 10:52 AM CSTBody Mass Index16.4909/25/2025 10:52 AM CSTdocumented in this encounter Patient Instructions * Patient Instructions* Amador Larkin MD - 09/25/2025 11:00 AM ASSOCIATE DRAFTER We will refer you to physical therapy at [facility] for evaluation and management of gait disturbance and occupational therapy for evaluation and management of cognitive concerns: you can call [place]: to schedule 2. Continue gabapentin 1200 mg at bedtime 3. Return to clinic in 6 months with MRI scans of the brain and cervical spine prior to visit CIATE DRAFTER CIATE DRAFTER CIATE DRAFTER documented in this encounter Progress Notes * Amador Larkin MD - 09/25/2025 11:00 AM CST Referral source: Established patient Chief complaint: Multiple sclerosis History of the Present Illness: Ms. Maryana Clemons is a 59 year old woman who is evaluated in the Multiple Sclerosis Clinic today for follow up regarding her diagnosis of multiple sclerosis. At the request of the patient, today's appointment was conducted via telemedicine (video visit). The patient's history is as per my previous notes. Demyelinating disease was initially suspected when she presented to an outside ED in 2012 with some concern about a possible stroke, leading to an MRI scan of the brain that demonstrated findings suspicious for demyelinating disease of the type seen in multiple sclerosis. Subsequent MRI imaging demonstrated additional abnormalities suggestive of a demyelinating plaque in the cervical cord, and a CSF examination was positive for oligoclonal bands. Initially, it was not entirely clear that these findings were symptomatic, but during the course of serial radiologic observation the patient developed a new enhancing lesion in the brainstem and wa s then placed on disease modifying therapy with glatiramer acetate. She [place] moved out of state and was transitioned to treatment with teriflunomide in 2018 by an outside provider due to shotfatigue and limited compliance with platform injectable drugs. She remains on teriflunomide up until the present time. This is my first visit with the patient since November 2023. She denies any new, episodic changes invision, balance, strength, or sensation suggestive of new relapse of multiple sclerosis since she was last seen in this clinic. We discussed several symptomatic concerns today. She relates that she has had several falls, which she attributes to her legs giving out, or to losing balance unexpectedly. She notes reduced sensation in the right foot, which may be a trip hazard, as well. I asked her about use of gait aids; she indicates that she has several canes and a walker, taking the latter with her when she leaves her home but not consistently in her residence. She is also concerned about memory. She notes that she has to write things down (such as appointments) to remember them. She has not forgotten anything critical to her welfare or safety, such as not paying bills or leaving the burners of the stove on. She relates that her brother was living with her previously and she found his support very helpful, but unfortunately it appears that her landlord w ould not allow him to stay. She continues to take ropinirole 4 mg at approximately 7:30 pm (prescribed by outside provider) andgabapentin 1200 mg at bedtime for restless legs symptoms. For the most part these symptoms are controlled as long as she remembers to take ropinirole. Review of Systems: She continues to struggle with weight loss, weight 123 to 125 pounds (BMI <17). 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 She tells me that she is going to start protein shakes soon. Assessment/plan: 1. Multiple sclerosis The patient is clinically stable as regards any evidence of active inflammatory demyelination on current disease modifying therapy with teriflunomide. We will see her back in 6 months for a review, with MRI scans of the brain and cervical spine to beperformed prior to that appointment in order to monitor the radiologic stability of her condition. 2. Gait disturbance I will send a physical therapy referral to her local hospital in [place] for evaluation and management of gait disturbance. I recommend that she use her walker at all times when ambulating to reduce her risk of falls and associated injury. 3. Cognitive complaints Unfortunately, there are no medications that have been shown to be of benefit for cognitive symptoms related to multiple sclerosis. I offered her an occupational therapy referral as well and she would like to pursue this. That referral will be sent to [facility] as well. 4. Restless legs syndrome She will continue gabapentin 1200 mg at bedtime. I cautioned her that her dose of ropinirole shouldnot be increased past the current level due to risk of augmentation phenomenon. I spent a total of 36 minutes on patient care activities related to this encounter on the date of service, including time spent in reviewing the chart, obtaining history from and in counseling the patient, and in documentation/coordination of care via the electronic medical record. The longitudinal plans of care for the diagnoses as documented were addressed during this visit. Due to the added complexity in care, I will continue to support the patient in subsequent management and with ongoing continuity of care. Video-Visit Details Type of service: Video Visit Video Start Time: 11:19 am Video End Time: 11:52 am Originating Location (pt. Location): Home Distant Location (provider location): On-site ([facility], [facility] [address], [address] [place] [address]. Platform used for Video Visit: Frandy CIATE DRAFTER documented in this encounter Nursing Notes * Annelise Joaquin - 09/25/2025 11:00 AM CST Current patient location: [address] [place] [address] Is the patient currently in the state of [place]? YES Visit mode: VIDEO If the visit is dropped, the patient can be reconnected by:VIDEO VISIT: Text to cell phone: Telephone Information: Will anyone else be joining the visit? NO (If patient encounters technical issues they should call [phone]) Are changes needed to the allergy or medication list? Pt stated no changes to allergies and Pt stated no med changes Are refills needed on medications prescribed by this physician? YES Rooming Documentation: Not applicable Reason for visit: FRANCOISE Joaquin VVF CIATE DRAFTER documented in this encounter Plan of Treatment NameTypePriorityAssociated DiagnosesOrder ScheduleMRI Brain w & w/o contrast ImagingRoutine MS (multiple sclerosis) Expected: 03/25/2026 (Approximate), Expires: 09/25/2026MRI Cervical spine w & w/o contrastImagingRoutine MS (multiple sclerosis) Expected: 03/25/2026 (Approximate), Expires: 09/25/2026NameTypePriority Associated DiagnosesOrder SchedulePT Referral (External Facility)Referral Routine: Next available opening Gait disturbance MS (multiple sclerosis) Expected: 09/25/2025 (Approximate), Expires: 09/25/2026documented as of this encounter Visit Diagnoses Diagnosis MS (multiple sclerosis)- Primary Multiple sclerosis Gait disturbance Abnormality of gait Cognitive complaints Other signs and symptoms involving cognition Restless legs syndrome Restless legs syndrome (RLS) documented in this encounter Care Teams Team MemberRelationshipSpecialtyStart DateEnd Date Makayla Ribeiro [facility] [address] [place] [address] PCP - GeneralNurse Practitioner - Family12/07/23 Amador Larkin MD [address] [place] [address] Neurology02/26/15 Lenny Gunn MD [facility] [address] [address] MDHand Surgery04/27/15 Amador Larkin MD [address] [place] [address] Assigned Neuroscience Ihqjsucn10/22/20 Nadine Herrera MD [address] [place] [address] Gynecologic Oncology04/11/24 Nadine Herrera MD [address] [place] [address] Assigned Cancer Care Provider06/04/24 Carlene Rolon MD [address] [place] [address] [address] [place] [address] FellowHematology & Oncology07/22/24 Sara Campuzano APRN CENTER MEDICAL SPECIALIST [address] [address] Nurse PractitionerColon & Rectal08/07/24 Matti Kitchen MD [address] [place] [address] MDHematology & Ofhudgrm97/3/24 Sara Campuzano, TREATMENT PLANT OPERATOR CENTER MEDICAL SPECIALIST [address] 9[address] Assigned Surgical Scsxzqzi43/23/24documented as of this encounter
[2025-10-28] VITALS (55 sets, daily range): BP systolic 77–142; BP diastolic 52–96; PULSE 64–83; RESP 6–48; TEMP 36.1–37.2; O2SAT 64–100; BMI 16.5
--- OUTSIDE RECORDS SUMMARY | 2025-10-28 10:16 | XMS_ITS | Patient Health Record ---
Author Organization [facility] Address [address] [place] [address] Care Team Providers Care Manager Field Sales Name Role Phone WayneBeccaYasmine Primary Care Provider Michael Connolly Unavailable [phone] Allergies Allergen (clinical drug ingredient) Drug/Non Drug Allergy documented on EMR Reaction Allergy Type Onset Date Status Codeine PhosphatevomitingDrug Ivwigwy7708/20/2019ActiveibuprofenIbuprofenvomiting Drug Sgsxlbx0208/20/2019ActivemorphineMorphine Sulfateshortness of breathDrug Iynrfvk5208/20/2019ActivetramadolTramadol HClvomitingDrug Rhhzlgn8708/20/2019Active Wellbutrinshortness of breathDrug Thfgmcd0508/20/2019Active Reason For Referral No Information Medications Medication SIG (Take, Route, Frequency, Duration) Notes Start Date End Date Status ProAir HFA 108 (90 Base) MCG /ACT Aerosol Solution INL 2 PFS PO Q 4 TO 6 H Inhalation; Duration: 16 ActivePropranolol HCl ER 80 MG Capsule Extended Release 24 HourTK 1 C PO QD Oral; Duration: 90ActiveOmeprazole 20 MG Capsule Delayed ReleaseTK 1 C PO BID AC Oral; Duration: 90ActiveoxyCODONE-Acetaminophen 7.5-325 MG Tablet(Schedule II Drug) TK 1 T PO BID PRN Oral; Duration: 28ActivetiZANidine HCl 2 MG TabletTK 1 T PO BID Oral; Duration: 60ActivetraZODone HCl 50 MG TabletTK 2 TS PO QHS Oral; Duration: 90ActiveQUEtiapine Fumarate 200 MG TabletTK 2 AND 1/2 TS PO HS Oral; Duration: 90ActiverOPINIRole HCl 1 MG TabletTK 1 T PO TID Oral; Duration: 30 ActiveBaclofen 5 MG TabletTK 2 TS PO BID PRN Oral; Duration: 15ActiveZyrTEC Allergy 10 MG Tablet1 tablet Orally Once a day; Duration: 30 day(s)08/20/2019 ActiveModafinil 100 MG Tablet(Schedule IV Drug) TK 1 T PO BID Oral; Duration: 30 ActiveVitamin D3 1000 UNIT Capsule1 capsule Orally Once a day; Duration: 30 day(s)08/20/2019ActiveAlbuterol Sulfate (2.5 MG/3ML) 0.083% Nebulization SolutionU 3 ML VIA NEB Q 4 TO 6 H PRN Inhalation; Duration: 4Active Social History Tobacco Use: Social History Observation Description Date Details (start date - stop date) Current Smoker NA - NA Social History Drugs/Alcohol:Social InfoQuestionAnswerNotesAlcohol Screen (Audit-C)Did you have a drink containing alcohol in the past year?DzMhjjhn3EddbasmbcidlrsYwmsrqamRdcua Have you used drugs other than those for medical reasons in the past 12 months? NoCaffeineIntake:2-3 cups per dayTobacco Use:Social InfoQuestionAnswerNotes Tobacco Use/SmokingStatus:current smoker? How often do you smoke cigarettes? every day? How many cigarettes a day do you smoke?11-20? How soon after you wake up do you smoke your first cigarette?31-60 minutes? Are you interested in quitting?Thinking about quittingAdditional DetailsCategorySocial InfoOptions DetailsMiscellaneous:Exercise:activeCaffeine:2-3 cups per dayDietno dairy Problems Problem Type SNOMED Code ICD Code Onset Dates Problem Status W/U Status Risk Notes Problem Chronic pain (94560567) Other chronic lino n (G89.29) ActiveconfirmedProblemMitral valve disorder (78486467)MVP (mitral valve prolapse) (I34.1)ActiveconfirmedProblemMultiple sclerosis (41639685)MS (multiple sclerosis) (G35)ActiveconfirmedProblemMultiple premature ventricular complexes (disorder) (568070129)PVC's (premature ventricular contractions) (I49.3)Active confirmed Plan Of Treatment Pending Test Test Name Order Date Adult Echo 08/20/2019 Insurance Providers Payer Name Payer Address Payer Phone Subscriber Number Group Number Insured Name Patient Relationship to Insured Coverage Start Date Coverage End Date [facility] D[facility] [employer] [facility] [address] [address] [place] [address] [id number] Gertrude Clemonsf - patient is the [id number] Medicare CompletePO [address] [place] [id number], Maryana Self - patient is the insured Medical (General) History Medical History History ICD Code Premature Ventricular Contractions Chronic Obstructive Pulmonary DiseaseDepressionMitral Valve ProlapseMultiple SclerosisSurgical History Surgery Date(Month/Year) Lumbar Back surgery Tubal LigationGastric Bypass surgeryCholecystectomyhernia repairbilateral Carpal Tunnel ReleaseIntestinal surgeryHospitalization History Reason Date(Month/Year) [facility]2019
--- OUTSIDE RECORDS SUMMARY | 2025-10-28 10:16 | XMS_ITS | Encounter Summary ---
Author Organization [facility] Address [address] [place] [address] Care Team Providers Care Relay Associate Name Role Phone Amador Larkin MD Unavailable [phone] Lenny Gunn MD Unavailable [phone] Amador Larkin MD Unavailable [phone] Makayla Ribeiro NP Primary Care Provider Nadine Herrera MD Unavailable [phone] Nadine Herrera MD Unavailable [phone] Carlene Rolon MD Unavailable [phone] von Sara Ramírez APRN VENEER STACKER Unavaila ble Matti Kitchen MD Unavailable [phone] Sara Campuzano APRN VENEER STACKER Unavaila ble Encounter Details DateTypeDepartmentCare Team (Latest Contact Info)Prmcffiagib82/07/2025Travel Social History Tobacco UseTypesPacks/DayYears UsedDateSmoking Tobacco: Some DaysCigarettes Smokeless Tobacco: Current Comments:5 cigarettes Alcohol UseStandard Drinks/WeekCommentsNo0 (1 standard drink = 0.6 oz pure alcohol)PHQ-2AnswerDate RecordedPHQ-2 Zisov5324Adolescent EducationAnswer Date RecordedGetting School Help NeededNot on file3CommentsNo Sex and Gender InformationValueDate RecordedSex Assigned at BirthNot on file Legal ZceQjdhmu05/04/2012 4:18 AM CSTGender IdentityNot on fileSexual OrientationNot on filedocumented as of this encounter Plan of Treatment Not on file documented as of this encounter Visit Diagnoses Not on filedocumented in this encounter Care Teams Team MemberRelationshipSpecialtyStart DateEnd Date Makayla Ribeiro [employer] [facility] [address] [place] [address] PCP - GeneralNurse Practitioner - Family12/07/23 Amador Larkin MD [address] [place] [address] Neurology02/26/15 Lenny Gunn MD [facility] [address] [address] Hand Surgery04/27/15 Amador Larkin MD [address] [place] [address] Assigned Neuroscience Nklvsnmu23/22/20 Nadine Herrera MD [address] [place] [address] Gynecologic Oncology04/11/24 Nadine Herrera MD [address] [place] [address] Assigned Cancer Care Provider06/04/24 Carlene Rolon MD [address] [facility] [address] [place] [address] FellowHematology & Oncology07/22/24 Sara Campuzano, MEDICAL SECRETARY TEACHER VENEER STACKER [address] [facility] [address] [place], [place] [address] Nurse PractitionerColon & Rectal08/07/24 Matti Kitchen MD [address] [place] [address] MDHematology & Uqandmvr12/3/24 Sara Campuzano, MEDICAL SECRETARY TEACHER VENEER STACKER [address] [place] [address] [phone] Assigned Surgical Huqvcuic72/23/24documented as of this encounter
--- OUTSIDE RECORDS SUMMARY | 2025-10-28 10:16 | XMS_ITS | Clinical Summary ---
Author Organization [facility] Address [address] [place] [address] Care Team Providers Care C 13 Catapult Operator Name Role Phone Amador Larkin MD Unavailable [phone] Lenny Gunn MD Unavailable [phone] Amador Larkin MD Unavailable [phone] Makayla Ribeiro NP Primary Care Provider Nadine Herrera MD Unavailable [phone] Nadine Herrera MD Unavailable [phone] Carlene Rolon MD Unavailable [phone] von Sara Ramírez APRN STORY TELLER Unavaila ble Matti Kitchen MD Unavailable [phone] Sara Campuzano APRN STORY TELLER Unavaila ble Allergies Active AllergyReactionsCriticalityNoted DateCommentsBupropionNausea,Other (See Comments)Low08/19/2013 sz Coconut Fatty Acid9608GewrpgoehbHnbwvarPdp31/20/2024uloxetine Hcl 03/17/20140913Ghhtyajn47/05/2014PregabalinNausea and Oacktpew92/13/2014Tramadol 03/17/2014 Medications MedicationSigDispense QuantityRefillsLast FilledStart DateEnd DateStatus omeprazole (PRILOSEC) 20 MG capsule Take 20 mg by mouth 2 times daily 1 tab 2x dailyActive QUEtiapine (SEROQUEL) 200 MG tablet Take 200 mg by mouth at bedtime Take 1 tablets at bedtimeActive traZODone (DESYREL) 50 MG tablet Take 100 mg by mouth at kvxebig8609/13/2015ctive rOPINIRole (REQUIP) 1 MG tablet Take 4 mg by mouth at bbyupat7701/24/2017Active propranolol (INDERAL LA) 80 MG 24 hr capsule Indications:Migraine without status migrainosus, not intractable, unspecified migraine typeTAKE ONE CAPSULE BY MOUTH FOR 1 WEEK, THEN INCREASE TO 2 CAPSULES DAILY NEEDED 60 capsule Active Additional Information Patient taking differently: 160 mg Oral AT BEDTIME, Reported on 10/18/2024 amitriptyline (ELAVIL) 25 MG tablet Take 50 mg by mouth at bedtimeActive diphenhydrAMINE (BENADRYL) 25 MG tablet Take 25 mg by mouth every 6 hours as needed for itching or allergiesActive Cholecalciferol (VITAMIN D3) 250 MCG (61410 UT) TABS Take 5,000 Units by mouth once a week tive celecoxib (CELEBREX) 200 MG capsule Take 200 mg by mouth every morningActive amphetamine-dextroamphetamine (ADDERALL) 20 MG tablet Take 30 mg by mouth every morningActive oxyCODONE-acetaminophen (PERCOCET) 7.5-325 MG per tablet Take 1 tablet by mouth every 6 hours as needed for severe painActive dalfampridine (AMPYRA) 10 MG TB12 12 hr tablet Indications:Multiple sclerosisTake 1 tablet (10 mg) by mouth 2 times daily 60 tablet 11012/08/2023ctive albuterol (PROAIR HFA/PROVENTIL HFA/VENTOLIN HFA) 108 (90 Base) MCG/ACT inhaler INHALE 2 PUFFS BY MOUTH EVERY 4 TO 6 HOURS NEEDED FOR SHORTNESS OF BREATH OR VAYSJCBP82/06/2024ctive EPINEPHrine (ANY BX GENERIC EQUIV) 0.3 MG/0.3ML injection 2-pack ADMINISTER 0.3 ML IN THE MUSCLE 1 TIME. MAY REPEAT 1 TIME11/30/2023ctive naloxone (NARCAN) 4 MG/0.1ML nasal spray 11/30/2023ctive teriflunomide (AUBAGIO) 14 MG tablet Indications:Multiple sclerosisTake 1 tablet (14 mg) by mouth daily. Only available through select specialty pharmacies 30 tablet 11045Active gabapentin (NEURONTIN) 300 MG capsule Indications:Restless legs syndromeTake 4 capsules at bedtime 360 capsule 5Active Active Problems ProblemNoted DateDiagnosed DateMalignant neoplasm of mflyxa2606/07/2024nal squamous cell /26/2024Sleep apneaEdema08/12/2015 05/25/2023Esophageal qlrkqy94Intra-abdominal bjpchu9408/12/2015 05/25/2023Malabsorption omylrrqt65Morbid kxiakvj1708/12/2015 05/25/2023Multiple pulmonary wrsmabn64/30/S/P finger joint syhkxxbemax72ental ykweyo19 Overview (05/25/2023): IMO Update BPV (benign positional vertigo)upuytren's contracture of right handIBS (irritable bowel syndrome) Bipolar pvdeehyy25/07/2014 Overview (08/14/2015): Problem list name updated by automated process. Provider to review White matter abnormality on MRI of brain03/19/2014ack pain03/19/2014CTS (carpal tunnel syndrome)03/19/2014Peroneal osqgqixhgr13/07/2014Pain medication agreement wtsixd76/10/ Overview (05/25/2023): Patient has history of alcohol abuse and overdose. I am not managing her pain with narcotics due tooverdose and abuse potential. Polysubstance utxwypeo32Suicide nctsser14 Multiple undyhqcvh36Vitamin D kmizoyfekr05 History of gastric ixvlqa14/11/hronic low back pain05/12/2011 05/25/2023 Overview (05/25/2023): With right leg pain IMO Update MVP (mitral valve prolapse)FHx: breast cancer in first degree kojqykiw56Rash and other nonspecific skin eruption 11/14/Viremia11/14/Urinary, incontinence, stress /03/4665Rjabypgvwx26 Overview (05/25/2023): Last drink 02/2009 Drug-seeking zlfilxym09 Overview (05/25/2023): Controlled substance agreement for Vicodin on file and signed 03/27/09. Designated pharmacy: [facility] [place] [phone]. Prescribing physician: Dr. Davion Betancourt. Diagnosis: shoulder pain, migraine, back pain. Shalini Henriquez RN 03/30/2009 8:49 AM Gwhcyw01Insomnia, mldwblrpkzy35Restless legs miqcpshw72/10/Migraineain in joint, lower leg Overview (05/25/2023): nerve damage right leg to knee Shortness of ndwubc99cute posthemorrhagic fqujmc2010/25/2006 05/25/2023Excessive or frequent jpenhzncyrze85Female genital ysjoasmz81bnormality of gait Overview (05/25/2023): right foot drop Chronic airway oirhntmkyzs26Headache Myalgia and xwbwyifq61Undiagnosed cardiac hwtidqi9106/30/2006 05/25/2023TSD (post-traumatic stress disorder) Encounters DateTypeDepartmentCare OsocDiuqiggdhyx60/14/2025Telephone [facility] Multiple Sclerosis [address] [address] Noemi Guzman RN Referral (PT and OT)09/25/2025 11:00 AM CSTVirtual Visit [facility] Multiple [facility] [address] [address] Amador Larkin MD MS (multiple sclerosis) (Primary Dx); Gait disturbance; Cognitive complaints; Restless legs lptaqjfl45/07/2195Omelqu58/28/2025Refill [facility] Multiple Sclerosis [address] [address] Amador Larkin MD Medication Refillfrom Last 3 Months Family History Medical HistoryRelationCommentsHeart DiseaseBrother 1Heart DiseaseFatherBreast CancerMotherBreast CancerPaternal AuntNeurologic DisorderPaternal AuntMS-2 maternal 1st cousinsAnesthesia ReactionNo family hx ofDeep Vein Thrombosis (DVT) No family hx ofRelationStatusCommentsBrother 1AliveBrother 2AliveFatherMother AlivePaternal AuntOther Social History Tobacco UseTypesPacks/DayYears UsedDateSmoking Tobacco: Some DaysCigarettes Smokeless Tobacco: Current Tobacco Cessation:Ready to Q uit: Not Asked; Counseling Given: Not Answered Comments:5 cigarettes Alcohol UseStandard Drinks/WeekCommentsNo0 (1 standard drink = 0.6 oz pure alcohol)PHQ-2AnswerDate RecordedPHQ-2 Cjvtw200/13/2025Adolescent EducationAnswer Date RecordedGetting School Help NeededNot on file3CommentsNo Sex and Gender InformationValueDate RecordedSex Assigned at BirthNot on file Legal OvvLltupz49/04/2012 4:18 AM CSTGender IdentityNot on fileSexual OrientationNot on file Last Filed Vital Signs Vital SignReadingTime TakenCommentsBlood Aorjsads937/8610/18/2024 8:50 AM DEPUTY SHERIFF GENERALIST Niute020510/18/2024 8:50 AM LRPHccugelxmgr53.9 ??C (98.4 ??F)08/15/2024 1:12 PM CDTRespiratory Fcgp4175 10:10 AM CDTOxygen Revkicpnuo537%10/18/2024 8:50 AM CSTInhaled Oxygen Concentration--Zwsgyi48.7 kg (125 lb)09/25/2025 10:52 AM ZXQFugqie433.4 cm (6' 1)09/25/2025 10:52 AM CSTBody Mass Index16.4909/25/2025 10:52 AM DEPUTY SHERIFF GENERALIST Plan of Treatment Health MaintenanceDue DateLast DoneCommentsADVANCE CARE HNSGYWJM1967ANNUAL REVIEW OF HM ERIYAY47 1967COPD ACTION PLAN1967CT OOEEQJLKYGAV1967 KYMBERLY HDVMDSFGFT1967NICOTINE/TOBACCO CESSATION COUNSELING Q 1 YR1967 PHQ-9112/09/19666676ACDQNKBKXJ1967sDNA (Cologuard)1967HEPATITIS C NLZVMMSHC44/27/1985HEPATITIS B VACCINE (1 of 3 - 19+ 3-dose series)1986 ZOSTER VACCINE (1 of 2)10/09/19861791FLURH35/27/2007PNEUMOCOCCAL VACCINE 50+ YEARS (3 of 3 - PCV), 11/13/2009FIT12/06/MEDICARE ANNUAL WELLNESS VISIT, 09/15/2014FLEX SIG12/12/2018 12/12/2013COVID-19 VACCINE (2 - Donte risk series)/ DTAP/TDAP/TD VACCINE (2 - Td or Tdap)/09/2013, 10/13/2001COLONOSCOPY , 12/12/2013COLORECTAL CANCER HLDKBWWFC34/30/2024LUNG CANCER QULZAFOTV64, 06/08/2024, 07/20/2014INFLUENZA VACCINE (#1) , 10/28/2009, 09/10/2008, Additional history existsMAMMO EVFZNIAUV23/11/2023, 01/30/2014, 01/30/2014, Additional history exists DIABETES MKOJITCCV05/01/2024, 4PAP1/01/2024, 03/21/2024, 03/21/2024HIV CCZYUHWZCNwgsokqvc29/03/2024, 11/22/2006HPV VACCINE (No Doses Required)CompletedMENINGITIS VACCINEAged OutNo longer eligible based on patient's age to complete this topic Procedures Procedure NamePriorityDate/TimeAssociated DiagnosisCommentsMA DIAGNOSTIC BILATERAL W/ LESADwqbthx74/01/2024 2:20 PM CDT Anal squamous cell carcinoma (H) Axillary lymphadenopathy HPV SCR W REF TO [facility] ANAL PAP OR NOUZFLSeibfwq94/03/2024 1:54 PM CDT Anal squamous cell carcinoma (H) COMPREHENSIVE METABOLIC QKAINXeeflwa49/03/2024 11:53 AM CDT Anal squamous cell carcinoma (H) Weight loss HIV ANTIGEN ANTIBODY YSTTTDdsnhbd74/03/2024 11:53 AM CDT Anal squamous cell carcinoma (H) CT CHEST/ABDOMEN/PELVIS W RJBWQWWPMtcsryz35/27/2024 1:54 PM CDT Anal squamous cell carcinoma (H) Malignant neoplasm of pelvis (H) HIM COLONOSCOPY YIFQLmqbztp19/30/2014 from Last 3 Months or Most Recently Relevant to Health Maintenance Results * (ABNORMAL) MA Diagnostic Bilateral w/[place] (09/13/2024 2:20 PM CDT)Anatomical RegionLateralityModalityBreastBilateralMammographySpecimen (Source)Anatomical Location / LateralityCollection Method / VolumeCollection TimeReceived Time Impressions 09/13/2024 4:02 PM CDT IMPRESSION: BI-RADS CATEGORY: 4 - Suspicious. RECOMMENDED FOLLOW-UP: Biopsy. Ultrasound-guided core needle biopsy of left axillary lymphadenopathy. Specimens to be sent in RPMI and formalin. The patient was given the results of the examination. CHARLA POPE MD Narrative 09/13/2024 4:02 PM CDT Examination: Bilateral digital diagnostic mammography with tomosynthesis and computer aided detection . Bilateral axillary ultrasound. Comparison: PET CT 06/08/2024, mammogram 01/30/2014 History/Family History: History of anal squamous cell carcinoma. Left axillary lymphadenopathy on PET CT. Right axillary lump. Technique: Tomosynthesis BREAST DENSITY: There are scattered areas of fibroglandular density. Findings: There are plump left axillary lymph nodes. No suspicious mammographic finding otherwise. Targeted bilateral axillary ultrasound was performed demonstrating a superficial benign-appearing right axillary lymph node at the site of the lump. In the left axilla there are at least 6 rounded enlarged lymph nodes with effaced fatty lydia, similar in appearance to the PET CT. The largest lymph node in the left axilla measures 1.8 x 1.4 x 1.3 cm. 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 (Electronically signed by: Gonzalo Escobar MD August 23, 2024 11:25 AM) 08/15/2024 1:54 PM CDTUM [facility]NO[facility] (LDL)COMMENTSHPV 58 is classified as a High Risk (carcinogenic) type for clinical management purposes by the [place] enters for Disease Control. Correlation with cytology/morphology and clinical features is recommended. 08/15/2024 1:54 PM CDTUM [facility] (LDL)METHODOLOGYTotal cellular DNA was extracted from the above specimen and up to 1 ug subjected to DNA amplification with a series of oligonucleotide primers directed to the L1 region of the human papillomavirus genome. The resulting PCR fragments were then by capillary electrophoresis using a [employer] with BioCalculator software. The PCR products from samples positive for HPV DNA were then digested with a series of restriction endonuclease enzymes. The resulting pattern of bands corresponding to the digested DNA products were interpreted according to the corresponding HPV DNA controls. Amplification of a segment of the beta globin gene serves as an internal control of DNA amplification.08/15/2024 1:54 PM CDTUM [facility] (LDL)DISCLAIMERThis test was developed and its performance characteristics determined by [facility]. It has not been cleared or approved by the FDA. The laboratory is regulated under CLIA as qualified to perform high-complexity testing. This test is used for clinical purposes. It should not be regarded as investigational or for research. A resident/fellow in an accredited training program was involved in the selection of testing, review of laboratory data, and/or interpretation of this case. I, as the senior physician, attest that I:(i) confirmed appropriate testing, (ii) examined the relevant raw data for the specimen(s); and (iii) rendered or confirmed the interpretation(s). 08/15/2024 1:54 PM CDTUM [facility] (LDL)Specimen DescriptionAnal pap/swab KS50-9716812/03/2024 1:54 PM CDTUM [facility] (LDL)Specimen (Source) Anatomical Location / LateralityCollection Method / VolumeCollection Time Received TimeBody fluid, unspANAL STRUCTURE / Jczjjlf8808/15/2024 1:54 PM CDT 08/19/2024 9:47 AM CDT Narrative Authorizing ProviderResult TypeResult StatusSara Campuzano APRN CNPLAB - GENOMICSFinal ResultPerforming OrganizationAddressCity/State/ZIP Code Phone Number [facility] (LDL) [facility] [address] [facility], [address] * HIV Antigen Antibody Combo (08/15/2024 11:53 AM CDT)ComponentValueRef Range Test MethodAnalysis TimePerformed AtPathologist SignatureHIV Antigen Antibody KqtqoCtkrcbeghynVyhkmyilkcb25/03/2024 6:25 PM CDTUU LABORATORYComment:Negative HIV-1 p24 antigen and HIV-1/2 antibody screening test results usually indicate the absenceof HIV-1 and HIV-2 infection. However, such negative results do not rule-out acute HIV infection. If acute HIV-1 or HIV-2 infection is suspected, detection of HIV-1 or HIV-2 RNA is recommended. This result is obtained using the [employer] HIV Duo method on the anjelica e801 immunoassay analyzer. Specimen (Source)Anatomical Location / LateralityCollection Method / Volume Collection TimeReceived TimeBloodBLOOD SPECIMEN / UnknownVenipuncture / Wjwlqrl5908/15/2024 11:53 AM CDT1 12:00 PM CDT Narrative Authorizing ProviderResult TypeResult StatusCarlene Rolon MDLAB - BLOOD ORDERABLESFinal ResultPerforming OrganizationAddressCity/State/ZIP CodePhone Number LAB[facility] [place] [facility] [address] [facility], [address] [address], [place] * (ABNORMAL) Comprehensive metabolic panel (08/15/2024 11:53 AM CDT)Component ValueRef RangeTest MethodAnalysis TimePerformed AtPathologist SignatureSodium 545952 - 145 mmol/L1 12:26 PM CDTUCSC LABORATORY - CORE LABPotassium 4.33.4 - 5.3 mmol/L1 12:26 PM CDTUCSC LABORATORY - CORE LABCarbon Dioxide (CO2)2722 - 29 mmol/L1 12:26 PM CDTUCSC LAB[facility] - [facility] LAB Anion Gap87 - 15 mmol/L1 12:26 PM CDTUCSC LABORATORY - CORE LABUrea Nitrogen9.56.0 - 20.0 mg/dL08/15/2024 12:26 PM CDTUCSC LAB[facility]ORY - [facility] LAB Creatinine0.730.51 - 0.95 mg/dL08/15/2024 12:26 PM CDTUCSC LABORATORY - CORE LABGFR Estimate>90>60 mL/min/1.53j58508/15/2024 12:26 PM CDTUCSC LABORATORY - CORE LABComment:eGFR calculated using 2020 CKD-EPI equation.Calcium8.6(L)8.8 - 10.4 mg/dL08/15/2024 12:26 PM CDTUCSC LABORATORY - CORE LABComment:Reference intervals for this test were updated on 05/28/2024 to reflect our healthy population more accurately. There may be differences in the flagging of prior results with similar values performed with this method. Those prior results can be interpreted in the context of the updated reference intervals.Chloride 26321 - 107 mmol/L1 12:26 PM CDTUCSC LABORATORY - CORE VLEHupqfar495 (H)70 - 99 mg/dL08/15/2024 12:26 PM CDTUCSC LABORATORY - CORE LABAlkaline Lbgmrxgknjp4969 - 150 U/L1 12:26 PM CDTUCSC LABORATORY - CORE LABAST 240 - 45 U/L1 12:26 PM CDTUCSC [facility] - CORE NGLFYH291 - 50 U/L 08/15/2024 12:26 PM CDTUCSC LAB[facility]ATORY - CORE LABProtein Total6.3(L)6.4 - 8.3 g/dL08/15/2024 12:26 PM CDTUCSC LAB[facility]ATORY - CORE LABAlbumin3.83.5 - 5.2 g/dL 08/15/2024 12:26 PM CDTUCSC LABORATORY - CORE LABBilirubin Total0.3<=1.2 mg/dL 08/15/2024 12:26 PM CDTUCSC LABORATORY - CORE LABSpecimen (Source)Anatomical Location / LateralityCollection Method / VolumeCollection TimeReceived Time BloodBLOOD SPECIMEN / UnknownVenipuncture / Rohfacy6108/15/2024 11:53 AM CDT 08/15/2024 11:59 AM CDT Narrative Authorizing ProviderResult TypeResult StatusCarlene Rolon MDLAB - BLOOD ORDERABLESFinal ResultPerforming OrganizationAddressCity/State/ZIP CodePhone Number [facility] - [address] 1st [place] [address] * CT Chest/Abdomen/Pelvis w Contrast (06/08/2024 1:54 PM CDT)Anatomical Region LateralityModalityAbdomen/Pelvis, Chest, SUBRAD CT BODY, UMP CT CHEST, UMP CT ABDOMEN PELVIS, RAD CTPositron Emission Tomography (PET)Specimen (Source) Anatomical Location / LateralityCollection Method / VolumeCollection Time Received Time Impressions 06/13/2024 8:18 AM CDT IMPRESSION: In this patient with biopsy-proven anal squamous cell carcinoma: 1. FDG avid lesion of the anus with several regional cutaneous/subcutaneous FDG lesions of the left gluteal cleft. ??No lymph node or distant hypermetabolic metastases. 2. Left axillary and subpectoral lymphadenopathy with low background FDG uptake. Recommend biopsy concerning for a low grade lymphoma. 3. Scattered sub-4 mm pulmonary nodules below the size threshold for characterization by PET. ??(CT angio chest 07/20/2014 has been requested for comparison to see if these are chronic.) Incidentals: 4. Post operative bone graft site from right iliac for lumbar fusion. 5. Hepatomegaly with several photopenic hypodensities favored to represent cysts. 6. Mild biliary ductal dilatation status post cholecystectomy. 7. Degenerative change of the lumbar spine greatest at L2-L3 with grade 1 retrolisthesis. I have personally reviewed the examination and initial interpretation and I agree with the findings. ADAM JARA MD Narrative 06/13/2024 8:18 AM CDT Combined Report of: PET and CT on 06/08/2024 1:54 PM: FOLLOW-UP APPOINTMENT: 06/18/2024 1. PET of the neck, chest, abdomen, and pelvis. 2. PET CT Fusion for Attenuation Correction and Anatomical Localization. 3. Diagnostic CT of the chest, abdomen and pelvis with intravenous contrast obtained for diagnostic interpretation. 4. 3D MIP and PET-CT fused images were processed on an independent workstation and archived to PACS and reviewed by a radiologist. Technique: 1. PET: The patient received 10.06 mCi of F-18-FDG. The serum glucose was 96 mg/dL prior to administration. Body weight was 61.9 kg. Images were evaluated in the axial, sagittal, and coronal planes as well as the rotational whole body MIP. Images were acquired from cranial vertex to feet. UPTAKE WAS MEASURED AT [address]: Volumetric acquisition for clinical interpretation of the chest, abdomen, and pelvis acquired at 3 mm sections. The chest, abdomen, and pelvis were evaluated at 5 mm sections in bone, soft tissue, and lung windows. Contrast and Medications: IV contrast: 84 mL of Isovue 370 intravenously. PO contrast: 500 mL water. Additional Medications: None. 3. 3D MIP and PET-CT fused images were processed on an independent workstation and archived to PACS and reviewed by a radiologist. INDICATION: Anal squamous cell carcinoma (H); Malignant neoplasm of pelvis (H). 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 PET requested for staging. COMPARISON: MR rectum 05/23/2024. FINDINGS: BACKGROUND: Liver SUV max = 2.7, Aorta Blood SUV max = 2.1. HEAD/NECK: Pharyngeal mucosal spaces: Nasopharynx and palatine tonsils are within normal limits. Tongue base is normal. Oral tongue and buccal mucosa of the oral cavity is normal. Oropharynx, hypopharynx and larynx are within normal limits. Sinonasal region: Paranasal sinuses are clear. No mass within the nasal cavity. Lymph nodes: No FDG avid or abnormally enlarged lymph nodes. Salivary glands: The major salivary glands are within normal limits. Thyroid gland: The thyroid gland is within normal limits. Vascular structures: The major vasculature of the neck are patent. Brain: No abnormal FDG avid lesion or abnormal enhancement. Orbital cavities: No abnormal FDG avid lesion or abnormal enhancement. Hyperostosis frontalis interna. CHEST: Lymph nodes: Bulky left axillary and subpectoral lymphadenopathy measuring up to 1.4 cm short axis (4/101) with below background FDG uptake, SUV max 1.9. No enlarged or FDG avid mediastinal or hilar lymph nodes. Lungs: The central tracheobronchial tree is clear. Mucous plug versus endobronchial nodule in the posterior left upper lobe (8/74). Emphysematous changes with subsegmental atelectasis. Multiple sub-4 mm solid pulmonary nodules without FDG avidity, for example 3 mm left lower lobe solid nodule (8/60) and 3 mm right lower lobe solid nodule (8/79). No acute consolidation. ??No pleural effusion or pneumothorax. Heart and great vessels: Heart size is within normal limits. No pericardial effusion. The thoracic aorta and main pulmonary artery are within normal limits. Coronary artery and aortic atherosclerotic calcifications. The esophagus is decompressed. Breasts: No abnormal uptake in the breasts. ABDOMEN AND PELVIS: Liver: No FDG avid lesion. Several hepatic photopenic hypodensities, the largest in hepatic segment 6 measuring up to 4.5 cm. The liver measures 23.7 cm in craniocaudal dimension. Mild intrahepatic or extrahepatic biliary ductal dilatation in the setting of surgically absent gallbladder. Pancreas: The pancreas is within normal limits. No pancreatic ductal dilatation. Spleen: No FDG avid lesion. Accessory splenule. Adrenal glands: No FDG avid foci. Kidneys: No FDG avid lesion. No hydronephrosis. The urinary bladder is decompressed. Reproductive organs are within normal limits. Gastrointestinal system: Postsurgical changes of gastric bypass. Normal caliber of the small and large bowel. Lymph nodes: No FDG avid or abnormally enlarged lymph nodes. Relative paucity of intra-abdominal fat. 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 ?? Small amount of ascites. EXTREMITIES: No abnormal FDG uptake in the visualized extremities. BONES AND SOFT TISSUES: FDG avid lesions at the anus measuring 1.4 x 0.6 cm with SUV max 4.3. This is better characterized in terms of size on recent MRI. There are FDG avid cutaneous/subcutaneous lesions for example 1.3 x 0.8 cm along the left gluteal cleft (4/310) with SUV max 3.4, and roughly background FDG uptake asymmetric 0.6 cm cystic soft tissue attenuation of the left gluteal cleft (4/299). Lucent bone harvest site in the posterior right ischium (4/246) measuring 2.7 x 2.4 x 4.4 cm with peripheral FDG uptake, SUV max 3.2. Degenerative focal uptake near the left femoral head (4/285). Punctate linear distribution sclerosis of posterior left 10th rib (4/160) without FDG uptake. ??Old fractures right sixth and 11th ribs Posterior fusion L4-S1. Grade 1 retrolisthesis of L2 on L3 similar to MR 10/17/2023, with degenerative changes of the opposing endplates and vacuum disc phenomena. Dextroscoliotic curvature of the thoracic spine. SPINAL CANAL: FDG avid lesion at the level of L2-3 in the anterior spinal canal with CT correlate of disc vacuum phenomenon, likely inflammatory degenerative change. Procedure Note Adam Jara MD - 06/13/2024 Combined Report of: PET and CT on 06/08/2024 1:54 PM: FOLLOW-UP APPOINTMENT: 06/18/2024 1. PET of the neck, chest, abdomen, and pelvis. 2. PET CT Fusion for Attenuation Correction and Anatomical Localization. 3. Diagnostic CT of the chest, abdomen and pelvis with intravenous contrast obtained for diagnostic interpretation. 4. 3D MIP and PET-CT fused images were processed on an independent workstation and archived to PACS and reviewed by a radiologist. Technique: 1. PET: The patient received 10.06 mCi of F-18-FDG. The serum glucose was 96 mg/dL prior to administration. Body weight was 61.9 kg. Images were evaluated in the axial, sagittal, and coronal planes as well as the rotational whole body MIP. Images were acquired from cranial vertex to feet. UPTAKE WAS MEASURED AT [address]: Volumetric acquisition for clinical interpretation of the chest, abdomen, and pelvis acquired at 3 mm sections. The chest, abdomen, and pelvis were evaluated at 5 mm sections in bone, soft tissue, and lung windows. Contrast and Medications: IV contrast: 84 mL of Isovue 370 intravenously. PO contrast: 500 mL water. Additional Medications: None. 3. 3D MIP and PET-CT fused images were processed on an independent workstation and archived to PACS and reviewed by a radiologist. INDICATION: Anal squamous cell carcinoma (H); Malignant neoplasm of pelvis (H). 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 PET requested for staging. COMPARISON: MR rectum 05/23/2024. FINDINGS: BACKGROUND: Liver SUV max = 2.7, Aorta Blood SUV max = 2.1. HEAD/NECK: Pharyngeal mucosal spaces: Nasopharynx and palatine tonsils are within normal limits. Tongue base is normal. Oral tongue and buccal mucosa of the oral cavity is normal. Oropharynx, hypopharynx and larynx are within normal limits. Sinonasal region: Paranasal sinuses are clear. No mass within the nasal cavity. Lymph nodes: No FDG avid or abnormally enlarged lymph nodes. Salivary glands: The major salivary glands are within normal limits. Thyroid gland: The thyroid gland is within normal limits. Vascular structures: The major vasculature of the neck are patent. Brain: No abnormal FDG avid lesion or abnormal enhancement. Orbital cavities: No abnormal FDG avid lesion or abnormal enhancement. Hyperostosis frontalis interna. CHEST: Lymph nodes: Bulky left axillary and subpectoral lymphadenopathy measuring up to 1.4 cm short axis (4/101) with below background FDG uptake, SUV max 1.9. No enlarged or FDG avid mediastinal or hilar lymph nodes. Lungs: The central tracheobronchial tree is clear. Mucous plug versus endobronchial nodule in the posterior left upper lobe (8/74). Emphysematous changes with subsegmental atelectasis. Multiple sub-4 mm solid pulmonary nodules without FDG avidity, for example 3 mm left lower lobe solid nodule (8/60) and 3 mm right lower lobe solid nodule (8/79). No acute consolidation. No pleural effusion or pneumothorax. Heart and great vessels: Heart size is within normal limits. No pericardial effusion. The thoracic aorta and main pulmonary artery are within normal limits. Coronary artery and aortic atherosclerotic calcifications. The esophagus is decompressed. Breasts: No abnormal uptake in the breasts. ABDOMEN AND PELVIS: Liver: No FDG avid lesion. Several hepatic photopenic hypodensities, the largest in hepatic segment 6 measuring up to 4.5 cm. The liver measures 23.7 cm in craniocaudal dimension. Mild intrahepatic or extrahepatic biliary ductal dilatation in the setting of surgically absent gallbladder. Pancreas: The pancreas is within normal limits. No pancreatic ductal dilatation. Spleen: No FDG avid lesion. Accessory splenule. Adrenal glands: No FDG avid foci. Kidneys: No FDG avid lesion. No hydronephrosis. The urinary bladder is decompressed. Reproductive organs are within normal limits. Gastrointestinal system: Postsurgical changes of gastric bypass. Normal caliber of the small and large bowel. Lymph nodes: No FDG avid or abnormally enlarged lymph nodes. Relative paucity of intra-abdominal fat. 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 Small amount of ascites. EXTREMITIES: No abnormal FDG uptake in the visualized extremities. BONES AND SOFT TISSUES: FDG avid lesions at the anus measuring 1.4 x 0.6 cm with SUV max 4.3. This is better characterized in terms of size on recent MRI. There are FDG avid cutaneous/subcutaneous lesions for example 1.3 x 0.8 cm along the left gluteal cleft (4/310) with SUV max 3.4, and roughly background FDG uptake asymmetric 0.6 cm cystic soft tissue attenuation of the left gluteal cleft (4/299). Lucent bone harvest site in the posterior right ischium (4/246) measuring 2.7 x 2.4 x 4.4 cm with peripheral FDG uptake, SUV max 3.2. Degenerative focal uptake near the left femoral head (4/285). Punctate linear distribution sclerosis of posterior left 10th rib (4/160) without FDG uptake. Old fractures right sixth and 11th ribs Posterior fusion L4-S1. Grade 1 retrolisthesis of L2 on L3 similar to MR 10/17/2023, with degenerative changes of the opposing endplates and vacuum disc phenomena. Dextroscoliotic curvature of the thoracic spine. SPINAL CANAL: FDG avid lesion at the level of L2-3 in the anterior spinal canal with CT correlate of disc vacuum phenomenon, likely inflammatory degenerative change. IMPRESSION: In this patient with biopsy-proven anal squamous cell carcinoma: 1. FDG avid lesion of the anus with several regional cutaneous/subcutaneous FDG lesions of the left gluteal cleft. No lymph node or distant hypermetabolic metastases. 2. Left axillary and subpectoral lymphadenopathy with low background FDG uptake. Recommend biopsy concerning for a low grade lymphoma. 3. Scattered sub-4 mm pulmonary nodules below the size threshold for characterization by PET. (CT angio chest 07/20/2014 has been requested for comparison to see if these are chronic.) Incidentals: 4. Post operative bone graft site from right iliac for lumbar fusion. 5. Hepatomegaly with several photopenic hypodensities favored to represent cysts. 6. Mild biliary ductal dilatation status post cholecystectomy. 7. Degenerative change of the lumbar spine greatest at L2-L3 with grade 1 retrolisthesis. I have personally reviewed the examination and initial interpretation and I agree with the findings. ADAM JARA MD Authorizing ProviderResult TypeResult StatusAmy Bebe Beltre MDIMG CT ORDERABLESFinal Result * - HIM Screen Colonoscopy Scan (12/12/2013) Narrative Linda Herman CMA - 12/12/2013 Result Autom[employer] Internet Sales Consultant Chet Galicia MD - 12/12/2013 10:50 AM DEPUTY SHERIFF GENERALIST [facility] Patient Name: MARYANA CLEMONS Date of Service: ??12/12/2013 ??: 1965 Age: 48Y Sex: F DC ?Site MRN: Patient Loc/Room #: BRSJENDO/SJ ENDO Provider: Chet Galicia MD, Gastroenterology GI PROCEDURE SITE: [facility] ORDERED BY: ??ELIOT LENNON PROCEDURE: Colonoscopy PRIMARY CARE PROVIDER: Ambika Julio MD REFERRING HEALTH CARE PROVIDER: Eliot Biggs MD INDICATIONS: Hematochezia. INSTRUMENT: Olympus pediatric variable stiffness colonoscope. MEDICATIONS: Versed 7.5 mg and fentanyl 150 mcg slow IV push preprocedure and intraprocedure for conscious sedation effects. PROCEDURE: After informed consent was obtained to include discussion of indications, risks (inclusive, but not limited to, missed lesions, pain, infection, perforation, hemorrhage), benefits, and alternatives, the patient underwent colonoscopy examination. The Olympus pediatric variable stiffness co lonoscope was advanced through the anus into the rectal vault under blind intubation, where direct visualization was utilized to advance through a good to fair quality prepped colon to the cecal base. Cecal anatomy to include the appendiceal orifice and ileocecal valve was identified. Mucosal inspection from the cecal base to the dentate line was performed. No mucosal abnormalities were noted throughout the examination. Flushing and washing was performed in multiple locations. Retroflexion in the rectal vault revealed moderate-sized internal hemorrhoids. Withdrawal through the anal canal confirmed the hemorrhoid changes extending into the anal canal. Physical exam observed an external hemorrhoidal tag as well. The procedure was terminated and the patient recovered. ASSESSMENT: Normal colonoscopy examination with internal hemorrhoids as source of the patient's hematochezia. POST CONSCIOUS SEDATION/ANESTHESIA NOTE The patient was monitored post IV conscious sedation with continuous EKG and pulse monitoring, as well as periodic blood pressure monitoring. Upon the patient regaining an alert level of sustained consciousness and the continuous O2 saturation and blood pressure monitoring confirming recovery from the anesthetic effect of the intravenous medications, the patient was discharged in the care of an adult attendant. Guidelines for immediate medical attention post procedure were given to the patient in a verbal andwritten format. Chet Galicia MD [facility] Gastroenterology cc: Eliot Biggs MD, Ordering Provider Ambika Julio MD /JCSimba Job ID: [id number] /[id number] Document ID: [id number] Authorizing ProviderResult TypeResult StatusProvider OutsidePROCEDURESFinal Result from Last 3 Months or Most Recently Relevant to Health Maintenance Insurance * Guarantor: Maryana Clemons TypeRelation to PatientDate of BirthPhone Billing AddressPersonal/SghktgTtld[address] [place] [address] * Guarantor: Maryana Clemons TypeRelation to PatientDate of BirthPhone Billing AddressPersonal/GfbwdyYvxp[address] [place] [address] * Guarantor: Maryana Clemons TypeRelation to PatientDate of BirthPhone Billing AddressPersonal/NqlykkApbt[address] [place] [address] [place] [phone] Care Teams Team MemberRelationshipSpecialtyStart DateEnd Date Makayla Ribeiro NP [facility] [address] [place] [address] PCP - GeneralNurse Practitioner - Family12/07/23 Amador Larkin MD [address] [place] [address] [phone] Neurology02/26/15 Lenny Gunn MD [facility] [address] [address] MDHand Surgery04/27/15 Amador Larkin MD [address] [place] [address] Assigned Neuroscience Bytsiszq00/22/20 Nadine Herrera MD [address] [place] [address] [phone] Gynecologic Oncology04/11/24 Nadine Herrera MD [address] [place] [address] [phone] Assigned Cancer Care Provider06/04/24 Carlene Rolon MD [address] [place] [address] [address] [place], [place] [address] FellowHematology & Oncology07/22/24 von Sara Ramírez APRN STORY TELLER [address] [place] [address] [address] [place], [place] 118285 Nurse PractitionerColon & Rectal08/07/24 Matti Kitchen MD [address] [place] [address] [phone] MDHematology & Anwwtkww71/3/24 Sara Campuzano APRN STORY TELLER [address] [address] Assigned Surgical Aviatjdt28/23/24
--- OUTSIDE RECORDS SUMMARY | 2025-10-28 10:16 | XMS_ITS | Encounter Summary ---
Author Organization [facility] Address [address] [place] [address] Care Team Providers Care Transportation Services Representative Name Role Phone Amador Larkin MD Unavailable [phone] Lenny Gunn MD Unavailable [phone] Amador Larkin MD Unavailable [phone] Makayla Ribeiro FOOT AND ANKLE SURGEON Primary Care Provider [phone] Nadine Herrera MD Unavailable [phone] Nadine Herrera MD Unavailable [phone] Carlene Rolon MD Unavailable [phone] von Sara Ramírez APRN BESSEMER REGULATOR Unavaila ble Matti Kitchen MD Unavailable [phone] Sara Campuzano APRN BESSEMER REGULATOR Unavaila ble Reason for Visit * ReasonCommentsMedication Refill Encounter Details DateTypeDepartmentCare Team (Latest Contact Info)Cnhehgltgwd10/28/2025[facility] [address] [phone] Amador Larkin MD [address] [place] [address] Medication Refill Social History Tobacco UseTypesPacks/DayYears UsedDateSmoking Tobacco: Some DaysCigarettes Smokeless Tobacco: Current Comments:5 cigarettes Alcohol UseStandard Drinks/WeekCommentsNo0 (1 standard drink = 0.6 oz pure alcohol)PHQ-2AnswerDate RecordedPHQ-2 Zohrn1874Adolescent EducationAnswer Date RecordedGetting School Help NeededNot on file3CommentsNo Sex and Gender InformationValueDate RecordedSex Assigned at BirthNot on file Legal FdiXmtcgz83/04/2012 4:18 AM CSTGender IdentityNot on fileSexual OrientationNot on filedocumented as of this encounter Miscellaneous Notes * Telephone Encounter - Noemi Guzman RN - 09/09/2025 1:10 PM CDT Received refill request for gabapentin from [facility]; Patient was last seen in April 2024 and has follow up appointment in September [address] Larkin. Refilled for one month with 0 refills, to last until follow-up, per [place] refill protocol. Noemi Guzman RN documented in this encounter Plan of Treatment Not on file documented as of this encounter Visit Diagnoses Diagnosis Restless legs syndrome Restless legs syndrome (RLS) documented in this encounter Care Teams Team MemberRelationshipSpecialtyStart DateEnd Date Makayla Ribeiro NP [facility] [address] [place] [address] PCP - GeneralNurse Practitioner - Family12/07/23 Amador Larkin MD [address] [place] [address] 1985[address] Neurology02/26/15 Lenny Gunn MD [facility] [address] [place] [address] MDHand Surgery04/27/15 Amador Larkin MD [address] [place] [address] Assigned Neuroscience Fzowybrp95/22/20 Nadine Herrera MD [address] [place] [address] Gynecologic Oncology04/11/24 Nadine Herrera MD [address] [place] [address] [phone] Assigned Cancer Care Provider06/04/24 Carlene Rolon MD [address] [place] [address] [address] [place], [place] [phone] FellowHematology & Oncology07/22/24 Sara Campuzano APRN BESSEMER REGULATOR [address] [place] [address] [address] [place], [place] 200[address] Nurse PractitionerColon & Rectal08/07/24 Matti Kitchen MD [address] [place] [address] [phone] MDHematology & Oruthail18/3/24 Sara Campuzano APRN BESSEMER REGULATOR [address] [place] [address] [address] [place] [address] Assigned Surgical Pllqzagd13/23/24documented as of this encounter
--- OUTSIDE RECORDS SUMMARY | 2025-10-28 10:16 | XMS_ITS | Encounter Summary ---
Author Organization [facility] Address [address] [place] [address] Care Team Providers Care Oxyacetylene Burner Name Role Phone Amador Larkin MD Unavailable [phone] Lenny Gunn MD Unavailable [phone] Amador Larkin MD Unavailable [phone] Makayla Ribeiro SCUBA DIVING TEACHER Primary Care Provider Nadine Herrera MD Unavailable [phone] Nadine Herrera MD Unavailable [phone] Carlene Rolon MD Unavailable [phone] von Sara Ramírez APRN BACK SIZER Unavaila ble Matti Kitchen MD Unavailable [phone] Sara Campuzano APRN BACK SIZER Unavaila ble Reason for Visit * ReasonOnset MuhsOxxtfbizVdiqifix79/14/2025PT and OT Encounter Details DateTypeDepartmentCare Team (Latest Contact Info)Ocyoklcgqmi49/14/2025[facility] [address] [phone] Noemi Guzman RN Referral (PT and OT) Social History Tobacco UseTypesPacks/DayYears UsedDateSmoking Tobacco: Some DaysCigarettes Smokeless Tobacco: Current Comments:5 cigarettes Alcohol UseStandard Drinks/WeekCommentsNo0 (1 standard drink = 0.6 oz pure alcohol)PHQ-2AnswerDate RecordedPHQ-2 Svobb267/13/2025Adolescent EducationAnswer Date RecordedGetting School Help NeededNot on file3CommentsNo Sex and Gender InformationValueDate RecordedSex Assigned at BirthNot on file Legal GbaXbvnaz21/04/2012 4:18 AM CSTGender IdentityNot on fileSexual OrientationNot on filedocumented as of this encounter Miscellaneous Notes * Telephone Encounter - Noemi Guzman RN - 09/26/2025 10:15 AM CST PT and OT referrals faxed to [facility] (fax [phone], phone [phone]). Noemi Guzman RN [employer]ER [employer] TRAINING documented in this encounter Plan of Treatment Not on file documented as of this encounter Visit Diagnoses Not on filedocumented in this encounter Care Teams Team MemberRelationshipSpecialtyStart DateEnd Date Makayla Ribeiro NP [facility] [address] [place] [address] PCP - GeneralNurse Practitioner - Family12/07/23 Amador Larkin MD [address] [place] [address] Neurology02/26/15 Lenny Gunn MD [facility] [place] [address] [place] [address] Hand Surgery04/27/15 Amador Larkin MD [address] [place] [address] Assigned Neuroscience Gytbkmxz18/22/20 Nadine Herrera MD [address] [place] [address] Gynecologic Oncology04/11/24 Nadine Herrera MD [address] [place] [address] 25385 Assigned Cancer Care Provider06/04/24 Carlene Rolon MD [address] [place] [address] FellowHematology & Oncology07/22/24 Sara Campuzano APRN BACK SIZER [address] [place] [address] Nurse PractitionerColon & Rectal08/07/24 Matti Kitchen MD [address] [place] [address] MDHematology & Srjmvmed36/3/24 Sara Campuzano APRN BACK SIZER [address] [place] [address] Assigned Surgical Lrtrxlcs67/23/24documented as of this encounter
[2025-10-28 10:57] LABS: Lactate* 2.5 mmol/L (0.5-1.9)
[2025-10-28 10:58] LABS: Hematocrit* 22.4 % (33.0-51.0); Immature Granulocytes Abs Auto 0.01 K/uL (0.00-0.30); Immature Granulocytes Pct Auto 0.2 %; Lymphocytes Absolute Auto 1.34 K/uL (0.90-2.90); Mean Corpuscular HGB Conc 31 gm/dL (32-36); Mean Corpuscular Hemoglobin 28 pg (26-34); Mean Corpuscular Volume 92 fL (80-100); RDW Coefficient of Variation % 15.1 % (11.5-15.5); Red Blood Count* 2.44 m/uL (4.00-5.20); White Blood Count* 6.22 K/uL (4.50-11.00)
[2025-10-28 11:02] LABS: Hemoglobin* 6.9 gm/dL (12.0-16.0); Slide Review Reflex No
[2025-10-28 11:22] LABS: Albumin* 3.3 g/dL (3.3-5.0); Chloride* 105 mmol/L (96-114); Potassium* 4.1 mmol/L (3.6-5.1); Sodium* 131 mmol/L (135-149)
[2025-10-28 11:25] LABS: Alanine Aminotransferase* 18 U/L (4-35); Alkaline Phosphatase* 58 U/L (40-150); Anion Gap 2 mEq/L (7-15); Aspartate Amino Transferase* 22 U/L (12-35); Bilirubin Direct* 0.2 mg/dL (0.0-0.5); Bilirubin Total* 0.3 mg/dL (0.1-1.5); Blood Urea Nitrogen* 25 mg/dL (7-30); Calcium* 8.3 mg/dL (8.4-10.6); Carbon Dioxide* 24 mmol/L (20-32); Creatinine* 0.7 mg/dL (0.5-1.5); Est. Creatinine Clearance* 78.41; Estimated Glomerular Filt Rate 100 ml/min; Glucose* 94 mg/dL (60-115); Total Protein* 5.6 g/dL (6.0-8.3)
--- NOTE | 2025-10-28 11:38 | ED.GENADULT ---
HPI - General Adult General Chief complaint: GI Bleed Stated complaint: GI bleed Time Seen by Provider: 10/28/25 10:48 Source: patient Mode of arrival: ambulatory Limitations: no limitations History of Present Illness HPI narrative: 60-year-old female presenting today with rectal bleeding. She states that she noticed bleeding 2 nights ago. The 1st episode was small and did not recur. Then last night it started again. She states that she was bleeding most of the night. She now feels lightheaded, dizzy. She denies any chest pain or shortness of breath. She states that she can hardly get from room to room in her house because she feels so lightheaded. She denies any vomiting. 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 She is currently not undergoing any treatment for it- is status post treatment and surgery in [address] [facility] [place]. Patient is unsure of her last colonoscopy, feels that she may have had a sigmoidoscopy about 2 years ago. Related Data Home Medications ?Medication ?Instructions ?Recorded ?Confirmed cholecalciferol (vitamin D3) 125 125 mcg PO QDAY 07/15/22 06/25/25 mcg (5,000 unit) capsule multivitamin 1 tab PO QAM 07/15/22 06/25/25 oxycodone-acetaminophen 7.5 mg-325 2 tab PO DAILY PRN 07/15/22 06/25/25 mg tablet rizatriptan 10 mg tablet 10 mg PO ONCE PRN 12/26/22 06/25/25 gabapentin 300 mg capsule 1,200 mg PO HS 12/11/23 06/25/25 Previous Rx's ?Medication ?Instructions ?Recorded naloxone 4 mg/actuation nasal 4 mg intranasal Q2-3M PRN opioid 11/30/23 spray (Narcan) overdose #2 ea teriflunomide 14 mg tablet 14 mg PO DAILY #90 tabs 02/14/24 albuterol sulfate 90 mcg/actuation 2 puff inhalation Q4-6H PRN 02/18/25 aerosol inhaler (Ventolin HFA) shortness of breath or wheezing #6.7 grams celecoxib 200 mg capsule See Rx Instructions .Route 05/15/25 .COMPLEX #90 caps amitriptyline 50 mg tablet 50 mg PO QDAY #90 tabs 05/22/25 ropinirole 4 mg tablet 4 mg PO QDAY #90 tabs 06/23/25 epinephrine 0.3 mg/0.3 mL 0.3 ml IM ONCE #2 ea 06/25/25 injection, auto-injector propranolol 160 mg capsule,24 160 mg PO DAILY #90 caps 08/08/25 hr,extended release quetiapine 200 mg tablet 200 mg PO QPM #90 tabs 08/08/25 trazodone 100 mg tablet 100 mg PO QPM #90 tabs 08/08/25 dextroamphetamine-amphetamine ER 30 mg PO QAM #30 caps 09/29/25 30 mg 24hr capsule,extend release venlafaxine 150 mg 150 mg PO QAM #30 caps 10/03/25 capsule,extended release 24 hr omeprazole 20 mg capsule,delayed 20 mg PO BID #180 caps 10/21/25 release Allergies Allergy/AdvReac Type Severity Reaction Status Date / Time Opioids - Morphine Analogues Allergy Severe Anaphylaxis Verified 06/25/25 10:53 tramadol Allergy Intermediate Difficulty Verified 06/25/25 10:53 Breathing bupropion Allergy Mild Nausea Verified 06/25/25 10:53 codeine Allergy Mild Nausea Verified 06/25/25 10:53 doxycycline Allergy Mild Abdominal Verified 06/25/25 10:53 Pain Review of Systems Status of ROS: Reports: 10 or more systems reviewed and unremarkable except as noted in History and below [facility] Medical History Squamous cell carcinoma, arm ?C44.621 - Squamous cell carcinoma of skin of unspecified upper limb, including shoulder (ICD-10) Opioid overdose ?T40.2X1A - Poisoning by other opioids, accidental (unintentional), initial encounter (ICD-10) Bee sting allergy ?Z91.030 - Bee allergy status (ICD-10) Carpal tunnel syndrome on both sides ?G56.03 - Carpal tunnel syndrome, bilateral upper limbs (ICD-10) History of atrial fibrillation without current medication ?Z86.79 - Personal history of other diseases of the circulatory system (ICD-10) Surgical History S/P carpal tunnel release (01/09/24) ?Z98.890 - Other specified postprocedural states (ICD-10) History of carpal tunnel surgery of right wrist (2015) ?Z98.890 - Other specified postprocedural states (ICD-10) History of hysterectomy with bilateral oophorectomy ?Z90.710 - Acquired absence of both cervix and uterus (ICD-10) ?Z90.722 - Acquired absence of ovaries, bilateral (ICD-10) History of hand surgery (~2013) ?Z98.890 - Other specified postprocedural states (ICD-10) History of gastric bypass (~2012) ?Z98.84 - Bariatric surgery status (ICD-10) History of fusion of lumbar spine ?Z98.1 - Arthrodesis status (ICD-10) History of cholecystectomy ?Z90.49 - Acquired absence of other specified parts of digestive tract (ICD-10) Family History Mother Family history of malignant neoplasm of breast Social History Smoking Status: Current every day smoker What tobacco products do you use: cigarettes Non-prescribed substance use: denies use Exam Narrative: Exam Narrative: Cachectic, well-developed patient in no acute distress. Alert and oriented x3. Answers questions appropriately. Mood and affect are appropriate. Thoughts are goal oriented and rational. No tangential or magical thinking noted. Patient speaks in full sentences without needing to catch her breath. HEENT: Normocephalic atraumatic. Pupils are equally round reactive to light. Extraocular muscles are intact. Conjunctivae are moist without any icterus noted, pale. Moist mucous membranes, pale. Posterior pharynx is normal. Cardiovascular: Heart is regular rate and rhythm. Lungs: Clear to auscultation bilaterally . Abdomen: Soft and nondistended with normal bowel sounds. She has mild epigastric discomfort. Extremities: Bilateral lower extremities are without edema. Skin: Well perfused, Pale. Const: Vital Signs, click to edit/add: Vital Signs - 24 hr 10/28/25 10:35 10/28/25 10:47 10/28/25 11:15 Temperature 96.9 F L Pulse Rate Pulse Rate [Pulse Oximeter] 70 Respiratory Rate 28 H Blood Pressure Blood Pressure [Ri ght Upper Arm] 77/52 L Pulse Oximetry 92 Oxygen Delivery Me thod Room Air 10/28/25 12:59 10/28/25 13:26 Temperature 98.9 F 98.4 F Pulse Rate 77 75 Pulse Rate [Pulse Oximeter] Respiratory Rate 16 16 Blood Pressure 119/85 119/74 Blood Pressure [Ri ght Upper Arm] Pulse Oximetry 94 Oxygen Delivery Me thod Room Air Room Air Course Course ED Course: 2 IVs established and patient received a L of normal saline bolus. Her blood pressure does react nicely, coming up into the 1 teens. At the same time, blood type and screen were obtained. EKG, read by me, shows normal sinus rhythm with a pulse of 74. Labs show a hemoglobin of 6.9. Sodium slightly low at 131. Lactate elevated at 2.5. Troponin is elevated 0.06. Given that the patient is not having any chest pain or shortness of breath this is likely demand ischemia secondary to acute blood loss. Consent is obtained for a blood transfusion in 2 units of packed red blood cells are ordered and started. Discussed with Dr. Domínguez who will take the patient for upper endoscopy. Discussed with Dr. Heaton will then accept the patient for admission afterwards. Of note, patient does have a history of tobacco abuse. She is declining a nicotine patch at this time. She remained hemodynamically stable after initial fluid bolus resuscitation. Vital Signs Vital signs: Initial Vital Signs Temperature 96.9 F L 10/28/25 10:35 Temperature Source Temporal Artery Scan 10/28/25 10:35 Respiratory Rate 28 H 10/28/25 10:35 Blood Pressure 77/52 L 10/28/25 10:35 Blood Pressure Mean 60 L 10/28/25 10:35 Blood Pressure Position Sitting 10/28/25 10:35 Oxygen Delivery Method Room Air 10/28/25 10:35 Vital Signs Temperature 96.9 F L 10/28/25 10:35 Respiratory Rate 28 H 10/28/25 10:35 Blood Pressure 77/52 L 10/28/25 10:35 Oxygen Delivery Method Room Air 10/28/25 10:35 Temperature 98.4 F 10/28/25 13:26 Pulse Rate 75 10/28/25 13:26 Respiratory Rate 16 10/28/25 13:26 Blood Pressure 119/74 10/28/25 13:26 Pulse Oximetry 94 10/28/25 13:26 Oxygen Delivery Method Room Air 10/28/25 13:26 Medications Administered Medications: Discontinued Medications Generic Name Dose Route Start Last Admin Trade Name Freq PRN Reason Stop Dose Admin Sodium Chloride 1,000 mls @ 6,000 mls/hr 10/28/25 10:48 10/28/25 12:20 0.9 % Sodium Chloride 1000 Ml IV 10/28/25 10:57 Infused .Q10M OSWALDO Infusion Ondansetron HCl 4 mg 10/28/25 12:27 10/28/25 12:32 Ondansetron 2 Mg/Ml Inj IVP 10/28/25 12:28 4 mg ONCE ONE Administration Oxycodone/Acetaminophen 1 tab 10/28/25 11:47 10/28/25 12:21 Oxycodone/Apap 5-325 Tablet PO 10/28/25 11:48 1 tab ONCE ONE Administration Medical Decision Making MDM Narrative Medical decision making narrative: 60-year-old female with bright red blood per rectum presenting today with hypotension secondary to acute blood loss. Total critical care time: Approximately 90 minutes. Due to high probability of clinically significant, life-threatening deterioration, the patient required my highest level of preparedness to intervene emergently and I personally spent this critical care time directly in person managing the patient. The critical care time included obtaining history, examining the patient, pulse oximetry, ordering and reviewing lab studies, arranging urgent treatment with development of a management plan, evaluation of patient's response to treatment, frequent reassessment, and discussions with other providers. Lab Data Lab results reviewed: Yes I reviewed the patient's lab results Labs: Lab Results 10/28/25 10/28/25 Range/Units 10:45 10:47 WBC 6.22 (4.50-11.00) K/uL RBC 2.44 L (4.00-5.20) m/uL Hgb 6.9 L* (12.0-16.0) gm/dL Hct 22.4 L (33.0-51.0) % MCV 92 (80-100) fL MCH 28 (26-34) pg MCHC 31 L (32-36) gm/dL RDW Coeff of Audra 15.1 (11.5-15.5) % Plt Count 213 (140-440) K/uL Neut % (Auto) 70.6 (42.0-72.0) % Lymph % (Auto) 21.5 (20-44) % Lyman % (Auto) 6.1 (0.0-11.0) % Eos % (Auto) 0.6 (0.0-7.0) % Baso % (Auto) 1.0 (0.0-3.0) % Neut # (Auto) 4.39 (1.7-7.0) K/uL Lymph # (Auto) 1.34 (0.90-2.90) K/uL Lyman # (Auto) 0.40 (0.00-0.90) K/UL Eos # (Auto) 0.04 (0.00-0.50) K/uL Baso # (Auto) 0.06 (0.00-0.30) K/uL Abs Immat Gran (auto) 0.01 (0.00-0.30) K/uL Imm/Tot Granulo (auto) 0.2 % INR 1.01 (0.91-1.10) APTT 27 (23-33) Seconds Sodium 131 L (135-149) mmol/L Potassium 4.1 (3.6-5.1) mmol/L Chloride 105 (96-114) mmol/L Carbon Dioxide 24 (20-32) mmol/L Anion Gap 2 L (7-15) mEq/L BUN 25 (7-30) mg/dL Creatinine 0.7 (0.5-1.5) mg/dL Estimated Creat Clear 78.41 Estimated GFR 100 ml/min Glucose 94 (60-115) mg/dL Lactate 2.5 H (0.5-1.9) mmol/L Calcium 8.3 L (8.4-10.6) mg/dL Total Bilirubin 0.3 (0.1-1.5) mg/dL Direct Bilirubin 0.2 (0.0-0.5) mg/dL AST 22 (12-35) U/L ALT 18 (4-35) U/L Alkaline Phosphatase 58 (40-150) U/L Troponin I 0.06 H* (0.01-0.04) ng/mL Total Protein 5.6 L (6.0-8.3) g/dL Albumin 3.3 (3.3-5.0) g/dL Lipase 87 (23-300) U/L Blood Type O Positive Antibody Screen NEGATIVE Crossmatch (AHG) See Detail ECG Data Attestation: I personally reviewed and interpreted this ECG as follows: Critical Care Time Critical Care Time Total Critical Care Time in Minutes: 90 Discharge Plan Discharge Clinical Impression: Acute blood loss anemia, BRBPR (bright red blood per rectum), Acute hypotension Patient Disposition: Admitted As Inpatient Condition: Stable
[2025-10-28] MEDS: OxyCODONE/APAP 5-325 TABLET 1 TAB PO ×2 (12:21→13:50)
[2025-10-28] MEDS: ONDANSETRON 2 MG/ML inj 4 MG IVP (12:32)
[2025-10-28 12:37] LABS: INR 1.01 (0.91-1.10); Prothrombin Time 14.1 Seconds
--- NOTE | 2025-10-28 16:05 | P.ANES_ITS ---
Anesthesia Charges Start Date/Time Anesthesia Start Date: 10/28/25 Anesthesia Start Time: 15:55 Stop Date/Time Anesthesia Stop Date: 10/28/25 Anesthesia Stop Time: 16:18 Summary Emergency: STEFANIE Coding CPT Codes CPT Codes: ANES UPR GI NDSC PX NOS - 71732 ([id number]) P3 - PATIENT W/SEVERE SYS DISEASE, QK - RECOVERY SPECIALIST 2-4 CNCRNT ANES PROC, QX - J2EE CONSULTANT SVC W/ MD MED DIRECTION Additional Codes: Summary - Emergency: STEFANIE ([id number])
--- NOTE | 2025-10-28 16:05 | W.ANESCHARGE ---
Anesthesia Charges Start Date/Time Anesthesia Start Date: 10/28/25 Anesthesia Start Time: 15:55 Stop Date/Time Anesthesia Stop Date: 10/28/25 Anesthesia Stop Time: 16:18 Summary Emergency: STEFANIE Coding CPT Codes CPT Codes: ANES UPR GI NDSC PX NOS - 45915 ([id number]) P3 - PATIENT W/SEVERE SYS DISEASE, QK - REGISTRAR MUSEUM 2-4 CNCRNT ANES PROC, QX - THREAD WINDER AUTOMATIC SVC W/ MD MED DIRECTION Additional Codes: Summary - Emergency: STEFANIE ([id number])
--- NOTE | 2025-10-28 16:27 | P.ANES_ITS ---
Anesthesia Charges Start Date/Time Anesthesia Start Date: 10/28/25 Anesthesia Start Time: 15:55 Stop Date/Time Anesthesia Stop Date: 10/28/25 Anesthesia Stop Time: 16:18 Summary Emergency: MANAGER RETIREMENT Coding CPT Codes CPT Codes: ANES UPR GI NDSC PX NOS - 47614 ([id number]) P3 - PATIENT W/SEVERE SYS DISEASE, QX - MANAGER RETIREMENT SVC W/ MD MED DIRECTION, QK - PRODUCTION SUPPLY EQUIPMENT TENDER 2-4 CNCRNT ANES PROC Additional Codes: Summary - Emergency: MANAGER RETIREMENT ([id number])
--- NOTE | 2025-10-28 16:27 | W.ANESCHARGE ---
Anesthesia Charges Start Date/Time Anesthesia Start Date: 10/28/25 Anesthesia Start Time: 15:55 Stop Date/Time Anesthesia Stop Date: 10/28/25 Anesthesia Stop Time: 16:18 Summary Emergency: MANAGER PARTY Coding CPT Codes CPT Codes: ANES UPR GI NDSC PX NOS - 83978 ([id number]) P3 - PATIENT W/SEVERE SYS DISEASE, QX - MANAGER PARTY SVC W/ MD MED DIRECTION, QK - CHILDCARE DIRECTOR 2-4 CNCRNT ANES PROC Additional Codes: Summary - Emergency: MANAGER PARTY ([id number])
[2025-10-28] MEDS: PANTOPRAZOLE SODIUM 40 MG INJ 80 MG IVP (17:04)
--- NOTE | 2025-10-28 17:39 | PM.IMHP1 ---
Assessment and Plan Assessment and plan (1) Duodenal ulcer: Problem comment: -EGD showed a 1.5 cm ulcer at the duodeno- jejunal junction was seen on endoscopy, without active bleeding. Dr. Domínguez mentioned that it might be related to her Jessica-en-Y surgery. No biopsies were taken. -clear liq diet per the surgeon, advance diet tomorrow if hemoglobin is stable -Trend hemoglobin - ordered pantoprazole IV 80 mg then 40 mg b.i.d. for tomorrow. - surgeon recommends repeating EGD in 3-4 months. -I ordered H pylori Ag test. If it comes back positive then we will need to treat for H pylori. Status: Acute (2) BRBPR (bright red blood per rectum): Problem comment: -EGD showed a 1.5 cm ulcer at the duodeno- jejunal junction was seen on endoscopy, without active bleeding. Dr. Domínguez mentioned that it might be related to her Jessica-en-Y surgery. No biopsies were taken. -patient will need colonoscopy to rule out lower GI bleeding sources. Status: Acute (3) Acute blood loss anemia: Problem comment: -hemoglobin at presentation was 6.9. -patient is symptomatic -2 units packed RBCs transfused on October 28 -trending hemoglobin Status: Acute (4) History of Jessica-en-Y gastric bypass: Problem comment: -in August 2012 Status: Acute (5) Squamous cell carcinoma of anal canal: Problem comment: -status post surgical excision of the tumor in 2023. -no further treatment since -patient denies history of vulvar cancer. Status: Acute (6) Elevated lactic acid level: Problem comment: Likely secondary to acute blood loss anemia IV fluids given Repeat testing Status: Acute (7) GERD (gastroesophageal reflux disease): Problem comment: Patient stays that she takes omeprazole 20 mg b.i.d. for that Status: Acute (8) Tobacco abuse: Problem comment: Patient says that she is contemplating quitting Declined nicotine patch Status: Acute (9) Multiple sclerosis: Problem comment: [facility] Status: Chronic (10) senior living (current) use of opiate analgesic: Problem comment: [facility] Status: Chronic (11) Bipolar disorder, unspecified: Problem comment: Resume home meds: Quetiapine and venlafaxine Status: Chronic Total Time Spent Total Time Spent: Time spent: Today I spent 75 minutes seeing the patient, discussing the patient with ER staff, reviewing Expanse and EPIC notes/diagnostics, discussing the care plan with our care time that includes social work, PT/OT, pharmacy, RT, mcfp and documenting my impressions and plan in the medical record. Hospitalist- H&P: HPI History of Present Illness Date Seen: 10/28/25 Chief complaint: GI bleed Narrative: Maryana Clemons is a 60 year old female patient with past medical history of Jessica-en-Y surgery (Aug 2012), multiple sclerosis, COPD, tobacco use disorder, squamous cell carcinoma of anal canal S/P Sx 2023, GERD, depression and anxiety who presents to the ED complaining of multiple bloody bowel movements for a few days. Patient has photos of these bowel movements in the toilet and it seems there is significant amount of blood (red bright). In addition patient has been complaining of weakness and feeling dizzy & cold. She denies abdominal pain, nausea or vomiting. patient states that this is the 1st time she is having rectal bleeding. She denies any history of hematemesis. No history of peptic ulcer disease or H pylori infection. She said that while she was living in [place] (~2017) she underwent EGD and colonoscopy. On chart reviewing, patient had colonoscopy in 2013 and it showed hemorrhoids at that time. Patient denies chest pain or shortness of breath. At the ED, patient was hemodynamically stable. patient was hypoxic in the 80s at presentation but then her oxygen saturation improved to Mid 90s. hemoglobin low @ 6.9. Lactate elevated at 2.5. Troponin is elevated 0.06. EKG unremarkable. ED provider contacted Dr. Domínguez who took the patient for upper endoscopy. A 1.5 cm ulcer at the duodeno- jejunal junction was seen on endoscopy, without active bleeding. Dr. Domínguez mentioned that it might be related to her Jessica-en-Y surgery. No biopsies were taken. Review of Systems Status of ROS: Reports: 6 or more systems reviewed and unremarkable except as noted in History and below Medical Decision Making Medical Decision Making Has patient completed a Health Care Directive: No PFSH PFS Medical History (Updated 10/28/25 @ 18:39 by Julieta Peace MD) Squamous cell carcinoma, arm ?C44.621 - Squamous cell carcinoma of skin of unspecified upper limb, including shoulder (ICD-10) Opioid overdose ?T40.2X1A - Poisoning by other opioids, accidental (unintentional), initial encounter (ICD-10) Bee sting allergy ?Z91.030 - Bee allergy status (ICD-10) Carpal tunnel syndrome on both sides ?G56.03 - Carpal tunnel syndrome, bilateral upper limbs (ICD-10) History of atrial fibrillation without current medication ?Z86.79 - Personal history of other diseases of the circulatory system (ICD-10) Surgical History (Updated 10/28/25 @ 18:35 by Julieta Peace MD) History of Jessica-en-Y gastric bypass ?Z98.84 - Bariatric surgery status (ICD-10) S/P carpal tunnel release (01/09/24) ?Z98.890 - Other specified postprocedural states (ICD-10) History of carpal tunnel surgery of right wrist (2015) ?Z98.890 - Other specified postprocedural states (ICD-10) History of hysterectomy with bilateral oophorectomy ?Z90.710 - Acquired absence of both cervix and uterus (ICD-10) ?Z90.722 - Acquired absence of ovaries, bilateral (ICD-10) History of hand surgery (~2013) ?Z98.890 - Other specified postprocedural states (ICD-10) History of gastric bypass (~2012) ?Z98.84 - Bariatric surgery status (ICD-10) History of fusion of lumbar spine ?Z98.1 - Arthrodesis status (ICD-10) History of cholecystectomy ?Z90.49 - Acquired absence of other specified parts of digestive tract (ICD-10) Family History Mother Family history of malignant neoplasm of breast Social History What is your current living situation?: I presently have a place to live Problems where you live: no known problems Problems where you live details: N/A In the past 12 months, utilities in danger of being shut off: no In past 12 months, lack of transportation kept you from medical appts, meetings, work, or getting things needed for daily living: no In the past 12 mos, have been you worried that your food would run out before you had money to buy more?: never true In the past 12 mos, the food you bought just didn't last and you didn't have money to buy more?: never true Highest level of school completed/degree received: some college, no degree Smoking Status: Current every day smoker What tobacco products do you use: cigarettes How often do you have a drink containing alcohol: never How often do you have six or more drinks on one occasion: Never AUDIT-C Alcohol total score: 0 Non-prescribed substance use: denies use Caffeine: Yes How often does anyone, including family, friends and others, physically hurt you: never How often does anyone, including family, friends and others, insult or talk down to you: never How often does anyone, including family, friends and others, threaten you with harm: never How often does anyone, including family, friends and others, scream or curse at you: never Meds Home Medications and Allergies Home Medications ?Medication ?Instructions ?Recorded ?Confirmed ?Type cholecalciferol (vitamin D3) 125 125 mcg PO MO 07/15/22 10/28/25 History mcg (5,000 unit) capsule multivitamin 1 tab PO DAILY 07/15/22 10/28/25 History oxycodone-acetaminophen 7.5 mg-325 1 tab PO QID PRN 07/15/22 10/28/25 History mg tablet rizatriptan 10 mg tablet 10 mg PO ONCE PRN 12/26/22 10/28/25 History naloxone 4 mg/actuation nasal 4 mg intranasal Q2-3M PRN opioid 11/30/23 10/28/25 Rx spray (Narcan) overdose #2 ea gabapentin 300 mg capsule 1,200 mg PO HS 12/11/23 10/28/25 History teriflunomide 14 mg tablet 14 mg PO DAILY #90 tabs 02/14/24 10/28/25 Rx albuterol sulfate 90 mcg/actuation 2 puff inhalation Q4-6H PRN 02/18/25 10/28/25 Rx aerosol inhaler (Ventolin HFA) shortness of breath or wheezing #6.7 grams dextroamphetamine-amphetamine ER 30 mg PO QAM #30 caps 09/29/25 10/28/25 Rx 30 mg 24hr capsule,extend release omeprazole 20 mg capsule,delayed 20 mg PO BID #180 caps 10/21/25 10/28/25 Rx release amitriptyline 50 mg tablet 50 mg PO HS 10/28/25 10/28/25 History celecoxib 200 mg capsule 200 mg PO DAILY 10/28/25 10/28/25 History epinephrine 0.3 mg/0.3 mL 0.3 ml IM ONCE PRN 10/28/25 10/28/25 History injection, auto-injector propranolol 160 mg capsule,24 160 mg PO HS 10/28/25 10/28/25 History hr,extended release quetiapine 200 mg tablet 200 mg PO HS 10/28/25 10/28/25 History ropinirole 4 mg tablet 4 - 8 mg PO DAILY@1930 10/28/25 10/28/25 History trazodone 100 mg tablet 100 mg PO HS 10/28/25 10/28/25 History venlafaxine 150 mg 150 mg PO DAILY 10/28/25 10/28/25 History capsule,extended release 24 hr Allergies Allergy/AdvReac Type Severity Reaction Status Date / Time Opioids - Morphine Analogues Allergy Severe Anaphylaxis Verified 06/25/25 10:53 tramadol Allergy Intermediate Difficulty Verified 06/25/25 10:53 Breathing bupropion Allergy Mild Nausea Verified 06/25/25 10:53 codeine Allergy Mild Nausea Verified 06/25/25 10:53 doxycycline Allergy Mild Abdominal Verified 06/25/25 10:53 Pain Exam Narrative: Exam Narrative: Physical exam GENERAL: Anorexic, no acute distress. HEAD AND NECK: Atraumatic, normocephalic CARDIOVASCULAR: RRR. Normal S1, S2. No murmurs. RESPIRATORY: Clear to auscultation B/L. Good air entry B/L. No wheezes or rhonchi. GASTROINTESTINAL: Not distended, not tender to palpation. NEUROLOGY: Alert, awake, oriented X 3. Normal speech. PSYCH: Normal mood, normal affect. Const: Vital Signs, click to edit/add: Vital Signs - 24 hr 10/28/25 10:35 10/28/25 10:47 10/28/25 10:56 Temperature 96.9 F L Pulse Rate 64 Pulse Rate [Pulse Oximeter] 70 Respiratory Rate 28 H 19 Blood Pressure Blood Pressure [Ri ght Upper Arm] 77/52 L Pulse Oximetry 68 L Oxygen Delivery Me thod Room Air 10/28/25 11:00 10/28/25 11:15 10/28/25 11:15 Temperature Pulse Rate 77 69 Pulse Rate [Pulse Oximeter] Respiratory Rate 12 17 Blood Pressure Blood Pressure [Ri ght Upper Arm] Pulse Oximetry 64 L 92 92 Oxygen Delivery Me thod 10/28/25 11:22 10/28/25 11:30 10/28/25 11:32 Temperature Pulse Rate 72 72 71 Pulse Rate [Pulse Oximeter] Respiratory Rate 17 14 13 Blood Pressure 114/66 112/69 Blood Pressure [Ri ght Upper Arm] Pulse Oximetry 94 99 92 Oxygen Delivery Me thod Room Air 10/28/25 11:45 10/28/25 11:47 10/28/25 12:00 Temperature Pulse Rate 72 72 Pulse Rate [Pulse Oximeter] Respiratory Rate 17 12 Blood Pressure 113/68 Blood Pressure [Ri ght Upper Arm] Pulse Oximetry 90 95 91 Oxygen Delivery Me thod 10/28/25 12:02 10/28/25 12:15 10/28/25 12:17 Temperature Pulse Rate 74 73 73 Pulse Rate [Pulse Oximeter] Respiratory Rate 13 12 10 L Blood Pressure 121/72 119/76 Blood Pressure [Ri ght Upper Arm] Pulse Oximetry 95 94 95 Oxygen Delivery Me thod Room Air 10/28/25 12:30 10/28/25 12:32 10/28/25 12:45 Temperature Pulse Rate 75 74 77 Pulse Rate [Pulse Oximeter] Respiratory Rate 11 L 16 Blood Pressure 124/90 H Blood Pressure [Ri ght Upper Arm] Pulse Oximetry 90 91 94 Oxygen Delivery Me thod 10/28/25 12:47 10/28/25 12:59 10/28/25 13:00 Temperature 98.9 F Pulse Rate 75 77 75 Pulse Rate [Pulse Oximeter] Respiratory Rate 18 16 13 Blood Pressure 110/88 119/85 Blood Pressure [Ri ght Upper Arm] Pulse Oximetry 93 87 L Oxygen Delivery Me thod Room Air 10/28/25 13:01 10/28/25 13:15 10/28/25 13:17 Temperature Pulse Rate 75 77 77 Pulse Rate [Pulse Oximeter] Respiratory Rate 13 12 18 Blood Pressure 119/85 115/73 Blood Pressure [Ri ght Upper Arm] Pulse Oximetry 81 L 94 83 L Oxygen Delivery Me thod Room Air 10/28/25 13:26 10/28/25 13:30 10/28/25 13:31 Temperature 98.4 F Pulse Rate 75 75 77 Pulse Rate [Pulse Oximeter] Respiratory Rate 16 17 18 Blood Pressure 119/74 119/74 Blood Pressure [Ri ght Upper Arm] Pulse Oximetry 94 95 92 Oxygen Delivery Me thod Room Air 10/28/25 13:31 10/28/25 13:32 10/28/25 13:33 Temperature Pulse Rate 77 77 75 Pulse Rate [Pulse Oximeter] Respiratory Rate 18 11 L 14 Blood Pressure 119/74 114/75 Blood Pressure [Ri ght Upper Arm] Pulse Oximetry 92 95 96 Oxygen Delivery Me thod 10/28/25 13:45 10/28/25 13:46 10/28/25 13:56 Temperature 98 F Pulse Rate 74 76 75 Pulse Rate [Pulse Oximeter] Respiratory Rate 12 11 L 16 Blood Pressure 123/76 135/71 Blood Pressure [Ri ght Upper Arm] Pulse Oximetry 97 94 94 Oxygen Delivery Me thod 10/28/25 14:00 10/28/25 14:02 10/28/25 14:15 Temperature Pulse Rate 74 76 74 Pulse Rate [Pulse Oximeter] Respiratory Rate 13 6 L 48 H Blood Pressure 133/77 Blood Pressure [Ri ght Upper Arm] Pulse Oximetry 97 94 95 Oxygen Delivery Me thod Room Air 10/28/25 14:17 10/28/25 14:26 10/28/25 14:30 Temperature 98.6 F Pulse Rate 73 71 74 Pulse Rate [Pulse Oximeter] Respiratory Rate 13 14 11 L Blood Pressure 126/77 134/79 Blood Pressure [Ri ght Upper Arm] Pulse Oximetry 95 96 Oxygen Delivery Me thod Room Air 10/28/25 14:32 10/28/25 14:42 10/28/25 14:45 Temperature Pulse Rate 76 72 76 Pulse Rate [Pulse Oximeter] Respiratory Rate 12 14 13 Blood Pressure 125/83 135/71 Blood Pressure [Ri ght Upper Arm] Pulse Oximetry 92 95 98 Oxygen Delivery Me thod 10/28/25 14:48 10/28/25 14:52 10/28/25 14:52 Temperature 98.6 F Pulse Rate 72 72 72 Pulse Rate [Pulse Oximeter] Respiratory Rate 12 14 Blood Pressure 131/74 134/79 134/79 Blood Pressure [Ri ght Upper Arm] Pulse Oximetry 94 95 Oxygen Delivery Me thod Room Air 10/28/25 15:00 10/28/25 15:02 10/28/25 15:37 Temperature 98.4 F Pulse Rate 76 76 77 Pulse Rate [Pulse Oximeter] Respiratory Rate 25 H 16 Blood Pressure 135/80 130/72 Blood Pressure [Ri ght Upper Arm] Pulse Oximetry 99 96 Oxygen Delivery Me thod Room Air Room Air Hospitalist - H&P: Result Labs Labs: Short CBC 10/28/25 Range/Units 10:45 WBC 6.22 (4.50-11.00) K/uL Hgb 6.9 L* (12.0-16.0) gm/dL Hct 22.4 L (33.0-51.0) % Plt Count 213 (140-440) K/uL BMP 10/28/25 10:47 Sodium 131 L Potassium 4.1 Chloride 105 Carbon Dioxide 24 BUN 25 Creatinine 0.7 Glucose 94 Calcium 8.3 L Cardiac Enzymes 10/28/25 10/28/25 Range/Units 10:47 13:55 Troponin I 0.06 H* 0.03 (0.01-0.04) ng/mL Liver Function 10/28/25 Range/Units 10:47 Total Bilirubin 0.3 (0.1-1.5) mg/dL Direct Bilirubin 0.2 (0.0-0.5) mg/dL AST 22 (12-35) U/L ALT 18 (4-35) U/L Alkaline Phosphatase 58 (40-150) U/L Albumin 3.3 (3.3-5.0) g/dL
[2025-10-28 18:25] LABS: Lactate* 1.9 mmol/L (0.5-1.9)
[2025-10-28 18:29] LABS: Hemoglobin* 9.2 gm/dL (12.0-16.0)
[2025-10-28 19:57] LABS: H pylori Ag Stool* Negative (Negative)
[2025-10-28] MEDS: AMITRIPTYLINE 25 MG TABLET 50 MG PO (20:50)
[2025-10-28] MEDS: TRAZODONE HCL 50 MG TABLET 100 MG PO (20:51)
[2025-10-28] MEDS: SODIUM CHLORIDE 0.9 % (FLUSH) 10 ML SYRINGE 5 ML IVF (20:51)
[2025-10-28] MEDS: GABAPENTIN 300 MG CAPSULE 1200 MG PO (20:51)
[2025-10-28] MEDS: QUETIAPINE 100 MG TABLET 200 MG PO (20:51)
--- NOTE | 2025-10-28 22:52 | PC.NURSE ---
End of Shift: Patient admitted to CCU4 from Endo. PRBC infused without difficulty and no s/s of reaction noted. Pleasant and cooperative. Afebrile. Denies pain. Up to bathroom with SBA and denies any lightheadedness or dizziness. Tolerating clear liquids with no nausea. Had maroon colored loose BM x2 this shift, MD aware.
[2025-10-29 03:01] VITALS: BP 106/63; PULSE 70; RESP 18; TEMP 36.6; O2SAT 96
--- NOTE | 2025-10-29 06:06 | PC.NURSE ---
(shift 23-07) Pt alert and oriented. Pt up with SBA. Pt had no complaints of pain.?
[2025-10-29 06:16] LABS: Hematocrit* 28.4 % (33.0-51.0); Hemoglobin* 9.0 gm/dL (12.0-16.0); Mean Corpuscular HGB Conc 32 gm/dL (32-36); Mean Corpuscular Hemoglobin 29 pg (26-34); Mean Corpuscular Volume 93 fL (80-100); Red Blood Count* 3.06 m/uL (4.00-5.20); White Blood Count* 4.27 K/uL (4.50-11.00)
[2025-10-29 06:24] LABS: Slide Review Reflex No
[2025-10-29 06:30] LABS: Chloride* 110 mmol/L (96-114)
[2025-10-29 06:31] LABS: Potassium* 4.0 mmol/L (3.6-5.1); Sodium* 137 mmol/L (135-149)
[2025-10-29 06:34] LABS: Anion Gap -1 mEq/L (7-15); Blood Urea Nitrogen* 17 mg/dL (7-30); Calcium* 8.2 mg/dL (8.4-10.6); Carbon Dioxide* 28 mmol/L (20-32); Creatinine* 0.7 mg/dL (0.5-1.5); Est. Creatinine Clearance* 79.90; Estimated Glomerular Filt Rate 100 ml/min; Glucose* 81 mg/dL (60-115)
[2025-10-29] MEDS: PANTOPRAZOLE SODIUM 40 MG INJ IVP ×2 (08:45→21:03)
[2025-10-29] MEDS: SODIUM CHLORIDE 0.9 % (FLUSH) 10 ML SYRINGE 5 ML IVF ×2 (08:45→21:03)
[2025-10-29] MEDS: VENLAFAXINE ER 75 MG CAPSULE 150 MG PO (08:45)
[2025-10-29 08:56] VITALS: BP 124/81; PULSE 71; RESP 16; TEMP 36.7; O2SAT 97
[2025-10-29 10:08] VITALS: PULSE 67
--- NOTE | 2025-10-29 12:08 | PM.IMPN1 ---
Assessment and Plan Assessment and plan (1) Duodenal ulcer: Problem comment: -EGD showed a 1.5 cm ulcer at the duodeno- jejunal junction was seen on endoscopy, without active bleeding. Dr. Domínguez mentioned that it might be related to her Jessica-en-Y surgery. No biopsies were taken. -clear liq diet per the surgeon, ADAT 10/29 -Trend hemoglobin 6.9->9.2->9.0, repeat ordered for noon 10/29 -ordered pantoprazole IV 80 mg then 40 mg b.i.d. starting 10/29 -H pylori negative -surgeon recommends repeating EGD in 3-4 months. Status: Acute (2) BRBPR (bright red blood per rectum): Problem comment: -EGD showed a 1.5 cm ulcer at the duodeno- jejunal junction was seen on endoscopy, without active bleeding. Dr. Domínguez mentioned that it might be related to her Jessica-en-Y surgery. No biopsies were taken. -patient will need colonoscopy to rule out lower GI bleeding sources - as of 10/29, will monitor hemoglobin and stools for blood. If stable, plan for outpatient colonoscopy. If worsens, or increased bleeding, will prep for colonoscopy Status: Acute (3) Acute blood loss anemia: Problem comment: -hemoglobin at presentation 6.9 -patient is symptomatic - resolved following transfusion -2 units packed RBCs transfused on October 28 -> hemoglobin improved to 9.2 -trending hemoglobin Status: Acute (4) History of Jessica-en-Y gastric bypass: Problem comment: -in August 2012 -1.5 cm ulcer at the duodeno- jejunal junction noted on EGD Status: Acute (5) Squamous cell carcinoma of anal canal: Problem comment: -status post surgical excision of the tumor in 2023. -no further treatment since -patient denies history of vulvar cancer. Status: Acute (6) Elevated lactic acid level: Problem comment: RESOLVED Likely secondary to acute blood loss anemia IV fluids given Improved to 1.9 Status: Acute (7) GERD (gastroesophageal reflux disease): Problem comment: Patient stays that she takes omeprazole 20 mg b.i.d. for that Status: Acute (8) Tobacco abuse: Problem comment: Patient says that she is contemplating quitting Declined nicotine patch Status: Acute (9) Multiple sclerosis: Problem comment: [facility] Status: Chronic (10) jail (current) use of opiate analgesic: Problem comment: [facility] Status: Chronic (11) Bipolar disorder, unspecified: Problem comment: Resume home meds: Quetiapine and venlafaxine Status: Chronic Plan ADAT. Trend hemoglobin, monitor stools. Possible discharge tomorrow if stable with follow-up for outpatient colonoscopy. Total Time Spent Total Time Spent: Today I spent 55 minutes seeing the patient, reviewing Expanse and EPIC notes/diagnostics, discussing the care plan with our care time that includes social work, PT/OT, pharmacy, RT, longterm and documenting my impressions and plan in the medical record. Subjective Date Seen: 10/29/25 Interval history: Patient is seen sitting up in bed this morning. Reports feeling much better than yesterday. Has had 2 units PRBC and hemoglobin has improved from 6.9-9.2, stable at 9.0 this morning. Denies headache or dizziness. Denies chest pain or shortness of breath. Denies abdominal pain, nausea vomiting. Did have 1 bowel movement last evening which she described as dark red blood. No BM yet this morning. Exam Narrative: Exam Narrative: PHYSICAL EXAM General: Pleasant, conversant, NAD HEENT: Normocephalic, atraumatic, sclera white, EOMI, oral mucosa moist Cardiovascular: RRR, S1S2. No pitting edema Pulmonary: CTA bilaterally without rhonchi, rales, expiratory wheezes. No dyspnea Abdominal: Soft, nondistended, NTTP Neurological: Alert, answering questions appropriately, cranial nerves intact, no focal findings Extremities: No gross joint deformity or swelling. AROMI. Neurovascularly intact Skin: Warm, dry. Const: Vital Signs, click to edit/add: Vital Signs - 24 hr 10/28/25 12:15 10/28/25 12:17 10/28/25 12:30 Temperature Pulse Rate 73 73 75 Pulse Rate [Pulse Oximeter] Respiratory Rate 12 10 L Blood Pressure 119/76 Blood Pressure [Le ft Arm] Blood Pressure [Ri ght Arm] Pulse Oximetry 94 95 90 Oxygen Delivery Me thod 10/28/25 12:32 10/28/25 12:45 10/28/25 12:47 Temperature Pulse Rate 74 77 75 Pulse Rate [Pulse Oximeter] Respiratory Rate 11 L 16 18 Blood Pressure 124/90 H 110/88 Blood Pressure [Le ft Arm] Blood Pressure [Ri ght Arm] Pulse Oximetry 91 94 93 Oxygen Delivery Me thod 10/28/25 12:59 10/28/25 13:00 10/28/25 13:01 Temperature 98.9 F Pulse Rate 77 75 75 Pulse Rate [Pulse Oximeter] Respiratory Rate 16 13 13 Blood Pressure 119/85 119/85 Blood Pressure [Le ft Arm] Blood Pressure [Ri ght Arm] Pulse Oximetry 87 L 81 L Oxygen Delivery Me thod Room Air Room Air 10/28/25 13:15 10/28/25 13:17 10/28/25 13:26 Temperature 98.4 F Pulse Rate 77 77 75 Pulse Rate [Pulse Oximeter] Respiratory Rate 12 18 16 Blood Pressure 115/73 119/74 Blood Pressure [Le ft Arm] Blood Pressure [Ri ght Arm] Pulse Oximetry 94 83 L 94 Oxygen Delivery Me thod Room Air 10/28/25 13:30 10/28/25 13:31 10/28/25 13:31 Temperature Pulse Rate 75 77 77 Pulse Rate [Pulse Oximeter] Respiratory Rate 17 18 18 Blood Pressure 119/74 119/74 Blood Pressure [Le ft Arm] Blood Pressure [Ri ght Arm] Pulse Oximetry 95 92 92 Oxygen Delivery Me thod 10/28/25 13:32 10/28/25 13:33 10/28/25 13:45 Temperature Pulse Rate 77 75 74 Pulse Rate [Pulse Oximeter] Respiratory Rate 11 L 14 12 Blood Pressure 114/75 Blood Pressure [Le ft Arm] Blood Pressure [Ri ght Arm] Pulse Oximetry 95 96 97 Oxygen Delivery Me thod 10/28/25 13:46 10/28/25 13:56 10/28/25 14:00 Temperature 98 F Pulse Rate 76 75 74 Pulse Rate [Pulse Oximeter] Respiratory Rate 11 L 16 13 Blood Pressure 123/76 135/71 Blood Pressure [Le ft Arm] Blood Pressure [Ri ght Arm] Pulse Oximetry 94 94 97 Oxygen Delivery Me thod 10/28/25 14:02 10/28/25 14:15 10/28/25 14:17 Temperature Pulse Rate 76 74 73 Pulse Rate [Pulse Oximeter] Respiratory Rate 6 L 48 H 13 Blood Pressure 133/77 126/77 Blood Pressure [Le ft Arm] Blood Pressure [Ri ght Arm] Pulse Oximetry 94 95 95 Oxygen Delivery Me thod Room Air 10/28/25 14:26 10/28/25 14:30 10/28/25 14:32 Temperature 98.6 F Pulse Rate 71 74 76 Pulse Rate [Pulse Oximeter] Respiratory Rate 14 11 L 12 Blood Pressure 134/79 125/83 Blood Pressure [Le ft Arm] Blood Pressure [Ri ght Arm] Pulse Oximetry 96 92 Oxygen Delivery Me thod Room Air 10/28/25 14:42 10/28/25 14:45 10/28/25 14:48 Temperature Pulse Rate 72 76 72 Pulse Rate [Pulse Oximeter] Respiratory Rate 14 13 12 Blood Pressure 135/71 131/74 Blood Pressure [Le ft Arm] Blood Pressure [Ri ght Arm] Pulse Oximetry 95 98 94 Oxygen Delivery Me thod 10/28/25 14:52 10/28/25 14:52 10/28/25 15:00 Temperature 98.6 F Pulse Rate 72 72 76 Pulse Rate [Pulse Oximeter] Respiratory Rate 14 Blood Pressure 134/79 134/79 Blood Pressure [Le ft Arm] Blood Pressure [Ri ght Arm] Pulse Oximetry 95 99 Oxygen Delivery Me thod Room Air 10/28/25 15:02 10/28/25 15:37 10/28/25 16:15 Temperature 98.4 F 97.9 F Pulse Rate 76 77 Pulse Rate [Pulse Oximeter] 83 Respiratory Rate 25 H 16 16 Blood Pressure 135/80 130/72 Blood Pressure [Le ft Arm] 134/79 Blood Pressure [Ri ght Arm] Pulse Oximetry 96 97 Oxygen Delivery Me thod Room Air Room Air Room Air 10/28/25 16:15 10/28/25 16:30 10/28/25 16:45 Temperature 97.9 F Pulse Rate 83 Pulse Rate [Pulse Oximeter] 76 73 Respiratory Rate 16 16 16 Blood Pressure 134/79 Blood Pressure [Le ft Arm] 134/90 H 105/65 Blood Pressure [Ri ght Arm] Pulse Oximetry 100 98 Oxygen Delivery Me thod Room Air Room Air Room Air 10/28/25 16:45 10/28/25 16:55 10/28/25 16:55 Temperature 97.1 F L 97.9 F Pulse Rate 73 Pulse Rate [Pulse Oximeter] 83 Respiratory Rate 16 16 16 Blood Pressure 105/65 Blood Pressure [Le ft Arm] 134/79 Blood Pressure [Ri ght Arm] Pulse Oximetry 97 Oxygen Delivery Me thod Room Air Room Air 10/28/25 17:00 10/28/25 17:30 10/28/25 17:30 Temperature 97.1 F L 97.4 F L 97.4 F L Pulse Rate 76 Pulse Rate [Pulse Oximeter] 82 76 Respiratory Rate 16 16 16 Blood Pressure 142/92 H Blood Pressure [Le ft Arm] 134/77 142/96 H Blood Pressure [Ri ght Arm] Pulse Oximetry 99 98 Oxygen Delivery Me thod Room Air Room Air Room Air 10/28/25 18:30 10/28/25 19:58 10/28/25 23:00 Temperature 97.2 F L Pulse Rate 79 73 75 Pulse Rate [Pulse Oximeter] Respiratory Rate 16 Blood Pressure 140/91 H Blood Pressure [Le ft Arm] Blood Pressure [Ri ght Arm] Pulse Oximetry Oxygen Delivery Me thod Room Air 10/28/25 23:11 10/29/25 03:01 10/29/25 08:56 Temperature 97.7 F 97.8 F 98.1 F Pulse Rate Pulse Rate [Pulse Oximeter] 76 70 71 Respiratory Rate 18 18 16 Blood Pressure Blood Pressure [Le ft Arm] 86/52 L 106/63 Blood Pressure [Ri ght Arm] 124/81 Pulse Oximetry 95 96 97 Oxygen Delivery Me thod Room Air Room Air 10/29/25 10:08 Temperature Pulse Rate 67 Pulse Rate [Pulse Oximeter] Respiratory Rate Blood Pressure Blood Pressure [Le ft Arm] Blood Pressure [Ri ght Arm] Pulse Oximetry Oxygen Delivery Me thod Labs Labs: Laboratory Results - last 24 hr 10/28/25 10/28/25 10/28/25 10:45 13:55 18:20 WBC RBC Hgb 9.2 L Hct MCV MCH MCHC Plt Count INR 1.01 APTT 27 Sodium Potassium Chloride Carbon Dioxide Anion Gap BUN Creatinine Estimated Creat Clear Estimated GFR Glucose Lactate 1.9 Calcium Troponin I 0.03 0.02 Stool H. pylori Ag Blood Type O Positive Antibody Screen NEGATIVE Crossmatch (AHG) See Detail 10/28/25 10/29/25 19:34 05:53 WBC 4.27 L RBC 3.06 L Hgb 9.0 L Hct 28.4 L MCV 93 MCH 29 MCHC 32 Plt Count 157 INR APTT Sodium 137 Potassium 4.0 Chloride 110 Carbon Dioxide 28 Anion Gap -1 L BUN 17 Creatinine 0.7 Estimated Creat Clear 79.90 Estimated GFR 100 Glucose 81 Lactate Calcium 8.2 L Troponin I Stool H. pylori Ag Negative Blood Type Antibody Screen Crossmatch (AHG)
[2025-10-29 12:28] LABS: Hemoglobin* 8.7 gm/dL (12.0-16.0)
[2025-10-29 12:46] VITALS: BP 117/75; PULSE 80; RESP 18; TEMP 36.7; O2SAT 99
[2025-10-29 15:00] VITALS: BP 110/78; PULSE 73; RESP 16; TEMP 36.2; O2SAT 100
--- NOTE | 2025-10-29 15:01 | PC.SOCIAL ---
Social work: Met with pt at her request. Pt shared she lives alone in [place] and is requesting assistance from social worker health services regarding multiple supportive resources. Pt shared she is interested in completing an [employer] Directive. Provided her with the [facility] form and instructions. She plans to take this home and complete it. She is aware of how to have it witnessed to make it official and where to send copies to have it included in her medical chart. Pt states she is not happy at her current rent subsidized apartment but has not been able to find other housing through [facility] Legal Support Assistant. She is also interested in finding out how to get home delivered meals and an emergency response button paid for by the [facility]. She already received Medical Assistance and social Security disability income. With pt's permission made an online referral to the [employer] for Platform Engineer Care Planning assessment to see if pt qualifies for services at home and assistance with finding other housing options. Pt is requesting information on hoe to register for full body donation to the [facility] [employer]. Provided pt with written information on how to request registration in advance for donation. Pt requested information on counseling as she has had counseling before an found it helpful but has not been connected with counseling recently and has found her health issues, finances and housing situation to be more stressful. Provided her with information on [facility] mental health providers and the [facility] and [facility] locations as she has received services from them in the past and is interested in reconnecting with their services. She plans to follow up at discharge. Pt and friend, who provides support and assistance and was visiting during the assessment, were appreciative of information provided and are aware of how to reach out to social worker health services if additional resources are needed.
[2025-10-29 18:45] LABS: Hemoglobin* 8.2 gm/dL (12.0-16.0)
[2025-10-29 19:00] VITALS: BP 127/71; PULSE 84; RESP 16; TEMP 36.2; O2SAT 98
[2025-10-29] MEDS: TRAZODONE HCL 50 MG TABLET 100 MG PO (21:02)
[2025-10-29] MEDS: QUETIAPINE 100 MG TABLET 200 MG PO (21:02)
[2025-10-29] MEDS: GABAPENTIN 300 MG CAPSULE 1200 MG PO (21:02)
[2025-10-29] MEDS: AMITRIPTYLINE 25 MG TABLET 50 MG PO (21:02)
[2025-10-29 21:58] LABS: H pylori Ag Stool* Negative (Negative)
--- NOTE | 2025-10-29 22:31 | PC.NURSE ---
End of Shift: Patient pleasant and cooperative. Afebrile. Denies pain. Up independently in room. Denies any lightheadedness or dizziness. Tolerating regular diet with no nausea. Patient had one small formed dark BM with a small amount of blood noted, updated MD.
[2025-10-30 00:02] VITALS: BP 103/56; PULSE 73; RESP 18; TEMP 36.2; O2SAT 97
[2025-10-30 00:04] VITALS: RESP 18
[2025-10-30 04:00] VITALS: BP 122/81; PULSE 68; RESP 18; TEMP 36.2; O2SAT 96
--- NOTE | 2025-10-30 06:19 | PC.NURSE ---
(shift 23-07) Pt alert and oriented. Pt up independently in?room .?Pt had no complaints of pain. Pt?s VSS. Pt slept throughout the night.
[2025-10-30 07:00] VITALS: BP 124/93; PULSE 71; RESP 16; TEMP 36.6; O2SAT 98
[2025-10-30 07:18] LABS: Hematocrit* 29.5 % (33.0-51.0); Hemoglobin* 9.1 gm/dL (12.0-16.0); Mean Corpuscular HGB Conc 31 gm/dL (32-36); Mean Corpuscular Hemoglobin 29 pg (26-34); Mean Corpuscular Volume 94 fL (80-100); Red Blood Count* 3.15 m/uL (4.00-5.20); White Blood Count* 4.26 K/uL (4.50-11.00)
[2025-10-30 07:26] LABS: Slide Review Reflex No
[2025-10-30 07:37] LABS: Chloride* 106 mmol/L (96-114); Sodium* 134 mmol/L (135-149)
[2025-10-30 07:38] LABS: Potassium* 3.5 mmol/L (3.6-5.1)
[2025-10-30 07:40] LABS: Anion Gap 3 mEq/L (7-15); Blood Urea Nitrogen* 14 mg/dL (7-30); Carbon Dioxide* 25 mmol/L (20-32); Creatinine* 0.7 mg/dL (0.5-1.5); Est. Creatinine Clearance* 80.49; Estimated Glomerular Filt Rate 100 ml/min
[2025-10-30 07:41] LABS: Calcium* 8.2 mg/dL (8.4-10.6); Glucose* 128 mg/dL (60-115)
[2025-10-30] MEDS: PANTOPRAZOLE SODIUM 40 MG INJ IVP (09:13)
[2025-10-30] MEDS: VENLAFAXINE ER 75 MG CAPSULE 150 MG PO (09:13)
[2025-10-30] MEDS: SODIUM CHLORIDE 0.9 % (FLUSH) 10 ML SYRINGE 5 ML IVF (09:14)
--- NOTE | 2025-10-30 09:46 | P.DS_ITS ---
DS: Providers Provider Date Seen: 10/30/25 Date of admission: 10/28/25 15:38 Primary care physician: Makayla Ribeiro CNP Admitting Clinician: Titus Heaton MD Consults: Dr. Rosa Domínguez Attending Physician on discharge: Nancy Walters [facility], [facility] Date of Discharge: 10/30/25 DS: Diagnosis Discharge Diagnosis (1) Duodenal ulcer: Status: Acute Problem details: -EGD showed a 1.5 cm ulcer at the duodeno- jejunal junction was seen on endoscopy, without active bleeding, with adherent clot. Dr. Domínguez mentioned that it might be related to her Jessica-en-Y surgery. No biopsies were taken -hold Celebrex (chronic pain management) -clear liq diet per the surgeon, ADAT 10/29 -Trend hemoglobin 6.9->9.2->9.0->8.7->8.2->9.1 -ordered pantoprazole IV 80 mg then 40 mg b.i.d. starting 10/29 -H pylori negative -surgeon recommends repeating EGD in 3-4 months Patient is discharged to continue omeprazole 20 mg b.i.d.. Avoid NSAIDs. Takes Celebrex for chronic pain. H pylori is negative. Close outpatient follow-up with PCP. As recommended by General surgery, repeat EGD in 3-4 months. (2) BRBPR (bright red blood per rectum): Status: Acute Problem details: -EGD showed a 1.5 cm ulcer at the duodeno- jejunal junction was seen on endoscopy, without active bleeding, with adherent clot. Dr. Domínguez mentioned that it might be related to her Jessica-en-Y surgery. No biopsies were taken. -patient will need colonoscopy to rule out lower GI bleeding sources - as of 10/29, will monitor hemoglobin and stools for blood. If stable, plan for outpatient colonoscopy. If worsens, or increased bleeding, will prep for colonoscopy Prior to discharge, patient has had a large, firm stool reported with only a streak of blood. Hemoglobin has stabilized. Tolerating diet, ambulating. Discharge home with close outpatient follow-up with PCP, recheck of hemoglobin, consideration for colonoscopy. (3) Acute blood loss anemia: Status: Acute Problem details: -hemoglobin at presentation 6.9 -patient is symptomatic - resolved following transfusion -2 units packed RBCs transfused on October 28 -> hemoglobin improved to 9.2 -trending hemoglobin As above, hemoglobin has stabilized, 9.1 at time of discharge. Reported decreased blood in stools. Tolerating diet, ambulating, no longer symptomatic. (4) History of Jessica-en-Y gastric bypass: Status: Acute Problem details: -in August 2012 -1.5 cm ulcer at the duodeno- jejunal junction noted on EGD (5) Squamous cell carcinoma of anal canal: Status: Acute Problem details: -status post surgical excision of the tumor in 2023. -no further treatment since -patient denies history of vulvar cancer -reports last colonoscopy in 2023 (6) Elevated lactic acid level: Status: Resolved Problem details: RESOLVED Likely secondary to acute blood loss anemia IV fluids given Improved to 1.9 (7) GERD (gastroesophageal reflux disease): Status: Acute Problem details: Patient stays that she takes omeprazole 20 mg b.i.d. for that Received IV PPI during hospital course, will discharge on home dose of omeprazole 20 mg b.i.d. for duodenal-jejunal ulcer. (8) Tobacco abuse: Status: Acute Problem details: Patient says that she is contemplating quitting Declined nicotine patch Encourage cessation (9) Multiple sclerosis: Status: Chronic Problem details: [facility] (10) group home (current) use of opiate analgesic: Status: Chronic Problem details: [facility] (11) Bipolar disorder, unspecified: Status: Chronic Problem details: Resume home meds: Quetiapine and venlafaxine DS: Summary Status at Discharge Functional status at discharge: independent ambulation Overall status at discharge: patient is back to baseline Time Spent with Patient Time attestation: Total time spent providing and/or coordinating discharge services: Time spent: Greater than 30 minutes Exam Narrative: Exam Narrative: PHYSICAL EXAM General: Pleasant, conversant, NAD Cardiovascular: RRR Pulmonary: No dyspnea Neurological: Alert, answering questions appropriately Skin: Warm, dry. Const: Vital Signs, click to edit/add: Vital Signs - 24 hr 10/29/25 10:08 10/29/25 12:46 10/29/25 15:00 Temperature 98.0 F 97.2 F L Pulse Rate 67 Pulse Rate [Pulse Oximeter] 80 73 Respiratory Rate 18 16 Blood Pressure [Ri ght Arm] 117/75 110/78 Pulse Oximetry 99 100 Oxygen Delivery Me thod Room Air Room Air 10/29/25 15:00 10/29/25 19:00 10/30/25 00:02 Temperature 97.1 F L 97.1 F L Pulse Rate Pulse Rate [Pulse Oximeter] 73 84 73 Respiratory Rate 16 16 18 Blood Pressure [Ri ght Arm] 127/71 103/56 L Pulse Oximetry 98 97 Oxygen Delivery Me thod Room Air Room Air 10/30/25 00:04 10/30/25 04:00 10/30/25 07:00 Temperature 97.2 F L Pulse Rate Pulse Rate [Pulse Oximeter] 68 71 Respiratory Rate 18 18 16 Blood Pressure [Ri ght Arm] 122/81 Pulse Oximetry 96 Oxygen Delivery Me thod Room Air 10/30/25 07:00 Temperature 97.8 F Pulse Rate Pulse Rate [Pulse Oximeter] 71 Respiratory Rate 16 Blood Pressure [Ri ght Arm] 124/93 H Pulse Oximetry 98 Oxygen Delivery Me thod Room Air DS: Data Data Completed and Pending Labs on day of discharge: Labs from last 24 hours 10/30/25 10/29/25 10/29/25 06:44 18:40 18:28 WBC 4.26 L RBC 3.15 L Hgb 9.1 L 8.2 L Hct 29.5 L MCV 94 MCH 29 MCHC 31 L Plt Count 172 Sodium 134 L Potassium 3.5 L Chloride 106 Carbon Dioxide 25 Anion Gap 3 L BUN 14 Creatinine 0.7 Estimated Creat Clear 80.49 Estimated GFR 100 Glucose 128 H Calcium 8.2 L Stool H. pylori Ag Negative 10/29/25 12:20 WBC RBC Hgb 8.7 L Hct MCV MCH MCHC Plt Count Sodium Potassium Chloride Carbon Dioxide Anion Gap BUN Creatinine Estimated Creat Clear Estimated GFR Glucose Calcium Stool H. pylori Ag Imaging egd: Attestation: I have reviewed the pertinent imaging results. Radiologist's impression: Nonbleeding jejunal ulcer with adherent clot, 15 mm largest dimension. Discharge Plan Discharge Disposition: Home, Self-Care Date of Admission: 10/28/25 15:38 Attending Provider on Discharge: Nancy Walters Consulting Providers: Rosa Domínguez Primary Care Provider: Makayla Ribeiro Condition: Stable Anticipated Discharge Date/Time: 10/30/25 09:37 Discharge Medications: Continued rizatriptan 10 mg tablet 10 mg PO ONCE PRN Patient Comments: TAKE 1 TABLET BY MOUTH ONCE . MAY REPEAT AT 2 HOUR INTERVALS. DO NOT EXCEED 30 MG IN 24 HOURS naloxone [Narcan] 4 mg/actuation spray,non-aerosol 4 mg intranasal Q2-3M PRN (Reason: opioid overdose) Qty: 2 0RF Rx Instructions: spray 1 dose into ONE nostril; alternate nostrils w each dose until help arrives gabapentin 300 mg capsule 1,200 mg PO HS Patient Comments: 4 tabs at HS propranolol 160 mg capsule,extended release 24 hr 160 mg PO HS quetiapine 200 mg tablet 200 mg PO HS venlafaxine 150 mg capsule,extended release 24hr 150 mg PO DAILY amitriptyline 50 mg tablet 50 mg PO HS trazodone 100 mg tablet 100 mg PO HS epinephrine 0.3 mg/0.3 mL auto-injector 0.3 ml IM ONCE PRN Rx Instructions: as a single dose; may repeat once ropinirole 4 mg tablet 4 - 8 mg PO DAILY@1930 oxycodone-acetaminophen 7.5-325 mg tablet 1 tab PO QID PRN cholecalciferol (vitamin D3) 125 mcg (5,000 unit) capsule 125 mcg PO MO Rx Instructions: MONDAY ONLY multivitamin Tablet 1 tab PO DAILY teriflunomide 14 mg tablet 14 mg PO DAILY Qty: 90 3RF albuterol sulfate [Ventolin HFA] 90 mcg/actuation HFA aerosol inhaler 2 puff inhalation Q4-6H PRN (Reason: shortness of breath or wheezing) Qty: 6.7 5RF dextroamphetamine-amphetamine 30 mg capsule,extended release 24hr 30 mg PO QAM Qty: 30 0RF omeprazole 20 mg capsule,delayed release(DR/EC) 20 mg PO BID Qty: 180 0RF Discontinued celecoxib 200 mg capsule 200 mg PO DAILY Discharge Orders: Discharge Order (Routine); Ordered 10/30/25 Ordered By: Nancy Walters Additional Instructions: Continue to take your omeprazole (PPI) twice daily. Stop your Celebrex. Avoid NSAIDs (aspirin, ibuprofen, Advil, naproxen, Aleve). H. Pylori is negative. Close outpatient follow-up with PCP next week, recheck hemoglobin. Consideration for colonoscopy. Per General Surgery, you will need a repeat EGD in 3-4 months. Activity Level: No strenuous activity Discharge Diet: Regular Follow Up Appointments: Makayla Ribeiro, [place] [Primary Care Provider, Family Practice] Referral Note: 3-5 days Forms: [employer] Info Instructions
--- NOTE | 2025-10-30 12:32 | PC.NURSE ---
Discharge: patient pleasant and cooperative, independent in room, up to chair for meals and ambulating hallways. Pt's VSS, on RA tolerating a reg diet. Afebrile this shift. Patient denies N/V/SOB. Discharged today at 1042 to home accompanied by sister. IV removed tip intact. Discharge instructions given and belongings sheet signed. Patient verbalized understanding of instructions.
== END 2025-10-30 10:42 | disposition home or self-care (01) | DRG 381 ==
LOC: ED 13:42 → MEDSURG 17:01
PROVIDERS: Physician Assistant; Student in an Organized Health Care Education/Training Program; Admitting Provider Family Medicine; Emergency Provider Family Medicine; PCP Nurse Practitioner Family; Visit Provider Family Medicine
DX: K28.3 Acute gastrojejunal ulcer without hemorrhage or perforation (principal); D62 Acute posthemorrhagic anemia; K62.5 Hemorrhage of anus and rectum; F17.210 Nicotine dependence, cigarettes, uncomplicated; I95.9 Hypotension, unspecified; K21.9 Gastro-esophageal reflux disease without esophagitis; F31.9 Bipolar disorder, unspecified; G35.D Multiple sclerosis, unspecified; J44.9 Chronic obstructive pulmonary disease, unspecified; F41.9 Anxiety disorder, unspecified; Z79.891 Long term (current) use of opiate analgesic; Z79.899 Other long term (current) drug therapy; Z98.84 Bariatric surgery status; Z88.1 Allergy status to other antibiotic agents; Z88.5 Allergy status to narcotic agent; Z85.048 Personal history of other malignant neoplasm of rectum, rectosigmoid junction, and anus; R74.02 Elevation of levels of lactic acid dehydrogenase [LDH]
CPT/HCPCS: 00731; 36415; 36430; 43235; 80048; 80076; 83605; 83690; 84484; 85018; 85025; 85027; 85610; 85730; 86850; 86900; 86901; 86922; 87338; 93005; 94761; 99140; 99285; 99291; 99292; A9270; J2405; J2470; J2704; J3490; J7030; P9016